=== PATIENT | female | born 1930 | race Caucasian/White ===

== ENCOUNTER 2017-02-06 02:22 | Emergency (ER) | payer OTHER, BC ==
[2017-02-06 03:06] VITALS: BMI 29.2
--- NOTE | 2017-02-06 03:08 | PDOC ---
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 Patient denies any injuries but states she is not sure if she twisted her leg when she stood up. She denies any calf pain, extremity numbness or tingling sensation, headache, dizziness, lightheadedness, chest pain, shortness of breath. The pain is exacerbated at touch and alleviated at rest. Occurred: reports: this evening Lower Extremity Pain Location: left: knee (lat pain) Lower Ext. Injury Location - Specific Injury Location Legs: bilateral: normal inspection, non-tender, normal range of motion Knees: left pain (lat ) Extremity Pain Location - Extremity Pain Location Extremity Pain Locations: left: knee Past History - Travel Traveled outside of the country in the last 30 days: No Close contact w/someone who was outside of country & ill: No - Past Medical History Allergies/Adverse Reactions: Allergies Allergy/AdvReac Type Severity Reaction Status Date / Time No Known Allergies Allergy Verified 02/06/17 03:04 Home Medications: Ambulatory Orders Atorvastatin Ca [Lipitor] 10 mg PO HS 08/02/14 Levothyroxine [Synthroid -] 100 mcg PO DAILY #90 tablet 09/12/14 Warfarin Na [Coumadin -] 2.5 mg PO DAILY@1800 tablet 03/18/15 Spironolactone [Aldactone] 25 mg PO DAILY 09/24/15 Warfarin Na [Coumadin -] 5 mg PO Q2D 09/24/15 Furosemide [Lasix -] 20 mg PO ASDIR 04/23/16 Furosemide [Lasix -] 40 mg PO ASDIR 04/23/16 Prednisone [Deltasone] 20 mg PO DAILY #5 tablet 04/23/16 Allopurinol [Zyloprim -] 100 mg PO DAILY 02/06/17 Atenolol [Tenormin] 75 mg PO DAILY 02/06/17 Isosorbide Mononitrate [Imdur] 30 mg PO DAILY 02/06/17 Pantoprazole Sodium 40 mg PO DAILY 02/06/17 Anemia: No Asthma: No Cancer: Yes (colon ca/ SURGIRY 2013) Cardiac Disorders: Yes (mechanical valve) CVA: No COPD: No CHF: No Dementia: No Diabetes: No GI Disorders: Yes (PERF SURGERY 07/2014) Disorders: No HTN: Yes Hypercholesterolemia: Yes Liver Disease: No Seizures: No Thyroid Disease: No - Surgical History Abdominal Surgery: Yes (colon sx) Appendectomy: Yes Cardiac Surgery: Yes (VALVE REPLACEMENT) Cholecystectomy: No Lung Surgery: No Neurologic Surgery: No Orthopedic Surgery: No - Immunization History Immunization Up to Date: Yes - Psycho/Social/Smoking Cessation Hx Anxiety: No Suicidal Ideation: No Smoking Status: No Smoking History: Former smoker Years of Tobacco Use: 20 Have you smoked in the past 12 months: No Number of Cigarettes Smoked Daily: 0 If you are a former smoker, when did you quit?: 1970s Cigars Per Day: 0 Information on smoking cessation initiated: No Hx Alcohol Use: No Drug/Substance Use Hx: No Substance Use Type: None Hx Substance Use Treatment: No Review of Systems - Review of Systems Able to Perform ROS?: Yes Comments:: 02/06/17 03:12 CONSTITUTIONAL: Absent: fever, chills, diaphoresis, generalized weakness, malaise, loss of appetite HEENT: Absent: rhinorrhea, nasal congestion, throat pain, throat swelling, difficulty swallowing, mouth swelling, ear pain, eye pain, visual Changes CARDIOVASCULAR: Absent: chest pain, loss of consciousness, palpitations, irregular heart rate, peripheral edema RESPIRATORY: Absent: cough, shortness of breath, dyspnea with exertion, orthopnea, wheezing, stridor, hemoptysis MUSCULOSKELETAL: Absent: myalgia, arthralgia, joint swelling SKIN: Absent: rash, itching, pallor HEMATOLOGIC/IMMUNOLOGIC: Absent: easy bleeding, easy bruising, lymphadenopathy, frequent infections Is the patient limited Peruvian proficient: No *Physical Exam - Vital Signs Last Vital Signs Temp Pulse Resp BP Pulse Ox 97.9 F 83 18 120/58 97 02/06/17 03:04 02/06/17 03:04 02/06/17 03:04 02/06/17 03:04 02/06/17 03:04 - Physical Exam Comments: 02/06/17 03:13 left knee F.R.O.M. +pain to lat aspect on palp Neg swelling Neg deformities Left lower leg Neg benjy's Neg swelling neg deformity Left hip F.R.O.M. neg pain on palp GENERAL: Well developed, well nourished. Awake and alert. No acute distress. HEENT: Normocephalic, atraumatic. PERRLA, EOMI. No conjunctival pallor. Sclera are non- icteric. Moist mucous membranes. Oropharynx is clear. NECK: Supple. Full ROM. No JVD. Carotid pulses 2+ and symmetric, without bruits. No thyromegaly. No lymphadenopathy. CARDIOVASCULAR: Regular rate and rhythm. No murmurs, rubs, or gallops. Distal pulses are 2+ and symmetric. PULMONARY: No evidence of respiratory distress. Lungs clear to auscultation bilaterally. No wheezing, rales or rhonchi. ABDOMINAL: Soft. Non-tender. Non-distended. No rebound or guarding. No organomegaly. Normoactive bowel sounds. MUSCULOSKELETAL Normal range of motion at all joints. No bony deformities or tenderness. No CVA tenderness. EXTREMITIES: No cyanosis. No clubbing. No edema. No calf tenderness. SKIN: Warm and dry. Normal capillary refill. No rashes. No jaundice. NEUROLOGICAL: Alert, awake, appropriate. Cranial nerves 2-12 intact. No deficits to light touch and temperature in face, upper extremities and lower extremities. No motor deficits in the in face, upper extremities and lower extremities. Normoreflexic in the upper and lower extremities. Normal speech. Toes are down- going bilaterally. Gait is normal without ataxia. PSYCHIATRIC: Cooperative. Good eye contact. Appropriate mood and affect. Progress Note - Progress Note Progress Note: 0700hrs: Signed out to JOSE ALFREDO De La Cruz/ Duplex to right lower leg R/O DVT *DC/Admit/Observation/Transfer Diagnosis at time of Disposition: Left leg swelling - Discharge Dispostion Disposition: HOME Condition at time of disposition: Good - Referrals Referrals: Isrrael Lua MD [Primary Care Provider] - - Patient Instructions Additional Instructions: Your ultrasound was negative for clot. The source of your swelling is unclear at this time. Take Tylenol as needed for pain Your INR was 4.3. Skip coumadin dose tonight and contact your legal paraprofessional in the am for further instructions.
[2017-02-06 04:00] LABS: INR 4.32 (0.82-1.09)
[2017-02-06 06:51] VITALS: BP 117/79; PULSE 71; TEMP 97.1
--- NOTE | 2017-02-06 07:24 | PDOC ---
*Physical Exam - Vital Signs Last Vital Signs Temp Pulse Resp BP Pulse Ox 97.1 F L 71 18 117/79 97 02/06/17 06:49 02/06/17 06:49 02/06/17 06:49 02/06/17 06:49 02/06/17 06:49 - Physical Exam General Appearance: Yes: Appropriately Dressed. No: Apparent Distress HEENT: positive: Normal Voice Neck: positive: Supple Respiratory/Chest: positive: Lungs Clear, Normal Breath Sounds. negative: Respiratory Distress Cardiovascular: positive: Regular Rate, S1, S2 Extremity: positive: Swelling (on LLE, +ttp to latreral L knee, no erythema or increased warmth, pedal pulses intact) Integumentary: positive: Warm Neurologic: positive: Fully Oriented, Alert, Normal Mood/Affect ED Treatment Course - ADDITIONAL ORDERS Additional order review: Laboratory Results 02/06/17 02/06/17 03:30 03:30 INR 4.32 H* D-Dimer < 200 Medical Decision Making - Medical Decision Making 02/06/17 07:23 Received sign out at 7am Pt is a 86 yo F, mechanical heart valve on coumadin, colon ca, p/w LLE pain and swelling. US pending though ddimer neg so m/l not DVT. Pt declines pain meds presently 02/06/17 07:43 On reassessment, pt still declines pain meds. Does have mild swelling diffusely of LLE compared to R, w/ ttp to lateral aspect of knee, no s/o infxn. If US is neg, will dc w/ pain control and PMD f/u. INR >4. No e/o bleeding at this time. Will discuss AC management w/ ED attg 02/06/17 10:09 DVT study neg. Pt bearing weight w/ cane in ED. Will dc to take tylenol as needed for pain. Informed that her INR was 4. Told to skip coumadin dose tonight and contact her cards tomorrow for further recommendations 02/06/17 10:16 02/06/17 10:18 *DC/Admit/Observation/Transfer Diagnosis at time of Disposition: Left leg swelling - Discharge Dispostion Disposition: HOME Condition at time of disposition: Good - Referrals Referrals: sIrrael Lua MD [Primary Care Provider] - - Patient Instructions Additional Instructions: Your ultrasound was negative for clot. The source of your swelling is unclear at this time. Take Tylenol as needed for pain Your INR was 4.3. Skip coumadin dose tonight and contact your establishment guide in the am for further instructions. - Post Discharge Activity
== END 2017-02-06 10:36 | disposition home or self-care (01) ==
LOC: JER 02:22
DX: M79.89 Other specified soft tissue disorders (principal); Z85.038 Personal history of other malignant neoplasm of large intestine; I10 Essential (primary) hypertension; E78.00 Pure hypercholesterolemia, unspecified; I51.9 Heart disease, unspecified; Z87.891 Personal history of nicotine dependence
CPT/HCPCS: 36415; 73590-TC-LT; 85379; 85610; 93970-TC; 99282-25

== ENCOUNTER 2017-06-06 11:44 | Emergency (ER) | payer OTHER, BC ==
[2017-06-06 11:55] VITALS: BMI 25.0
--- NOTE | 2017-06-06 12:29 | PDOC ---
History of Present Illness - General Chief Complaint: Wound Infection Stated Complaint: LT TOE INFECTION Time Seen by Provider: 06/06/17 12:28 History Source: Patient Exam Limitations: No Limitations - History of Present Illness Initial Comments: 06/06/17 13:15 Patient is an 86-year-old female with past medical history of A. fib on warfarin , hypothyroidism, HLD, mechanical heart valve, who presents to the emergency department today complaining of a left toe infection. Patient states that her toe infection started approximately 3 days ago. Patient states that she got a pedicure on Tuesday and noticed the infection shortly thereafter. She states that it has been draining clear to yellow fluid. She has been putting bacitracin on the site. She denies pain. Denies fevers, chills, nausea, vomiting and diarrhea. Denies dizziness, chest pain, shortness of breath, lightheadedness, and weakness. Past History - Travel Traveled outside of the country in the last 30 days: No Close contact w/someone who was outside of country & ill: No - Past Medical History Allergies/Adverse Reactions: Allergies Allergy/AdvReac Type Severity Reaction Status Date / Time No Known Allergies Allergy Verified 06/06/17 11:55 Home Medications: Ambulatory Orders Atorvastatin Ca [Lipitor] 10 mg PO HS 08/02/14 Levothyroxine [Synthroid -] 100 mcg PO DAILY #90 tablet 09/12/14 Warfarin Na [Coumadin -] 2.5 mg PO DAILY@1800 tablet 03/18/15 Spironolactone [Aldactone] 25 mg PO DAILY 09/24/15 Warfarin Na [Coumadin -] 5 mg PO Q2D 09/24/15 Furosemide [Lasix -] 20 mg PO ASDIR 04/23/16 Furosemide [Lasix -] 40 mg PO ASDIR 04/23/16 Prednisone [Deltasone] 20 mg PO DAILY #5 tablet 04/23/16 Allopurinol [Zyloprim -] 100 mg PO DAILY 02/06/17 Atenolol [Tenormin] 75 mg PO DAILY 02/06/17 Isosorbide Mononitrate [Imdur] 30 mg PO DAILY 02/06/17 Pantoprazole Sodium 40 mg PO DAILY 02/06/17 Cephalexin Monohydrate [Keflex -] 500 mg PO Q6H #28 capsule 06/06/17 Sulfamethoxazole/Trimethoprim [Bactrim Ds Tablet] 1 each PO BID #14 tablet 06/06 Anemia: No Asthma: No Cancer: Yes (colon ca/ SURGIRY 2013) Cardiac Disorders: Yes (mechanical valve) CVA: No COPD: No CHF: No Dementia: No Diabetes: No GI Disorders: Yes (PERF SURGERY 07/2014) Disorders: No HTN: Yes Hypercholesterolemia: Yes Liver Disease: No Seizures: No Thyroid Disease: No - Surgical History Abdominal Surgery: Yes (colon sx) Appendectomy: Yes Cardiac Surgery: Yes (VALVE REPLACEMENT) Cholecystectomy: No Lung Surgery: No Neurologic Surgery: No Orthopedic Surgery: No - Immunization History Immunization Up to Date: Yes - Psycho/Social/Smoking Cessation Hx Anxiety: No Suicidal Ideation: No Smoking Status: No Smoking History: Never smoked Years of Tobacco Use: 20 Have you smoked in the past 12 months: No Number of Cigarettes Smoked Daily: 0 If you are a former smoker, when did you quit?: 1970s Cigars Per Day: 0 Information on smoking cessation initiated: No Hx Alcohol Use: No Drug/Substance Use Hx: No Substance Use Type: None Hx Substance Use Treatment: No Review of Systems - Review of Systems Able to Perform ROS?: Yes Is the patient limited Filipino proficient: No Constitutional: No: Chills, Fever, Malaise, Weakness Respiratory: No: Cough, Shortness of Breath, Wheezing Cardiac (ROS): Yes: Irregular Heart Rate. No: Chest Pain, Edema, Lightheadedness, Palpitations, Syncope ABD/GI: No: Nausea, Vomiting Integumentary: Yes: Change in Hair/Nails (redness surrounding the L 1st toe nail ), Erythema (L 1st toe. ) Neurological: No: Numbness, Tremors, Weakness *Physical Exam - Vital Signs Last Vital Signs Temp Pulse Resp BP Pulse Ox 98.2 F 120 H 16 130/76 95 06/06/17 11:52 06/06/17 11:52 06/06/17 11:52 06/06/17 11:52 06/06/17 11:52 - Physical Exam Comments: 06/06/17 13:17 GENERAL: Well developed, well nourished. Awake, alert and oriented x3. No acute distress breathing easily on RA sitting on exam bed. HEENT: Normocephalic, atraumatic. PERRLA, EOMI. No conjunctival pallor. Sclera are non- icteric. Moist mucous membranes. Oropharynx is clear. NECK: Supple. Full ROM. No JVD. Carotid pulses 2+ and symmetric, without bruits. No thyromegaly. No lymphadenopathy. CARDIOVASCULAR: Tachycardic. No murmurs, rubs, or gallops. Mechanical click present. Distal pulses are 2+ and symmetric. PULMONARY: No evidence of respiratory distress. Lungs clear to auscultation bilaterally. No wheezing, rales or rhonchi. ABDOMINAL: Soft. Non-tender. Non-distended. No rebound or guarding. No organomegaly. Normoactive bowel sounds. MUSCULOSKELETAL Normal range of motion at all joints. No bony deformities or tenderness. No CVA tenderness. EXTREMITIES: No cyanosis. No clubbing. No edema. No calf tenderness. SKIN: Open draining paronychia along the medial first toe border. Cellulitic changes surrounding the first toe to just distal to the DIP. Mild tenderness to palpation of the left toe. Warm and dry. Normal capillary refill. No jaundice. NEUROLOGICAL: Alert, awake, appropriate. Cranial nerves 2-12 intact. No deficits to light touch and temperature in face, upper extremities and lower extremities. No motor deficits in the in face, upper extremities and lower extremities. Normoreflexic in the upper and lower extremities. Normal speech. Toes are down- going bilaterally. Gait is normal without ataxia. PSYCHIATRIC: Cooperative. Good eye contact. Appropriate mood and affect. ED Treatment Course - LABORATORY CBC & Chemistry Diagram: 06/06/17 12:45 06/06/17 12:48 Medical Decision Making - Medical Decision Making 06/06/17 13:20 Patient is an 86-year-old female with past medical history of A. fib on warfarin , hypothyroidism, HLD, mechanical heart valve, who presents to the emergency department today complaining of a left toe infection. Vital signs are notable for a pulse of 120. Overall patient appears well, and is afebrile. Patient is not immunocompromised. The wound is currently open and draining with surrounding cellulitis just lateral to the DIP. If CBC is within normal limits and patient is no longer tachycardic in the emergency department, will discharge home. 1. CBC, CMP, PT/INR, UA, blood cultures, wound culture 2. EKG, rectal temperature 3. soak the wound 4. Reevaluate 06/06/17 14:57 WBCs are within normal limits and the wound has been soaked. A small amount of pus has evacuated from the toe, and after the pus was evacuated blood drained. Patient is feeling well, heart rate has come down to 84 at this time. Still waiting for the CMP results. EKG shows a rate of 92, Afib, normal axis. No acute ST-T wave changes. 06/06/17 15:48 PT/INR is 3.6 at this time slightly elevated from 3.5. Patient is advised to follow-up with her biomedical equipment specialist. CMP shows a potassium within normal limits, BUN slightly elevated at 21 however the creatinine is 1.0. Patient has remained afebrile in the emergency department and pulse rate has come down between the 80s and 90s. Explained to patient that she needs to soak the wound at least 4 times a day to help the infection come out. Also explained to the patient that she'll be prescribed both Bactrim and Keflex to cover for skin miya. Instructed the patient that she needs to follow up with her biomedical equipment specialist in 3 days to have a repeat PT/INR drawn as well as a repeat CMP drawn as these medications can affect her potassium levels and make her PT/INR rise. Patient confers understanding that she needs to follow up with her biomedical equipment specialist and states that she will call her biomedical equipment specialist after she leaves the emergency department. Patient is also to schedule an appointment with a dual hose cementer to keep an eye on the healing process. Patient understands that if the area of redness gets larger she is to return to the emergency department. Patient understands the need to take the antibiotics. Patient feels comfortable with discharge planning. Patient states that she understands all discharge instructions and all questions were answered at this time. *DC/Admit/Observation/Transfer Diagnosis at time of Disposition: Paronychia, Cellulitis of toe of left foot - Discharge Dispostion Disposition: HOME Condition at time of disposition: Improved Admit: No - Prescriptions Prescriptions: Sulfamethoxazole/Trimethoprim [Bactrim Ds Tablet] 1 each PO BID #14 tablet Cephalexin Monohydrate [Keflex -] 500 mg PO Q6H #28 capsule - Referrals Referrals: Isrrael Lua MD [Primary Care Provider] - Ney Car MD [Staff Physician] - Dheeraj Coates MD [Staff Physician] - - Patient Instructions Printed Discharge Instructions: DI for Paronychia, DI for Cellulitis -- Adult Additional Instructions: You have an infection of your left first toe. It is important that you take your antibiotics as prescribed. You were prescribed Bactrim and Keflex. Take the full doses even if you feel better. Take the medication with a full stomach. Your given her first dose here in the emergency department. You can bead picker the prescription at her pharmacy. It is important that you call your biomedical equipment specialist tomorrow. These antibiotics can affect your INR and potassium. You need to have your INR and potassium checked on . If these values cannot be checked in the biomedical equipment specialist's office, return to the emergency department and we and redraw your lab work here. Soak your toe for 20 minutes 4 times a day. This will help to draw out the infection. Do not use Neosporin over the area as it can close the wound. Keep the foot elevated and out of a shoe when resting. Follow up with the foot doctor within the week. There is a phone number attacks in your discharge instructions. Return to the emergency department if you develope fevers, chills, nausea, vomiting, worsening of the redness around her toe, or any other changes in your symptoms
[2017-06-06 12:56] LABS: BASOPHIL 0.3 % (0-2.0); MCH 27.5 pg (25.7-33.7); MEAN CELL VOLUME 83.5 fl (80-96); MEAN PLT VOLUME 9.9 fl (7.5-11.1); NEUTROPHILS 73.7 % (42.8-82.8); PLATELET COUNT 163 K/MM3 (134-434); RDW 17.1 % (11.6-15.6); WHITE BLOOD COUNT 6.7 K/mm3 (4.0-10.0)
[2017-06-06 13:18] LABS: INR 3.64 (0.82-1.09); PROTHROMBIN TIME (PATIENT) 41.1 SEC (9.98-11.88)
[2017-06-06 13:22] LABS: ALBUMIN 4.4 g/dl (3.4-5.0); ANION GAP 7 (8-16); CALCIUM 9.7 mg/dL (8.5-10.1); CO2 32 mmol/L (21-32); GLUCOSE,RANDOM 113 mg/dL (74-106)
[2017-06-06 14:33] LABS: ALK PHOS 140 U/L (45-117); SGOT/AST 28 U/L (15-37); TOT PROT 8.5 g/dl (6.4-8.2)
[2017-06-06 14:52] LABS: SGPT/ALT 20 U/L (12-78)
--- NOTE | 2017-06-06 15:47 | PDOC ---
*Physical Exam - Vital Signs Last Vital Signs Temp Pulse Resp BP Pulse Ox 98.2 F 120 H 16 130/76 95 06/06/17 11:52 06/06/17 11:52 06/06/17 11:52 06/06/17 11:52 06/06/17 11:52 - Physical Exam General Appearance: Yes: Nourished Respiratory/Chest: positive: Lungs Clear, Normal Breath Sounds Cardiovascular: positive: Regular Rate, S1, S2 Gastrointestinal/Abdominal: positive: Normal Bowel Sounds, Tender, Flat Musculoskeletal: positive: Normal Inspection Integumentary: positive: Normal Color, Dry, Warm, Other (left great toe with erythema to great toe IP, no foot erythema. mild expressable pus medial corner. ) Neurologic: positive: Fully Oriented, Alert, Normal Mood/Affect Heart Score/ECG Review #1 General ECG Interpretation: Sinus Rhythm (junctional with premature beats.), Normal Rate (94 bpm, no st t wave changes), Normal Intervals ED Treatment Course - LABORATORY CBC & Chemistry Diagram: 06/06/17 12:45 06/06/17 12:48 - ADDITIONAL ORDERS Additional order review: Laboratory Results 06/06/17 06/06/17 12:48 12:48 INR 3.64 H Sodium 138 Potassium 3.8 Chloride 99 Carbon Dioxide 32 Anion Gap 7 L BUN 21 H Random Glucose 113 H Calcium 9.7 Total Bilirubin 1.0 D AST 28 D ALT 20 Alkaline Phosphatase 140 H Total Protein 8.5 H Albumin 4.4 06/06/17 12:45 RBC 4.34 MCV 83.5 MCHC 33.0 RDW 17.1 H MPV 9.9 Neutrophils % 73.7 Lymphocytes % 16.3 D Monocytes % 8.7 Eosinophils % 1.0 Basophils % 0.3 D Medical Decision Making - Medical Decision Making 06/06/17 15:44 86 yo F with h/o afib, on coumadin with paronychia, toe swelling and erythema. draining. no further drainage needed. plan for abx and podiatry followup. 06/06/17 15:47 pt seen in conjunction with andrew Burks. seen and examined and agree with plan
[2017-06-06 15:51] VITALS: TEMP 99.4
[2017-06-06 16:09] VITALS: BP 137/76; PULSE 96
[2017-06-06] MEDS ORDERED: CEPHALEXIN MONOHYDRATE 500 MG CAPSULE (UD) PO ONE (17:03)
[2017-06-06] MEDS ORDERED: SULFAMETHOXAZOLE/TRIMETHOPRIM 800MG/160MG D.S. TABLET PO ONE (17:03)
[2017-06-06] MEDS ORDERED: SULFAMETHOXAZOLE/TRIMETHOPRIM 800MG/160MG D.S. TABLET ONE (17:25)
[2017-06-06] MEDS ORDERED: CEPHALEXIN MONOHYDRATE 250 MG CAPSULE (FP) ONE (17:25)
--- NOTE | 2017-06-08 16:47 | EKG ---
Test Reason : Blood Pressure : / mmHG Vent. Rate : 094 BPM Atrial Rate : 094 BPM P-R Int : 000 ms QRS Dur : 086 ms QT Int : 378 ms P-R-T Axes : 000 049 024 degrees QTc Int : 472 ms ACCELERATED JUNCTIONAL RHYTHM WITH PREMATURE SUPRAVENTRICULAR COMPLEXES POSSIBLE ANTEROSEPTAL INFARCT (CITED ON OR BEFORE 23-APR-2016) ABNORMAL ECG WHEN COMPARED WITH ECG OF 23-APR-2016 15:18, JUNCTIONAL RHYTHM HAS REPLACED ATRIAL FIBRILLATION QUESTIONABLE CHANGE IN INITIAL FORCES OF ANTERIOR LEADS QT HAS LENGTHENED Confirmed by GITA POPE MD ([id number]) on 06/08/2017 4:46:51 PM Referred By: Confirmed By:GITA POPE MD
== END 2017-06-06 17:43 | disposition home or self-care (01) ==
LOC: JER 11:44
DX: L03.032 Cellulitis of left toe (principal); Z85.038 Personal history of other malignant neoplasm of large intestine; I10 Essential (primary) hypertension; E78.00 Pure hypercholesterolemia, unspecified; Z87.891 Personal history of nicotine dependence
CPT/HCPCS: 36415; 80053; 85025; 85610; 87040; 87070; 87186; 87205; 93005; 93010; 99283-25

== ENCOUNTER 2018-05-07 13:51 | Inpatient (IN) | payer OTHER, BC ==
--- NOTE | 2018-05-07 13:59 | PDOC ---
History of Present Illness <Lydia Mandujano - Last Filed: 05/07/18 17:14> - History of Present Illness Initial Comments: 05/07/18 13:57 87 yo F with h/o HLD, A. fib on warfarin, hypothyroidism, mechanical heart valve, BIBA with R hip and thigh pain s/p mechanical fall. 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 Patient on ground 30-45 minutes. Did not ambulate following event. Not able to move leg at R hip following fall. Typically ambulates with walker. Denies head/neck/back trauma, laceration, or LOC. Denies recurrent falls. Patient denies N/V, F/C, CP, SOB, urinary complaints, abdominal pain, diarrhea, constipation, lightheadedness, weakness, sensory changes. PMHx: as noted above ROS: as noted SHx: Denies Etoh, IVDA. Allergies: NKDA <Mustapha Howard - Last Filed: 05/07/18 17:29> - General Chief Complaint: Injury Stated Complaint: FALL Time Seen by Provider: 05/07/18 13:55 Past History <Lydia Mandujano - Last Filed: 05/07/18 17:14> - Past Medical History Anemia: No Asthma: No Cancer: Yes (colon ca/ SURGIRY 2013) Cardiac Disorders: Yes (mechanical valve) CVA: No COPD: No CHF: No Dementia: No Diabetes: No GI Disorders: Yes (PERF SURGERY 07/2014) Disorders: No HTN: Yes Hypercholesterolemia: Yes Liver Disease: No Seizures: No Thyroid Disease: No - Surgical History Abdominal Surgery: Yes (colon sx) Appendectomy: Yes Cardiac Surgery: Yes (VALVE REPLACEMENT) Cholecystectomy: No Lung Surgery: No Neurologic Surgery: No Orthopedic Surgery: No - Immunization History Immunization Up to Date: Yes - Suicide/Smoking/Psychosocial Hx Smoking Status: No Smoking History: Never smoked Years of Tobacco Use: 20 Have you smoked in the past 12 months: No Number of Cigarettes Smoked Daily: 0 If you are a former smoker, when did you quit?: 1970s Cigars Per Day: 0 Hx Alcohol Use: No Drug/Substance Use Hx: No Substance Use Type: None Hx Substance Use Treatment: No <Mustapha Howard - Last Filed: 05/07/18 17:29> - Past Medical History Allergies/Adverse Reactions: Allergies Allergy/AdvReac Type Severity Reaction Status Date / Time No Known Allergies Allergy Verified 05/07/18 15:39 Home Medications: Ambulatory Orders Atorvastatin Ca [Lipitor] 10 mg PO HS 08/02/14 Levothyroxine [Synthroid -] 100 mcg PO DAILY #90 tablet 09/12/14 Spironolactone [Aldactone] 25 mg PO DAILY 09/24/15 Warfarin Na [Coumadin -] 4 mg PO ASDIR 09/24/15 Furosemide [Lasix -] 40 mg PO DAILY 04/23/16 Allopurinol [Zyloprim -] 100 mg PO DAILY 02/06/17 Atenolol [Tenormin] 50 mg PO DAILY 02/06/17 Isosorbide Mononitrate [Imdur] 30 mg PO DAILY 02/06/17 Pantoprazole Sodium 40 mg PO DAILY 02/06/17 Calcium Carbonate/Vitamin D3 [Calcium 600-Vit D3 2,500 Sftgl] 1 each PO ASDIR Gabapentin [Neurontin] 100 mg PO BID 05/07/18 Ibandronate Sodium 150 mg PO MONTHLY 05/07/18 Warfarin Na [Coumadin -] 2 mg PO ASDIR 05/07/18 Review of Systems - Review of Systems Comments:: 05/07/18 13:57 GENERAL/CONSTITUTIONAL: No fever or chills. No weakness. HEAD, EYES, EARS, NOSE AND THROAT: No change in vision. No ear pain or discharge. No sore throat. CARDIOVASCULAR: No chest pain or shortness of breath RESPIRATORY: No cough, wheezing, or hemoptysis. GASTROINTESTINAL: No nausea, vomiting, diarrhea or constipation. GENITOURINARY: No dysuria, frequency, or change in urination. MUSCULOSKELETAL: + R hip and thigh pain. No neck or back pain. SKIN: No rash NEUROLOGIC: No headache, vertigo, loss of consciousness, or change in strength/ sensation. ENDOCRINE: No increased thirst. No abnormal weight change HEMATOLOGIC/LYMPHATIC: No anemia, easy bleeding, or history of blood clots. ALLERGIC/IMMUNOLOGIC: No hives or skin allergy. <Mustapha Howard - Last Filed: 05/07/18 17:29> *Physical Exam - Vital Signs Last Vital Signs Temp Pulse Resp BP Pulse Ox 97.6 F 91 H 16 151/75 96 05/07/18 13:55 05/07/18 15:05 05/07/18 13:55 05/07/18 15:05 05/07/18 15:05 <Lydia Mandujanolarry - Last Filed: 05/07/18 17:14> - Physical Exam Comments: 05/07/18 13:57 GENERAL: Awake, alert, and fully oriented, in no acute distress HEAD: No signs of trauma, normocephalic, atraumatic EYES: PERRLA, EOMI, sclera anicteric, conjunctiva clear ENT: Auricles normal inspection, hearing grossly normal, nares patent, oropharynx clear without exudates. Moist mucosa NECK: Normal ROM, supple, no lymphadenopathy, JVD, or masses LUNGS: No distress, speaks full sentences, clear to auscultation bilaterally HEART: + Mechanical murmur. Regular rate and rhythm, normal S1 and S2, , rubs or gallops, peripheral pulses normal and equal bilaterally. ABDOMEN: Soft, nontender, normoactive bowel sounds. No guarding, no rebound. No masses EXTREMITIES :No edema. No clubbing or cyanosis. R THIGH: R leg slightly externally rotated and appears shortened. No obvious bony deformity, ttp. No skin change. SKIN: Warm, Dry, normal turgor, no rashes or lesions noted <Mustapha Howard - Last Filed: 05/07/18 17:29> ED Treatment Course - LABORATORY CBC & Chemistry Diagram: 05/07/18 15:15 05/07/18 15:15 - ADDITIONAL ORDERS Additional order review: Laboratory Results 05/07/18 05/07/18 05/07/18 15:15 15:15 15:15 PT with INR 35.70 H INR 3.16 H Sodium 138 Potassium 3.6 Chloride 100 Carbon Dioxide 30 Anion Gap 8 BUN 25 H Creatinine 0.9 Creat Clearance w eGFR 59.23 Random Glucose 152 H Calcium 9.2 Total Bilirubin 0.8 AST 25 ALT 19 Alkaline Phosphatase 137 H Total Protein 7.7 Albumin 3.7 Urine Color Urine Appearance Urine pH Ur Specific [place] Urine Protein Urine Glucose (UA) Urine Ketones Urine Blood Urine Nitrite Urine Bilirubin Urine Urobilinogen Ur Leukocyte Esterase Blood Type O POSITIVE Antibody Screen Positive H 05/07/18 15:07 PT with INR INR Sodium Potassium Chloride Carbon Dioxide Anion Gap BUN Creatinine Creat Clearance w eGFR Random Glucose Calcium Total Bilirubin AST ALT Alkaline Phosphatase Total Protein Albumin Urine Color Straw Urine Appearance Clear Urine pH 6.0 Ur Specific [place] 1.005 Urine Protein Negative Urine Glucose (UA) Negative Urine Ketones Negative Urine Blood Negative Urine Nitrite Negative Urine Bilirubin Negative Urine Urobilinogen Negative Ur Leukocyte Esterase Negative Blood Type Antibody Screen 05/07/18 15:15 RBC 3.95 MCV 82.9 MCHC 32.5 RDW 16.3 H MPV 10.3 Neutrophils % 82.4 Lymphocytes % 9.2 D Monocytes % 7.4 Eosinophils % 0.9 Basophils % 0.1 - Medications Given in the ED: ED Medications Discontinued Medications Generic Name Dose Route Start Last Admin Trade Name Freq PRN Reason Stop Dose Admin Acetaminophen 650 mg 05/07/18 14:16 05/07/18 15:00 Tylenol - PO 05/07/18 14:17 650 mg ONCE ONE Administration Morphine Sulfate 4 mg 05/07/18 15:59 05/07/18 16:20 Morphine Injection - IVPUSH 05/07/18 16:00 4 mg ONCE ONE Administration Ondansetron HCl 4 mg 05/07/18 15:59 05/07/18 16:20 Zofran Injection IVPUSH 05/07/18 16:00 4 mg ONCE ONE Administration <Lydia Mandujano - Last Filed: 05/07/18 17:14> - LABORATORY CBC & Chemistry Diagram: 05/07/18 15:15 05/07/18 15:15 <Mustapha Howard - Last Filed: 05/07/18 17:29> Medical Decision Making - Medical Decision Making 05/07/18 14:24 87 yo F with h/o HLD, A-fib on warfarin, hypothyroidism, mechanical heart valve , BIBA with R hip and thigh pain s/p mechanical fall.BP 189, vitals otherwise wnl, AF, GCS 15. + R limb length discrepancy and external rotation, + neurovascular intact. R/o hip fracture or dislocation. [place] CTH rules neg. Nexus C-spine neg. Patient unable to ambulate. ED Course: CBC, CMP Tylenol 05/07/18 15:55 R closed non displaced oblique femoral neck fracture. 05/07/18 15:57 Orthopedic answering service contacted. Awaiting call back. 05/07/18 16:00 Morphine, Zofran Admitted to med/surg Dr. Villeda. 05/07/18 16:11 Dr. Ellsworth orthopedics P.AByron made aware of case. Patient to become NPO at midnight. <Mustapha Howard - Last Filed: 05/07/18 17:29> *DC/Admit/Observation/Transfer - Discharge Dispostion Decision to Admit order: Yes <Lydia Mandujano - Last Filed: 05/07/18 17:14> - Discharge Dispostion Decision to Admit order: Yes - Attestations Physician Attestion: 05/07/18 13:58 I attest to the information provided in this note. <Mustapha Howard - Last Filed: 05/07/18 17:29> Diagnosis at time of Disposition: Femoral neck fracture Qualifiers: Encounter type: initial encounter Fracture type: closed Laterality: right Qualified Code(s): S72.001A - Fracture of unspecified part of neck of right femur, initial encounter for closed fracture
[2018-05-07] MEDS ORDERED: ACETAMINOPHEN 325 MG TABLET (FP) PO ONE (14:16)
[2018-05-07] MEDS ORDERED: ACETAMINOPHEN 650 MG/20.3 ML ORAL SOLUTION (CUPS) ONE (15:03)
[2018-05-07 15:17] LABS: URINE APPEARANCE CLEAR; URINE BILIRUBIN NEGATIVE (<2.0 mg/dL); URINE COLOR STRAW; URINE GLUCOSE (UA) NEGATIVE (NEGATIVE); URINE KETONE NEGATIVE (NEGATIVE); URINE LEUK ESTERASE NEGATIVE (NEGATIVE); URINE NITRITE NEGATIVE (NEGATIVE); URINE PROTEIN NEGATIVE (NEGATIVE); URINE UROBILINOGEN NEGATIVE mg/dL (0.2-1.0)
[2018-05-07 15:28] LABS: BASO % 0.1 % (0-2.0); EOS % 0.9 % (0-4.5); HEMATOCRIT 32.7 % (32.4-45.2); HEMOGLOBIN 10.6 GM/dL (10.7-15.3); LYMPH % 9.2 % (8-40); MCH 26.9 pg (25.7-33.7); MCHC 32.5 g/dl (32.0-36.0); MEAN CELL VOLUME 82.9 fl (80-96); MEAN PLT VOLUME 10.3 fl (7.5-11.1); MONO % 7.4 % (3.8-10.2); NEUT % 82.4 % (42.8-82.8); PLATELET COUNT 140 K/MM3 (134-434); RBC 3.95 M/mm3 (3.60-5.2); RDW 16.3 % (11.6-15.6); WHITE BLOOD COUNT 6.2 K/mm3 (4.0-10.0)
[2018-05-07 15:39] LABS: INR 3.16 (0.82-1.09); PROTHROMBIN TIME (PATIENT) 35.7 SEC (9.7-13.0)
[2018-05-07 15:57] LABS: ALBUMIN 3.7 g/dl (3.4-5.0); ANION GAP 8 (8-16); BILIRUBIN,TOTAL 0.8 mg/dL (0.2-1.0); BLOOD UREA NITROGEN 25 mg/dL (7-18); CALCIUM 9.2 mg/dL (8.5-10.1); CHLORIDE 100 mmol/L (98-107); CO2 30 mmol/L (21-32); CREATININE 0.9 mg/dL (0.55-1.02); GLUCOSE,RANDOM 152 mg/dL (74-106); POTASSIUM 3.6 mmol/L (3.5-5.1); SGOT/AST 25 U/L (15-37); SGPT/ALT 19 U/L (12-78); SODIUM 138 mmol/L (136-145); TOT PROT 7.7 g/dl (6.4-8.2)
[2018-05-07 15:58] LABS: ALK PHOS 137 U/L (45-117)
[2018-05-07] MEDS ORDERED: ONDANSETRON 4 MG/2 ML VIAL IVPUSH ONE (15:59)
[2018-05-07] MEDS ORDERED: morphine CARPU-JECT 4 MG/1 ML DISP.SYRIN IVPUSH ONE (15:59)
[2018-05-07] MEDS ORDERED: morphine SULFATE 4 MG/ML VIAL ONE (16:16)
[2018-05-07] MEDS ORDERED: ONDANSETRON 4 MG/2 ML VIAL ONE (16:16)
--- NOTE | 2018-05-07 16:22 | PDOC ---
Attending Attestation - HPI HPI: 05/07/18 17:15 Mr. Nandini Walden is a 87 year old with past medical history of Afib on coumadin, CAD, HTN, HLD, RH heart disease permanent/ AF s/p CEA/ TR with R. heart failure, Colon CA, GERD, CHF, gout, hypothyroidism, osteoporosis and PUD presents to the emergency department s/p a fall. The patient state she tried to sit onto a granite bench w/o looking when she suffered a fall, denies dizziness , LOC or vertigo. Patient states she landed on a carpeted floor injuring her R. hip. The patient reports pain to the R. hip, states she is unable to move the leg secondary to pain, with relief/no pain at rest. Denies numbness or tingling. Denies chest pain or shortness of breath. Denies vertigo or dizziness. Denies swelling. Allergies: NKDA Social history: Patient denies. Surgical history: Appendectomy, Carotid Endarterectomy (right carotid endarterectomy), Colectomy (right hemicolectomy 2013), Hysterectomy (MECHANICAL MITRAL VALVE REPLACEMENT), Valve Replacement PCP: Isrrael Reza Diesel Engine Engineer: Dr. Coates Senior Service Technician: Dr. Logan Surgery: Dr. Geller - Physicial Exam PE: 05/07/18 17:15 General: Well appearing, awake and alert, NAD. HEENT: NCAT, PERRL, EOMI, clear conjunctiva, anicteric, moist mucus membranes, clear oropharynx, no oral lesions.. Neck: neck supple, FROM, no JVD, LAD or masses, right lateral neck scar from CEA Lungs: CTAB, normal and even respirations, no respiratory distress Heart: holosystolic murmur, 2+ peripheral pulses throughout, no peripheral edema Abdomen: soft, NTND, no peritoneal signs. Back: nontender, normal inspection and ROM MSK: RLE externally rotated and shortened. No palp tenderness in entire extremity, +ROM limited at hip 2/2 pain and injury. No overt deformity. soft compartments, 2+ DP/radialis pulses. Cap refill <2 sec. Proximal and distal strength 5/5, Plantar flexion and dorsiflexion 5/5. Sensation grossly intact to light touch. Neuro: alert, oriented appropriately; no focal neurologic deficits. SILT, 5/5 distal and prox strength in all extrem. Skin: warm and well perfused, cap refill <2 sec, normal color - Medical Decision Making 05/07/18 17:16 Documentation prepared by Lani Valencia, acting as medical assistant supervisor for Lydia Mandujano MD. <Lani Valencia - Last Filed: 05/07/18 17:15> - Resident Resident Name: Chad Howardson - ED Attending Attestation I have performed the following: I have examined & evaluated the patient, The case was reviewed & discussed with the resident, I agree w/resident's findings & plan - Medical Decision Making 05/07/18 17:14 [place] -87M with PMHx Afib, mitral valve repair on coumadin, CAD, HTN, HLD, CHF, carotid artery disease s/p CEA, right heart failure, colon ca, GERD, gout, hypothyroid, osteoporosis and PUD presenting with mechanical fall as she was trying to sit on bench. No loc or head injury. Landed on right hip. Since then, severe pain, unable to ambulate, no neuro or skin changes. no prodromal sx. DDx. extremity fracture, hip/femur fx, Sprain, contusion, Low suspicion for compartment syndrome, NVI and no neuro deficits. low suspicion for vascular abnormality or infection. XR_ right femur fx. Pain control with tylenol/morphine. Ortho cs - called out to [facility], spoke with JOSE ALFREDO Tinsley, admit to Dr. Villeda (hospitalist) for pmd Dr. Radford, preop clearance and labs, ortho eval for operative management. Will need cards clearance as inpatient. Pt and family made aware of findings, impression and plan, questions answered, agreeable to plan. 05/07/18 17:29 <Lydia Mandujano - Last Filed: 05/07/18 17:30>
[2018-05-07] MEDS ORDERED: ONDANSETRON 4 MG/2 ML VIAL IVPUSH PRN (17:45)
[2018-05-07] MEDS ORDERED: ALBUTEROL SO4 0.083% IH SOL 2.5 MG/3 ML VIAL.NEB. NEB PRN (17:45)
--- NOTE | 2018-05-07 17:51 | PN ---
Physical Exam: SUBJECTIVE: Patient seen and examined OBJECTIVE: Vital Signs Period Temp Pulse Resp BP Sys/[place] Pulse Ox Last 24 Hr 97.6 F 91-97 16 151-189/75-89 96-100 GENERAL: The patient is awake, alert, and fully oriented, in no acute distress. HEAD: Normal with no signs of trauma. EYES: PERRL, extraocular movements intact, sclera anicteric, conjunctiva clear. No ptosis. ENT: Ears normal, nares patent, oropharynx clear without exudates, moist mucous membranes. NECK: Trachea midline, full range of motion, supple. LUNGS: Breath sounds equal, clear to auscultation bilaterally, no wheezes, no crackles, no accessory muscle use. HEART: Regular rate and rhythm, S1, S2 without murmur, rub or gallop. ABDOMEN: Soft, nontender, nondistended, normoactive bowel sounds, no guarding, no rebound, no hepatosplenomegaly, no masses. EXTREMITIES: 2+ pulses, warm, well-perfused, no edema. NEUROLOGICAL: Cranial nerves II through XII grossly intact. Normal speech, gait not observed. PSYCH: Normal mood, normal affect. SKIN: Warm, dry, normal turgor, no rashes or lesions noted Laboratory Results - last 24 hr 05/07/18 05/07/18 05/07/18 15:07 15:15 15:15 WBC 6.2 RBC 3.95 Hgb 10.6 L Hct 32.7 MCV 82.9 MCH 26.9 MCHC 32.5 RDW 16.3 H Plt Count 140 MPV 10.3 Absolute Neuts (auto) 5.1 Neutrophils % 82.4 Lymphocytes % 9.2 D Monocytes % 7.4 Eosinophils % 0.9 Basophils % 0.1 Nucleated RBC % 0 PT with INR 35.70 H INR 3.16 H Sodium Potassium Chloride Carbon Dioxide Anion Gap BUN Creatinine Creat Clearance w eGFR Random Glucose Calcium Total Bilirubin AST ALT Alkaline Phosphatase Total Protein Albumin Urine Color Straw Urine Appearance Clear Urine pH 6.0 Ur Specific [place] 1.005 Urine Protein Negative Urine Glucose (UA) Negative Urine Ketones Negative Urine Blood Negative Urine Nitrite Negative Urine Bilirubin Negative Urine Urobilinogen Negative Ur Leukocyte Esterase Negative Blood Type Antibody Screen 05/07/18 05/07/18 15:15 15:15 WBC RBC Hgb Hct MCV MCH MCHC RDW Plt Count MPV Absolute Neuts (auto) Neutrophils % Lymphocytes % Monocytes % Eosinophils % Basophils % Nucleated RBC % PT with INR INR Sodium 138 Potassium 3.6 Chloride 100 Carbon Dioxide 30 Anion Gap 8 BUN 25 H Creatinine 0.9 Creat Clearance w eGFR 59.23 Random Glucose 152 H Calcium 9.2 Total Bilirubin 0.8 AST 25 ALT 19 Alkaline Phosphatase 137 H Total Protein 7.7 Albumin 3.7 Urine Color Urine Appearance Urine pH Ur Specific [place] Urine Protein Urine Glucose (UA) Urine Ketones Urine Blood Urine Nitrite Urine Bilirubin Urine Urobilinogen Ur Leukocyte Esterase Blood Type O POSITIVE Antibody Screen Positive H Active Medications Generic Name Dose Route Start Last Admin Trade Name Freq PRN Reason Stop Dose Admin Allopurinol 100 mg 05/08/18 10:00 Zyloprim - PO DAILY [facility] Atenolol 50 mg 05/08/18 10:00 Tenormin - PO DAILY [facility] Atorvastatin Calcium 10 mg 05/07/18 22:00 Lipitor - PO HS [facility] Furosemide 40 mg 05/08/18 10:00 Lasix - PO DAILY [facility] Gabapentin 100 mg 05/07/18 22:00 Neurontin - PO BID [facility] Isosorbide Mononitrate 30 mg 05/08/18 10:00 Imdur - PO DAILY [facility] Levothyroxine Sodium 100 mcg 05/08/18 07:00 Synthroid - PO 0700 [facility] Non-Formulary Medication 1 each 05/07/18 17:45 Calcium Carbonate/Vitamin D3 [Calcium 600-Vit D3 2,500 Sftgl] PO ASDIR [facility] Pantoprazole Sodium 40 mg 05/08/18 10:00 Protonix - PO DAILY [facility] Spironolactone 25 mg 05/08/18 10:00 Aldactone - PO DAILY [facility] ASSESSMENT/PLAN:
[2018-05-07] MEDS: CALCIUM 500MG/VIT-D 200 UNITS COMBO TABLET (FP) PO SCH (18:55)
[2018-05-07] MEDS ORDERED: oxyCODONE HCL 5 MG TABLET ONE (19:02)
[2018-05-07] MEDS: oxyCODONE HCL 5 MG TABLET PO PRN (19:05)
--- NOTE | 2018-05-07 19:57 | HP ---
PCP: Isrrael Lua DISC INSPECTOR: Dheeraj Coates LENS INSERTER: Silvia Daigle CUPOLA MECHANIC: Liza Billingsley MEDICAL CASE MANAGER: Munira Easley CHIEF COMPLAINT: Right hip pain HISTORY OF PRESENT ILLNESS: This is an 87 year old woman who comes to the ED today complaining of pain in her right hip. [place] trying to sit on a bench. She was going backwards and mijudged the location of the bench. She fell onto her right hip. She had pain in the hip and could not get up. EMS was called. She denies head trauma, loss of consciousness. PAST MEDICAL HISTORY Atrial fibrillation Rheumatic heart disease CAD HTN Hyperlipidemia Severe tricuspid regurgitation RV heart failure Hypothyroidism Colon cancer PUD Stage 3 CKD PAST SURGICAL HISTORY Right hemicolectomy Mechanical MV replacement Hysterectomy Right carotid endarterectomy Appendectomy Repair of perforated peptic ulcer Allergies No Known Allergies Allergy (Verified 05/07/18 15:39) Home Medications Medication Instructions Recorded Atorvastatin Ca [Lipitor] 10 mg PO HS 08/02/14 Levothyroxine [Synthroid -] 100 mcg PO DAILY #90 tablet 09/12/14 Spironolactone [Aldactone] 25 mg PO DAILY 09/24/15 Warfarin Na [Coumadin -] 4 mg PO ASDIR 09/24/15 Furosemide [Lasix -] 40 mg PO DAILY 04/23/16 Allopurinol [Zyloprim -] 100 mg PO DAILY 02/06/17 Atenolol [Tenormin] 50 mg PO DAILY 02/06/17 Isosorbide Mononitrate [Imdur] 30 mg PO DAILY 02/06/17 Pantoprazole Sodium 40 mg PO DAILY 02/06/17 Calcium (Oyster Shell) [Os-Sumanth 600 mg PO DAILY 05/07/18 500Mg -] Cholecalciferol (Vitamin D3) 2,000 unit PO DAILY 05/07/18 [Vitamin D3 -] Gabapentin [Neurontin] 100 mg PO BID 05/07/18 Ibandronate Sodium 150 mg PO MONTHLY 05/07/18 Warfarin Na [Coumadin -] 2 mg PO ASDIR 05/07/18 Social History: Smoking: Former smoker Alcohol: Denies Drugs: Denies Family History: Non-conributory Recent Travel: No REVIEW OF SYSTEMS CONSTITUTIONAL: Absent: fever, chills, diaphoresis, generalized weakness, malaise, loss of appetite, weight change HEENT: Absent: rhinorrhea, nasal congestion, throat pain, throat swelling, difficulty swallowing, mouth swelling, ear pain, eye pain, visual changes CARDIOVASCULAR: Present: leg edema. Absent: chest pain, syncope, palpitations, lightheadedness RESPIRATORY: Absent: cough, shortness of breath, dyspnea with exertion, orthopnea, wheezing, stridor, hemoptysis GASTROINTESTINAL: Absent: abdominal pain, abdominal distension, nausea, vomiting , diarrhea, constipation, melena, hematochezia GENITOURINARY: Absent: dysuria, frequency, urgency, hesitancy, hematuria, flank pain MUSCULOSKELETAL: Present: right hip pain. Absent: back pain, neck pain SKIN: Absent: rash, itching, pallor HEMATOLOGIC/IMMUNOLOGIC: Absent: easy bleeding, easy bruising, lymphadenopathy, frequent infections ENDOCRINE: Absent: unexplained weight gain, unexplained weight loss, heat intolerance, cold intolerance NEUROLOGIC: Present: unsteady gait. Absent: headache, focal weakness, paresthesias, dizziness, seizure, mental status changes, bladder or bowel incontinence PSYCHIATRIC: Absent: anxiety, depression, suicidal or homicidal ideation, hallucinations. PHYSICAL EXAMINATION Vital Signs - 24 hr 05/07/18 05/07/18 05/07/18 13:55 15:05 19:05 Temperature 97.6 F Pulse Rate 97 H Pulse Rate [ 91 H 90 Apical] Respiratory 16 Rate Blood Pressure 189/89 Blood Pressure 151/75 117/64 [Left Arm] O2 Sat by Pulse 100 96 95 Oximetry (%) GENERAL: Awake, alert, and fully oriented, in no acute distress. HEAD: Normal with no signs of trauma. EYES: Pupils equal, round and reactive to light, extraocular movements intact, sclerae anicteric, conjunctivae clear. EARS, NOSE, THROAT: Ears normal, nares patent, oropharynx clear without exudates. Moist mucous membranes. NECK: Normal range of motion, supple without lymphadenopathy, JVD, or masses. LUNGS: Breath sounds equal, clear to auscultation bilaterally. No wheezes, and no crackles. No accessory muscle use. HEART: Irregularly irregular, (+) 2/6 SM, mechanical valve sounds. ABDOMEN: Obese, soft, nontender, not distended, normoactive bowel sounds, no guarding, no rebound, no masses. No hepatomegaly or splenomegaly. UPPER EXTREMITIES: 2+ pulses, warm, well-perfused. No cyanosis. No clubbing. No peripheral edema. LOWER EXTREMITIES: 2+ pulses, warm, well-perfused. No calf tenderness. 1+ edema of LLE. Bilateral varicosities. RLE shortened and externally rotated. NEUROLOGICAL: Cranial nerves II-XII intact. Normal speech. Gait not observed. PSYCHIATRIC: Cooperative. Good eye contact. Appropriate mood and affect. SKIN: Warm, dry, normal turgor, no rashes or lesions noted, normal capillary refill. Laboratory Results - last 24 hr 05/07/18 05/07/18 05/07/18 15:07 15:15 15:15 WBC 6.2 RBC 3.95 Hgb 10.6 L Hct 32.7 MCV 82.9 MCH 26.9 MCHC 32.5 RDW 16.3 H Plt Count 140 MPV 10.3 Absolute Neuts (auto) 5.1 Neutrophils % 82.4 Lymphocytes % 9.2 D Monocytes % 7.4 Eosinophils % 0.9 Basophils % 0.1 Nucleated RBC % 0 PT with INR 35.70 H INR 3.16 H Sodium Potassium Chloride Carbon Dioxide Anion Gap BUN Creatinine Creat Clearance w eGFR Random Glucose Calcium Total Bilirubin AST ALT Alkaline Phosphatase Total Protein Albumin Urine Color Straw Urine Appearance Clear Urine pH 6.0 Ur Specific [place] 1.005 Urine Protein Negative Urine Glucose (UA) Negative Urine Ketones Negative Urine Blood Negative Urine Nitrite Negative Urine Bilirubin Negative Urine Urobilinogen Negative Ur Leukocyte Esterase Negative Blood Type Antibody Screen 05/07/18 05/07/18 15:15 15:15 WBC RBC Hgb Hct MCV MCH MCHC RDW Plt Count MPV Absolute Neuts (auto) Neutrophils % Lymphocytes % Monocytes % Eosinophils % Basophils % Nucleated RBC % PT with INR INR Sodium 138 Potassium 3.6 Chloride 100 Carbon Dioxide 30 Anion Gap 8 BUN 25 H Creatinine 0.9 Creat Clearance w eGFR 59.23 Random Glucose 152 H Calcium 9.2 Total Bilirubin 0.8 AST 25 ALT 19 Alkaline Phosphatase 137 H Total Protein 7.7 Albumin 3.7 Urine Color Urine Appearance Urine pH Ur Specific [place] Urine Protein Urine Glucose (UA) Urine Ketones Urine Blood Urine Nitrite Urine Bilirubin Urine Urobilinogen Ur Leukocyte Esterase Blood Type O POSITIVE Antibody Screen Positive H ASSESSMENT/PLAN: This is an 87 year old woman with a history of atrial fibrillation, CAD, HTN, rheumatic heart disease, mechanical MV, hyperlipidemia, hypothyroidism, colon cancer, right hemicolectomy, PUD who presented to the ED with right hip pain after a fall. 1. Right femoral neck fracture - Pain control - Ortho consult - Hold Coumadin - will need to start heparin drip when INR 2.5 as patient has mechanical MV - Cardiology evaluation prior to surgery 2. Permanent atrial fibrillation - Rate is ok - Continue Atenolol - Hold Coumadin in preparation for surgery 3. CAD - Patient denies CP, SOB - Continue Atenolol, Lipitor, Imdur 4. Severe TR with RV heart failure - Continue Lasix, Aldactone 5. HTN - Continue Atenolol, Aldactone, Lasix 6. Hyperlipidemia - Continue Lipitor 7. Hypothyroidism - Continue Synthroid 8. Colon cancer, history of right hemicolectomy 9. PUD, history of perforation and repair - Continue Protonix 10. Rheumatic heart disease, history of mechanical MV replacement - Continue anticoagulation - Coumadin on hold for surgery, will start heparin drip when INR 2.5 11. Stage 3 CKD - Stable Visit type - Emergency Visit Emergency Visit: Yes ED Registration Date: 05/07/18 Care time: The patient presented to the Emergency Department on the above date and was hospitalized for further evaluation of their emergent condition. - New Patient This patient is new to me today: Yes Date on this admission: 05/07/18 - Critical Care Critical Care patient: No Hospitalist Screening - Colonoscopy Questionnaire Colonoscopy Questionnaire: Colonoscopy Questionnaire - Patient: 50 - 75 years old and never had a screening colonoscopy: No History of colon or rectal polyps, or CA: Yes History of IBD, Crohn's disease or UC: No History of abdominal radiation therapy as a child: No - Relative: 1 with colon or rectal CA, or polyps at age 60 or younger: No Colon or rectal CA diagnosed at age 45 or younger: No Multiple relatives with colon or rectal CA: No - Outcome: Screening Result: Positive Screen
[2018-05-07] MEDS: GABAPENTIN 100 MG CAPSULE (FP) PO SCH (22:16)
[2018-05-07] MEDS: ATORVASTATIN CA 10 MG TABLET (FP) PO SCH (22:16)
[2018-05-07] MEDS: MORPHINE SULFATE 2 MG/ML VIAL IVPUSH PRN (22:19)
[2018-05-08] MEDS: LEVOTHYROXINE NA 100 MCG TABLET (FP) PO SCH (06:14)
[2018-05-08] MEDS: MORPHINE SULFATE 2 MG/ML VIAL IVPUSH PRN ×4 (06:14→22:36)
[2018-05-08 08:15] LABS: HEMOGLOBIN 10.4 GM/dL (10.7-15.3); MCH 26.9 pg (25.7-33.7); MCHC 32.5 g/dl (32.0-36.0); MEAN CELL VOLUME 82.7 fl (80-96); MEAN PLT VOLUME 10.6 fl (7.5-11.1); PLATELET COUNT 133 K/MM3 (134-434); RBC 3.87 M/mm3 (3.60-5.2); RDW 16.4 % (11.6-15.6); WHITE BLOOD COUNT 8.1 K/mm3 (4.0-10.0)
[2018-05-08 08:34] LABS: INR 3.92 (0.82-1.09); PROTHROMBIN TIME (PATIENT) 44.3 SEC (9.7-13.0)
[2018-05-08 08:51] LABS: ANION GAP 8 (8-16); BLOOD UREA NITROGEN 23 mg/dL (7-18); CALCIUM 9.5 mg/dL (8.5-10.1); CHLORIDE 101 mmol/L (98-107); CO2 29 mmol/L (21-32); GLUCOSE,RANDOM 148 mg/dL (74-106); POTASSIUM 3.5 mmol/L (3.5-5.1); SODIUM 138 mmol/L (136-145)
[2018-05-08 08:52] LABS: CREATININE 0.9 mg/dL (0.55-1.02)
--- NOTE | 2018-05-08 09:20 | CON.ORTH ---
Consult Reason for Consultation:: right hip fx - Past Medical History Cardio/Vascular: Yes: AFIB, CAD, HTN, Hyperlipdemia, Other (RH HEART DISEASE PERMANENT/ AF /S/P CEA/ TR WITH RIGHT HEART FAILURE/) Gastrointestinal: Yes: Cancer, Peptic Ulcer Disease - Past Surgical History Past Surgical History: Yes: Appendectomy, Carotid Endarterectomy (right carotid endarterectomy), Colectomy (right hemicolectomy 2013), Hysterectomy (MECHANICAL MITRAL VALVE REPLACEMENT), Valve Replacement - Alcohol/Substance Use Hx Alcohol Use: No History of Substance Use: reports: None - Smoking History Smoking history: Never smoked Have you smoked in the past 12 months: No Aproximately how many cigarettes per day: 0 If you are a former smoker, when did you quit?: 1970s - Social History ADL: Independent History of Recent Travel: No Home Medications - Allergies Allergies/Adverse Reactions: Allergies Allergy/AdvReac Type Severity Reaction Status Date / Time No Known Allergies Allergy Verified 05/07/18 15:39 - Home Medications Home Medications: Ambulatory Orders Atorvastatin Ca [Lipitor] 10 mg PO HS 08/02/14 Levothyroxine [Synthroid -] 100 mcg PO DAILY #90 tablet 09/12/14 Spironolactone [Aldactone] 25 mg PO DAILY 09/24/15 Warfarin Na [Coumadin -] 4 mg PO ASDIR 09/24/15 Furosemide [Lasix -] 40 mg PO DAILY 04/23/16 Allopurinol [Zyloprim -] 100 mg PO DAILY 02/06/17 Atenolol [Tenormin] 50 mg PO DAILY 02/06/17 Isosorbide Mononitrate [Imdur] 30 mg PO DAILY 02/06/17 Pantoprazole Sodium 40 mg PO DAILY 02/06/17 Calcium (Oyster Shell) [Os-Sumanth 500Mg -] 600 mg PO DAILY 05/07/18 Cholecalciferol (Vitamin D3) [Vitamin D3 -] 2,000 unit PO DAILY 05/07/18 Gabapentin [Neurontin] 100 mg PO BID 05/07/18 Ibandronate Sodium 150 mg PO MONTHLY 05/07/18 Warfarin Na [Coumadin -] 2 mg PO ASDIR 05/07/18 Physical Exam for Ortho Vital Signs: Vital Signs Temperature 100.1 F H 05/08/18 08:27 Pulse Rate 94 H 05/08/18 08:27 Respiratory Rate 20 05/08/18 08:27 Blood Pressure 119/64 05/08/18 08:27 O2 Sat by Pulse Oximetry (%) 96 05/07/18 21:04 Labs: CBC, BMP 05/08/18 06:20 INR, PTT INR 3.92 (0.82-1.09) H 05/08/18 06:20 - Lower Extremity Hip: Yes: Right, Decreased ROM, Leg Externally Rotated, Leg Shortened, Pain, Swelling, Other (nvi) Imaging - Results X-ray: Report Reviewed, Image Reviewed Assessment/Plan 87 yo F with h/o HLD, A. fib on warfarin, hypothyroidism, mechanical heart valve, BIBA with R hip and thigh pain s/p mechanical fall. Patient reports sitting on the edge of a bench while at [employer] and falling from three feet onto R hip/leg. a/p- Right IT fx Risks and benefits were d/w pt in detail OR for right IM gamma nail OR tentatively for tuesday INR needs to 1.4 or less Surgical clearance d/w DR. Ellsworth
[2018-05-08] MEDS: PANTOPRAZOLE 40 MG TABLET (FP) PO SCH (09:53)
[2018-05-08] MEDS: oxyCODONE HCL 5 MG TABLET PO PRN ×2 (09:53→20:09)
[2018-05-08] MEDS: GABAPENTIN 100 MG CAPSULE (FP) PO SCH ×2 (09:53→22:36)
[2018-05-08] MEDS: CALCIUM 500MG/VIT-D 200 UNITS COMBO TABLET (FP) PO SCH (09:54)
[2018-05-08] MEDS: ISOSORBIDE MONONITRATE 30 MG TAB.SR.24H (FP) PO SCH (09:54)
[2018-05-08] MEDS: ATENOLOL 50 MG TABLET (FP) PO SCH (09:54)
[2018-05-08] MEDS: FUROSEMIDE 40 MG TABLET (FP) PO SCH (09:54)
[2018-05-08] MEDS: SPIRONOLACTONE 25 MG TABLET (FP) PO SCH (09:54)
[2018-05-08] MEDS: ALLOPURINOL 100 MG TABLET (FP) PO SCH (09:54)
--- NOTE | 2018-05-08 10:54 | PN ---
Physical Exam: SUBJECTIVE: Patient seen and examined at the bedside. Her in attendance. patient states that her pain is controlled, but at times she has sharp pain on her right hip when she attempts to move for a bedpan. She denies chest pain, denies shortness of breath. POC discussed with patient and her . Emotional support provided. OBJECTIVE: Vital Signs Period Temp Pulse Resp BP Sys/[place] Pulse Ox Last 24 Hr 97.6 F-100.1 F 85-102 16-21 110-189/56-89 95-100 GENERAL: The patient is awake, alert, and fully oriented, in mild pain, but just got pain medication. HEAD: Normal with no signs of trauma. EYES: PERRL, extraocular movements intact, sclera anicteric, conjunctiva clear. No ptosis. ENT: Ears normal, nares patent, oropharynx clear without exudates, moist mucous membranes. NECK: Trachea midline, full range of motion, supple. LUNGS: Breath sounds equal, clear to auscultation anteriorly, no wheezing, not short of breath, tolerating room air HEART: mechanical valve, rate controlled/irregular ABDOMEN: Soft, nontender, nondistended, normoactive bowel sounds, no guarding, no rebound, no hepatosplenomegaly, no masses. EXTREMITIES: mild edema of right lower leg NEUROLOGICAL: Normal speech, bed bound PSYCH: Normal mood, normal affect. SKIN: Warm, dry, normal turgor, no rashes or lesions noted Laboratory Results - last 24 hr 05/07/18 05/07/18 05/07/18 15:07 15:15 15:15 WBC 6.2 RBC 3.95 Hgb 10.6 L Hct 32.7 MCV 82.9 MCH 26.9 MCHC 32.5 RDW 16.3 H Plt Count 140 MPV 10.3 Absolute Neuts (auto) 5.1 Neutrophils % 82.4 Lymphocytes % 9.2 D Monocytes % 7.4 Eosinophils % 0.9 Basophils % 0.1 Nucleated RBC % 0 PT with INR 35.70 H INR 3.16 H Sodium Potassium Chloride Carbon Dioxide Anion Gap BUN Creatinine Creat Clearance w eGFR Random Glucose Calcium Total Bilirubin AST ALT Alkaline Phosphatase Total Protein Albumin Urine Color Straw Urine Appearance Clear Urine pH 6.0 Ur Specific [place] 1.005 Urine Protein Negative Urine Glucose (UA) Negative Urine Ketones Negative Urine Blood Negative Urine Nitrite Negative Urine Bilirubin Negative Urine Urobilinogen Negative Ur Leukocyte Esterase Negative Blood Type Antibody Screen Antibody Identification Antigen Identification 05/07/18 05/07/18 05/08/18 15:15 15:15 06:20 WBC 8.1 RBC 3.87 Hgb 10.4 L Hct 32.0 L MCV 82.7 MCH 26.9 MCHC 32.5 RDW 16.4 H Plt Count 133 L MPV 10.6 Absolute Neuts (auto) Neutrophils % Lymphocytes % Monocytes % Eosinophils % Basophils % Nucleated RBC % PT with INR INR Sodium 138 Potassium 3.6 Chloride 100 Carbon Dioxide 30 Anion Gap 8 BUN 25 H Creatinine 0.9 Creat Clearance w eGFR 59.23 Random Glucose 152 H Calcium 9.2 Total Bilirubin 0.8 AST 25 ALT 19 Alkaline Phosphatase 137 H Total Protein 7.7 Albumin 3.7 Urine Color Urine Appearance Urine pH Ur Specific [place] Urine Protein Urine Glucose (UA) Urine Ketones Urine Blood Urine Nitrite Urine Bilirubin Urine Urobilinogen Ur Leukocyte Esterase Blood Type O POSITIVE Antibody Screen Positive H Antibody Identification Anti-e Antigen Identification No Result Required. 05/08/18 05/08/18 06:20 06:20 WBC RBC Hgb Hct MCV MCH MCHC RDW Plt Count MPV Absolute Neuts (auto) Neutrophils % Lymphocytes % Monocytes % Eosinophils % Basophils % Nucleated RBC % PT with INR 44.30 H INR 3.92 H Sodium 138 Potassium 3.5 Chloride 101 Carbon Dioxide 29 Anion Gap 8 BUN 23 H Creatinine 0.9 Creat Clearance w eGFR 59.23 Random Glucose 148 H Calcium 9.5 Total Bilirubin AST ALT Alkaline Phosphatase Total Protein Albumin Urine Color Urine Appearance Urine pH Ur Specific [place] Urine Protein Urine Glucose (UA) Urine Ketones Urine Blood Urine Nitrite Urine Bilirubin Urine Urobilinogen Ur Leukocyte Esterase Blood Type Antibody Screen Antibody Identification Antigen Identification Active Medications Generic Name Dose Route Start Last Admin Trade Name Freq PRN Reason Stop Dose Admin Acetaminophen 650 mg 05/07/18 17:45 Tylenol - PO Q4H PRN PAIN LEVEL 1 - 3 Albuterol Sulfate 1 amp 05/07/18 17:45 Ventolin 0.083% Nebulizer Soln - NEB Q4H PRN SHORT OF BREATH/WHEEZING Allopurinol 100 mg 05/08/18 10:00 05/08/18 09:54 Zyloprim - PO 100 mg DAILY MARIA LUISA Administration Atenolol 50 mg 05/08/18 10:00 05/08/18 09:54 Tenormin - PO 50 mg DAILY MARIA LUISA Administration Atorvastatin Calcium 10 mg 05/07/18 22:00 05/07/18 22:16 Lipitor - PO 10 mg HS MARIA LUISA Administration Calcium Carbonate/Cholecalciferol 1 tab 05/07/18 17:45 05/08/18 09:54 Os-Sumanth 500+D - PO 1 tab DAILY MARIA LUISA Administration Furosemide 40 mg 05/08/18 10:00 05/08/18 09:54 Lasix - PO 40 mg DAILY MARIA LUISA Administration Gabapentin 100 mg 05/07/18 22:00 05/08/18 09:53 Neurontin - PO 100 mg BID MARIA LUISA Administration Isosorbide Mononitrate 30 mg 05/08/18 10:00 05/08/18 09:54 Imdur - PO 30 mg DAILY MARIA LUISA Administration Levothyroxine Sodium 100 mcg 05/08/18 07:00 05/08/18 06:14 Synthroid - PO 100 mcg 0700 MARIA LUISA Administration Morphine Sulfate 1 mg 05/07/18 17:45 05/08/18 06:14 Morphine Sulfate IVPUSH 1 mg Q4H PRN Administration PAIN LEVEL 7 - 10 Ondansetron HCl 4 mg 05/07/18 17:45 Zofran Injection IVPUSH Q6H PRN NAUSEA Oxycodone HCl 5 mg 05/07/18 17:45 05/08/18 09:53 Roxicodone - PO 5 mg Q4H PRN Administration PAIN LEVEL 4 - 6 Pantoprazole Sodium 40 mg 05/08/18 10:00 05/08/18 09:53 Protonix - PO 40 mg DAILY MARIA LUISA Administration Spironolactone 25 mg 05/08/18 10:00 05/08/18 09:54 Aldactone - PO 25 mg DAILY MARIA LUISA Administration ASSESSMENT/PLAN: Patient is an 87 year old woman with a significant past medical history of hyperlipidemia, atrial fibrillation (on Coumadin), hypothyroidsm and mechanical heart valve. She presents to the ED on 05/07/2018 after she fell onto her right hip and leg. She had severe pain after the fall and unable to move the right leg. Normally, she ambulates with a rolling walker. In the ED imaging revealed an acute right femoral intertrochanteric fracture Muscular/skeletal: Right femoral intertrochanteric fracture/Fall with traumatic injury: Pain management. For possible right IM gamma nail on Tuesday with Dr. Ellsworth. Incentive spirometer, pain management and control. bowel regimen initiated. Prolonged immobility: black placement. Card: atrial fibrillation: rate controlled with Atenolol. cardiology following. Mechanical heart valve: INR today 3.9, continue to hold coumadin. Heparin drip to be initiated when INR is 2.5. Cardiology clearance prior to surgery. Hyperlipidemia: On home Lipitor. lipid panel in a.m. Severe TR with RV heart failure: On Lasix, monitor intake and output. Monitor electrolytes. Hypertension: controlled. On Imdur, Lasix, Atenolol Endocrine: Hypothyroidsm: On Synthroid 100mcgs GI: Peptic Ulcer Disease: on Protonix Colectomy with right hemicolectormy, history fen toleraring PO monitor electrolytes low salt diet prophy Supratherapeutic INR, coumadin on hold for possible surgery bowel regimen incentive spirometer Physical therapy after surgical repair, patient and to select rehab facility disposition: full code. Discharge to rehab once cleared by surgery. Visit type - Emergency Visit Emergency Visit: Yes ED Registration Date: 05/07/18 Care time: The patient presented to the Emergency Department on the above date and was hospitalized for further evaluation of their emergent condition. - New Patient This patient is new to me today: Yes Date on this admission: 05/08/18 - Critical Care Critical Care patient: No - Discharge Referral Referred to [facility] Med P.C.: No
--- NOTE | 2018-05-08 12:00 | CON.PULM ---
Consult Consult Specialty:: PULMONARY Referred by:: Dr. Hathaway Reason for Consultation:: pre-op clearance - History of Present Illness Chief Complaint: s/p fall History of Present Illness: 87yo female with h/o HTN, hyperlipidemia, hypothyroidism, atrial fibrillation, s /p mechanical MVR, CAD, CKD who was admitted s/p fall from a bench. Found to have a right hip fracture scheduled for repair. She denies any pulmonary history , no history of asthma or COPD. She is a remote smoker, quit 35 years ago. Does not use any inhalers at home. She denies shortness of breath, cough or wheezing. No fevers, chills or sweats. She has 13 stairs at home and can climb then without getting short of breath. Denies any complications from anesthesia in the past. - History Source History Provided By: Patient, Medical Record Limitations to Obtaining History: No Limitations - Past Medical History Cardio/Vascular: Yes: AFIB, CAD, HTN, Hyperlipdemia, Other (RH HEART DISEASE PERMANENT/ AF /S/P CEA/ TR WITH RIGHT HEART FAILURE/) Gastrointestinal: Yes: Cancer, Peptic Ulcer Disease - Past Surgical History Past Surgical History: Yes: Appendectomy, Carotid Endarterectomy (right carotid endarterectomy), Colectomy (right hemicolectomy 2013), Hysterectomy (MECHANICAL MITRAL VALVE REPLACEMENT), Valve Replacement - Alcohol/Substance Use Hx Alcohol Use: No History of Substance Use: reports: None - Smoking History Smoking history: Never smoked Have you smoked in the past 12 months: No Aproximately how many cigarettes per day: 0 If you are a former smoker, when did you quit?: 1970s - Social History ADL: Independent History of Recent Travel: No Home Medications - Allergies Allergies/Adverse Reactions: Allergies Allergy/AdvReac Type Severity Reaction Status Date / Time No Known Allergies Allergy Verified 05/07/18 15:39 - Home Medications Home Medications: Ambulatory Orders Atorvastatin Ca [Lipitor] 10 mg PO HS 08/02/14 Levothyroxine [Synthroid -] 100 mcg PO DAILY #90 tablet 09/12/14 Spironolactone [Aldactone] 25 mg PO DAILY 09/24/15 Warfarin Na [Coumadin -] 4 mg PO ASDIR 09/24/15 Furosemide [Lasix -] 40 mg PO DAILY 04/23/16 Allopurinol [Zyloprim -] 100 mg PO DAILY 02/06/17 Atenolol [Tenormin] 50 mg PO DAILY 02/06/17 Isosorbide Mononitrate [Imdur] 30 mg PO DAILY 02/06/17 Pantoprazole Sodium 40 mg PO DAILY 02/06/17 Calcium (Oyster Shell) [Os-[place] 500Mg -] 600 mg PO DAILY 05/07/18 Cholecalciferol (Vitamin D3) [Vitamin D3 -] 2,000 unit PO DAILY 05/07/18 Gabapentin [Neurontin] 100 mg PO BID 05/07/18 Ibandronate Sodium 150 mg PO MONTHLY 05/07/18 Warfarin Na [Coumadin -] 2 mg PO ASDIR 05/07/18 Review of Systems - Review of Systems Constitutional: denies: Chills, Fever Eyes: denies: Recent Change in Vision HENT: denies: Nasal Congestion, Throat Pain Neck: denies: Stiffness, Tenderness Cardiovascular: reports: Palpitations. denies: Chest Pain, Shortness of Breath Respiratory: denies: Cough, Hemoptysis, SOB, Wheezing Gastrointestinal: denies: Abdominal Pain, Nausea, Vomiting Genitourinary: denies: Dysuria, Hematuria Neurological: denies: Dizziness, Headache Physical Exam Vital Sings: Vital Signs Temperature 100.1 F H 05/08/18 08:27 Pulse Rate 94 H 05/08/18 08:27 Respiratory Rate 20 05/08/18 08:27 Blood Pressure 119/64 05/08/18 08:27 O2 Sat by Pulse Oximetry (%) 96 05/07/18 21:04 Constitutional: Yes: Calm Eyes: Yes: Conjunctiva Clear, EOM Intact HENT: Yes: Atraumatic, Normocephalic Neck: Yes: Supple, Trachea Midline Cardiovascular: Yes: Pulse Irregular, Other (click) Respiratory: Yes: Regular, CTA Bilaterally ...Clubbing: No Gastrointestinal: Yes: Normal Bowel Sounds, Soft. No: Tenderness Extremities: Yes: External Rotation (right leg) Edema: No Neurological: Yes: Alert, Oriented Labs: CBC, BMP 05/08/18 06:20 05/08/18 06:20 Problem List - Problems (1) Femoral neck fracture Code(s): S72.009A - FRACTURE OF UNSP PART OF NECK OF UNSP FEMUR, INIT Qualifiers: Encounter type: initial encounter Fracture type: closed Laterality: right Qualified Code(s): S72.001A - Fracture of unspecified part of neck of right femur, initial encounter for closed fracture (2) Atrial fibrillation Code(s): I48.91 - UNSPECIFIED ATRIAL FIBRILLATION Qualifiers: Atrial fibrillation type: persistent Qualified Code(s): I48.1 - Persistent atrial fibrillation (3) History of mitral valve replacement with mechanical valve Code(s): Z95.2 - PRESENCE OF PROSTHETIC HEART VALVE (4) Hypertension Code(s): I10 - ESSENTIAL (PRIMARY) HYPERTENSION Qualifiers: Hypertension type: essential hypertension Qualified Code(s): I10 - Essential (primary) hypertension (5) Hypothyroidism Code(s): E03.9 - HYPOTHYROIDISM, UNSPECIFIED Qualifiers: Hypothyroidism type: unspecified Qualified Code(s): E03.9 - Hypothyroidism , unspecified Assessment/Plan s/p Fall Right Hip Fracture s/p Mechanical MVR CAD Atrial Fibrillation HTN Hyperlipidemia h/o Colon Ca CKD - pt without pulmonary history, no shortness of breath and can climb 13 steps without dyspnea - will order routine CXR - if CXR unremarkable, no pulmonary contraindications for scheduled hip repair - DVT prophylaxis Thank you for this consult Rk Abarca MD
--- NOTE | 2018-05-08 13:30 | EKG ---
Test Reason : Blood Pressure : / mmHG Vent. Rate : 092 BPM Atrial Rate : 092 BPM P-R Int : 000 ms QRS Dur : 088 ms QT Int : 366 ms P-R-T Axes : 000 050 062 degrees QTc Int : 452 ms ATRIAL FIBRILLATION SEPTAL INFARCT (CITED ON OR BEFORE 23-APR-2016) ABNORMAL ECG WHEN COMPARED WITH ECG OF 06-JUN-2017 15:38, NO SIGNIFICANT CHANGE IS SEEN Confirmed by LIN MILTON MD ([id number]) on 05/08/2018 1:29:53 PM Referred By: Confirmed By:LIN MILTON MD
--- NOTE | 2018-05-08 14:59 | CONS ---
DATE OF CONSULTATION: 05/08/2018 REQUESTING PHYSICIAN: Rolf Villeda MD CHIEF COMPLAINT: History of a fall sustaining a fracture of the right hip. 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 The patient is also known to have carotid artery disease, status post right carotid endarterectomy. The patient slipped off a bench and fractured her right hip. Currently complaining of significant pain with the slightest movement. She denies having recent chest pain or discomfort either at rest or with exertion. Mild exertional dyspnea. No history of paroxysmal or nocturnal dyspnea or orthopnea. No history of palpitations, lightheadedness, dizziness, presyncope, or syncope. Intermittent cough that is mostly nonproductive. PAST MEDICAL HISTORY: As mentioned in the history of present illness. History of Uhluvjw-Vzipu-Wnomj disease. History of bilateral deafness. PAST SURGICAL HISTORY: Status post tonsillectomy, status post appendectomy, status post bilateral cataract extraction, status post right carotid endarterectomy, status post partial colectomy for carcinoma of the colon, status post surgery for a perforated peptic ulcer, status post hysterectomy. SOCIAL HISTORY: She is . Had 3 sons. One of them during coronary artery bypass grafting. The other 2 sons are healthy. She smoked between the ages of 16 and mid-30s. Used to smoke 1/2 packs of cigarettes per day. Used to have a social drink. Denies excessive use of caffeine. FAMILY HISTORY: Father at age 52 of drowning. Mother at age 86. She had suffered a stroke. Had 4 brothers. One of them at age 14. Apparently had a leaking valve. The other brother of prostate cancer, ? lung cancer, and colon cancer. She had 5 sisters. All of them are except for one who is alive and also has Oxaotta-Jukyv-Kwydj disease. ALLERGIES: None reported. CURRENT MEDICATIONS: 1. Zofran 4 mg IV nightly p.r.n. 2. Tylenol 650 mg q.4 hours p.r.n. 3. Gabapentin 100 mg p.o. b.i.d. 4. Allopurinol 100 mg p.o. daily. 5. Ventolin 1 ampule via nebulizer q.4 hours p.r.n. 6. Atenolol 50 mg p.o. daily. 7. Lipitor 10 mg p.o. daily. 8. Lasix 40 mg p.o. daily. 9. Spironolactone 25 mg p.o. daily. 10. Isosorbide mononitrate 30 mg p.o. daily. 11. Morphine 1 mg IV q.4 hours p.r.n. 12. Oxycodone 5 mg q.4 hours p.r.n. 13. Pantoprazole 40 mg p.o. daily. 14. Calcium carbonate with vitamin D 1 p.o. daily. 15. Levothyroxine 100 mcg p.o. daily. REVIEW OF SYSTEMS: Constitutional: No history of chills, fever, or night sweats. No history of unintentional weight loss. HEENT: No history of headaches, diplopia, blurred vision. No history of epistaxis or hoarseness. No history of tinnitus. History of bilateral deafness. Cardiovascular: See history of present illness. Respiratory: History of minimal cough. No history of hemoptysis. Gastrointestinal: See history of present illness. Denies any recent nausea, vomiting, melena, or hematemesis. No history of abdominal pain or change in bowel habits reported. Neurologic: History of right sciatica currently in remission. No history of focal weakness, seizures, or syncope. Endocrine: No history of polyuria or polydipsia. No history of intolerance to cold or warm weather. See history of present illness. Musculoskeletal: History of low back syndrome. Genitourinary: Denies having any dysuria, frequency, or hematuria. Hematologic/Lymphatic: No history of bleeding. Occasional ecchymosis. No history of anemia. No history of lymphadenopathy. History of MRSA involving one of the toes as reported in the chart. PHYSICAL EXAMINATION: General: An 85-year-old female who is hard of hearing who was complaining of pain with the slightest movement. There was no pallor, cyanosis, clubbing, or jaundice. Vital Signs: Blood pressure 119/64 mmHg, pulse 94 beats per minute and irregularly irregular, temperature 100.1 degrees Fahrenheit. Neck: Supple. No jugular venous distention. Positive for hepatojugular reflux. Neck veins are pulsatile. There is a well-healed right carotid endarterectomy scar. Faint bruits versus radiation of murmur right carotid. No thyromegaly is present. Heart: PMI is in the 5th intercostal space. No heaves or thrills. [place] prosthetic sounds. Grade 2/6 decrescendo systolic murmur is heard along the left sternal border and apex. Grade 1/6 ejection systolic murmur heard at the 2nd right intercostal space and systole. No diastolic murmur or gallops are heard. Lungs: Clear on auscultation. Chest: Normal AP diameter. Expansion is symmetrical. Well-healed midline sternotomy scar. Abdomen: Soft, protuberant, and nontender. No hepatosplenomegaly or palpable masses are felt. There are well-healed surgical scars. Bowel sounds are present. No bruits are heard. Extremities: No calf tenderness or dependent edema. Femoral pulses are 2+. Dorsalis pedis and posterior tibial pulses are 1+. LABORATORY DATA: May 08, 2018: CBC, WBC count 8100, hemoglobin 10.4 g/dL, platelet count 133,000. Differential is not available. Differential from May 07 revealed 9.2% lymphocytes, 82.4% neutrophils, 7.4% monocytes, 0.9% eosinophils, and 0.1% basophils. Chemistry May 08 sodium 138, potassium 3.5, chloride 101, CO2 is 29, BUN 23, creatinine 0.9 mg/dL, random glucose 148 mg/dL. An x-ray chest is not available. IMPRESSION: 1. Fracture of the right hip. 2. Rheumatic mitral valvular disease, mitral stenosis, status post mechanical mitral valve prosthesis. 3. Hypertension, hypertensive cardiovascular disease. 4. Permanent atrial fibrillation. 5. Hypercholesterolemia. 6. Coronary artery disease, angina pectoris, currently stable. 7. Status post right carotid endarterectomy. 8. History of right heart failure. 9. Severe tricuspid regurgitation. 10. Hypothyroidism on replacement therapy. 11. History of hypercholesterolemia. RECOMMENDATIONS: 1. Ideally would allow the INR to near normalize, but if necessary, a small dose of vitamin D orally could be given. 2. Once INR is around 2, heparinization as per protocol. 3. Heparin could be discontinued 6 hours prior to contemplated surgical procedure. 4. Follow up basic metabolic profile and correction of serum potassium if necessary. 5. ECG. 6. X-ray chest. Portable if necessary. 7. Close follow up of INR. The patient is at a high risk for cardiopulmonary event in view of her age, underlying comorbid conditions, and will require close cardiopulmonary follow up. Further suggestions as necessary. Thank you for your referral. GIAT POPE M.D. [id number]
[2018-05-08] MEDS: ACETAMINOPHEN 325 MG TABLET (FP) PO PRN (20:09)
[2018-05-08] MEDS ORDERED: BISACODYL 10 MG SUPP.RECT PR PRN (22:05)
[2018-05-08] MEDS: ATORVASTATIN CA 10 MG TABLET (FP) PO SCH (22:36)
[2018-05-09] MEDS: MORPHINE SULFATE 2 MG/ML VIAL IVPUSH PRN ×3 (05:51→16:31)
[2018-05-09] MEDS: DOCUSATE SODIUM 100 MG CAPSULE (FP) PO SCH ×3 (05:51→21:55)
[2018-05-09] MEDS: LEVOTHYROXINE NA 100 MCG TABLET (FP) PO SCH (06:07)
[2018-05-09 07:27] LABS: BASO % 0.2 % (0-2.0); EOS % 0.2 % (0-4.5); HEMATOCRIT 34.4 % (32.4-45.2); HEMOGLOBIN 11.2 GM/dL (10.7-15.3); LYMPH % 6.6 % (8-40); MCH 27.2 pg (25.7-33.7); MCHC 32.6 g/dl (32.0-36.0); MEAN CELL VOLUME 83.4 fl (80-96); MONO % 9.9 % (3.8-10.2); NEUT % 83.1 % (42.8-82.8); PLATELET COUNT 135 K/MM3 (134-434); RBC 4.12 M/mm3 (3.60-5.2); RDW 16.5 % (11.6-15.6); WHITE BLOOD COUNT 10.9 K/mm3 (4.0-10.0)
[2018-05-09 07:55] LABS: INR 2.96 (0.82-1.09); PROTHROMBIN TIME (PATIENT) 33.5 SEC (9.7-13.0)
[2018-05-09 08:08] LABS: ALBUMIN 3.4 g/dl (3.4-5.0); ANION GAP 10 (8-16); BILIRUBIN,TOTAL 1.3 mg/dL (0.2-1.0); BLOOD UREA NITROGEN 32 mg/dL (7-18); CALCIUM 9.3 mg/dL (8.5-10.1); CHLORIDE 96 mmol/L (98-107); CO2 30 mmol/L (21-32); CREATININE 1.6 mg/dL (0.55-1.02); GLUCOSE,RANDOM 130 mg/dL (74-106); MAGNESIUM 1.5 mg/dL (1.8-2.4); POTASSIUM 4.4 mmol/L (3.5-5.1); SGOT/AST 24 U/L (15-37); SGPT/ALT 17 U/L (12-78); SODIUM 136 mmol/L (136-145)
[2018-05-09 08:09] LABS: ALK PHOS 111 U/L (45-117); TOT PROT 7.3 g/dl (6.4-8.2)
[2018-05-09 08:11] LABS: CHOLESTEROL 107 mg/dL (50-200); TRIGLYCERIDES 84 mg/dL (35-160)
[2018-05-09 08:12] LABS: HDL CHOLESTEROL 41 mg/dL (40-60)
[2018-05-09] MEDS ORDERED: SODIUM CHLORIDE 1,000 ML IV SCH (08:30)
[2018-05-09] MEDS ORDERED: MAGNESIUM 1GM/D5W 100ML - 100 ML IVPB IVPB ONE (09:00)
--- NOTE | 2018-05-09 09:21 | PN ---
Physical Exam: SUBJECTIVE: Patient seen and examined at the bedside. OBJECTIVE: Having right hip pain when I examined her. Will increase morphine to 2mg and add lidoderm patch to right hip. Has new JOCELYN, discussed with Dr. Coates, cardiology, OK to give IVF slowly and hold lasix until kidney function recovers INR 2.9, continue to hold coumadin Vital Signs Period Temp Pulse Resp BP Sys/Montelongo Pulse Ox Last 24 Hr 98.5 F-98.9 F 88-114 20-21 100-127/57-76 95 GENERAL: The patient is awake, alert, and fully oriented, in mild pain, but just got pain medication. HEAD: Normal with no signs of trauma. EYES: PERRL, extraocular movements intact, sclera anicteric, conjunctiva clear. No ptosis. ENT: Ears normal, nares patent, oropharynx clear without exudates, moist mucous membranes. NECK: Trachea midline, full range of motion, supple. LUNGS: Breath sounds equal, clear to auscultation anteriorly, no wheezing, not short of breath, tolerating room air HEART: mechanical valve, rate controlled/irregular ABDOMEN: Soft, nontender, nondistended, normoactive bowel sounds, surgical scar EXTREMITIES: mild edema of right lower leg, right leg rotation to the right NEUROLOGICAL: Normal speech, bed bound PSYCH: Normal mood, normal affect. SKIN: Warm, dry, normal turgor, no rashes or lesions noted Laboratory Results - last 24 hr 05/08/18 05/09/18 05/09/18 06:20 06:00 06:00 WBC 10.9 H RBC 4.12 Hgb 11.2 Hct 34.4 MCV 83.4 MCH 27.2 MCHC 32.6 RDW 16.5 H Plt Count 135 MPV 11.0 Absolute Neuts (auto) 9.0 Neutrophils % 83.1 H Lymphocytes % 6.6 L D Monocytes % 9.9 Eosinophils % 0.2 Basophils % 0.2 Nucleated RBC % 0 PT with INR 33.50 H INR 2.96 H Sodium 138 Potassium 3.5 Chloride 101 Carbon Dioxide 29 Anion Gap 8 BUN 23 H Creatinine 0.9 Creat Clearance w eGFR 59.23 Random Glucose 148 H Hemoglobin A1c % Calcium 9.5 Magnesium Total Bilirubin AST ALT Alkaline Phosphatase Total Protein Albumin Triglycerides Cholesterol Total LDL Cholesterol HDL Cholesterol 05/09/18 05/09/18 05/09/18 06:00 06:00 06:00 WBC RBC Hgb Hct MCV MCH MCHC RDW Plt Count MPV Absolute Neuts (auto) Neutrophils % Lymphocytes % Monocytes % Eosinophils % Basophils % Nucleated RBC % PT with INR INR Sodium 136 Potassium 4.4 Chloride 96 L Carbon Dioxide 30 Anion Gap 10 BUN 32 H Creatinine 1.6 H Creat Clearance w eGFR 30.49 Random Glucose 130 H Hemoglobin A1c % 6.8 H Calcium 9.3 Magnesium 1.5 L Total Bilirubin 1.3 H AST 24 ALT 17 Alkaline Phosphatase 111 D Total Protein 7.3 Albumin 3.4 Triglycerides 84 Cholesterol 107 Total LDL Cholesterol 57 HDL Cholesterol 41 Active Medications Generic Name Dose Route Start Last Admin Trade Name Freq PRN Reason Stop Dose Admin Acetaminophen 650 mg 05/07/18 17:45 05/08/18 20:09 Tylenol - PO 650 mg Q4H PRN Administration PAIN LEVEL 1 - 3 Albuterol Sulfate 1 amp 05/07/18 17:45 Ventolin 0.083% Nebulizer Soln - NEB Q4H PRN SHORT OF BREATH/WHEEZING Allopurinol 100 mg 05/08/18 10:00 05/08/18 09:54 Zyloprim - PO 100 mg DAILY MARIA LUISA Administration Atenolol 50 mg 05/08/18 10:00 05/08/18 09:54 Tenormin - PO 50 mg DAILY MARIA LUISA Administration Atorvastatin Calcium 10 mg 05/07/18 22:00 05/08/18 22:36 Lipitor - PO 10 mg HS MARIA LUISA Administration Bisacodyl 10 mg 05/08/18 22:05 Dulcolax Suppository - NM DAILY PRN CONSTIPATION Calcium Carbonate/Cholecalciferol 1 tab 05/07/18 17:45 05/08/18 09:54 Os-Sumanth 500+D - PO 1 tab DAILY MARIA LUISA Administration Docusate Sodium 100 mg 05/09/18 06:00 05/09/18 05:51 Colace - PO 100 mg TID MARIA LUISA Administration Furosemide 40 mg 05/08/18 10:00 05/08/18 09:54 Lasix - PO 40 mg DAILY MARIA LUISA Administration Gabapentin 100 mg 05/07/18 22:00 05/08/18 22:36 Neurontin - PO 100 mg BID MARIA LUISA Administration Isosorbide Mononitrate 30 mg 05/08/18 10:00 05/08/18 09:54 Imdur - PO 30 mg DAILY MARIA LUISA Administration Levothyroxine Sodium 100 mcg 05/08/18 07:00 05/09/18 06:07 Synthroid - PO 100 mcg 0700 MARIA LUISA Administration Morphine Sulfate 1 mg 05/07/18 17:45 05/09/18 05:51 Morphine Sulfate IVPUSH 1 mg Q4H PRN Administration PAIN LEVEL 7 - 10 Ondansetron HCl 4 mg 05/07/18 17:45 Zofran Injection IVPUSH Q6H PRN NAUSEA Oxycodone HCl 5 mg 05/07/18 17:45 05/08/18 20:09 Roxicodone - PO 5 mg Q4H PRN Administration PAIN LEVEL 4 - 6 Pantoprazole Sodium 40 mg 05/08/18 10:00 05/08/18 09:53 Protonix - PO 40 mg DAILY MARIA LUISA Administration Polyethylene Glycol 17 gm 05/09/18 10:00 Miralax (For Daily Use) - PO DAILY MARIA LUISA Spironolactone 25 mg 05/08/18 10:00 05/08/18 09:54 Aldactone - PO 25 mg DAILY MARIA LUISA Administration ASSESSMENT/PLAN: Patient is an 87 year old woman with a significant past medical history of hyperlipidemia, atrial fibrillation (on Coumadin), hypothyroidsm and mechanical heart valve. She presents to the ED on 05/07/2018 after she fell onto her right hip and leg. She had severe pain after the fall and unable to move the right leg. Normally, she ambulates with a rolling walker. In the ED imaging revealed an acute right femoral intertrochanteric fracture Muscular/skeletal: Right femoral intertrochanteric fracture/Fall with traumatic injury: Pain managed but not ideal. Will increase morphine to 2mg and add lidoderm patch. Patient also has oxycodone ordered. For possible right IM gamma nail tomorrow with Dr. Ellsworth. Prolonged immobility: black placement. Card: atrial fibrillation: rate controlled with Atenolol. cardiology following. Mechanical heart valve: INR today 2.9, continue to hold coumadin. Heparin drip to be initiated when INR is 2.5. Cardiology clearance prior to surgery. Hyperlipidemia: On home Lipitor. lipid panel reviewed-controlled Severe TR with RV heart failure: Lasix on hold, will initiate gentle hydration for JOCELYN. Discussed with cardiology. Hypertension: controlled. On Imdur, Lasix, Atenolol Renal: JOCELYN on CKD. Hold lasix. Monitor Hypomagnesium, repleted Endocrine: Hypothyroidsm: On Synthroid 100mcgs GI: Peptic Ulcer Disease: on Protonix Colectomy with right hemicolectormy, history fen toleraring PO monitor electrolytes low salt diet prophy Supratherapeutic INR, coumadin on hold for possible surgery bowel regimen incentive spirometer Physical therapy after surgical repair, patient and to select rehab facility disposition: full code. Discharge to rehab once cleared by surgery. Visit type - Emergency Visit Emergency Visit: Yes ED Registration Date: 05/07/18 Care time: The patient presented to the Emergency Department on the above date and was hospitalized for further evaluation of their emergent condition. - New Patient This patient is new to me today: No - Critical Care Critical Care patient: No - Discharge Referral Referred to [facility] No
[2018-05-09] MEDS: PANTOPRAZOLE 40 MG TABLET (FP) PO SCH (09:27)
[2018-05-09] MEDS: ALLOPURINOL 100 MG TABLET (FP) PO SCH (09:28)
[2018-05-09] MEDS: GABAPENTIN 100 MG CAPSULE (FP) PO SCH ×2 (09:28→21:55)
[2018-05-09] MEDS: CALCIUM 500MG/VIT-D 200 UNITS COMBO TABLET (FP) PO SCH (09:28)
[2018-05-09] MEDS: ATENOLOL 50 MG TABLET (FP) PO SCH (09:28)
[2018-05-09] MEDS: ISOSORBIDE MONONITRATE 30 MG TAB.SR.24H (FP) PO SCH (09:28)
[2018-05-09] MEDS: SPIRONOLACTONE 25 MG TABLET (FP) PO SCH (09:28)
[2018-05-09] MEDS: SODIUM CHLORIDE 1,000 ML IV SCH (10:55)
[2018-05-09] MEDS: POLYETHYLENE GLYCOL 3350 119 GM BTL PO SCH (10:56)
--- NOTE | 2018-05-09 11:01 | PN ---
Progress Note (short form) - Note Progress Note: PULMONARY Still with significant right hip pain. No shortness of breath or chest pain. CXR without acute findings. Vital Signs Period Temp Pulse Resp BP Sys/Montelongo Pulse Ox Last 24 Hr 98.5 F-98.9 F 88-114 20-21 100-127/57-76 95 Gen: pain with movement Heart: irregular, +systolic murmur, +click Lung: decreased breath sounds at the bases Abd: soft, nontender Ext: right leg short and externally rotated CBC, BMP 05/09/18 06:00 05/09/18 06:00 Active Medications Acetaminophen (Tylenol -) 650 mg PO Q4H PRN PRN Reason: PAIN LEVEL 1 - 3 Last Admin: 05/08/18 20:09 Dose: 650 mg Albuterol Sulfate (Ventolin 0.083% Nebulizer Soln -) 1 amp NEB Q4H PRN PRN Reason: SHORT OF BREATH/WHEEZING Allopurinol (Zyloprim -) 100 mg PO DAILY COUNTS INCLUDE 234 BEDS AT THE [facility] Last Admin: 05/09/18 09:28 Dose: 100 mg Atenolol (Tenormin -) 50 mg PO DAILY COUNTS INCLUDE 234 BEDS AT THE [facility] Last Admin: 05/09/18 09:28 Dose: 50 mg Atorvastatin Calcium (Lipitor -) 10 mg PO HS COUNTS INCLUDE 234 BEDS AT THE [facility] Last Admin: 05/08/18 22:36 Dose: 10 mg Bisacodyl (Dulcolax Suppository -) 10 mg GA DAILY PRN PRN Reason: CONSTIPATION Calcium Carbonate/Cholecalciferol (Os-Sumanth 500+D -) 1 tab PO DAILY COUNTS INCLUDE 234 BEDS AT THE [facility] Last Admin: 05/09/18 09:28 Dose: 1 tab Docusate Sodium (Colace -) 100 mg PO TID COUNTS INCLUDE 234 BEDS AT THE [facility] Last Admin: 05/09/18 05:51 Dose: 100 mg Furosemide (Lasix -) 40 mg PO DAILY COUNTS INCLUDE 234 BEDS AT THE [facility] Last Admin: 05/08/18 09:54 Dose: 40 mg Gabapentin (Neurontin -) 100 mg PO BID COUNTS INCLUDE 234 BEDS AT THE [facility] Last Admin: 05/09/18 09:28 Dose: 100 mg Sodium Chloride (Normal Saline -) 1,000 mls @ 42 mls/hr IV ASDIR COUNTS INCLUDE 234 BEDS AT THE [facility] Last Admin: 05/09/18 10:55 Dose: 42 mls/hr Isosorbide Mononitrate (Imdur -) 30 mg PO DAILY COUNTS INCLUDE 234 BEDS AT THE [facility] Last Admin: 05/09/18 09:28 Dose: 30 mg Levothyroxine Sodium (Synthroid -) 100 mcg PO 0700 COUNTS INCLUDE 234 BEDS AT THE [facility] Last Admin: 05/09/18 06:07 Dose: 100 mcg Lidocaine (Lidoderm Patch -) 1 patch TP DAILY COUNTS INCLUDE 234 BEDS AT THE [facility] Miscellaneous (Lidoderm Patch Removal) 1 each MC DAILY@2200 COUNTS INCLUDE 234 BEDS AT THE [facility] Morphine Sulfate (Morphine Sulfate) 2 mg IVPUSH Q4H PRN PRN Reason: PAIN LEVEL 7 - 10 Last Admin: 05/09/18 10:56 Dose: 2 mg Ondansetron HCl (Zofran Injection) 4 mg IVPUSH Q6H PRN PRN Reason: NAUSEA Oxycodone HCl (Roxicodone -) 5 mg PO Q4H PRN PRN Reason: PAIN LEVEL 4 - 6 Last Admin: 05/08/18 20:09 Dose: 5 mg Pantoprazole Sodium (Protonix -) 40 mg PO DAILY COUNTS INCLUDE 234 BEDS AT THE [facility] Last Admin: 05/09/18 09:27 Dose: 40 mg Polyethylene Glycol (Miralax (For Daily Use) -) 17 gm PO DAILY COUNTS INCLUDE 234 BEDS AT THE [facility] Last Admin: 05/09/18 10:56 Dose: 17 gm Spironolactone (Aldactone -) 25 mg PO DAILY COUNTS INCLUDE 234 BEDS AT THE [facility] Last Admin: 05/09/18 09:28 Dose: 25 mg A/P s/p Fall Right Hip Fracture s/p Mechanical MVR CAD Atrial Fibrillation HTN Hyperlipidemia h/o Colon Ca CKD - pain control - bowel regimen - no pulmonary contraindications for scheduled hip repair - DVT prophylaxis Problem List - Problems (1) Femoral neck fracture Code(s): S72.009A - FRACTURE OF UNSP PART OF NECK OF UNSP FEMUR, INIT Qualifiers: Encounter type: initial encounter Fracture type: closed Laterality: right Qualified Code(s): S72.001A - Fracture of unspecified part of neck of right femur, initial encounter for closed fracture (2) Atrial fibrillation Code(s): I48.91 - UNSPECIFIED ATRIAL FIBRILLATION Qualifiers: Atrial fibrillation type: persistent Qualified Code(s): I48.1 - Persistent atrial fibrillation (3) History of mitral valve replacement with mechanical valve Code(s): Z95.2 - PRESENCE OF PROSTHETIC HEART VALVE (4) Hypertension Code(s): I10 - ESSENTIAL (PRIMARY) HYPERTENSION Qualifiers: Hypertension type: essential hypertension Qualified Code(s): I10 - Essential (primary) hypertension (5) Hypothyroidism Code(s): E03.9 - HYPOTHYROIDISM, UNSPECIFIED Qualifiers: Hypothyroidism type: unspecified Qualified Code(s): E03.9 - Hypothyroidism , unspecified
[2018-05-09] MEDS: LIDOCAINE 5% TOPICAL PATCH TP SCH (11:53)
[2018-05-09 13:55] VITALS: BMI 26.1
--- NOTE | 2018-05-09 19:42 | PN ---
Progress Note (short form) - Note Progress Note: 87 year old female admitted with traumatic fracture of right hip. Known case of RHD, mitral stenosis,s/p mechnical mitral prosthesis, hypertension, permanent atrial fib. right heart failure,severe TR, s/p right carotid endarterectomy and h/o profound deafness.H/o CAD, angina pectoris. Patient c/o of moderate hip pain. no SOB, chest pain or discomfort Active Medications Acetaminophen (Tylenol -) 650 mg PO Q4H PRN PRN Reason: PAIN LEVEL 1 - 3 Last Admin: 05/08/18 20:09 Dose: 650 mg Albuterol Sulfate (Ventolin 0.083% Nebulizer Soln -) 1 amp NEB Q4H PRN PRN Reason: SHORT OF BREATH/WHEEZING Allopurinol (Zyloprim -) 100 mg PO DAILY [facility] Last Admin: 05/09/18 09:28 Dose: 100 mg Atenolol (Tenormin -) 50 mg PO DAILY [facility] Last Admin: 05/09/18 09:28 Dose: 50 mg Atorvastatin Calcium (Lipitor -) 10 mg PO HS [facility] Last Admin: 05/08/18 22:36 Dose: 10 mg Bisacodyl (Dulcolax Suppository -) 10 mg ME DAILY PRN PRN Reason: CONSTIPATION Calcium Carbonate/Cholecalciferol (Os-Sumanth 500+D -) 1 tab PO DAILY [facility] Last Admin: 05/09/18 09:28 Dose: 1 tab Docusate Sodium (Colace -) 100 mg PO TID [facility] Last Admin: 05/09/18 13:34 Dose: Not Given Furosemide (Lasix -) 40 mg PO DAILY [facility] Last Admin: 05/08/18 09:54 Dose: 40 mg Gabapentin (Neurontin -) 100 mg PO BID [facility] Last Admin: 05/09/18 09:28 Dose: 100 mg Sodium Chloride (Normal Saline -) 1,000 mls @ 42 mls/hr IV ASDIR [facility] Last Admin: 05/09/18 10:55 Dose: 42 mls/hr Isosorbide Mononitrate (Imdur -) 30 mg PO DAILY [facility] Last Admin: 05/09/18 09:28 Dose: 30 mg Levothyroxine Sodium (Synthroid -) 100 mcg PO 0700 [facility] Last Admin: 05/09/18 06:07 Dose: 100 mcg Lidocaine (Lidoderm Patch -) 1 patch TP DAILY [facility] Last Admin: 05/09/18 11:53 Dose: 1 patch Miscellaneous (Lidoderm Patch Removal) 1 each MC DAILY@2200 [facility] Morphine Sulfate (Morphine Sulfate) 2 mg IVPUSH Q4H PRN PRN Reason: PAIN LEVEL 7 - 10 Last Admin: 05/09/18 16:31 Dose: 2 mg Ondansetron HCl (Zofran Injection) 4 mg IVPUSH Q6H PRN PRN Reason: NAUSEA Oxycodone HCl (Roxicodone -) 5 mg PO Q4H PRN PRN Reason: PAIN LEVEL 4 - 6 Last Admin: 05/08/18 20:09 Dose: 5 mg Pantoprazole Sodium (Protonix -) 40 mg PO DAILY [facility] Last Admin: 05/09/18 09:27 Dose: 40 mg Polyethylene Glycol (Miralax (For Daily Use) -) 17 gm PO DAILY [facility] Last Admin: 05/09/18 10:56 Dose: 17 gm Spironolactone (Aldactone -) 25 mg PO DAILY [facility] Last Admin: 05/09/18 09:28 Dose: 25 mg 87 year old female in moderate pain, no pallor, cyanosis, clubbing or jaudice. Last Vital Signs Temp Pulse Resp BP Pulse Ox 99.5 F 115 H irregular 20 115/61 97 05/09/18 14:00 05/09/18 14:00 05/09/18 14:00 05/09/18 09:46 05/09/18 09:00 NECK: Supple, no JVD, +ve HJR, pulsatile neck veins, carotids 2+. HEART: PMI in the 5th ICS, apical and left parasternal heave, crisp heart sounds grade II/ apical murmur,LSB and apex.KYM II/ 2nd RIS, no gallops. ABDOMEN: Soft, nontender, liver is pulsatile, edge palpable, no splenomegaly. EXTREMITIES: Right foot externally rotated., no edema or calf tenderness. CBC, BMP 05/09/18 06:00 05/09/18 06:00 INR, PTT INR 2.96 (0.82-1.09) H 05/09/18 06:00 IMPRESSION: 1. Atrial fib. with rapid response, partly related to pain. 2. Fracture right hip. 3. RHD,s/p mechanical mitral valve replacement 4. H/o CHF. 5. Severe TR. RECOMMENDATION: 1. Extra 25mg.of atenolol now. 2. If heart remains elevated transfer to telemetry. 3. F/u BMP, CBC, INR in AM.
[2018-05-09] MEDS ORDERED: ATENOLOL 25 MG TABLET (FP) PO ONE (20:30)
[2018-05-09] MEDS: ATORVASTATIN CA 10 MG TABLET (FP) PO SCH (21:55)
[2018-05-09] MEDS: LIDOCAINE PATCH REMOVAL MC SCH (23:35)
[2018-05-10] MEDS: MORPHINE SULFATE 2 MG/ML VIAL IVPUSH PRN ×2 (00:26→08:11)
[2018-05-10] MEDS: DOCUSATE SODIUM 100 MG CAPSULE (FP) PO SCH ×3 (06:30→22:25)
[2018-05-10] MEDS: LEVOTHYROXINE NA 100 MCG TABLET (FP) PO SCH (06:32)
[2018-05-10 07:36] LABS: INR 2.89 (0.82-1.09); PROTHROMBIN TIME (PATIENT) 32.7 SEC (9.7-13.0)
[2018-05-10 09:09] LABS: BASO % 0.1 % (0-2.0); EOS % 0.1 % (0-4.5); HEMOGLOBIN 10.6 GM/dL (10.7-15.3); LYMPH % 4.9 % (8-40); MCH 26.6 pg (25.7-33.7); MCHC 32.2 g/dl (32.0-36.0); MEAN CELL VOLUME 82.6 fl (80-96); MEAN PLT VOLUME 11.1 fl (7.5-11.1); MONO % 10.7 % (3.8-10.2); NEUT % 84.2 % (42.8-82.8); PLATELET COUNT 153 K/MM3 (134-434); RBC 3.99 M/mm3 (3.60-5.2); RDW 16.5 % (11.6-15.6)
[2018-05-10 09:19] LABS: ALK PHOS 106 U/L (45-117); BILIRUBIN,TOTAL 1.3 mg/dL (0.2-1.0); CHLORIDE 94 mmol/L (98-107); POTASSIUM 4.2 mmol/L (3.5-5.1); SGOT/AST 30 U/L (15-37); SGPT/ALT 22 U/L (12-78); SODIUM 131 mmol/L (136-145); TOT PROT 6.9 g/dl (6.4-8.2)
[2018-05-10 09:24] LABS: ALBUMIN 3.1 g/dl (3.4-5.0); ANION GAP 9 (8-16); BLOOD UREA NITROGEN 48 mg/dL (7-18); CALCIUM 8.7 mg/dL (8.5-10.1); CO2 28 mmol/L (21-32); CREATININE 1.6 mg/dL (0.55-1.02); GLUCOSE,RANDOM 107 mg/dL (74-106)
--- NOTE | 2018-05-10 09:50 | PN ---
Progress Note (short form) - Note Progress Note: INR STILL ELEVATED OR SCHEDULED FOR TUESDAY
[2018-05-10] MEDS: oxyCODONE HCL 5 MG TABLET PO PRN (10:13)
[2018-05-10] MEDS: LIDOCAINE 5% TOPICAL PATCH TP SCH (10:13)
[2018-05-10] MEDS: ALLOPURINOL 100 MG TABLET (FP) PO SCH (10:15)
[2018-05-10] MEDS: PANTOPRAZOLE 40 MG TABLET (FP) PO SCH (10:15)
[2018-05-10] MEDS: ISOSORBIDE MONONITRATE 30 MG TAB.SR.24H (FP) PO SCH (10:15)
[2018-05-10] MEDS: GABAPENTIN 100 MG CAPSULE (FP) PO SCH ×2 (10:16→22:24)
[2018-05-10] MEDS: CALCIUM 500MG/VIT-D 200 UNITS COMBO TABLET (FP) PO SCH (10:16)
[2018-05-10] MEDS: ATENOLOL 50 MG TABLET (FP) PO SCH (10:16)
[2018-05-10] MEDS: POLYETHYLENE GLYCOL 3350 119 GM BTL PO SCH (10:17)
[2018-05-10] MEDS: SPIRONOLACTONE 25 MG TABLET (FP) PO SCH (10:17)
[2018-05-10] MEDS: SODIUM CHLORIDE 1,000 ML IV SCH ×2 (10:18→13:15)
--- NOTE | 2018-05-10 10:21 | PN ---
Progress Note (short form) - Note Progress Note: 87 year old female admitted with traumatic fracture of right hip. Known case of RHD, mitral stenosis,s/p mechnical mitral prosthesis, hypertension, permanent atrial fib. right heart failure,severe TR, s/p right carotid endarterectomy and h/o profound deafness.H/o CAD, angina pectoris. Patient continues to have of hip pain. no SOB, chest pain or discomfort.Had periods of rapid ventricular response yesterday, partly related pain.Decrease in heart rate. Persistent INR elevation, surgery on tuesday. intermittent Low grade fever. Active Medications Acetaminophen (Tylenol -) 650 mg PO Q4H PRN PRN Reason: PAIN LEVEL 1 - 3 Last Admin: 05/08/18 20:09 Dose: 650 mg Albuterol Sulfate (Ventolin 0.083% Nebulizer Soln -) 1 amp NEB Q4H PRN PRN Reason: SHORT OF BREATH/WHEEZING Allopurinol (Zyloprim -) 100 mg PO DAILY [facility] Last Admin: 05/10/18 10:15 Dose: 100 mg Atenolol (Tenormin -) 50 mg PO DAILY [facility] Last Admin: 05/10/18 10:16 Dose: 50 mg Atorvastatin Calcium (Lipitor -) 10 mg PO HS [facility] Last Admin: 05/09/18 21:55 Dose: 10 mg Bisacodyl (Dulcolax Suppository -) 10 mg [place] DAILY PRN PRN Reason: CONSTIPATION Calcium Carbonate/Cholecalciferol (Os-Sumanth 500+D -) 1 tab PO DAILY [facility] Last Admin: 05/10/18 10:16 Dose: 1 tab Docusate Sodium (Colace -) 100 mg PO TID [facility] Last Admin: 05/10/18 06:30 Dose: Not Given Furosemide (Lasix -) 40 mg PO DAILY [facility] Last Admin: 05/08/18 09:54 Dose: 40 mg Gabapentin (Neurontin -) 100 mg PO BID [facility] Last Admin: 05/10/18 10:16 Dose: 100 mg Sodium Chloride (Normal Saline -) 1,000 mls @ 42 mls/hr IV ASDIR [facility] Last Admin: 05/10/18 10:18 Dose: 42 mls/hr Isosorbide Mononitrate (Imdur -) 30 mg PO DAILY [facility] Last Admin: 05/10/18 10:15 Dose: 30 mg Levothyroxine Sodium (Synthroid -) 100 mcg PO 0700 [facility] Last Admin: 05/10/18 06:32 Dose: 100 mcg Lidocaine (Lidoderm Patch -) 1 patch TP DAILY [facility] Last Admin: 05/10/18 10:13 Dose: 1 patch Miscellaneous (Lidoderm Patch Removal) 1 each MC DAILY@2200 [facility] Last Admin: 05/09/18 23:35 Dose: 1 each Morphine Sulfate (Morphine Sulfate) 2 mg IVPUSH Q4H PRN PRN Reason: PAIN LEVEL 7 - 10 Last Admin: 05/10/18 08:11 Dose: 2 mg Ondansetron HCl (Zofran Injection) 4 mg IVPUSH Q6H PRN PRN Reason: NAUSEA Oxycodone HCl (Roxicodone -) 5 mg PO Q4H PRN PRN Reason: PAIN LEVEL 4 - 6 Last Admin: 05/10/18 10:13 Dose: 5 mg Pantoprazole Sodium (Protonix -) 40 mg PO DAILY [facility] Last Admin: 05/10/18 10:15 Dose: 40 mg Polyethylene Glycol (Miralax (For Daily Use) -) 17 gm PO DAILY [facility] Last Admin: 05/10/18 10:17 Dose: 17 gm Spironolactone (Aldactone -) 25 mg PO DAILY [facility] Last Admin: 05/10/18 10:17 Dose: 25 mg 87 year old female in moderate pain, no pallor, cyanosis, clubbing or jaudice. Last Vital Signs Temp Pulse Resp BP Pulse Ox 98.9 F 100 H irregular 20 114/64 94 L 05/10/18 09:01 05/10/18 09:01 05/10/18 09:01 05/10/18 09:01 05/09/18 21:00 NECK: Supple, no JVD, +ve HJR, pulsatile neck veins, carotids 2+. HEART: PMI in the 5th ICS, apical and left parasternal heave, crisp heart sounds grade II/ apical murmur,LSB and apex.KYM II/ 2nd RIS, no gallops. ABDOMEN: Soft, nontender, liver is pulsatile, edge palpable, no splenomegaly. EXTREMITIES: Right foot externally rotated., no edema or calf tenderness.swelling of the rt. thigh. CBC, BMP 05/10/18 06:10 05/10/18 06:10 IMPRESSION: 1. Atrial fib. with rapid response, partly related to pain(improving). 2. Fracture right hip with probable bleed in the surrounding soft tissue. 3. RHD,s/p mechanical mitral valve replacement 4. H/o CHF. 5. Severe TR. 6. CKD with rising BUN/creat. 7. Hyponateremia. RECOMMENDATION: 1. Urine culture. 2. If heart remains elevated transfer to telemetry. 3. F/u BMP, CBC, INR in AM. 4. may need to give vitamin K. if inr remains elevated.5. F/u Xray chest. 5. Renal and ID evaluation ordered by hospitalist sandi.
--- NOTE | 2018-05-10 10:29 | PN ---
Physical Exam: SUBJECTIVE: Patient seen and examined at the bedside. Pain more controlled but still having some shooting pain in the right leg. Will increase morphine. OBJECTIVE: INR 2.89: vit k tomorrow if INR does not budge, re check INR after giving vit K , discussed with Dr. Coates. *no invasive procedures on this patient unless cleared by Dr. Coates, cardiology * patient with mild fevers, hypotension, tachycardia and leukocytosis, spoke to Dr. Summers who will see patient. Vital Signs Period Temp Pulse Resp BP Sys/[place] Pulse Ox Last 24 Hr 97.7 F-99.5 F 93-133 18-20 99-122/53-78 94 GENERAL: The patient is awake, alert, and fully oriented, in mild pain, morphine increased HEAD: Normal with no signs of trauma. EYES: PERRL, extraocular movements intact, sclera anicteric, conjunctiva clear. No ptosis. ENT: Ears normal, nares patent, oropharynx clear without exudates, moist mucous membranes. NECK: Trachea midline, full range of motion, supple. LUNGS: Breath sounds equal, clear to auscultation anteriorly, no wheezing, not short of breath, tolerating room air HEART: mechanical valve, rate controlled/irregular ABDOMEN: Soft, nontender, nondistended, normoactive bowel sounds, surgical scar EXTREMITIES: mild edema of right lower leg, right leg rotation to the right NEUROLOGICAL: Normal speech, bed bound PSYCH: Normal mood, normal affect. SKIN: Warm, dry, normal turgor, no rashes or lesions noted Laboratory Results - last 24 hr 05/10/18 05/10/18 05/10/18 06:05 06:06 06:10 WBC 13.0 H RBC 3.99 Hgb 10.6 L Hct 33.0 MCV 82.6 MCH 26.6 MCHC 32.2 RDW 16.5 H Plt Count 153 MPV 11.1 Absolute Neuts (auto) 10.9 Neutrophils % 84.2 H Lymphocytes % 4.9 L D Monocytes % 10.7 H Eosinophils % 0.1 Basophils % 0.1 Nucleated RBC % 0 PT with INR 32.70 H INR 2.89 H Sodium Cancelled Potassium Cancelled Chloride Cancelled Carbon Dioxide Cancelled Anion Gap Cancelled BUN Cancelled Creatinine Cancelled Creat Clearance w eGFR Cancelled Random Glucose Cancelled Calcium Cancelled Total Bilirubin AST ALT Alkaline Phosphatase Total Protein Albumin 05/10/18 06:10 WBC RBC Hgb Hct MCV MCH MCHC RDW Plt Count MPV Absolute Neuts (auto) Neutrophils % Lymphocytes % Monocytes % Eosinophils % Basophils % Nucleated RBC % PT with INR INR Sodium 131 L Potassium 4.2 Chloride 94 L Carbon Dioxide 28 Anion Gap 9 BUN 48 H Creatinine 1.6 H Creat Clearance w eGFR 30.49 Random Glucose 107 H Calcium 8.7 Total Bilirubin 1.3 H AST 30 ALT 22 Alkaline Phosphatase 106 Total Protein 6.9 Albumin 3.1 L Active Medications Generic Name Dose Route Start Last Admin Trade Name Freq PRN Reason Stop Dose Admin Acetaminophen 650 mg 05/07/18 17:45 05/08/18 20:09 Tylenol - PO 650 mg Q4H PRN Administration PAIN LEVEL 1 - 3 Albuterol Sulfate 1 amp 05/07/18 17:45 Ventolin 0.083% Nebulizer Soln - NEB Q4H PRN SHORT OF BREATH/WHEEZING Allopurinol 100 mg 05/08/18 10:00 05/10/18 10:15 Zyloprim - PO 100 mg DAILY [facility] Administration Atenolol 50 mg 05/08/18 10:00 05/10/18 10:16 Tenormin - PO 50 mg DAILY [facility] Administration Atorvastatin Calcium 10 mg 05/07/18 22:00 05/09/18 21:55 Lipitor - PO 10 mg HS [facility] Administration Bisacodyl 10 mg 05/08/18 22:05 Dulcolax Suppository - [place] DAILY PRN CONSTIPATION Calcium Carbonate/Cholecalciferol 1 tab 05/07/18 17:45 05/10/18 10:16 Os-Sumanth 500+D - PO 1 tab DAILY [facility] Administration Docusate Sodium 100 mg 05/09/18 06:00 05/10/18 06:30 Colace - PO Not Given TID [facility] Furosemide 40 mg 05/08/18 10:00 05/08/18 09:54 Lasix - PO 40 mg DAILY [facility] Administration Gabapentin 100 mg 05/07/18 22:00 05/10/18 10:16 Neurontin - PO 100 mg BID [facility] Administration Sodium Chloride 1,000 mls @ 42 mls/hr 05/09/18 10:00 05/10/18 10:18 Normal Saline - IV 42 mls/hr ASDIR [facility] Administration Isosorbide Mononitrate 30 mg 05/08/18 10:00 05/10/18 10:15 Imdur - PO 30 mg DAILY [facility] Administration Levothyroxine Sodium 100 mcg 05/08/18 07:00 05/10/18 06:32 Synthroid - PO 100 mcg 0700 [facility] Administration Lidocaine 1 patch 05/09/18 12:00 05/10/18 10:13 Lidoderm Patch - TP 1 patch DAILY [facility] Administration Miscellaneous 1 each 05/09/18 22:00 05/09/18 23:35 Lidoderm Patch Removal MC 1 each DAILY@2200 [facility] Administration Morphine Sulfate 2 mg 05/09/18 09:52 05/10/18 08:11 Morphine Sulfate IVPUSH 2 mg Q4H PRN Administration PAIN LEVEL 7 - 10 Ondansetron HCl 4 mg 05/07/18 17:45 Zofran Injection IVPUSH Q6H PRN NAUSEA Oxycodone HCl 5 mg 05/07/18 17:45 05/10/18 10:13 Roxicodone - PO 5 mg Q4H PRN Administration PAIN LEVEL 4 - 6 Pantoprazole Sodium 40 mg 05/08/18 10:00 05/10/18 10:15 Protonix - PO 40 mg DAILY [facility] Administration Polyethylene Glycol 17 gm 05/09/18 10:00 05/10/18 10:17 Miralax (For Daily Use) - PO 17 gm DAILY [facility] Administration Spironolactone 25 mg 05/08/18 10:00 05/10/18 10:17 Aldactone - PO 25 mg DAILY [facility] Administration ASSESSMENT/PLAN: Patient is an 87 year old woman with a significant past medical history of hyperlipidemia, atrial fibrillation (on Coumadin), hypothyroidsm and mechanical heart valve. She presents to the ED on 05/07/2018 after she fell onto her right hip and leg and was found to have an acute right femoral intertrochanteric fracture. Muscular/skeletal: Right femoral intertrochanteric fracture/Fall with traumatic injury: pain managed with morphine 3mg, oxycodone, lidoderm, and neurontin. For possible right IM gamma nail on Tuesday pending INR with Dr. Ellsworth. Prolonged immobility: black placement. Card: atrial fibrillation: rate controlled with Atenolol. cardiology following. Mechanical heart valve: INR today 2.8, continue to hold coumadin. Heparin drip to be initiated when INR is 2.5. Cardiology clearance prior to surgery. Hyperlipidemia: On home Lipitor. lipid panel reviewed-controlled Severe TR with RV heart failure: Lasix on hold, on IVF per renal for JOCELYN. Hypertension: controlled. On Imdur, Lasix, Atenolol ID: Meets SIRS criteria: fevers, hypotension, tachycardia and leukocytosis, spoke to Dr. Summers who will see patient. blood and urine cultures pending. Renal: JOCELYN on CKD. Hold lasix. Monitor Hypomagnesium, cmp in a.m. Endocrine: Hypothyroidsm: On Synthroid 100mcgs GI: Peptic Ulcer Disease: on Protonix Colectomy with right hemicolectormy, history fen toleraring PO monitor electrolytes low salt diet prophy Supratherapeutic INR, coumadin on hold for possible surgery on Tuesday bowel regimen incentive spirometer Physical therapy after surgical repair, patient and to select rehab facility disposition: full code. Discharge to rehab once cleared by surgery. Visit type - Emergency Visit Emergency Visit: Yes ED Registration Date: 05/07/18 Care time: The patient presented to the Emergency Department on the above date and was hospitalized for further evaluation of their emergent condition. - New Patient This patient is new to me today: No - Critical Care Critical Care patient: No - Discharge Referral Referred to [facility] No
[2018-05-10] MEDS ORDERED: DEXAMETHASONE SOD PHOSPHATE/PF 10 MG/ML SDV ONE (11:42)
[2018-05-10] MEDS ORDERED: BUPIVACAINE HCL/PF 0.5% (5MG/ML) 10 ML VIAL ONE (11:42)
[2018-05-10] MEDS ORDERED: MIDAZOLAM HCL 2 MG/2 ML SINGLE DOSE VIAL ONE (11:44)
[2018-05-10] MEDS ORDERED: BISACODYL 5 MG TABLET.DR (FP) PO ONE (11:48)
--- NOTE | 2018-05-10 12:44 | EKG ---
Test Reason : Blood Pressure : / mmHG Vent. Rate : 100 BPM Atrial Rate : 119 BPM P-R Int : 000 ms QRS Dur : 086 ms QT Int : 312 ms P-R-T Axes : 000 -51 079 degrees QTc Int : 402 ms ATRIAL FIBRILLATION LEFT AXIS DEVIATION PULMONARY DISEASE PATTERN ABNORMAL ECG WHEN COMPARED WITH ECG OF 07-MAY-2018 14:36, QRS AXIS SHIFTED LEFT QT HAS SHORTENED Confirmed by ABY CERVANTES MD ([id number]) on 05/10/2018 12:44:02 PM Referred By: PETERSON PELAYO DRIKH Confirmed By:ABY CERVANTES MD
[2018-05-10] MEDS: morphine SULFATE 4 MG/ML VIAL IVPUSH PRN ×2 (12:49→22:40)
--- NOTE | 2018-05-10 12:53 | CONSULT ---
Consult - text type - Consultation Consultation Note: Renal Consult for JOCELYN/CKD This is a 87 year old woman with PMhx of CKD stage 3, Hypertension, Hyperlipidemia, Hypothyroidism, Afib, MVR, CAD who presented s/p fall with femoral fracture and now with JOCELYN and Hyponatremia. Pt reports she was sitting in a chair and had fallen. No LOC or head trauma. Cr ibis from 0.9 to 1.6 in the hospital. No contrast exposure. No NSAIDs given since admission. No periods of overt hypotension noted. Has a black in place in since 05/08. On diuretics ( Aldactone). No rash, abd pain, N/V/D. PMhx: as above Allergies: NKDA Family Hx: NC Social Hx: No T/A/D ROS: As per HPI Home Medications Medication Instructions Recorded Atorvastatin Ca [Lipitor] 10 mg PO HS 08/02/14 Levothyroxine [Synthroid -] 100 mcg PO DAILY #90 tablet 09/12/14 Spironolactone [Aldactone] 25 mg PO DAILY 09/24/15 Warfarin Na [Coumadin -] 4 mg PO ASDIR 09/24/15 Furosemide [Lasix -] 40 mg PO DAILY 04/23/16 Allopurinol [Zyloprim -] 100 mg PO DAILY 02/06/17 Atenolol [Tenormin] 50 mg PO DAILY 02/06/17 Isosorbide Mononitrate [Imdur] 30 mg PO DAILY 02/06/17 Pantoprazole Sodium 40 mg PO DAILY 02/06/17 Calcium (Oyster Shell) [Os-Sumanth 600 mg PO DAILY 05/07/18 500Mg -] Cholecalciferol (Vitamin D3) 2,000 unit PO DAILY 05/07/18 [Vitamin D3 -] Gabapentin [Neurontin] 100 mg PO BID 05/07/18 Ibandronate Sodium 150 mg PO MONTHLY 05/07/18 Warfarin Na [Coumadin -] 2 mg PO ASDIR 05/07/18 Vital Signs Temperature 98.9 F 05/10/18 09:01 Pulse Rate 110 H 05/10/18 09:01 Respiratory Rate 20 05/10/18 09:01 Blood Pressure 114/64 05/10/18 09:01 O2 Sat by Pulse Oximetry (%) 94 L 05/09/18 21:00 Intake & Output 05/07/18 05/08/18 05/09/18 07/18/18 23:59 23:59 23:59 23:59 Intake Total 200 300 520 600 Output Total 200 2350 570 145 Balance 0 -0 -50 455 Weight 57.062 kg 56.699 kg NAD, awake and alert Neck supple, No JVD irregular, + click CTA soft NT/ND No LE edema, clubbing or cyanosis CBC, BMP 05/10/18 06:10 05/10/18 06:10 Current Medications Acetaminophen (Tylenol -) 650 mg PO Q4H PRN PRN Reason: PAIN LEVEL 1 - 3 Last Admin: 05/08/18 20:09 Dose: 650 mg Albuterol Sulfate (Ventolin 0.083% Nebulizer Soln -) 1 amp NEB Q4H PRN PRN Reason: SHORT OF BREATH/WHEEZING Allopurinol (Zyloprim -) 100 mg PO DAILY [facility] Last Admin: 05/10/18 10:15 Dose: 100 mg Atenolol (Tenormin -) 50 mg PO DAILY [facility] Last Admin: 05/10/18 10:16 Dose: 50 mg Atorvastatin Calcium (Lipitor -) 10 mg PO HS [facility] Last Admin: 05/09/18 21:55 Dose: 10 mg Bisacodyl (Dulcolax Suppository -) [address] DAILY PRN PRN Reason: CONSTIPATION Calcium Carbonate/Cholecalciferol (Os-Sumanth 500+D -) 1 tab PO DAILY [facility] Last Admin: 05/10/18 10:16 Dose: 1 tab Docusate Sodium (Colace -) 100 mg PO TID [facility] Last Admin: 05/10/18 06:30 Dose: Not Given Furosemide (Lasix -) 40 mg PO DAILY [facility] Last Admin: 05/08/18 09:54 Dose: 40 mg Gabapentin (Neurontin -) 100 mg PO BID [facility] Last Admin: 05/10/18 10:16 Dose: 100 mg Sodium Chloride (Normal Saline -) 1,000 mls @ 42 mls/hr IV ASDIR [facility] Last Admin: 05/10/18 10:18 Dose: 42 mls/hr Isosorbide Mononitrate (Imdur -) 30 mg PO DAILY [facility] Last Admin: 05/10/18 10:15 Dose: 30 mg Levothyroxine Sodium (Synthroid -) 100 mcg PO 0700 [facility] Last Admin: 05/10/18 06:32 Dose: 100 mcg Lidocaine (Lidoderm Patch -) 1 patch TP DAILY [facility] Last Admin: 05/10/18 10:13 Dose: 1 patch Miscellaneous (Lidoderm Patch Removal) 1 each MC DAILY@2200 [facility] Last Admin: 05/09/18 23:35 Dose: 1 each Morphine Sulfate (Morphine Sulfate) 3 mg IVPUSH Q4H PRN PRN Reason: PAIN LEVEL 7 - 10 Ondansetron HCl (Zofran Injection) 4 mg IVPUSH Q6H PRN PRN Reason: NAUSEA Oxycodone HCl (Roxicodone -) 5 mg PO Q4H PRN PRN Reason: PAIN LEVEL 4 - 6 Last Admin: 05/10/18 10:13 Dose: 5 mg Pantoprazole Sodium (Protonix -) 40 mg PO DAILY [facility] Last Admin: 05/10/18 10:15 Dose: 40 mg Polyethylene Glycol (Miralax (For Daily Use) -) 17 gm PO DAILY [facility] Last Admin: 05/10/18 10:17 Dose: 17 gm Spironolactone (Aldactone -) 25 mg PO DAILY [facility] Last Admin: 05/10/18 10:17 Dose: 25 mg 87 year old woman with PMhx of CKD stage 3, Hypertension, Hyperlipidemia, Hypothyroidism, Afib, MVR, CAD who presented s/p fall with hip fracture and now with JOCELYN and Hyponatremia. #JOCELYN on CKD likely secondary to hypovolemia (high BUN/Cr ratio and on diuretics) #Hyponatremia #Femoral Fracture #Hx of Hypertension #Right Heart Failure #Afib #MVR #Supratheraputic INR Etiology of JOCELYN unclear Will check urine studies for FeUrea Black in place, strict I and O d/c Aldactone Increase IVF rate to 83cc per hour x 24 hours suspect that hyponatremia likely due to hypovolemic hyponatremia in setting of diuretics no indication for 3% saline pain control w/o NSAIDS no ROBERTA/ARB in this acute setting Trend BUN/Cr and electrolytes no indication for [employer]ICE Thank you Will follow
--- NOTE | 2018-05-10 14:06 | PN ---
Progress Note, Physician History of Present Illness: PULMONARY ALERT,NO SOB,+ RLE PAIN - Current Medication List Current Medications: Active Medications Acetaminophen (Tylenol -) 650 mg PO Q4H PRN PRN Reason: PAIN LEVEL 1 - 3 Last Admin: 05/08/18 20:09 Dose: 650 mg Albuterol Sulfate (Ventolin 0.083% Nebulizer Soln -) 1 amp NEB Q4H PRN PRN Reason: SHORT OF BREATH/WHEEZING Allopurinol (Zyloprim -) 100 mg PO DAILY [facility] Last Admin: 05/10/18 10:15 Dose: 100 mg Atenolol (Tenormin -) 50 mg PO DAILY [facility] Last Admin: 05/10/18 10:16 Dose: 50 mg Atorvastatin Calcium (Lipitor -) 10 mg PO HS [facility] Last Admin: 05/09/18 21:55 Dose: 10 mg Bisacodyl (Dulcolax Suppository -) 10 mg [place] DAILY PRN PRN Reason: CONSTIPATION Calcium Carbonate/Cholecalciferol (Os-Sumanth 500+D -) 1 tab PO DAILY [facility] Last Admin: 05/10/18 10:16 Dose: 1 tab Docusate Sodium (Colace -) 100 mg PO TID [facility] Last Admin: 05/10/18 06:30 Dose: Not Given Furosemide (Lasix -) 40 mg PO DAILY [facility] Last Admin: 05/08/18 09:54 Dose: 40 mg Gabapentin (Neurontin -) 100 mg PO BID [facility] Last Admin: 05/10/18 10:16 Dose: 100 mg Sodium Chloride (Normal Saline -) 1,000 mls @ 83 mls/hr IV ASDIR [facility] Isosorbide Mononitrate (Imdur -) 30 mg PO DAILY [facility] Last Admin: 05/10/18 10:15 Dose: 30 mg Levothyroxine Sodium (Synthroid -) 100 mcg PO 0700 [facility] Last Admin: 05/10/18 06:32 Dose: 100 mcg Lidocaine (Lidoderm Patch -) 1 patch TP DAILY [facility] Last Admin: 05/10/18 10:13 Dose: 1 patch Miscellaneous (Lidoderm Patch Removal) 1 each MC DAILY@2200 [facility] Last Admin: 05/09/18 23:35 Dose: 1 each Morphine Sulfate (Morphine Sulfate) 3 mg IVPUSH Q4H PRN PRN Reason: PAIN LEVEL 7 - 10 Last Admin: 05/10/18 12:49 Dose: 3 mg Ondansetron HCl (Zofran Injection) 4 mg IVPUSH Q6H PRN PRN Reason: NAUSEA Oxycodone HCl (Roxicodone -) 5 mg PO Q4H PRN PRN Reason: PAIN LEVEL 4 - 6 Last Admin: 05/10/18 10:13 Dose: 5 mg Pantoprazole Sodium (Protonix -) 40 mg PO DAILY [facility] Last Admin: 05/10/18 10:15 Dose: 40 mg Polyethylene Glycol (Miralax (For Daily Use) -) 17 gm PO DAILY [facility] Last Admin: 05/10/18 10:17 Dose: 17 gm - Objective Vital Signs: Vital Signs Temperature 98.9 F 05/10/18 09:01 Pulse Rate 110 H 05/10/18 09:01 Respiratory Rate 20 05/10/18 09:01 Blood Pressure 114/64 05/10/18 09:01 O2 Sat by Pulse Oximetry (%) 94 L 05/09/18 21:00 Constitutional: Yes: Well Nourished, Calm Eyes: Yes: WNL HENT: Yes: WNL Neck: Yes: WNL Cardiovascular: Yes: Pulse Irregular, S1, S2 Respiratory: Yes: CTA Bilaterally Gastrointestinal: Yes: Normal Bowel Sounds, Soft Extremities: Yes: External Rotation, Shortened (RLE) Edema: No Labs: CBC, BMP 05/10/18 06:10 05/10/18 06:10 INR, PTT INR 2.89 (0.82-1.09) H 05/10/18 06:06 Assessment/Plan A/P s/p Fall Right Hip Fracture s/p Mechanical MVR CAD Atrial Fibrillation HTN Hyperlipidemia h/o Colon Ca CKD - pain control - bowel regimen - no pulmonary contraindications for scheduled hip repair - DVT prophylaxis Problem List - Problems (1) Femoral neck fracture Code(s): S72.009A - FRACTURE OF UNSP PART OF NECK OF UNSP FEMUR, INIT Qualifiers: Encounter type: initial encounter Fracture type: closed Laterality: right Qualified Code(s): S72.001A - Fracture of unspecified part of neck of right femur, initial encounter for closed fracture (2) Atrial fibrillation Code(s): I48.91 - UNSPECIFIED ATRIAL FIBRILLATION Qualifiers: Atrial fibrillation type: persistent Qualified Code(s): I48.1 - Persistent atrial fibrillation (3) History of mitral valve replacement with mechanical valve Code(s): Z95.2 - PRESENCE OF PROSTHETIC HEART VALVE (4) Hypertension Code(s): I10 - ESSENTIAL (PRIMARY) HYPERTENSION Qualifiers: Hypertension type: essential hypertension Qualified Code(s): I10 - Essential (primary) hypertension (5) Hypothyroidism Code(s): E03.9 - HYPOTHYROIDISM, UNSPECIFIED Qualifiers: Hypothyroidism type: unspecified Qualified Code(s): E03.9 - Hypothyroidism , unspecified
--- NOTE | 2018-05-10 15:14 | PN ---
Progress Note, Physician Chief Complaint: ID Full note dictated Other then pain from the fracture no complaints and afebrile - Current Medication List Current Medications: Active Medications Acetaminophen (Tylenol -) 650 mg PO Q4H PRN PRN Reason: PAIN LEVEL 1 - 3 Last Admin: 05/08/18 20:09 Dose: 650 mg Albuterol Sulfate (Ventolin 0.083% Nebulizer Soln -) 1 amp NEB Q4H PRN PRN Reason: SHORT OF BREATH/WHEEZING Allopurinol (Zyloprim -) 100 mg PO DAILY [facility] Last Admin: 05/10/18 10:15 Dose: 100 mg Atenolol (Tenormin -) 50 mg PO DAILY [facility] Last Admin: 05/10/18 10:16 Dose: 50 mg Atorvastatin Calcium (Lipitor -) 10 mg PO HS [facility] Last Admin: 05/09/18 21:55 Dose: 10 mg Bisacodyl (Dulcolax Suppository -) 10 mg [place] DAILY PRN PRN Reason: CONSTIPATION Calcium Carbonate/Cholecalciferol (Os-Sumanth 500+D -) 1 tab PO DAILY [facility] Last Admin: 05/10/18 10:16 Dose: 1 tab Docusate Sodium (Colace -) 100 mg PO TID [facility] Last Admin: 05/10/18 14:14 Dose: Not Given Furosemide (Lasix -) 40 mg PO DAILY [facility] Last Admin: 05/08/18 09:54 Dose: 40 mg Gabapentin (Neurontin -) 100 mg PO BID [facility] Last Admin: 05/10/18 10:16 Dose: 100 mg Sodium Chloride (Normal Saline -) 1,000 mls @ 83 mls/hr IV ASDIR [facility] Last Admin: 05/10/18 13:15 Dose: 83 mls/hr Isosorbide Mononitrate (Imdur -) 30 mg PO DAILY [facility] Last Admin: 05/10/18 10:15 Dose: 30 mg Levothyroxine Sodium (Synthroid -) 100 mcg PO 0700 [facility] Last Admin: 05/10/18 06:32 Dose: 100 mcg Lidocaine (Lidoderm Patch -) 1 patch TP DAILY [facility] Last Admin: 05/10/18 10:13 Dose: 1 patch Miscellaneous (Lidoderm Patch Removal) 1 each MC DAILY@2200 [facility] Last Admin: 05/09/18 23:35 Dose: 1 each Morphine Sulfate (Morphine Sulfate) 3 mg IVPUSH Q4H PRN PRN Reason: PAIN LEVEL 7 - 10 Last Admin: 05/10/18 12:49 Dose: 3 mg Ondansetron HCl (Zofran Injection) 4 mg IVPUSH Q6H PRN PRN Reason: NAUSEA Oxycodone HCl (Roxicodone -) 5 mg PO Q4H PRN PRN Reason: PAIN LEVEL 4 - 6 Last Admin: 05/10/18 10:13 Dose: 5 mg Pantoprazole Sodium (Protonix -) 40 mg PO DAILY [facility] Last Admin: 05/10/18 10:15 Dose: 40 mg Polyethylene Glycol (Miralax (For Daily Use) -) 17 gm PO DAILY [facility] Last Admin: 05/10/18 10:17 Dose: 17 gm - Objective Vital Signs: Vital Signs Temperature 98.9 F 05/10/18 09:01 Pulse Rate 110 H 05/10/18 09:01 Respiratory Rate 20 05/10/18 09:01 Blood Pressure 114/64 05/10/18 09:01 O2 Sat by Pulse Oximetry (%) 94 L 05/09/18 21:00 Constitutional: Yes: No Distress Eyes: Yes: Conjunctiva Clear Neck: Yes: WNL, Supple Cardiovascular: Yes: Pulse Irregular, S1, S2, Other (Click) Respiratory: Yes: WNL, Regular, CTA Bilaterally Gastrointestinal: Yes: WNL, Normal Bowel Sounds, Soft Labs: CBC, BMP 05/10/18 06:10 05/10/18 06:10 INR, PTT INR 2.89 (0.82-1.09) H 05/10/18 06:06 Problem List - Problems (1) Fever, unknown origin Code(s): R50.9 - FEVER, UNSPECIFIED (2) Femoral neck fracture Code(s): S72.009A - FRACTURE OF UNSP PART OF NECK OF UNSP FEMUR, INIT Qualifiers: Encounter type: initial encounter Fracture type: closed Laterality: right Qualified Code(s): S72.001A - Fracture of unspecified part of neck of right femur, initial encounter for closed fracture (3) Heart valve replaced Code(s): Z95.2 - PRESENCE OF PROSTHETIC HEART VALVE Assessment/Plan Laboratory Tests 05/07/18 05/10/18 05/10/18 15:07 06:10 06:10 WBC 13.0 H Hgb 10.6 L Hct 33.0 Plt Count 153 BUN 48 H Creatinine 1.6 H Ur Leukocyte Esterase Negative Assessment At this point no obvious infection seen Leukocytosis stress response to fracture ? Plan Observe only No antibiotic for now CRP ESR BLood Urine culture Discussed with Primary care an cardiology Melina SOSA
[2018-05-10 15:50] LABS: URINE APPEARANCE SLCLOUDY; URINE BILIRUBIN NEGATIVE (<2.0 mg/dL); URINE COLOR YELLOW; URINE GLUCOSE (UA) NEGATIVE (NEGATIVE); URINE KETONE NEGATIVE (NEGATIVE); URINE LEUK ESTERASE TRACE (NEGATIVE); URINE NITRITE NEGATIVE (NEGATIVE)
[2018-05-10 15:57] LABS: URINE PROTEIN 1+ (NEGATIVE)
[2018-05-10 16:02] LABS: EPI CELLS RARE /HPF (FEW); URINE BACTERIA RARE /hpf (NONE SEEN); URINE HYALINE CAST 27 /lpf; URINE MUCUS RARE
--- NOTE | 2018-05-10 16:32 | CONS ---
INFECTIOUS DISEASE CONSULTATION DATE OF CONSULTATION: DATE OF DICTATION: 05/10/2018 HISTORY OF PRESENT ILLNESS: This is an 87-year-old female with a history of chronic atrial fibrillation, status post mitral valve replacement, who is admitted [place] fractured her right femur. I am asked to see her now, as she was on one or two occasions post admission noted to have some low-grade temperature, along with a mildly elevated WBC count. Cultures of blood have been obtained and are currently pending. On further questioning, the patient denies any chills, awareness of prior temperature, recent travel, shortness of breath, cough, abdominal pain, urinary complaints or diarrhea. She in fact is otherwise in good health and in good spirits, other than pain related to her recent fracture. PAST MEDICAL HISTORY: Includes atrial fibrillation, rheumatic heart disease, coronary artery disease, hypertension, hyperlipidemia, severe tricuspid regurgitation, hypothyroidism, history of colon cancer, chronic kidney disease, a right hemicolectomy, mechanical mitral valve replacement, hysterectomy, right carotid endarterectomy, appendectomy, repair of a perforated peptic ulcer. MEDICATIONS: Include Coumadin, atorvastatin, spironolactone, levothyroxine, allopurinol, Lasix, atenolol, isosorbide, calcium, vitamin D, Neurontin. ALLERGIES: None known. SOCIAL HISTORY: Former smoker. . Denies alcohol abuse. FAMILY HISTORY: Noncontributory. REVIEW OF SYSTEMS: Respiratory: No cough, shortness of breath. Cardiac: No chest pain, palpitations, syncope. Gastrointestinal: No weight loss, abdominal pain, nausea, vomiting, diarrhea. Genitourinary: No dysuria, hematuria, urinary frequency. PHYSICAL EXAMINATION: General: She was a pleasant, alert woman in good spirits. Vital signs: Her temperature was 98.9, pulse 110, blood pressure 110/64, respirations 20. HEENT: Conjunctivae without petechiae. Oropharynx: No exudate or thrush. Neck: Supple. Lungs: Clear to percussion and auscultation. Heart: S1, S2. Positive valve click heard at the apex. Irregularly irregular heart rhythm. No audible murmur. Abdomen: Soft, nontender without organomegaly. Extremities: Trace lower extremity edema. The white count was 13,000, hemoglobin 10.6, platelets of 153, polys 84%, lymphs 5, monocytes 11. INR of 2.99. BUN 48, creatinine 1.6, albumin 3.1. Liver enzymes within normal limits. Urinalysis with negative leukocyte esterase. Chest x-ray shows cardiomegaly with a mitral valve replacement. Electrocardiogram, dated May 10, shows atrial fibrillation. ASSESSMENT: An 87-year-old female, status post right femur fracture. Low-grade temperature noted, but currently afebrile at this time. Mild leukocytosis also noted. May be on the basis of stress response to her recent fracture, as no obvious site of infection currently available. PLAN: For now, observe off of antibiotics. Obtain blood cultures, urine culture, a CRP, and ESR. Once INR normalizes, the patient will be taken to the operating room for repair of her fracture. This was discussed with her primary care provider as well as Cardiology. MARS GUZMAN M.D. [id number]
[2018-05-10] MEDS: ATORVASTATIN CA 10 MG TABLET (FP) PO SCH (22:24)
[2018-05-10] MEDS: LIDOCAINE PATCH REMOVAL MC SCH (22:25)
[2018-05-11] MEDS: SODIUM CHLORIDE 1,000 ML IV SCH ×2 (00:37→13:42)
[2018-05-11] MEDS: ACETAMINOPHEN 325 MG TABLET (FP) PO PRN (03:27)
[2018-05-11] MEDS: oxyCODONE HCL 5 MG TABLET PO PRN (03:28)
[2018-05-11] MEDS: morphine SULFATE 4 MG/ML VIAL IVPUSH PRN ×3 (06:28→14:13)
[2018-05-11] MEDS: DOCUSATE SODIUM 100 MG CAPSULE (FP) PO SCH ×3 (06:29→23:27)
[2018-05-11] MEDS: LEVOTHYROXINE NA 100 MCG TABLET (FP) PO SCH (06:29)
[2018-05-11 07:13] LABS: BASO % 0.1 % (0-2.0); EOS % 0.5 % (0-4.5); HEMATOCRIT 29.9 % (32.4-45.2); HEMOGLOBIN 9.9 GM/dL (10.7-15.3); LYMPH % 3.5 % (8-40); MCH 27.4 pg (25.7-33.7); MCHC 33.1 g/dl (32.0-36.0); MEAN CELL VOLUME 82.6 fl (80-96); MONO % 9.7 % (3.8-10.2); NEUT % 86.2 % (42.8-82.8); PLATELET COUNT 153 K/MM3 (134-434); RBC 3.62 M/mm3 (3.60-5.2); RDW 16.5 % (11.6-15.6); WHITE BLOOD COUNT 9.7 K/mm3 (4.0-10.0)
[2018-05-11 07:49] LABS: CHLORIDE 98 mmol/L (98-107); POTASSIUM 4.2 mmol/L (3.5-5.1); SODIUM 132 mmol/L (136-145)
[2018-05-11 07:57] LABS: ALBUMIN 2.9 g/dl (3.4-5.0); ALK PHOS 100 U/L (45-117); ANION GAP 8 (8-16); BILIRUBIN,TOTAL 0.8 mg/dL (0.2-1.0); BLOOD UREA NITROGEN 51 mg/dL (7-18); CALCIUM 8.5 mg/dL (8.5-10.1); CO2 26 mmol/L (21-32); CREATININE 1.2 mg/dL (0.55-1.02); GLUCOSE,RANDOM 134 mg/dL (74-106); MAGNESIUM 2.1 mg/dL (1.8-2.4); PHOSPHOROUS 2.9 mg/dL (2.5-4.9); SGOT/AST 36 U/L (15-37); SGPT/ALT 24 U/L (12-78); TOT PROT 6.6 g/dl (6.4-8.2)
--- NOTE | 2018-05-11 09:21 | PN ---
Progress Note (short form) - Note Progress Note: Ortho Pt seen and examined s/p right IT fx Selected Entries 05/11/18 05:51 Temperature 98.9 F Pulse Rate 95 H Respiratory 20 Rate Blood Pressure 103/56 Laboratory Tests 05/10/18 05/11/18 06:06 06:30 WBC 9.7 Hgb 9.9 L Hct 29.9 L Plt Count 153 INR 2.89 H RLE shortened and ER, + ttp, decr rom secondary to pain nvi a/p OR for right IM gamma nail once INR normalized NPO after midnight OR tomorrow if INR ok d/w Dr. Ellsworth
[2018-05-11] MEDS: ATENOLOL 50 MG TABLET (FP) PO SCH (09:47)
[2018-05-11] MEDS: ISOSORBIDE MONONITRATE 30 MG TAB.SR.24H (FP) PO SCH (09:47)
[2018-05-11] MEDS: ALLOPURINOL 100 MG TABLET (FP) PO SCH (09:47)
[2018-05-11] MEDS: CALCIUM 500MG/VIT-D 200 UNITS COMBO TABLET (FP) PO SCH (09:47)
[2018-05-11] MEDS: PANTOPRAZOLE 40 MG TABLET (FP) PO SCH (09:47)
[2018-05-11] MEDS: LIDOCAINE 5% TOPICAL PATCH TP SCH (09:47)
[2018-05-11] MEDS: GABAPENTIN 100 MG CAPSULE (FP) PO SCH ×2 (09:47→22:40)
[2018-05-11] MEDS: POLYETHYLENE GLYCOL 3350 119 GM BTL PO SCH (09:51)
[2018-05-11 10:08] LABS: INR 2.82 (0.82-1.09); PROTHROMBIN TIME (PATIENT) 31.9 SEC (9.7-13.0)
--- NOTE | 2018-05-11 10:18 | PN ---
Progress Note (short form) - Note Progress Note: 87 year old female admitted with traumatic fracture of right hip. Known case of RHD, mitral stenosis,s/p mechnical mitral prosthesis, hypertension, permanent atrial fib. right heart failure,severe TR, s/p right carotid endarterectomy and h/o profound deafness.H/o CAD, angina pectoris. Patient continues to have of hip pain. no SOB, chest pain or discomfort.Had periods of rapid ventricular response yesterday, partly related pain.Decrease in heart rate. Persistent INR elevation, surgery on tuesday, will have to give vitamin K and dependenting on INR to start on heparin. Active Medications Acetaminophen (Tylenol -) 650 mg PO Q4H PRN PRN Reason: PAIN LEVEL 1 - 3 Last Admin: 05/11/18 03:27 Dose: 650 mg Albuterol Sulfate (Ventolin 0.083% Nebulizer Soln -) 1 amp NEB Q4H PRN PRN Reason: SHORT OF BREATH/WHEEZING Allopurinol (Zyloprim -) 100 mg PO DAILY [facility] Last Admin: 05/11/18 09:47 Dose: 100 mg Atenolol (Tenormin -) 50 mg PO DAILY [facility] Last Admin: 05/11/18 09:47 Dose: 50 mg Atorvastatin Calcium (Lipitor -) 10 mg PO HS [facility] Last Admin: 05/10/18 22:24 Dose: 10 mg Bisacodyl (Dulcolax Suppository -) 10 mg [place] DAILY PRN PRN Reason: CONSTIPATION Calcium Carbonate/Cholecalciferol (Os-Sumanth 500+D -) 1 tab PO DAILY [facility] Last Admin: 05/11/18 09:47 Dose: 1 tab Docusate Sodium (Colace -) 100 mg PO TID [facility] Last Admin: 05/11/18 06:29 Dose: 100 mg Furosemide (Lasix -) 40 mg PO DAILY [facility] Last Admin: 05/08/18 09:54 Dose: 40 mg Gabapentin (Neurontin -) 100 mg PO BID [facility] Last Admin: 05/11/18 09:47 Dose: 100 mg Sodium Chloride (Normal Saline -) 1,000 mls @ 83 mls/hr IV ASDIR [facility] Last Admin: 05/11/18 00:37 Dose: 83 mls/hr Isosorbide Mononitrate (Imdur -) 30 mg PO DAILY [facility] Last Admin: 05/11/18 09:47 Dose: 30 mg Levothyroxine Sodium (Synthroid -) 100 mcg PO 0700 [facility] Last Admin: 05/11/18 06:29 Dose: 100 mcg Lidocaine (Lidoderm Patch -) 1 patch TP DAILY [facility] Last Admin: 05/11/18 09:47 Dose: 1 patch Miscellaneous (Lidoderm Patch Removal) 1 each MC DAILY@2200 [facility] Last Admin: 05/10/18 22:25 Dose: 1 each Morphine Sulfate (Morphine Sulfate) 3 mg IVPUSH Q4H PRN PRN Reason: PAIN LEVEL 7 - 10 Last Admin: 05/11/18 09:47 Dose: 3 mg Ondansetron HCl (Zofran Injection) 4 mg IVPUSH Q6H PRN PRN Reason: NAUSEA Oxycodone HCl (Roxicodone -) 5 mg PO Q4H PRN PRN Reason: PAIN LEVEL 4 - 6 Last Admin: 05/11/18 03:28 Dose: 5 mg Pantoprazole Sodium (Protonix -) 40 mg PO DAILY [facility] Last Admin: 05/11/18 09:47 Dose: 40 mg Polyethylene Glycol (Miralax (For Daily Use) -) 17 gm PO DAILY [facility] Last Admin: 05/11/18 09:51 Dose: 17 gm 87 year old female in moderate pain, no pallor, cyanosis, clubbing or jaudice. Last Vital Signs Temp Pulse Resp BP Pulse Ox 98.9 F 95 H 20 103/56 95 05/11/18 05:51 05/11/18 05:51 05/11/18 05:51 05/11/18 05:51 05/11/18 08:58 NECK: Supple, no JVD, +ve HJR, pulsatile neck veins, carotids 2+. HEART: PMI in the 5th ICS, apical and left parasternal heave, crisp heart sounds grade II/ apical murmur,LSB and apex.KYM II/ 2nd RIS, no gallops. ABDOMEN: Soft, nontender, liver is pulsatile, edge palpable, no splenomegaly. EXTREMITIES: Right foot externally rotated., no edema or calf tenderness.swelling of the rt. thigh. CBC, BMP 05/11/18 06:30 05/11/18 06:30 INR, PTT INR 2.82 (0.82-1.09) H 05/11/18 09:30 IMPRESSION: 1. Atrial fib. with rapid response, partly related to pain(improving). 2. Fracture right hip with probable bleed in the surrounding soft tissue. 3. RHD,s/p mechanical mitral valve replacement 4. H/o CHF. 5. Severe TR. 6. CKD with rising BUN/creat. 7. Hyponateremia. RECOMMENDATION: 1. Vitamen K 5mg. now 2. INR at 3pm. 3. F/u BMP, CBC, INR in AM. 4. F/u Xray chest. 5. Patient will need aldactone as she develops right heart failure with being on it.
[2018-05-11] MEDS ORDERED: PHYTONADIONE 5 MG TABLET PO ONE (10:45)
--- NOTE | 2018-05-11 10:45 | PN ---
Progress Note, Physician Chief Complaint: ID Afebrile off antibiotics Has black cath - Current Medication List Current Medications: Active Medications Acetaminophen (Tylenol -) 650 mg PO Q4H PRN PRN Reason: PAIN LEVEL 1 - 3 Last Admin: 05/11/18 03:27 Dose: 650 mg Albuterol Sulfate (Ventolin 0.083% Nebulizer Soln -) 1 amp NEB Q4H PRN PRN Reason: SHORT OF BREATH/WHEEZING Allopurinol (Zyloprim -) 100 mg PO DAILY [facility] Last Admin: 05/11/18 09:47 Dose: 100 mg Atenolol (Tenormin -) 50 mg PO DAILY [facility] Last Admin: 05/11/18 09:47 Dose: 50 mg Atorvastatin Calcium (Lipitor -) 10 mg PO HS [facility] Last Admin: 05/10/18 22:24 Dose: 10 mg Bisacodyl (Dulcolax Suppository -) 10 mg [place] DAILY PRN PRN Reason: CONSTIPATION Calcium Carbonate/Cholecalciferol (Os-Sumanth 500+D -) 1 tab PO DAILY [facility] Last Admin: 05/11/18 09:47 Dose: 1 tab Docusate Sodium (Colace -) 100 mg PO TID [facility] Last Admin: 05/11/18 06:29 Dose: 100 mg Furosemide (Lasix -) 40 mg PO DAILY [facility] Last Admin: 05/08/18 09:54 Dose: 40 mg Gabapentin (Neurontin -) 100 mg PO BID [facility] Last Admin: 05/11/18 09:47 Dose: 100 mg Sodium Chloride (Normal Saline -) 1,000 mls @ 83 mls/hr IV ASDIR [facility] Last Admin: 05/11/18 00:37 Dose: 83 mls/hr Isosorbide Mononitrate (Imdur -) 30 mg PO DAILY [facility] Last Admin: 05/11/18 09:47 Dose: 30 mg Levothyroxine Sodium (Synthroid -) 100 mcg PO 0700 [facility] Last Admin: 05/11/18 06:29 Dose: 100 mcg Lidocaine (Lidoderm Patch -) 1 patch TP DAILY [facility] Last Admin: 05/11/18 09:47 Dose: 1 patch Miscellaneous (Lidoderm Patch Removal) 1 each MC DAILY@2200 [facility] Last Admin: 05/10/18 22:25 Dose: 1 each Morphine Sulfate (Morphine Sulfate) 3 mg IVPUSH Q4H PRN PRN Reason: PAIN LEVEL 7 - 10 Last Admin: 05/11/18 09:47 Dose: 3 mg Ondansetron HCl (Zofran Injection) 4 mg IVPUSH Q6H PRN PRN Reason: NAUSEA Oxycodone HCl (Roxicodone -) 5 mg PO Q4H PRN PRN Reason: PAIN LEVEL 4 - 6 Last Admin: 05/11/18 03:28 Dose: 5 mg Pantoprazole Sodium (Protonix -) 40 mg PO DAILY [facility] Last Admin: 05/11/18 09:47 Dose: 40 mg Phytonadione (Mephyton -) 5 mg PO ONCE ONE Stop: 05/11/18 10:46 Polyethylene Glycol (Miralax (For Daily Use) -) 17 gm PO DAILY [facility] Last Admin: 05/11/18 09:51 Dose: 17 gm - Objective Vital Signs: Vital Signs Temperature 98.9 F 05/11/18 05:51 Pulse Rate 95 H 05/11/18 05:51 Respiratory Rate 20 05/11/18 05:51 Blood Pressure 103/56 05/11/18 05:51 O2 Sat by Pulse Oximetry (%) 95 05/11/18 08:58 Neck: Yes: WNL, Supple Cardiovascular: Yes: Pulse Irregular, S1, S2, Other (click) Respiratory: Yes: WNL, Regular, CTA Bilaterally Gastrointestinal: Yes: WNL, Normal Bowel Sounds, Soft. No: Tenderness, Tenderness, Rebound Labs: CBC, BMP 05/11/18 06:30 05/11/18 06:30 INR, PTT INR 2.82 (0.82-1.09) H 05/11/18 09:30 Problem List - Problems (1) Fever, unknown origin Code(s): R50.9 - FEVER, UNSPECIFIED (2) Femoral neck fracture Code(s): S72.009A - FRACTURE OF UNSP PART OF NECK OF UNSP FEMUR, INIT Qualifiers: Encounter type: initial encounter Fracture type: closed Laterality: right Qualified Code(s): S72.001A - Fracture of unspecified part of neck of right femur, initial encounter for closed fracture (3) Heart valve replaced Code(s): Z95.2 - PRESENCE OF PROSTHETIC HEART VALVE Assessment/Plan Microbiology 05/09/18 10:10 Blood - Peripheral Venous Blood Culture - Preliminary NO GROWTH OBTAINED AFTER 48 HOURS, INCUBATION TO CONTINUE FOR 3 DAYS. 05/09/18 09:55 Blood - Peripheral Venous Blood Culture - Preliminary NO GROWTH OBTAINED AFTER 24 HOURS, INCUBATION TO CONTINUE FOR 4 DAYS. Laboratory Tests 05/10/18 05/11/18 05/11/18 14:30 06:30 06:30 WBC 9.7 Hgb 9.9 L Hct 29.9 L Plt Count 153 INR BUN 51 H Creatinine 1.2 H Creat Clearance w eGFR 42.50 Urine WBC (Auto) 5 Urine RBC (Auto) 14 05/11/18 09:30 WBC Hgb Hct Plt Count INR 2.82 H BUN Creatinine Creat Clearance w eGFR Urine WBC (Auto) Urine RBC (Auto) Assessment S/P fall with femur fracture Fever gone normal WBC We elected to observe off antibiotics Plan Surgery when coags corrected Kindly recall as needed Melina SOSA
[2018-05-11] MEDS: FUROSEMIDE 40 MG TABLET (FP) PO SCH (10:57)
--- NOTE | 2018-05-11 11:12 | PN ---
Progress Note (short form) - Note Progress Note: PULMONARY Still with significant right hip pain. No shortness of breath or chest pain. INR elevated. Vital Signs Period Temp Pulse Resp BP Sys/[place] Pulse Ox Last 24 Hr 98.1 F-98.9 F 95-109 20-21 102-108/55-68 94-95 Gen: pain with movement Heart: irregular, +systolic murmur, +click Lung: decreased breath sounds at the bases Abd: soft, nontender Ext: right leg short and externally rotated CBC, BMP 05/11/18 06:30 05/11/18 06:30 Active Medications Acetaminophen (Tylenol -) 650 mg PO Q4H PRN PRN Reason: PAIN LEVEL 1 - 3 Last Admin: 05/11/18 03:27 Dose: 650 mg Albuterol Sulfate (Ventolin 0.083% Nebulizer Soln -) 1 amp NEB Q4H PRN PRN Reason: SHORT OF BREATH/WHEEZING Allopurinol (Zyloprim -) 100 mg PO DAILY [facility] Last Admin: 05/11/18 09:47 Dose: 100 mg Atenolol (Tenormin -) 50 mg PO DAILY [facility] Last Admin: 05/11/18 09:47 Dose: 50 mg Atorvastatin Calcium (Lipitor -) 10 mg PO HS [facility] Last Admin: 05/10/18 22:24 Dose: 10 mg Bisacodyl (Dulcolax Suppository -) 10 mg [place] DAILY PRN PRN Reason: CONSTIPATION Calcium Carbonate/Cholecalciferol (Os-Sumanth 500+D -) 1 tab PO DAILY [facility] Last Admin: 05/11/18 09:47 Dose: 1 tab Docusate Sodium (Colace -) 100 mg PO TID [facility] Last Admin: 05/11/18 06:29 Dose: 100 mg Furosemide (Lasix -) 40 mg PO DAILY [facility] Last Admin: 05/11/18 10:57 Dose: 40 mg Gabapentin (Neurontin -) 100 mg PO BID [facility] Last Admin: 05/11/18 09:47 Dose: 100 mg Sodium Chloride (Normal Saline -) 1,000 mls @ 83 mls/hr IV ASDIR [facility] Last Admin: 05/11/18 00:37 Dose: 83 mls/hr Isosorbide Mononitrate (Imdur -) 30 mg PO DAILY [facility] Last Admin: 05/11/18 09:47 Dose: 30 mg Levothyroxine Sodium (Synthroid -) 100 mcg PO 0700 [facility] Last Admin: 05/11/18 06:29 Dose: 100 mcg Lidocaine (Lidoderm Patch -) 1 patch TP DAILY [facility] Last Admin: 05/11/18 09:47 Dose: 1 patch Miscellaneous (Lidoderm Patch Removal) 1 each MC DAILY@2200 [facility] Last Admin: 05/10/18 22:25 Dose: 1 each Morphine Sulfate (Morphine Sulfate) 3 mg IVPUSH Q4H PRN PRN Reason: PAIN LEVEL 7 - 10 Last Admin: 05/11/18 09:47 Dose: 3 mg Ondansetron HCl (Zofran Injection) 4 mg IVPUSH Q6H PRN PRN Reason: NAUSEA Oxycodone HCl (Roxicodone -) 5 mg PO Q4H PRN PRN Reason: PAIN LEVEL 4 - 6 Last Admin: 05/11/18 03:28 Dose: 5 mg Pantoprazole Sodium (Protonix -) 40 mg PO DAILY [facility] Last Admin: 05/11/18 09:47 Dose: 40 mg Polyethylene Glycol (Miralax (For Daily Use) -) 17 gm PO DAILY [facility] Last Admin: 05/11/18 09:51 Dose: 17 gm A/P s/p Fall Right Hip Fracture s/p Mechanical MVR CAD Atrial Fibrillation HTN Hyperlipidemia h/o Colon Ca CKD - pain control - bowel regimen - anticoagulation per cardiology - no pulmonary contraindications for scheduled hip repair - DVT prophylaxis Problem List - Problems (1) Femoral neck fracture Code(s): S72.009A - FRACTURE OF UNSP PART OF NECK OF UNSP FEMUR, INIT Qualifiers: Encounter type: initial encounter Fracture type: closed Laterality: right Qualified Code(s): S72.001A - Fracture of unspecified part of neck of right femur, initial encounter for closed fracture (2) Atrial fibrillation Code(s): I48.91 - UNSPECIFIED ATRIAL FIBRILLATION Qualifiers: Atrial fibrillation type: persistent Qualified Code(s): I48.1 - Persistent atrial fibrillation (3) History of mitral valve replacement with mechanical valve Code(s): Z95.2 - PRESENCE OF PROSTHETIC HEART VALVE (4) Hypertension Code(s): I10 - ESSENTIAL (PRIMARY) HYPERTENSION Qualifiers: Hypertension type: essential hypertension Qualified Code(s): I10 - Essential (primary) hypertension (5) Hypothyroidism Code(s): E03.9 - HYPOTHYROIDISM, UNSPECIFIED Qualifiers: Hypothyroidism type: unspecified Qualified Code(s): E03.9 - Hypothyroidism , unspecified
--- NOTE | 2018-05-11 14:57 | PN ---
Progress Note (short form) - Note Progress Note: Renal follow up for JOCELYN and Hyponatremia Pt seen and examined at the bedside awake and alert no sob, chest pain, abd pain + hip pain with any movement Vital Signs Temperature 98.0 F 05/11/18 10:00 Pulse Rate 101 H 05/11/18 10:00 Respiratory Rate 18 05/11/18 10:00 Blood Pressure 133/68 05/11/18 10:00 O2 Sat by Pulse Oximetry (%) 95 05/11/18 08:58 Intake & Output 05/08/18 05/09/18 05/10/18 05/11/18 23:59 23:59 23:59 23:59 Intake Total 029 148 2708 996 Output Total 2350 570 845 200 Balance -2050 -50 1119 796 Weight 56.699 kg NAD RRR CTA No LE edema CBC, BMP 05/11/18 06:30 05/11/18 06:30 Current Medications Acetaminophen (Tylenol -) 650 mg PO Q4H PRN PRN Reason: PAIN LEVEL 1 - 3 Last Admin: 05/11/18 03:27 Dose: 650 mg Albuterol Sulfate (Ventolin 0.083% Nebulizer Soln -) 1 amp NEB Q4H PRN PRN Reason: SHORT OF BREATH/WHEEZING Allopurinol (Zyloprim -) 100 mg PO DAILY [facility] Last Admin: 05/11/18 09:47 Dose: 100 mg Atenolol (Tenormin -) 50 mg PO DAILY [facility] Last Admin: 05/11/18 09:47 Dose: 50 mg Atorvastatin Calcium (Lipitor -) 10 mg PO HS [facility] Last Admin: 05/10/18 22:24 Dose: 10 mg Bisacodyl (Dulcolax Suppository -) 10 mg [place] DAILY PRN PRN Reason: CONSTIPATION Calcium Carbonate/Cholecalciferol (Os-Sumanth 500+D -) 1 tab PO DAILY [facility] Last Admin: 05/11/18 09:47 Dose: 1 tab Docusate Sodium (Colace -) 100 mg PO TID [facility] Last Admin: 05/11/18 14:14 Dose: 100 mg Furosemide (Lasix -) 40 mg PO DAILY [facility] Last Admin: 05/11/18 10:57 Dose: 40 mg Gabapentin (Neurontin -) 100 mg PO BID [facility] Last Admin: 07/19/18 09:47 Dose: 100 mg Sodium Chloride (Normal Saline -) 1,000 mls @ 83 mls/hr IV ASDIR [facility] Last Admin: 05/11/18 13:42 Dose: 83 mls/hr Isosorbide Mononitrate (Imdur -) 30 mg PO DAILY [facility] Last Admin: 05/11/18 09:47 Dose: 30 mg Levothyroxine Sodium (Synthroid -) 100 mcg PO 0700 [facility] Last Admin: 05/11/18 06:29 Dose: 100 mcg Lidocaine (Lidoderm Patch -) 1 patch TP DAILY [facility] Last Admin: 05/11/18 09:47 Dose: 1 patch Miscellaneous (Lidoderm Patch Removal) 1 each MC DAILY@2200 [facility] Last Admin: 05/10/18 22:25 Dose: 1 each Morphine Sulfate (Morphine Sulfate) 3 mg IVPUSH Q4H PRN PRN Reason: PAIN LEVEL 7 - 10 Last Admin: 05/11/18 14:13 Dose: 3 mg Ondansetron HCl (Zofran Injection) 4 mg IVPUSH Q6H PRN PRN Reason: NAUSEA Oxycodone HCl (Roxicodone -) 5 mg PO Q4H PRN PRN Reason: PAIN LEVEL 4 - 6 Last Admin: 05/11/18 03:28 Dose: 5 mg Pantoprazole Sodium (Protonix -) 40 mg PO DAILY [facility] Last Admin: 05/11/18 09:47 Dose: 40 mg Polyethylene Glycol (Miralax (For Daily Use) -) 17 gm PO DAILY [facility] Last Admin: 05/11/18 09:51 Dose: 17 gm 87 year old woman with PMhx of CKD stage 3, Hypertension, Hyperlipidemia, Hypothyroidism, Afib, MVR, CAD who presented s/p fall with hip fracture and now with JOCELYN and Hyponatremia. #JOCELYN on CKD likely secondary to hypovolemia (high BUN/Cr ratio and on diuretics) #Hyponatremia #Femoral Fracture #Hx of Hypertension #Right Heart Failure #Afib #MVR #Supratheraputic INR Renal function improved Urine studies consistent with pre-renal injury continue IVF for now continue to hold diuretics Serum Na stale, no need for 3% saline Trend renal function and electrolytes no renal contraindication to planned procedure Thank you Will follow
--- NOTE | 2018-05-11 15:45 | PN ---
Physical Exam: SUBJECTIVE: Patient seen and examined. She states she is in pain and it worsens when she moves. at bedside. OBJECTIVE: Vital Signs Period Temp Pulse Resp BP Sys/[place] Pulse Ox Last 24 Hr 98.0 F-98.9 F 95-109 18-21 102-133/55-68 94-95 PE Neuro: alert,awake, cn 2-12intact Pulm: diminished, clear CV: s1 s2 irregular. + murmur, + click Abd: s nt nd + bs : black Ext: Pelvic tenderness, + DP pulses, R thigh tenderness referring downward , externally rotated Laboratory Results - last 24 hr 05/10/18 05/10/18 05/10/18 14:30 14:30 14:30 WBC RBC Hgb Hct MCV MCH MCHC RDW Plt Count MPV Absolute Neuts (auto) Neutrophils % Lymphocytes % Monocytes % Eosinophils % Basophils % Nucleated RBC % PT with INR INR Sodium Potassium Chloride Carbon Dioxide Anion Gap BUN Creatinine Creat Clearance w eGFR Random Glucose Calcium Phosphorus Magnesium Total Bilirubin AST ALT Alkaline Phosphatase Total Protein Albumin Urine Color Yellow Urine Appearance Slcloudy Urine pH 5.0 Ur Specific [place] 1.015 Urine Protein 1+ H Urine Glucose (UA) Negative Urine Ketones Negative Urine Blood 2+ H Urine Nitrite Negative Urine Bilirubin Negative Urine Urobilinogen 2.0 H Ur Leukocyte Esterase Trace Urine WBC (Auto) 5 Urine RBC (Auto) 14 Ur Epithelial Cells Rare Urine Bacteria Rare Hyaline Casts 27 Urine Mucus Rare Ur Random Urea Nitrogn 214 Urine Creatinine 111.0 05/11/18 05/11/18 05/11/18 06:30 06:30 09:30 WBC 9.7 RBC 3.62 Hgb 9.9 L Hct 29.9 L MCV 82.6 MCH 27.4 MCHC 33.1 RDW 16.5 H Plt Count 153 MPV 11.0 Absolute Neuts (auto) 8.3 Neutrophils % 86.2 H Lymphocytes % 3.5 L D Monocytes % 9.7 Eosinophils % 0.5 D Basophils % 0.1 Nucleated RBC % 0 PT with INR 31.90 H INR 2.82 H Sodium 132 L Potassium 4.2 Chloride 98 Carbon Dioxide 26 Anion Gap 8 BUN 51 H Creatinine 1.2 H Creat Clearance w eGFR 42.50 Random Glucose 134 H Calcium 8.5 Phosphorus 2.9 Magnesium 2.1 Total Bilirubin 0.8 AST 36 ALT 24 Alkaline Phosphatase 100 Total Protein 6.6 Albumin 2.9 L Urine Color Urine Appearance Urine pH Ur Specific [place] Urine Protein Urine Glucose (UA) Urine Ketones Urine Blood Urine Nitrite Urine Bilirubin Urine Urobilinogen Ur Leukocyte Esterase Urine WBC (Auto) Urine RBC (Auto) Ur Epithelial Cells Urine Bacteria Hyaline Casts Urine Mucus Ur Random Urea Nitrogn Urine Creatinine Active Medications Generic Name Dose Route Start Last Admin Trade Name Freq PRN Reason Stop Dose Admin Acetaminophen 650 mg 05/07/18 17:45 05/11/18 03:27 Tylenol - PO 650 mg Q4H PRN Administration PAIN LEVEL 1 - 3 Albuterol Sulfate 1 amp 05/07/18 17:45 Ventolin 0.083% Nebulizer Soln - NEB Q4H PRN SHORT OF BREATH/WHEEZING Allopurinol 100 mg 05/08/18 10:00 05/11/18 09:47 Zyloprim - PO 100 mg DAILY MARIA LUISA Administration Atenolol 50 mg 05/08/18 10:00 05/11/18 09:47 Tenormin - PO 50 mg DAILY MARIA LUISA Administration Atorvastatin Calcium 10 mg 05/07/18 22:00 05/10/18 22:24 Lipitor - PO 10 mg HS MARIA LUISA Administration Bisacodyl 10 mg 05/08/18 22:05 Dulcolax Suppository - DE DAILY PRN CONSTIPATION Calcium Carbonate/Cholecalciferol 1 tab 05/07/18 17:45 05/11/18 09:47 Os-Sumanth 500+D - PO 1 tab DAILY [facility] LUISA Administration Docusate Sodium 100 mg 05/09/18 06:00 05/11/18 14:14 Colace - PO 100 mg TID MARIA LUISA Administration Furosemide 40 mg 05/08/18 10:00 05/11/18 10:57 Lasix - PO 40 mg DAILY [facility]IA LUISA Administration Gabapentin 100 mg 05/07/18 22:00 05/11/18 09:47 Neurontin - PO 100 mg BID MARIA LUISA Administration Sodium Chloride 1,000 mls @ 83 mls/hr 05/10/18 13:14 05/11/18 13:42 Normal Saline - IV 83 mls/hr ASDIR MARIA LUISA Administration Isosorbide Mononitrate 30 mg 05/08/18 10:00 05/11/18 09:47 Imdur - PO 30 mg DAILY [facility] LUISA Administration Levothyroxine Sodium 100 mcg 05/08/18 07:00 05/11/18 06:29 Synthroid - PO 100 mcg 0700 [facility] LUISA Administration Lidocaine 1 patch 05/09/18 12:00 05/11/18 09:47 Lidoderm Patch - TP 1 patch DAILY [facility] Administration Miscellaneous 1 each 05/09/18 22:00 05/10/18 22:25 Lidoderm Patch Removal MC 1 each DAILY@2200 [facility] LU[facility] Administration Morphine Sulfate 3 mg 05/10/18 11:47 05/11/18 14:13 Morphine Sulfate IVPUSH 3 mg Q4H PRN Administration PAIN LEVEL 7 - 10 Ondansetron HCl 4 mg 05/07/18 17:45 Zofran Injection IVPUSH Q6H PRN NAUSEA Oxycodone HCl 5 mg 05/07/18 17:45 05/11/18 03:28 Roxicodone - PO 5 mg Q4H PRN Administration PAIN LEVEL 4 - 6 Pantoprazole Sodium 40 mg 05/08/18 10:00 05/11/18 09:47 Protonix - PO 40 mg DAILY [facility]IA LUISA Administration Polyethylene Glycol 17 gm 05/09/18 10:00 05/11/18 09:51 Miralax (For Daily Use) - PO 17 gm DAILY [facility]IA LUISA Administration Assessment: 87 year old woman with pmhx of RHD, mitral stenosis,s/p mechanical mitral valve replacement, HLD, A fib (on coumadin), CAD, HTN, admitted s/p mechanical fall. Plan: 1. Acute right femoral intertrochanteric fracture - For OR repair tomorrow with Dr. Ellsworth - D/w anesthesia FFP on hold for OR - NPO after midnight 2. A fib, s/p mechanical valve - X1 dose vit K given - Repeat dose pending afternoon IRN, defer to cardiology - FFP in OR as needed - Cont Atenolol - D/w cardiology, will need surgery to weigh in on when can start heparin gtt following surgery 3. CAD, R heart failure - Lasix on hold in setting of JOCELYN 4. HTN - Controlled - Imdur, atenolol, lasix (held) 5. JOCELYN on CKD 3 - Due to hypovolemia , lpre renal - Cr improving - Cont fluids 6. Hyponatermia - Cont current fluids 7. SIRS - BC ngtd - Resolved 8. Hypothyroidsm - Synthroid 100mcgs 9. Peptic Ulcer Disease, hx of colectomy with right hemicolectormy - Protonix Visit type - Emergency Visit Emergency Visit: Yes ED Registration Date: 05/07/18 Care time: The patient presented to the Emergency Department on the above date and was hospitalized for further evaluation of their emergent condition. - New Patient This patient is new to me today: Yes Date on this admission: 05/11/18 - Critical Care Critical Care patient: No
[2018-05-11 15:59] LABS: INR 2.72 (0.82-1.09); PROTHROMBIN TIME (PATIENT) 30.7 SEC (9.7-13.0)
[2018-05-11] MEDS ORDERED: PHYTONADIONE 10 MG/1 ML AMP IM ONE (16:30)
[2018-05-11 22:11] LABS: INR 2.26 (0.82-1.09); PROTHROMBIN TIME (PATIENT) 25.5 SEC (9.7-13.0)
[2018-05-11] MEDS: LIDOCAINE PATCH REMOVAL MC SCH (22:40)
[2018-05-11] MEDS: ATORVASTATIN CA 10 MG TABLET (FP) PO SCH (22:40)
[2018-05-12] MEDS: LEVOTHYROXINE NA 100 MCG TABLET (FP) PO SCH (06:06)
[2018-05-12] MEDS: DOCUSATE SODIUM 100 MG CAPSULE (FP) PO SCH ×3 (06:07→21:15)
[2018-05-12 06:57] LABS: BASO % 0.1 % (0-2.0); EOS % 0.9 % (0-4.5); HEMOGLOBIN 9.8 GM/dL (10.7-15.3); LYMPH % 4.6 % (8-40); MCH 27.6 pg (25.7-33.7); MCHC 33.7 g/dl (32.0-36.0); MEAN CELL VOLUME 81.9 fl (80-96); MEAN PLT VOLUME 10.7 fl (7.5-11.1); MONO % 12.8 % (3.8-10.2); NEUT % 81.6 % (42.8-82.8); PLATELET COUNT 167 K/MM3 (134-434); RBC 3.54 M/mm3 (3.60-5.2); RDW 16.2 % (11.6-15.6); WHITE BLOOD COUNT 8.4 K/mm3 (4.0-10.0)
[2018-05-12 07:15] LABS: INR 1.76 (0.82-1.09); PROTHROMBIN TIME (PATIENT) 19.9 SEC (9.7-13.0)
[2018-05-12 07:46] LABS: ANION GAP 7 (8-16); BLOOD UREA NITROGEN 42 mg/dL (7-18); CALCIUM 8.2 mg/dL (8.5-10.1); CHLORIDE 100 mmol/L (98-107); CO2 28 mmol/L (21-32); CREATININE 0.8 mg/dL (0.55-1.02); GLUCOSE,RANDOM 100 mg/dL (74-106); MAGNESIUM 1.9 mg/dL (1.8-2.4); POTASSIUM 3.9 mmol/L (3.5-5.1); SODIUM 135 mmol/L (136-145)
[2018-05-12] MEDS: morphine SULFATE 4 MG/ML VIAL IVPUSH PRN ×3 (09:30→22:11)
[2018-05-12] MEDS: ATENOLOL 50 MG TABLET (FP) PO SCH (09:31)
[2018-05-12] MEDS: ISOSORBIDE MONONITRATE 30 MG TAB.SR.24H (FP) PO SCH (09:31)
[2018-05-12] MEDS: LIDOCAINE 5% TOPICAL PATCH TP SCH (09:33)
[2018-05-12] MEDS: GABAPENTIN 100 MG CAPSULE (FP) PO SCH ×2 (09:37→21:15)
[2018-05-12] MEDS: ALLOPURINOL 100 MG TABLET (FP) PO SCH (09:37)
[2018-05-12] MEDS: PANTOPRAZOLE 40 MG TABLET (FP) PO SCH (09:37)
[2018-05-12] MEDS: FUROSEMIDE 40 MG TABLET (FP) PO SCH (09:37)
[2018-05-12] MEDS: POLYETHYLENE GLYCOL 3350 119 GM BTL PO SCH (09:37)
[2018-05-12] MEDS: CALCIUM 500MG/VIT-D 200 UNITS COMBO TABLET (FP) PO SCH (09:38)
[2018-05-12] MEDS ORDERED: ETOMIDATE 20 MG/10 ML AMPUL IVPUSH ONE (10:38)
[2018-05-12] MEDS ORDERED: ceFAZolin SODIUM 1 GM VIAL ONE ×2 (10:38→18:24)
[2018-05-12] MEDS ORDERED: MIDAZOLAM HCL 2 MG/2 ML SINGLE DOSE VIAL ONE (10:39)
[2018-05-12] MEDS ORDERED: PROPOFOL 20 ML ONE (10:39)
[2018-05-12] MEDS ORDERED: ceFAZolin SODIUM 1 GM VIAL IVPB ONE (11:04)
[2018-05-12] MEDS ORDERED: DEXAMETHASONE SOD PHOSPHATE 4 MG/1 ML VIAL ONE (11:19)
--- NOTE | 2018-05-12 11:38 | OP ---
Operative Note - Note: Operative Date: 05/12/18 ([facility]) Pre-Operative Diagnosis: right IT fx Operation: right IM gamma nail Post-Operative Diagnosis: Same as Pre-op Surgeon: Noman Ellsworth Administrative Receptionist: Joss Tinsley Anesthesiologist/[employer] ACCOUNT EXECUTIVE: Bonita Velasquez Anesthesia: General Estimated Blood Loss (mls): 50 Operative Report Dictated: Yes
[2018-05-12] MEDS ORDERED: ONDANSETRON 4 MG/2 ML VIAL IVPUSH PRN (12:02)
[2018-05-12] MEDS ORDERED: BISACODYL 10 MG SUPP.RECT RC PRN (12:02)
[2018-05-12] MEDS ORDERED: ALBUTEROL SO4 0.083% IH SOL 2.5 MG/3 ML VIAL.NEB. NEB PRN (12:02)
[2018-05-12] MEDS ORDERED: SODIUM CHLORIDE 1,000 ML IV SCH (12:02)
[2018-05-12] MEDS ORDERED: ACETAMINOPHEN INJECTION 100 ML IVPB ONE (12:26)
--- NOTE | 2018-05-12 12:28 | SPEC ---
DATE OF OPERATION: 05/12/2018 PREOPERATIVE DIAGNOSIS: Right intertrochanteric hip fracture. POSTOPERATIVE DIAGNOSIS: Right intertrochanteric hip fracture. PROCEDURE: Right Gamma nailing. SURGICAL ATTENDING: Noman Ellsworth MD PC NETWORK TECHNICIAN: JOSE ALFREDO Kc ANESTHESIA: General. CLOSURE: A short Gamma nail with appropriate interlocking screws, No. 1 Vicryl for fascia, 0 and 2-0 subcutaneous, wallace to skin. ESTIMATED BLOOD LOSS: Less than 50 mL. COMPLICATIONS: None. CONDITION: To Recovery in stable condition. DESCRIPTION OF THE PROCEDURE: The patient was taken to the operating room on May 12, 2018. IV Kefzol was administered prophylactically prior to the case. Anesthesia was administered by the anesthesiologist. The patient was then fastened to the fracture table with all prominences well padded. Excellent reduction of the fracture was confirmed in AP and lateral plane by use of fluoroscopy. The right hip area was then prepped and draped in the usual sterile fashion by use of a shower curtain. A small 2-cm longitudinal incision over the tip of the greater trochanter was incised, hemostasis achieved using Bovie cautery. Sharp dissection was carried through the fascia. A guidewire was drilled from the tip of the greater trochanter into the intramedullary canal past the fracture. This was directed by fluoroscopy in both the AP and lateral plane. This was overreamed with a proximal reamer. A short Gamma nail was then malleted down into place. Using the outrigger and a small stab incision laterally, a guidewire was drilled from the lateral aspect of the femur, through the haylee, through the neck into the femoral head. Proper placement was confirmed in the AP and lateral plane by using the image intensifier. The guidewire was measured for length, reamed with a triple reamer, and then screwed with the appropriate-sized lag screw. With the traction removed, the compression device was used to compress the fracture. A set screw was placed from above in the dynamic fashion. Again using the outrigger and through a small stab incision distally, a distal hole was drilled, depth gauged and screwed with the appropriate length locking screw in the static hole. The outrigger was removed. The x-rays in the AP and lateral plane revealed excellent position of the hardware with excellent reduction of the fracture. All incisions were irrigated out with copious amounts of irrigation. The fascia was closed in 0 Vicryl, 2-0 subcutaneous, and wallace to the skin. Sterile pressure dressing was applied, patient awakened from anesthesia and transferred to Recovery in stable condition. No complications. Estimated blood loss negligible. Jenni GOMEZ/[id number]
[2018-05-12] MEDS: ACETAMINOPHEN 1000 MG/100 ML VIAL (NON FORMULARY) IVPB ONE (12:30)
[2018-05-12 13:20] LABS: HEMATOCRIT 30.6 % (32.4-45.2); MCH 27.1 pg (25.7-33.7); MCHC 32.8 g/dl (32.0-36.0); MEAN CELL VOLUME 82.7 fl (80-96); MEAN PLT VOLUME 10.8 fl (7.5-11.1); PLATELET COUNT 188 K/MM3 (134-434); RBC 3.69 M/mm3 (3.60-5.2); RDW 16.2 % (11.6-15.6); WHITE BLOOD COUNT 9.4 K/mm3 (4.0-10.0)
[2018-05-12 13:34] LABS: INR 1.66 (0.82-1.09); PROTHROMBIN TIME (PATIENT) 18.8 SEC (9.7-13.0)
--- NOTE | 2018-05-12 13:52 | EKG ---
Test Reason : Blood Pressure : / mmHG Vent. Rate : 096 BPM Atrial Rate : 078 BPM P-R Int : 000 ms QRS Dur : 090 ms QT Int : 370 ms P-R-T Axes : 000 039 044 degrees QTc Int : 467 ms ATRIAL FIBRILLATION ABNORMAL ECG WHEN COMPARED WITH ECG OF 10-MAY-2018 09:46, QRS AXIS SHIFTED RIGHT QT HAS LENGTHENED Confirmed by ABY CERVANTES MD ([id number]) on 05/12/2018 1:52:20 PM Referred By: Confirmed By:ABY CERVANTES MD
--- NOTE | 2018-05-12 15:00 | PN ---
Progress Note (short form) - Note Progress Note: Renal follow up for JOCELYN and Hyponatremia Pt seen and examined at the bedside feels better just returned from the OR pain is controlled making urine Vital Signs Temperature 98.3 F 05/12/18 14:05 Pulse Rate 85 05/12/18 14:05 Respiratory Rate 16 05/12/18 14:05 Blood Pressure 123/58 05/12/18 14:05 O2 Sat by Pulse Oximetry (%) 98 05/12/18 14:05 Intake & Output 05/09/18 05/10/18 05/11/18 05/12/18 23:59 23:59 23:59 23:59 Intake Total 520 1964 1396 1446 Output Total 570 845 800 900 Balance -50 1119 596 546 Weight 56.699 kg NAD RRR CTA No LE edema CBC, BMP 05/12/18 13:10 05/12/18 06:30 Current Medications Acetaminophen (Tylenol -) 650 mg PO Q4H PRN PRN Reason: PAIN LEVEL 1 - 3 Albuterol Sulfate (Ventolin 0.083% Nebulizer Soln -) 1 amp NEB Q4H PRN PRN Reason: SHORT OF BREATH/WHEEZING Allopurinol (Zyloprim -) 100 mg PO DAILY [facility] LUISA Atenolol (Tenormin -) 50 mg PO DAILY [facility] Atorvastatin Calcium (Lipitor -) 10 mg PO HS MARIA LUISA Bisacodyl (Dulcolax Suppository -) 10 mg RC DAILY PRN PRN Reason: CONSTIPATION Calcium Carbonate/Cholecalciferol (Os-Sumanth 500+D -) 1 tab PO DAILY [facility] Docusate Sodium (Colace -) 100 mg PO TID [facility] Fentanyl (Sublimaze Injection -) 25 mcg IVPUSH [id number] PRN PRN Reason: PAIN-PACU ORDER X 4 DOSES ONLY Last Admin: 05/12/18 13:05 Dose: 25 mcg Furosemide (Lasix -) 40 mg PO DAILY [facility] Gabapentin (Neurontin -) 100 mg PO BID MAR[facility] LUISA Cefazolin Sodium 1 gm/ (Dextrose) 50 mls @ 100 mls/hr IVPB Q8H-IV MARIA LUISA Stop: 05/13/18 02:29 Sodium Chloride (Normal Saline -) 1,000 mls @ 83 mls/hr IV ASDIR MARIA LUISA Stop: 05/12/18 16:01 Isosorbide Mononitrate (Imdur -) 30 mg PO DAILY [facility] Levothyroxine Sodium (Synthroid -) 100 mcg PO 0700 [facility] Lidocaine (Lidoderm Patch -) 1 patch TP DAILY [facility] Miscellaneous (Lidoderm Patch Removal) 1 each MC DAILY@2200 [facility] Morphine Sulfate (Morphine Sulfate) 3 mg IVPUSH Q4H PRN PRN Reason: PAIN LEVEL 7 - 10 Ondansetron HCl (Zofran Injection) 4 mg IVPUSH Q6H PRN PRN Reason: NAUSEA Oxycodone HCl (Roxicodone -) 5 mg PO Q4H PRN PRN Reason: PAIN LEVEL 4 - 6 Pantoprazole Sodium (Protonix -) 40 mg PO DAILY [facility] Polyethylene Glycol (Miralax (For Daily Use) -) 17 gm PO DAILY [facility] 87 year old woman with PMhx of CKD stage 3, Hypertension, Hyperlipidemia, Hypothyroidism, Afib, MVR, CAD who presented s/p fall with hip fracture and now with JOCELYN and Hyponatremia. #JOCELYN on CKD likely secondary to hypovolemia (high BUN/Cr ratio and on diuretics) #Hyponatremia #Femoral Fracture #Hx of Hypertension #Right Heart Failure #Afib #MVR #Supratheraputic INR Renal function improved can d/c IVF after 4 hours today hold diuretics for now pain control w/o nsaids serum na is also improved trend renal function and electrolytes Thank you Will follow
--- NOTE | 2018-05-12 17:55 | PN ---
Progress Note (short form) - Note Progress Note: 87 year old female admitted with traumatic fracture of right hip. Known case of RHD, mitral stenosis,s/p mechnical mitral prosthesis, hypertension, permanent atrial fib. right heart failure,severe TR, s/p right carotid endarterectomy and h/o profound deafness.H/o CAD, angina pectoris. Patient underwent surgery, hemodynamically stable, c/o moderate pain. Active Medications Acetaminophen (Tylenol -) 650 mg PO Q4H PRN PRN Reason: PAIN LEVEL 1 - 3 Albuterol Sulfate (Ventolin 0.083% Nebulizer Soln -) 1 amp NEB Q4H PRN PRN Reason: SHORT OF BREATH/WHEEZING Allopurinol (Zyloprim -) 100 mg PO DAILY [facility] Atenolol (Tenormin -) 50 mg PO DAILY [facility] Atorvastatin Calcium (Lipitor -) 10 mg PO HS [facility] Bisacodyl (Dulcolax Suppository -) 10 mg RC DAILY PRN PRN Reason: CONSTIPATION Calcium Carbonate/Cholecalciferol (Os-Sumanth 500+D -) 1 tab PO DAILY [facility] Docusate Sodium (Colace -) 100 mg PO TID [facility] Last Admin: 05/12/18 16:10 Dose: Not Given Fentanyl (Sublimaze Injection -) 25 mcg IVPUSH [id number] PRN PRN Reason: PAIN-PACU ORDER X 4 DOSES ONLY Last Admin: 05/12/18 13:05 Dose: 25 mcg Furosemide (Lasix -) 40 mg PO DAILY [facility] Gabapentin (Neurontin -) 100 mg PO BID [facility] Cefazolin Sodium 1 gm/ (Dextrose) 50 mls @ 100 mls/hr IVPB Q8H-IV [facility] Stop: 05/13/18 02:29 Isosorbide Mononitrate (Imdur -) 30 mg PO DAILY [facility] Levothyroxine Sodium (Synthroid -) 100 mcg PO 0700 [facility] Lidocaine (Lidoderm Patch -) 1 patch TP DAILY [facility] Miscellaneous (Lidoderm Patch Removal) 1 each MC DAILY@2200 [facility] Morphine Sulfate (Morphine Sulfate) 3 mg IVPUSH Q4H PRN PRN Reason: PAIN LEVEL 7 - 10 Ondansetron HCl (Zofran Injection) 4 mg IVPUSH Q6H PRN PRN Reason: NAUSEA Oxycodone HCl (Roxicodone -) 5 mg PO Q4H PRN PRN Reason: PAIN LEVEL 4 - 6 Pantoprazole Sodium (Protonix -) 40 mg PO DAILY [facility] Polyethylene Glycol (Miralax (For Daily Use) -) 17 gm PO DAILY [facility] 87 year old female in moderate pain, no pallor, cyanosis, clubbing or jaudice. Last Vital Signs Temp Pulse Resp BP Pulse Ox 97.6 F 88 irregular 20 110/52 96 05/12/18 15:57 05/12/18 15:57 05/12/18 15:57 05/12/18 15:57 05/12/18 15:57 NECK: Supple, no JVD, +ve HJR, pulsatile neck veins, carotids 2+. HEART: PMI in the 5th ICS, apical and left parasternal heave, crisp heart sounds grade II/ apical murmur,LSB and apex.KYM II/ 2nd RIS, no gallops. ABDOMEN: Soft, nontender, liver is pulsatile, edge palpable, no splenomegaly. EXTREMITIES: Right foot externally rotated., no edema or calf tenderness.swelling of the rt. thigh. CBC, BMP 05/12/18 13:10 05/12/18 06:30 INR, PTT INR 1.66 (0.82-1.09) H 05/12/18 13:10 IMPRESSION: 1. Atrial fib. with moderate ventricular response. 2. Fracture right hip s/p surgery/ 3. RHD,s/p mechanical mitral valve replacement 4. H/o CHF. 5. Severe TR. RECOMMENDATION: 1. Herarinization without bolus and follow protocol. 2. Close f/u of PTT 3. Daily CBC. 4. EKG and troponins in AM. 5. Portable chest xray.
--- NOTE | 2018-05-12 18:02 | PN ---
Physical Exam: SUBJECTIVE: Patient seen and examined. She feels much better following surgery, no pain, just "thumping" feeling. Family at bedside. OBJECTIVE: Vital Signs Period Temp Pulse Resp BP Sys/[place] Pulse Ox Last 24 Hr 97.6 F-98.8 F 85-106 14-20 108-157/52-85 94-100 PE Neuro: alert,awake, cn 2-12intact Pulm: diminished, clear CV: s1 s2 irregular. + murmur, + click Abd: s nt nd + bs : black Ext: RLE dressing CDI, no le edema, mild tenderness Laboratory Results - last 24 hr 05/11/18 05/12/18 05/12/18 20:30 06:30 06:30 WBC 8.4 RBC 3.54 L Hgb 9.8 L Hct 29.0 L MCV 81.9 MCH 27.6 MCHC 33.7 RDW 16.2 H Plt Count 167 MPV 10.7 Absolute Neuts (auto) 6.8 Neutrophils % 81.6 Lymphocytes % 4.6 L D Monocytes % 12.8 H Eosinophils % 0.9 Basophils % 0.1 Nucleated RBC % 0 PT with INR 25.50 H 19.90 H INR 2.26 H 1.76 H Sodium Potassium Chloride Carbon Dioxide Anion Gap BUN Creatinine Creat Clearance w eGFR Random Glucose Calcium Phosphorus Magnesium 05/12/18 05/12/18 05/12/18 06:30 13:10 13:10 WBC 9.4 RBC 3.69 Hgb 10.0 L Hct 30.6 L MCV 82.7 MCH 27.1 MCHC 32.8 RDW 16.2 H Plt Count 188 MPV 10.8 Absolute Neuts (auto) Neutrophils % Lymphocytes % Monocytes % Eosinophils % Basophils % Nucleated RBC % PT with INR 18.80 H INR 1.66 H Sodium 135 L Potassium 3.9 Chloride 100 Carbon Dioxide 28 Anion Gap 7 L BUN 42 H Creatinine 0.8 Creat Clearance w eGFR > 60 Random Glucose 100 Calcium 8.2 L Phosphorus 2.0 L Magnesium 1.9 Active Medications Generic Name Dose Route Start Last Admin Trade Name Freq PRN Reason Stop Dose Admin Acetaminophen 650 mg 05/12/18 12:02 Tylenol - PO Q4H PRN PAIN LEVEL 1 - 3 Albuterol Sulfate 1 amp 05/12/18 12:02 Ventolin 0.083% Nebulizer Soln - NEB Q4H PRN SHORT OF BREATH/WHEEZING Allopurinol 100 mg 05/13/18 10:00 Zyloprim - PO DAILY [facility] Atenolol 50 mg 05/13/18 10:00 Tenormin - PO DAILY [facility] Atorvastatin Calcium 10 mg 05/12/18 22:00 Lipitor - PO HS [facility] Bisacodyl 10 mg 05/12/18 12:02 Dulcolax Suppository - RC DAILY PRN CONSTIPATION Calcium Carbonate/Cholecalciferol 1 tab 05/13/18 10:00 Os-Sumanth 500+D - PO DAILY [facility] Docusate Sodium 100 mg 05/12/18 14:00 05/12/18 16:10 Colace - PO Not Given TID [facility] Fentanyl 25 mcg 05/12/18 11:55 05/12/18 13:05 Sublimaze Injection - IVPUSH 25 mcg [id number] PRN Administration PAIN-PACU ORDER X 4 DOSES ONLY Furosemide 40 mg 05/13/18 10:00 Lasix - PO DAILY [facility] Gabapentin 100 mg 05/12/18 22:00 Neurontin - PO BID [facility] Cefazolin Sodium 1 gm/ 50 mls @ 100 mls/hr 05/12/18 19:00 Dextrose IVPB 05/13/18 02:29 Q8H-IV [facility] Isosorbide Mononitrate 30 mg 05/13/18 10:00 Imdur - PO DAILY [facility] Levothyroxine Sodium 100 mcg 05/13/18 07:00 Synthroid - PO 0700 [facility] Lidocaine 1 patch 05/13/18 10:00 Lidoderm Patch - TP DAILY [facility] Miscellaneous 1 each 05/12/18 22:00 Lidoderm Patch Removal MC DAILY@2200 [facility] Morphine Sulfate 3 mg 05/12/18 12:02 Morphine Sulfate IVPUSH Q4H PRN PAIN LEVEL 7 - 10 Ondansetron HCl 4 mg 05/12/18 12:02 Zofran Injection IVPUSH Q6H PRN NAUSEA Oxycodone HCl 5 mg 05/12/18 12:02 Roxicodone - PO Q4H PRN PAIN LEVEL 4 - 6 Pantoprazole Sodium 40 mg 05/13/18 10:00 Protonix - PO DAILY [facility] Polyethylene Glycol 17 gm 05/13/18 10:00 Miralax (For Daily Use) - PO DAILY [facility] Assessment: 87 year old woman with pmhx of RHD, mitral stenosis,s/p mechanical mitral valve replacement, HLD, A fib (on coumadin), CAD, HTN, admitted s/p mechanical fall. Plan: 1. Acute right femoral intertrochanteric fracture - Gamma nail repair today - Start PT - Ortho seeing 2. A fib, s/p mechanical valve - Start Heparin gtt w/o bolus tonight - Cont Atenolol 3. CAD, R heart failure - Lasix on hold in setting of JOCELYN 4. HTN - Controlled - Imdur, atenolol, lasix (held) 5. JOCELYN on CKD 3 - Due to hypovolemia , pre renal - Cr improving - Cont fluids 6. Hyponatermia - Stop fluids 7. SIRS - Resolved 8. Hypothyroidsm - Synthroid 100mcgs 9. Peptic Ulcer Disease, hx of colectomy with right hemicolectormy - Protonix Visit type - Emergency Visit Emergency Visit: Yes ED Registration Date: 05/07/18 Care time: The patient presented to the Emergency Department on the above date and was hospitalized for further evaluation of their emergent condition. - New Patient This patient is new to me today: No - Critical Care Critical Care patient: No
[2018-05-12] MEDS ORDERED: HEPARIN NA (PORCINE) 5,000 UNITS/ML 1ML VIAL IVPUSH PRN (18:08)
[2018-05-12] MEDS ORDERED: DEXTROSE 5%-WATER - 50 ML IVPB ONE (18:24)
[2018-05-12] MEDS: CEFAZOLIN 1 GM in DEXTROSE 5%-WATER - 50 ML IVPB SCH (18:26)
[2018-05-12] MEDS ORDERED: CEFAZOLIN 1 GM in DEXTROSE 5%-WATER - 50 ML IVPB SCH (19:00)
[2018-05-12] MEDS: HEPARIN - 25,000 UNIT in SODIUM CHLORIDE 495 ML IV SCH (19:19)
[2018-05-12] MEDS: ATORVASTATIN CA 10 MG TABLET (FP) PO SCH (21:15)
[2018-05-12] MEDS: LIDOCAINE PATCH REMOVAL MC SCH (21:16)
[2018-05-12] MEDS ORDERED: LIDOCAINE PATCH REMOVAL MC SCH (22:00)
[2018-05-12 22:25] LABS: HEMATOCRIT 30.9 % (32.4-45.2); LYMPH % 2.4 % (8-40); MCHC 32.5 g/dl (32.0-36.0); MEAN CELL VOLUME 83.3 fl (80-96); MEAN PLT VOLUME 10.8 fl (7.5-11.1); MONO % 7.9 % (3.8-10.2); NEUT % 89.7 % (42.8-82.8); PLATELET COUNT 205 K/MM3 (134-434); RBC 3.71 M/mm3 (3.60-5.2); WHITE BLOOD COUNT 8.1 K/mm3 (4.0-10.0)
[2018-05-13] MEDS ORDERED: ceFAZolin SODIUM 1 GM VIAL ONE (01:14)
[2018-05-13] MEDS ORDERED: DEXTROSE 5%-WATER - 50 ML IVPB ONE (01:16)
[2018-05-13] MEDS: CEFAZOLIN 1 GM in DEXTROSE 5%-WATER - 50 ML IVPB SCH (01:32)
[2018-05-13] MEDS: HEPARIN NA (PORCINE) 5,000 UNITS/ML 1ML VIAL IVPUSH PRN ×2 (02:02→12:19)
[2018-05-13] MEDS: DOCUSATE SODIUM 100 MG CAPSULE (FP) PO SCH ×3 (05:50→21:58)
[2018-05-13] MEDS: morphine SULFATE 4 MG/ML VIAL IVPUSH PRN ×3 (05:55→17:42)
[2018-05-13] MEDS: LEVOTHYROXINE NA 100 MCG TABLET (FP) PO SCH (06:03)
[2018-05-13 07:16] LABS: BASO % 0.2 % (0-2.0); HEMATOCRIT 30.5 % (32.4-45.2); LYMPH % 3.4 % (8-40); MCHC 32.9 g/dl (32.0-36.0); MEAN CELL VOLUME 82.2 fl (80-96); MEAN PLT VOLUME 10.6 fl (7.5-11.1); MONO % 11.6 % (3.8-10.2); NEUT % 84.8 % (42.8-82.8); PLATELET COUNT 199 K/MM3 (134-434); RBC 3.71 M/mm3 (3.60-5.2); RDW 16.1 % (11.6-15.6); WHITE BLOOD COUNT 8.9 K/mm3 (4.0-10.0)
[2018-05-13 07:34] LABS: INR 1.53 (0.82-1.09); PROTHROMBIN TIME (PATIENT) 17.3 SEC (9.7-13.0)
[2018-05-13] MEDS: ACETAMINOPHEN 1000 MG/100 ML VIAL (NON FORMULARY) IVPB ONE (08:36)
[2018-05-13 08:49] LABS: ANION GAP 8 (8-16); BLOOD UREA NITROGEN 45 mg/dL (7-18); CALCIUM 8.6 mg/dL (8.5-10.1); CHLORIDE 101 mmol/L (98-107); CO2 24 mmol/L (21-32); GLUCOSE,RANDOM 149 mg/dL (74-106); PHOSPHOROUS 2.3 mg/dL (2.5-4.9); POTASSIUM 4.6 mmol/L (3.5-5.1); SODIUM 133 mmol/L (136-145)
--- NOTE | 2018-05-13 08:54 | PN ---
Progress Note (short form) - Note Progress Note: Post op; day#1.S/P R Hip Gamma nailing under Ga uneventful.Patient stable.No any anesthesia related problem.Patient DC from the anesthesia care.
[2018-05-13] MEDS: ALLOPURINOL 100 MG TABLET (FP) PO SCH (10:03)
[2018-05-13] MEDS: ATENOLOL 50 MG TABLET (FP) PO SCH (10:03)
[2018-05-13] MEDS: ISOSORBIDE MONONITRATE 30 MG TAB.SR.24H (FP) PO SCH (10:03)
[2018-05-13] MEDS: CALCIUM 500MG/VIT-D 200 UNITS COMBO TABLET (FP) PO SCH (10:03)
[2018-05-13] MEDS: GABAPENTIN 100 MG CAPSULE (FP) PO SCH ×3 (10:03→21:58)
[2018-05-13] MEDS: PANTOPRAZOLE 40 MG TABLET (FP) PO SCH (10:03)
[2018-05-13] MEDS: FUROSEMIDE 40 MG TABLET (FP) PO SCH (10:03)
[2018-05-13] MEDS: LIDOCAINE 5% TOPICAL PATCH TP SCH (10:03)
[2018-05-13] MEDS: POLYETHYLENE GLYCOL 3350 119 GM BTL PO SCH (10:12)
--- NOTE | 2018-05-13 11:26 | EKG ---
Test Reason : Blood Pressure : / mmHG Vent. Rate : 095 BPM Atrial Rate : 441 BPM P-R Int : 000 ms QRS Dur : 092 ms QT Int : 360 ms P-R-T Axes : 000 034 041 degrees QTc Int : 452 ms ATRIAL FIBRILLATION INCOMPLETE RIGHT BUNDLE BRANCH BLOCK ABNORMAL ECG Confirmed by ABY CERVANTES MD ([id number]) on 05/13/2018 11:25:49 AM Referred By: Mikhail WILSON Confirmed By:ABY CERVANTES MD
[2018-05-13] MEDS: HEPARIN - 25,000 UNIT in SODIUM CHLORIDE 495 ML IV SCH ×2 (12:18→22:21)
--- NOTE | 2018-05-13 15:56 | PN ---
Progress Note (short form) - Note Progress Note: 87 year old female admitted with traumatic fracture of right hip. Known case of RHD, mitral stenosis,s/p mechnical mitral prosthesis, hypertension, permanent atrial fib. right heart failure,severe TR, s/p right carotid endarterectomy and h/o profound deafness.H/o CAD, angina pectoris. C/o of moderate right thigh pain, no sob or chest discomfort. Good appetite.on heparin. Active Medications Acetaminophen (Tylenol -) 650 mg PO Q4H PRN PRN Reason: PAIN LEVEL 1 - 3 Albuterol Sulfate (Ventolin 0.083% Nebulizer Soln -) 1 amp NEB Q4H PRN PRN Reason: SHORT OF BREATH/WHEEZING Allopurinol (Zyloprim -) 100 mg PO DAILY [facility] Last Admin: 05/13/18 10:03 Dose: 100 mg Atenolol (Tenormin -) 50 mg PO DAILY [facility] Last Admin: 05/13/18 10:03 Dose: 50 mg Atorvastatin Calcium (Lipitor -) 10 mg PO HS [facility] Last Admin: 05/12/18 21:15 Dose: 10 mg Bisacodyl (Dulcolax Suppository -) 10 mg RC DAILY PRN PRN Reason: CONSTIPATION Calcium Carbonate/Cholecalciferol (Os-Sumanth 500+D -) 1 tab PO DAILY [facility] Last Admin: 05/13/18 10:03 Dose: 1 tab Docusate Sodium (Colace -) 100 mg PO TID [facility] Last Admin: 05/13/18 14:24 Dose: Not Given Fentanyl (Sublimaze Injection -) 25 mcg IVPUSH [id number] PRN PRN Reason: PAIN-PACU ORDER X 4 DOSES ONLY Last Admin: 05/12/18 13:05 Dose: 25 mcg Furosemide (Lasix -) 40 mg PO DAILY [facility] Last Admin: 05/13/18 10:03 Dose: 40 mg Gabapentin (Neurontin -) 100 mg PO BID [facility] Last Admin: 05/13/18 10:13 Dose: Not Given Heparin Sodium (Porcine) (Heparin -) 1,000 unit IVPUSH PRN PRN PRN Reason: Heparin Heparin Sodium (Porcine) (Heparin -) 5,000 unit IVPUSH PRN PRN PRN Reason: Heparin Last Admin: 05/13/18 12:19 Dose: 5,000 unit Heparin Sodium (Porcine) 25, (000 unit/ Sodium Chloride) 500 mls @ 16 mls/hr IV TITR [facility]; Protocol Last Admin: 05/13/18 12:18 Dose: 1,100 unit/hr, 22 mls/hr Isosorbide Mononitrate (Imdur -) 30 mg PO DAILY [facility] Last Admin: 05/13/18 10:03 Dose: 30 mg Levothyroxine Sodium (Synthroid -) 100 mcg PO 0700 [facility] Last Admin: 05/13/18 06:03 Dose: 100 mcg Lidocaine (Lidoderm Patch -) 1 patch TP DAILY [facility] Last Admin: 05/13/18 10:03 Dose: 1 patch Miscellaneous (Lidoderm Patch Removal) 1 each MC DAILY@2200 [facility] Last Admin: 05/12/18 21:16 Dose: 1 each Morphine Sulfate (Morphine Sulfate) 3 mg IVPUSH Q4H PRN PRN Reason: PAIN LEVEL 7 - 10 Last Admin: 05/13/18 05:55 Dose: 3 mg Ondansetron HCl (Zofran Injection) 4 mg IVPUSH Q6H PRN PRN Reason: NAUSEA Oxycodone HCl (Roxicodone -) 5 mg PO Q4H PRN PRN Reason: PAIN LEVEL 4 - 6 Pantoprazole Sodium (Protonix -) 40 mg PO DAILY [facility] Last Admin: 05/13/18 10:03 Dose: 40 mg Polyethylene Glycol (Miralax (For Daily Use) -) 17 gm PO DAILY [facility] Last Admin: 05/13/18 10:12 Dose: 17 gm Last Vital Signs Temp Pulse Resp BP Pulse Ox 98.4 F 107 H 18 109/73 97 05/13/18 15:08 05/13/18 15:08 05/13/18 15:08 05/13/18 15:08 05/13/18 09:00 NECK: Supple, no JVD, pulsatile neck veins, carotids 2+ HEART; [place] prasthetic soundsgrade II/ systolic murmur at the apex. LUNGS: Clear. ABDOMEN: Soft nonder, liver 2 FB below the rt. rib cage and is pulsatile, no masses felt. EXTREMITIES: Swelling and tenderness of the rt. thigh. INR, PTT INR 1.53 (0.82-1.09) H 05/13/18 06:15 CBC, BMP 05/13/18 06:15 05/13/18 06:15 IMPRESSION: 1. Atrial fib. with moderate ventricular response. 2. Fracture right hip s/p surgery. 3. RHD,s/p mechanical mitral valve replacement 4. H/o CHF. 5. Severe TR. RECOMMENDATION: 1. Heparin in progess. 2. Close f/u of PTT and INR. 3. Daily CBC. 4. Resume diuretics OLGA. 5. Resume coumadin.
--- NOTE | 2018-05-13 16:05 | PN ---
Physical Exam: SUBJECTIVE: Patient seen and examined. No acute complaints, unable to ambulate with PT, just upright to standing OBJECTIVE: Vital Signs Period Temp Pulse Resp BP Sys/Montelongo Pulse Ox Last 24 Hr 97.8 F-98.7 F 88-107 18-20 106-129/56-75 97-97 PE Neuro: alert,awake, cn 2-12intact Pulm: CTAB CV: s1 s2 irregular. + murmur, + click Abd: s nt nd + bs : black Ext: RLE dressing CDI, no le edema Laboratory Results - last 24 hr 05/12/18 05/13/18 05/13/18 21:50 00:50 06:15 WBC 8.1 RBC 3.71 Hgb 10.0 L Hct 30.9 L MCV 83.3 MCH 27.0 MCHC 32.5 RDW 16.0 H Plt Count 205 MPV 10.8 Absolute Neuts (auto) 7.2 Neutrophils % 89.7 H Lymphocytes % 2.4 L D Monocytes % 7.9 Eosinophils % 0.0 D Basophils % 0.0 Nucleated RBC % 0 PT with INR INR PTT (Actin FS) 36.9 D Sodium 133 L Potassium 4.6 Chloride 101 Carbon Dioxide 24 Anion Gap 8 BUN 45 H Creatinine 1.0 Creat Clearance w eGFR 52.45 Random Glucose 149 H Calcium 8.6 Phosphorus 2.3 L Magnesium 2.0 Creatine Kinase Troponin I 05/13/18 05/13/18 05/13/18 06:15 06:15 06:15 WBC 8.9 RBC 3.71 Hgb 10.0 L Hct 30.5 L MCV 82.2 MCH 27.0 MCHC 32.9 RDW 16.1 H Plt Count 199 MPV 10.6 Absolute Neuts (auto) 7.6 Neutrophils % 84.8 H Lymphocytes % 3.4 L D Monocytes % 11.6 H Eosinophils % 0.0 Basophils % 0.2 D Nucleated RBC % 0 PT with INR 17.30 H INR 1.53 H PTT (Actin FS) Sodium Potassium Chloride Carbon Dioxide Anion Gap BUN Creatinine Creat Clearance w eGFR Random Glucose Calcium Phosphorus Magnesium Creatine Kinase 73 Troponin I < 0.02 05/13/18 06:15 WBC RBC Hgb Hct MCV MCH MCHC RDW Plt Count MPV Absolute Neuts (auto) Neutrophils % Lymphocytes % Monocytes % Eosinophils % Basophils % Nucleated RBC % PT with INR INR PTT (Actin FS) 34.6 Sodium Potassium Chloride Carbon Dioxide Anion Gap BUN Creatinine Creat Clearance w eGFR Random Glucose Calcium Phosphorus Magnesium Creatine Kinase Troponin I Active Medications Generic Name Dose Route Start Last Admin Trade Name Jakeq PRN Reason Stop Dose Admin Acetaminophen 650 mg 05/12/18 12:02 Tylenol - PO Q4H PRN PAIN LEVEL 1 - 3 Albuterol Sulfate 1 amp 05/12/18 12:02 Ventolin 0.083% Nebulizer Soln - NEB Q4H PRN SHORT OF BREATH/WHEEZING Allopurinol 100 mg 05/13/18 10:00 05/13/18 10:03 Zyloprim - PO 100 mg DAILY [facility] Administration Atenolol 50 mg 05/13/18 10:00 05/13/18 10:03 Tenormin - PO 50 mg DAILY [facility] Administration Atorvastatin Calcium 10 mg 05/12/18 22:00 05/12/18 21:15 Lipitor - PO 10 mg HS [facility] Administration Bisacodyl 10 mg 05/12/18 12:02 Dulcolax Suppository - RC DAILY PRN CONSTIPATION Calcium Carbonate/Cholecalciferol 1 tab 05/13/18 10:00 05/13/18 10:03 Os-Sumanth 500+D - PO 1 tab DAILY [facility] Administration Docusate Sodium 100 mg 05/12/18 14:00 05/13/18 14:24 Colace - PO Not Given TID [facility] Fentanyl 25 mcg 05/12/18 11:55 05/12/18 13:05 Sublimaze Injection - IVPUSH 25 mcg [id number] PRN Administration PAIN-PACU ORDER X 4 DOSES ONLY Furosemide 40 mg 05/13/18 10:00 05/13/18 10:03 Lasix - PO 40 mg DAILY [facility] Administration Gabapentin 100 mg 05/12/18 22:00 05/13/18 10:13 Neurontin - PO Not Given BID [facility] Heparin Sodium (Porcine) 1,000 unit 05/12/18 18:08 Heparin - IVPUSH PRN PRN Heparin Heparin Sodium (Porcine) 5,000 unit 05/12/18 18:08 05/13/18 12:19 Heparin - IVPUSH 5,000 unit PRN PRN Administration Heparin Heparin Sodium (Porcine) 25, 500 mls @ 16 mls/hr 05/12/18 18:15 05/13/18 12: 18 000 unit/ Sodium Chloride IV 1,100 unit/hr TITR [facility] 22 mls/hr Administration Protocol 800 UNIT/HR Isosorbide Mononitrate 30 mg 05/13/18 10:00 05/13/18 10:03 Imdur - PO 30 mg DAILY [facility] Administration Levothyroxine Sodium 100 mcg 05/13/18 07:00 05/13/18 06:03 Synthroid - PO 100 mcg 0700 [facility] Administration Lidocaine 1 patch 05/13/18 10:00 05/13/18 10:03 Lidoderm Patch - TP 1 patch DAILY [facility] Administration Miscellaneous 1 each 05/12/18 22:00 05/12/18 21:16 Lidoderm Patch Removal MC 1 each DAILY@2200 [facility] Administration Morphine Sulfate 3 mg 05/12/18 12:02 05/13/18 05:55 Morphine Sulfate IVPUSH 3 mg Q4H PRN Administration PAIN LEVEL 7 - 10 Ondansetron HCl 4 mg 05/12/18 12:02 Zofran Injection IVPUSH Q6H PRN NAUSEA Oxycodone HCl 5 mg 05/12/18 12:02 Roxicodone - PO Q4H PRN PAIN LEVEL 4 - 6 Pantoprazole Sodium 40 mg 05/13/18 10:00 05/13/18 10:03 Protonix - PO 40 mg DAILY [facility] Administration Polyethylene Glycol 17 gm 05/13/18 10:00 05/13/18 10:12 Miralax (For Daily Use) - PO 17 gm DAILY [facility] Administration Assessment: 87 year old woman with pmhx of RHD, mitral stenosis,s/p mechanical mitral valve replacement, HLD, A fib (on coumadin), CAD, HTN, admitted s/p mechanical fall. Plan: 1. Acute right femoral intertrochanteric fracture - Gamma nail repair 05/12 - Daily PT - Ortho seeing 2. A fib, s/p mechanical valve - Cont Heparin gtt - Monitor dressing on heparin - Defer to surgery for when to resume coumadin - Cont Atenolol 3. CAD, R heart failure - CXR negative for congestion - Resume lasix 40mg daily 4. HTN - Controlled - Imdur, atenolol, lasix 5. JOCELYN on CKD 3 - Due to hypovolemia , pre renal - Resolved 6. Hyponatermia - Corrected 134 7. SIRS - Resolved 8. Hypothyroidsm - Synthroid 100mcgs 9. Peptic Ulcer Disease, hx of colectomy with right hemicolectormy - Protonix Visit type - Emergency Visit Emergency Visit: Yes ED Registration Date: 05/07/18 Care time: The patient presented to the Emergency Department on the above date and was hospitalized for further evaluation of their emergent condition. - New Patient This patient is new to me today: No - Critical Care Critical Care patient: No
[2018-05-13] MEDS: ATORVASTATIN CA 10 MG TABLET (FP) PO SCH (21:58)
[2018-05-13] MEDS: LIDOCAINE PATCH REMOVAL MC SCH (22:12)
[2018-05-14] MEDS: oxyCODONE HCL 5 MG TABLET PO PRN ×2 (01:21→08:23)
[2018-05-14] MEDS: DOCUSATE SODIUM 100 MG CAPSULE (FP) PO SCH ×3 (06:18→22:59)
[2018-05-14] MEDS: LEVOTHYROXINE NA 100 MCG TABLET (FP) PO SCH (06:18)
[2018-05-14 07:16] LABS: HEMATOCRIT 28.9 % (32.4-45.2); HEMOGLOBIN 9.6 GM/dL (10.7-15.3); MCH 27.3 pg (25.7-33.7); MCHC 33.1 g/dl (32.0-36.0); MEAN CELL VOLUME 82.3 fl (80-96); MEAN PLT VOLUME 10.3 fl (7.5-11.1); PLATELET COUNT 194 K/MM3 (134-434); RBC 3.51 M/mm3 (3.60-5.2); RDW 16.1 % (11.6-15.6); WHITE BLOOD COUNT 9.3 K/mm3 (4.0-10.0)
[2018-05-14 09:05] LABS: ANION GAP 7 (8-16); BLOOD UREA NITROGEN 45 mg/dL (7-18); CALCIUM 8.8 mg/dL (8.5-10.1); CHLORIDE 103 mmol/L (98-107); CO2 26 mmol/L (21-32); GLUCOSE,RANDOM 116 mg/dL (74-106); POTASSIUM 4.6 mmol/L (3.5-5.1); SODIUM 136 mmol/L (136-145)
[2018-05-14] MEDS ORDERED: PT OWN MED DRAWER 7, Y5N ONE (09:12)
[2018-05-14] MEDS: HEPARIN - 25,000 UNIT in SODIUM CHLORIDE 495 ML IV SCH ×3 (09:21→22:54)
[2018-05-14] MEDS: ISOSORBIDE MONONITRATE 30 MG TAB.SR.24H (FP) PO SCH (09:28)
[2018-05-14] MEDS: CALCIUM 500MG/VIT-D 200 UNITS COMBO TABLET (FP) PO SCH (09:28)
[2018-05-14] MEDS: ALLOPURINOL 100 MG TABLET (FP) PO SCH (09:28)
[2018-05-14] MEDS: LIDOCAINE 5% TOPICAL PATCH TP SCH (09:28)
[2018-05-14] MEDS: FUROSEMIDE 40 MG TABLET (FP) PO SCH (09:28)
[2018-05-14] MEDS: PANTOPRAZOLE 40 MG TABLET (FP) PO SCH (09:28)
[2018-05-14] MEDS: ATENOLOL 50 MG TABLET (FP) PO SCH (09:28)
[2018-05-14] MEDS: GABAPENTIN 100 MG CAPSULE (FP) PO SCH ×2 (09:28→22:59)
[2018-05-14] MEDS: POLYETHYLENE GLYCOL 3350 119 GM BTL PO SCH ×2 (09:35→23:00)
--- NOTE | 2018-05-14 10:56 | PN ---
Progress Note (short form) - Note Progress Note: PULMONARY Still some right hip pain. No shortness of breath or chest pain. Vital Signs Period Temp Pulse Resp BP Sys/Montelongo Pulse Ox Last 24 Hr 97.8 F-98.7 F 98-107 18-20 101-130/62-81 97 Gen: pain with movement Heart: irregular, +systolic murmur, +click Lung: decreased breath sounds at the bases Abd: soft, nontender Ext: no edema CBC, BMP 05/14/18 06:10 05/14/18 06:10 INR, PTT INR 1.53 (0.82-1.09) H 05/13/18 06:15 Active Medications Acetaminophen (Tylenol -) 650 mg PO Q4H PRN PRN Reason: PAIN LEVEL 1 - 3 Albuterol Sulfate (Ventolin 0.083% Nebulizer Soln -) 1 amp NEB Q4H PRN PRN Reason: SHORT OF BREATH/WHEEZING Allopurinol (Zyloprim -) 100 mg PO DAILY [facility] Last Admin: 05/14/18 09:28 Dose: 100 mg Atenolol (Tenormin -) 50 mg PO DAILY [facility] Last Admin: 05/14/18 09:28 Dose: 50 mg Atorvastatin Calcium (Lipitor -) 10 mg PO HS [facility] Last Admin: 05/13/18 21:58 Dose: 10 mg Bisacodyl (Dulcolax Suppository -) 10 mg RC DAILY PRN PRN Reason: CONSTIPATION Calcium Carbonate/Cholecalciferol (Os-Sumanth 500+D -) 1 tab PO DAILY [facility] Last Admin: 05/14/18 09:28 Dose: 1 tab Docusate Sodium (Colace -) 100 mg PO TID [facility] Last Admin: 05/14/18 06:18 Dose: 100 mg Fentanyl (Sublimaze Injection -) 25 mcg IVPUSH [id number] PRN PRN Reason: PAIN-PACU ORDER X 4 DOSES ONLY Last Admin: 05/12/18 13:05 Dose: 25 mcg Furosemide (Lasix -) 40 mg PO DAILY [facility] Last Admin: 05/14/18 09:28 Dose: 40 mg Gabapentin (Neurontin -) 100 mg PO BID [facility] Last Admin: 05/14/18 09:28 Dose: 100 mg Heparin Sodium (Porcine) (Heparin -) 1,000 unit IVPUSH PRN PRN PRN Reason: Heparin Last Admin: 05/14/18 09:27 Dose: 1,000 unit Heparin Sodium (Porcine) (Heparin -) 5,000 unit IVPUSH PRN PRN PRN Reason: Heparin Last Admin: 05/13/18 12:19 Dose: 5,000 unit Heparin Sodium (Porcine) 25, (000 unit/ Sodium Chloride) 500 mls @ 16 mls/hr IV TITR [facility]; Protocol Last Admin: 05/14/18 09:21 Dose: 1,200 unit/hr, 24 mls/hr Isosorbide Mononitrate (Imdur -) 30 mg PO DAILY [facility] Last Admin: 05/14/18 09:28 Dose: 30 mg Levothyroxine Sodium (Synthroid -) 100 mcg PO 0700 [facility] Last Admin: 05/14/18 06:18 Dose: 100 mcg Lidocaine (Lidoderm Patch -) 1 patch TP DAILY [facility] Last Admin: 05/14/18 09:28 Dose: 1 patch Miscellaneous (Lidoderm Patch Removal) 1 each MC DAILY@2200 [facility] Last Admin: 05/13/18 22:12 Dose: 1 each Morphine Sulfate (Morphine Sulfate) 3 mg IVPUSH Q4H PRN PRN Reason: PAIN LEVEL 7 - 10 Last Admin: 05/13/18 17:42 Dose: 3 mg Ondansetron HCl (Zofran Injection) 4 mg IVPUSH Q6H PRN PRN Reason: NAUSEA Oxycodone HCl (Roxicodone -) 5 mg PO Q4H PRN PRN Reason: PAIN LEVEL 4 - 6 Last Admin: 05/14/18 08:23 Dose: 5 mg Pantoprazole Sodium (Protonix -) 40 mg PO DAILY [facility] Last Admin: 05/14/18 09:28 Dose: 40 mg Polyethylene Glycol (Miralax (For Daily Use) -) 17 gm PO DAILY [facility] Last Admin: 05/14/18 09:35 Dose: Not Given A/P s/p Fall Right Hip Fracture s/p Mechanical MVR CAD Atrial Fibrillation HTN Hyperlipidemia h/o Colon Ca CKD - pain control - bowel regimen - continue anticoagulation - rehab/PT - DVT prophylaxis Problem List - Problems (1) Femoral neck fracture Code(s): S72.009A - FRACTURE OF UNSP PART OF NECK OF UNSP FEMUR, INIT Qualifiers: Encounter type: initial encounter Fracture type: closed Laterality: right Qualified Code(s): S72.001A - Fracture of unspecified part of neck of right femur, initial encounter for closed fracture (2) Atrial fibrillation Code(s): I48.91 - UNSPECIFIED ATRIAL FIBRILLATION Qualifiers: Atrial fibrillation type: persistent Qualified Code(s): I48.1 - Persistent atrial fibrillation (3) History of mitral valve replacement with mechanical valve Code(s): Z95.2 - PRESENCE OF PROSTHETIC HEART VALVE (4) Hypertension Code(s): I10 - ESSENTIAL (PRIMARY) HYPERTENSION Qualifiers: Hypertension type: essential hypertension Qualified Code(s): I10 - Essential (primary) hypertension (5) Hypothyroidism Code(s): E03.9 - HYPOTHYROIDISM, UNSPECIFIED Qualifiers: Hypothyroidism type: unspecified Qualified Code(s): E03.9 - Hypothyroidism , unspecified
[2018-05-14] MEDS: morphine SULFATE 4 MG/ML VIAL IVPUSH PRN ×3 (11:27→22:58)
--- NOTE | 2018-05-14 13:40 | PN ---
Progress Note (short form) - Note Progress Note: AVSS COMFORTABLE BANDAGES DRY AND INTACT CALF SOFT AND NT NVI MILD SWELLING RIGHT THIGH IMP: DOING WELL PLAN: OOB, PT, WBAT, DC PLANNING
--- NOTE | 2018-05-14 14:42 | PN ---
Physical Exam: SUBJECTIVE: Patient seen and examined. States she has more soreness today, standing was difficult yesterday. Denies sob, cp. OBJECTIVE: Vital Signs Period Temp Pulse Resp BP Sys/Montelongo Pulse Ox Last 24 Hr 97.8 F-98.7 F 98-107 18-20 101-130/62-81 97-97 PE Neuro: alert,awake, cn 2-12intact Pulm: CTAB CV: s1 s2 irregular. + murmur, + click Abd: s nt nd + bs : black Ext: RLE dressing CDI, no le edema Laboratory Results - last 24 hr 05/10/18 05/13/18 05/14/18 14:30 16:40 06:10 WBC 9.3 RBC 3.51 L Hgb 9.6 L Hct 28.9 L MCV 82.3 MCH 27.3 MCHC 33.1 RDW 16.1 H Plt Count 194 MPV 10.3 PTT (Actin FS) 52.9 H D Sodium Potassium Chloride Carbon Dioxide Anion Gap BUN Creatinine Creat Clearance w eGFR Random Glucose Calcium Urine Eosinophils None seen 05/14/18 05/14/18 06:10 06:10 WBC RBC Hgb Hct MCV MCH MCHC RDW Plt Count MPV PTT (Actin FS) 42.9 H Sodium 136 Potassium 4.6 Chloride 103 Carbon Dioxide 26 Anion Gap 7 L BUN 45 H Creatinine 1.0 Creat Clearance w eGFR 52.45 Random Glucose 116 H Calcium 8.8 Urine Eosinophils Active Medications Generic Name Dose Route Start Last Admin Trade Name Freq PRN Reason Stop Dose Admin Acetaminophen 650 mg 05/12/18 12:02 Tylenol - PO Q4H PRN PAIN LEVEL 1 - 3 Albuterol Sulfate 1 amp 05/12/18 12:02 Ventolin 0.083% Nebulizer Soln - NEB Q4H PRN SHORT OF BREATH/WHEEZING Allopurinol 100 mg 05/13/18 10:00 05/14/18 09:28 Zyloprim - PO 100 mg DAILY [facility] Administration Atenolol 50 mg 05/13/18 10:00 05/14/18 09:28 Tenormin - PO 50 mg DAILY [facility] Administration Atorvastatin Calcium 10 mg 05/12/18 22:00 05/13/18 21:58 Lipitor - PO 10 mg HS [facility] Administration Bisacodyl 10 mg 05/12/18 12:02 Dulcolax Suppository - RC DAILY PRN CONSTIPATION Calcium Carbonate/Cholecalciferol 1 tab 05/13/18 10:00 05/14/18 09:28 Os-Sumanth 500+D - PO 1 tab DAILY [facility] Administration Docusate Sodium 100 mg 05/12/18 14:00 05/14/18 13:20 Colace - PO 100 mg TID [facility] Administration Fentanyl 25 mcg 05/12/18 11:55 05/12/18 13:05 Sublimaze Injection - IVPUSH 25 mcg [id number] PRN Administration PAIN-PACU ORDER X 4 DOSES ONLY Furosemide 40 mg 05/13/18 10:00 05/14/18 09:28 Lasix - PO 40 mg DAILY [facility] Administration Gabapentin 100 mg 05/12/18 22:00 05/14/18 09:28 Neurontin - PO 100 mg BID [facility] Administration Heparin Sodium (Porcine) 1,000 unit 05/12/18 18:08 05/14/18 09:27 Heparin - IVPUSH 1,000 unit PRN PRN Administration Heparin Heparin Sodium (Porcine) 5,000 unit 05/12/18 18:08 05/13/18 12:19 Heparin - IVPUSH 5,000 unit PRN PRN Administration Heparin Heparin Sodium (Porcine) 25, 500 mls @ 16 mls/hr 05/12/18 18:15 05/14/18 09: 21 000 unit/ Sodium Chloride IV 1,200 unit/hr TITR [facility] 24 mls/hr Administration Protocol 800 UNIT/HR Isosorbide Mononitrate 30 mg 05/13/18 10:00 05/14/18 09:28 Imdur - PO 30 mg DAILY [facility] Administration Levothyroxine Sodium 100 mcg 05/13/18 07:00 05/14/18 06:18 Synthroid - PO 100 mcg 0700 [facility] Administration Lidocaine 1 patch 05/13/18 10:00 05/14/18 09:28 Lidoderm Patch - TP 1 patch DAILY [facility] Administration Miscellaneous 1 each 05/12/18 22:00 05/13/18 22:12 Lidoderm Patch Removal MC 1 each DAILY@2200 [facility] Administration Morphine Sulfate 3 mg 05/12/18 12:02 05/14/18 11:27 Morphine Sulfate IVPUSH 3 mg Q4H PRN Administration PAIN LEVEL 7 - 10 Ondansetron HCl 4 mg 05/12/18 12:02 Zofran Injection IVPUSH Q6H PRN NAUSEA Oxycodone HCl 5 mg 05/12/18 12:02 05/14/18 08:23 Roxicodone - PO 5 mg Q4H PRN Administration PAIN LEVEL 4 - 6 Pantoprazole Sodium 40 mg 05/13/18 10:00 05/14/18 09:28 Protonix - PO 40 mg DAILY [facility] Administration Polyethylene Glycol 17 gm 05/13/18 10:00 05/14/18 09:35 Miralax (For Daily Use) - PO Not Given DAILY [facility] Warfarin Sodium 5 mg 05/14/18 18:00 Coumadin - PO DAILY@1800 [facility] Assessment: 87 year old woman with pmhx of RHD, mitral stenosis,s/p mechanical mitral valve replacement, HLD, A fib (on coumadin), CAD, HTN, admitted s/p mechanical fall. Plan: 1. Acute right femoral intertrochanteric fracture - Gamma nail repair 05/12 - Daily PT - Rehab at discharge - DC black once more mobile 2. A fib, s/p mechanical valve - Cont Heparin gtt - Start coumadin 5mg, normal regimen 2mg, 2mg 4mg, repeat - Cont Atenolol 3. CAD, R heart failure - Lasix 40mg daily 4. HTN - Controlled - Imdur, atenolol, lasix 5. JOCELYN on CKD 3 - Due to hypovolemia , pre renal - Resolved 6. Hyponatermia - Resolved 7. SIRS - Resolved 8. Hypothyroidsm - Synthroid 100mcgs 9. Peptic Ulcer Disease, hx of colectomy with right hemicolectormy - Protonix Visit type - Emergency Visit Emergency Visit: Yes ED Registration Date: 05/07/18 Care time: The patient presented to the Emergency Department on the above date and was hospitalized for further evaluation of their emergent condition. - New Patient This patient is new to me today: No - Critical Care Critical Care patient: No
[2018-05-14] MEDS: WARFARIN NA 5 MG TABLET (UD) PO SCH (17:13)
[2018-05-14] MEDS: ATORVASTATIN CA 10 MG TABLET (FP) PO SCH (22:59)
[2018-05-14] MEDS: LIDOCAINE PATCH REMOVAL MC SCH (23:00)
[2018-05-15] MEDS: DOCUSATE SODIUM 100 MG CAPSULE (FP) PO SCH ×3 (06:40→21:59)
[2018-05-15] MEDS: LEVOTHYROXINE NA 100 MCG TABLET (FP) PO SCH (06:40)
[2018-05-15] MEDS: morphine SULFATE 4 MG/ML VIAL IVPUSH PRN (07:17)
[2018-05-15 07:53] LABS: HEMATOCRIT 29.4 % (32.4-45.2); HEMOGLOBIN 9.6 GM/dL (10.7-15.3); MCH 27.2 pg (25.7-33.7); MCHC 32.7 g/dl (32.0-36.0); MEAN PLT VOLUME 10.1 fl (7.5-11.1); PLATELET COUNT 209 K/MM3 (134-434); RBC 3.54 M/mm3 (3.60-5.2); RDW 16.2 % (11.6-15.6)
--- NOTE | 2018-05-15 08:31 | PN ---
Progress Note (short form) - Note Progress Note: Ortho Pt seen and examined s/p right IM gamma nail pod #3 Selected Entries 05/15/18 02:00 Temperature 97.5 F L Pulse Rate 90 Respiratory 16 Rate Blood Pressure 107/61 Laboratory Tests 05/15/18 07:00 WBC 9.0 Hgb 9.6 L Hct 29.4 L Plt Count 209 dressing with saturation but not to borders, calf soft, nt nvi a/p PT dvt ppx pain control d/c planning
[2018-05-15 08:40] LABS: INR 1.36 (0.82-1.09); PROTHROMBIN TIME (PATIENT) 15.4 SEC (9.7-13.0)
[2018-05-15] MEDS: LIDOCAINE 5% TOPICAL PATCH TP SCH (10:00)
[2018-05-15] MEDS: ALLOPURINOL 100 MG TABLET (FP) PO SCH (10:06)
[2018-05-15] MEDS: ISOSORBIDE MONONITRATE 30 MG TAB.SR.24H (FP) PO SCH (10:06)
[2018-05-15] MEDS: ATENOLOL 50 MG TABLET (FP) PO SCH (10:06)
[2018-05-15] MEDS: oxyCODONE HCL 5 MG TABLET PO PRN ×3 (10:06→21:58)
[2018-05-15] MEDS: GABAPENTIN 100 MG CAPSULE (FP) PO SCH ×2 (10:06→21:59)
[2018-05-15] MEDS: FUROSEMIDE 40 MG TABLET (FP) PO SCH (10:06)
[2018-05-15] MEDS: CALCIUM 500MG/VIT-D 200 UNITS COMBO TABLET (FP) PO SCH (10:06)
[2018-05-15] MEDS: PANTOPRAZOLE 40 MG TABLET (FP) PO SCH (10:07)
--- NOTE | 2018-05-15 10:24 | PN ---
Progress Note (short form) - Note Progress Note: 87 year old female admitted with traumatic fracture of right hip. Known case of RHD, mitral stenosis,s/p mechnical mitral prosthesis, hypertension, permanent atrial fib. right heart failure,severe TR, s/p right carotid endarterectomy and h/o profound deafness.H/o CAD, angina pectoris. Patient is to undergo PT. No SOB, chest pain or discomfort. No palpitations or lightheadedness reported. Slight drop in HCT. Active Medications Acetaminophen (Tylenol -) 650 mg PO Q4H PRN PRN Reason: PAIN LEVEL 1 - 3 Albuterol Sulfate (Ventolin 0.083% Nebulizer Soln -) 1 amp NEB Q4H PRN PRN Reason: SHORT OF BREATH/WHEEZING Allopurinol (Zyloprim -) 100 mg PO DAILY [facility] Last Admin: 05/15/18 10:06 Dose: 100 mg Atenolol (Tenormin -) 50 mg PO DAILY [facility] Last Admin: 05/15/18 10:06 Dose: 50 mg Atorvastatin Calcium (Lipitor -) 10 mg PO HS [facility] Last Admin: 05/14/18 22:59 Dose: 10 mg Bisacodyl (Dulcolax Suppository -) 10 mg RC DAILY PRN PRN Reason: CONSTIPATION Calcium Carbonate/Cholecalciferol (Os-Sumanth 500+D -) 1 tab PO DAILY [facility] Last Admin: 05/15/18 10:06 Dose: 1 tab Docusate Sodium (Colace -) 100 mg PO TID [facility] Last Admin: 05/15/18 06:40 Dose: 100 mg Fentanyl (Sublimaze Injection -) 25 mcg IVPUSH [id number] PRN PRN Reason: PAIN-PACU ORDER X 4 DOSES ONLY Last Admin: 05/12/18 13:05 Dose: 25 mcg Furosemide (Lasix -) 40 mg PO DAILY [facility] Last Admin: 05/15/18 10:06 Dose: 40 mg Gabapentin (Neurontin -) 100 mg PO BID [facility] Last Admin: 05/15/18 10:06 Dose: 100 mg Heparin Sodium (Porcine) (Heparin -) 1,000 unit IVPUSH PRN PRN PRN Reason: Heparin Last Admin: 05/14/18 09:27 Dose: 1,000 unit Heparin Sodium (Porcine) (Heparin -) 5,000 unit IVPUSH PRN PRN PRN Reason: Heparin Last Admin: 05/13/18 12:19 Dose: 5,000 unit Heparin Sodium (Porcine) 25, (000 unit/ Sodium Chloride) 500 mls @ 16 mls/hr IV TITR [facility]; Protocol Last Titration: 05/15/18 10:07 Dose: 1,200 unit/hr, 24 mls/hr Isosorbide Mononitrate (Imdur -) 30 mg PO DAILY [facility] Last Admin: 05/15/18 10:06 Dose: 30 mg Levothyroxine Sodium (Synthroid -) 100 mcg PO 0700 [facility] Last Admin: 05/15/18 06:40 Dose: 100 mcg Lidocaine (Lidoderm Patch -) 1 patch TP DAILY [facility] Last Admin: 05/15/18 10:00 Dose: 1 patch Miscellaneous (Lidoderm Patch Removal) 1 each MC DAILY@2200 [facility] Last Admin: 05/14/18 23:00 Dose: 1 each Morphine Sulfate (Morphine Sulfate) 3 mg IVPUSH Q4H PRN PRN Reason: PAIN LEVEL 7 - 10 Last Admin: 05/15/18 07:17 Dose: 3 mg Ondansetron HCl (Zofran Injection) 4 mg IVPUSH Q6H PRN PRN Reason: NAUSEA Oxycodone HCl (Roxicodone -) 5 mg PO Q4H PRN PRN Reason: PAIN LEVEL 4 - 6 Last Admin: 05/15/18 10:06 Dose: 5 mg Pantoprazole Sodium (Protonix -) 40 mg PO DAILY [facility] Last Admin: 05/15/18 10:07 Dose: 40 mg Polyethylene Glycol (Miralax (For Daily Use) -) 17 gm PO DAILY [facility] Last Admin: 05/14/18 23:00 Dose: 17 gm Warfarin Sodium (Coumadin -) 5 mg PO DAILY@1800 [facility] Last Admin: 05/14/18 17:13 Dose: 5 mg NECK: Supple, no JVD, pulsatile neck veins, carotids 2+ HEART; [place] prasthetic soundsgrade II/ systolic murmur at the apex. LUNGS: Clear. ABDOMEN: Soft nonder, liver 2 FB below the rt. rib cage and is pulsatile, no masses felt. EXTREMITIES: Less swelling and tenderness of the rt. thigh. No calf tenderness. I INR, PTT INR 1.36 (0.82-1.09) H 05/15/18 07:00 CBC, BMP 05/15/18 07:00 05/14/18 06:10 IMPRESSION: 1. Atrial fib. with moderate ventricular response. 2. Fracture right hip s/p surgery. 3. RHD,s/p mechanical mitral valve replacement 4. H/o CHF. 5. Severe TR. RECOMMENDATION: 1. Resume couamadin if agreed by ortho. 2. Close f/u of PTT and INR. 3. F/u CBC. 4. Resume diuretics OLGA.
[2018-05-15] MEDS: POLYETHYLENE GLYCOL 3350 119 GM BTL PO SCH (12:02)
--- NOTE | 2018-05-15 14:39 | PN ---
Physical Exam: SUBJECTIVE: Patient seen and examined. Pt is oob to chair, complains of pain when she moves. OBJECTIVE: Vital Signs Period Temp Pulse Resp BP Sys/Montelongo Pulse Ox Last 24 Hr 97.5 F-98.5 F 90-102 16-20 98-126/61-72 97 PE Neuro: alert,awake, cn 2-12intact Pulm: CTAB CV: s1 s2 irregular. + murmur, + click Abd: s nt nd + bs : black Ext: RLE dressing CDI, R thigh and knee swelling while in chair Laboratory Results - last 24 hr 05/14/18 05/15/18 05/15/18 17:05 06:40 07:00 WBC 9.0 RBC 3.54 L Hgb 9.6 L Hct 29.4 L MCV 83.0 MCH 27.2 MCHC 32.7 RDW 16.2 H Plt Count 209 MPV 10.1 PT with INR INR PTT (Actin FS) 51.2 H 58.4 H Stool Occult Blood 05/15/18 05/15/18 07:00 08:00 WBC RBC Hgb Hct MCV MCH MCHC RDW Plt Count MPV PT with INR 15.40 H INR 1.36 H PTT (Actin FS) Stool Occult Blood Negative Active Medications Generic Name Dose Route Start Last Admin Trade Name Jakeq PRN Reason Stop Dose Admin Acetaminophen 650 mg 05/12/18 12:02 Tylenol - PO Q4H PRN PAIN LEVEL 1 - 3 Albuterol Sulfate 1 amp 05/12/18 12:02 Ventolin 0.083% Nebulizer Soln - NEB Q4H PRN SHORT OF BREATH/WHEEZING Allopurinol 100 mg 05/13/18 10:00 05/15/18 10:06 Zyloprim - PO 100 mg DAILY MARIA LUISA Administration Atenolol 50 mg 05/13/18 10:00 05/15/18 10:06 Tenormin - PO 50 mg DAILY MARIA LUISA Administration Atorvastatin Calcium 10 mg 05/12/18 22:00 05/14/18 22:59 Lipitor - PO 10 mg HS MARIA LUISA Administration Bisacodyl 10 mg 05/12/18 12:02 Dulcolax Suppository - RC DAILY PRN CONSTIPATION Calcium Carbonate/Cholecalciferol 1 tab 05/13/18 10:00 05/15/18 10:06 Os-Sumanth 500+D - PO 1 tab DAILY MARIA LUISA Administration Docusate Sodium 100 mg 05/12/18 14:00 05/15/18 06:40 Colace - PO 100 mg TID MARIA LUISA Administration Fentanyl 25 mcg 05/12/18 11:55 05/12/18 13:05 Sublimaze Injection - IVPUSH 25 mcg [id number] PRN Administration PAIN-PACU ORDER X 4 DOSES ONLY Furosemide 40 mg 05/13/18 10:00 05/15/18 10:06 Lasix - PO 40 mg DAILY MARIA LUISA Administration Gabapentin 100 mg 05/12/18 22:00 05/15/18 10:06 Neurontin - PO 100 mg BID MARIA LUISA Administration Heparin Sodium (Porcine) 1,000 unit 05/12/18 18:08 05/14/18 09:27 Heparin - IVPUSH 1,000 unit PRN PRN Administration Heparin Heparin Sodium (Porcine) 5,000 unit 05/12/18 18:08 05/13/18 12:19 Heparin - IVPUSH 5,000 unit PRN PRN Administration Heparin Heparin Sodium (Porcine) 25, 500 mls @ 16 mls/hr 05/12/18 18:15 05/15/18 10: 07 000 unit/ Sodium Chloride IV 1,200 unit/hr TITR MARIA LUISA 24 mls/hr Titration Protocol 800 UNIT/HR Isosorbide Mononitrate 30 mg 05/13/18 10:00 05/15/18 10:06 Imdur - PO 30 mg DAILY MARIA LUISA Administration Levothyroxine Sodium 100 mcg 05/13/18 07:00 05/15/18 06:40 Synthroid - PO 100 mcg 0700 MARIA LUISA Administration Lidocaine 1 patch 05/13/18 10:00 05/15/18 10:00 Lidoderm Patch - TP 1 patch DAILY MARIA LUISA Administration Miscellaneous 1 each 05/12/18 22:00 05/14/18 23:00 Lidoderm Patch Removal MC 1 each DAILY@2200 MARIA LUISA Administration Morphine Sulfate 3 mg 05/12/18 12:02 05/15/18 07:17 Morphine Sulfate IVPUSH 3 mg Q4H PRN Administration PAIN LEVEL 7 - 10 Ondansetron HCl 4 mg 05/12/18 12:02 Zofran Injection IVPUSH Q6H PRN NAUSEA Oxycodone HCl 5 mg 05/12/18 12:02 05/15/18 10:06 Roxicodone - PO 5 mg Q4H PRN Administration PAIN LEVEL 4 - 6 Pantoprazole Sodium 40 mg 05/13/18 10:00 05/15/18 10:07 Protonix - PO 40 mg DAILY MARIA LUISA Administration Polyethylene Glycol 17 gm 05/13/18 10:00 05/15/18 12:02 Miralax (For Daily Use) - PO Not Given DAILY MARIA LUISA Warfarin Sodium 5 mg 05/14/18 18:00 05/14/18 17:13 Coumadin - PO 5 mg DAILY@1800 MARIA LUISA Administration Assessment: 87 year old woman with pmhx of RHD, mitral stenosis,s/p mechanical mitral valve replacement, HLD, A fib (on coumadin), CAD, HTN, admitted s/p mechanical fall. Plan: 1. Acute right femoral intertrochanteric fracture - Gamma nail repair 05/12 - Daily PT - Rehab at discharge - DC black once more mobile 2. A fib, s/p mechanical valve - Cont Heparin gtt - Dose coumadin 5mg, normal regimen 2mg, 2mg 4mg, repeat - Cont Atenolol - Daily INR goal 2.5-3.5 3. CAD, R heart failure - Lasix 40mg daily 4. HTN - Controlled - Imdur, atenolol, lasix 5. JOCELYN on CKD 3 - Due to hypovolemia , pre renal - Resolved 6. Hyponatermia - Resolved 7. SIRS - Resolved 8. Hypothyroidsm - Synthroid 100mcgs 9. Peptic Ulcer Disease, hx of colectomy with right hemicolectormy - Protonix Visit type - Emergency Visit Emergency Visit: Yes ED Registration Date: 05/07/18 Care time: The patient presented to the Emergency Department on the above date and was hospitalized for further evaluation of their emergent condition. - New Patient This patient is new to me today: No - Critical Care Critical Care patient: No
--- NOTE | 2018-05-15 16:58 | PN ---
Progress Note (short form) - Note Progress Note: Renal follow up for JOCELYN and Hyponatremia Pt seen and examined at the bedside awake and alert c/o pain in right hip and difficulty lifing the leg making urine no sob, chest pain, abd pain, N/V/D, Fevers Vital Signs Temperature 97.7 F 05/15/18 14:52 Pulse Rate 91 H 05/15/18 14:52 Respiratory Rate 20 05/15/18 14:52 Blood Pressure 107/53 05/15/18 14:52 O2 Sat by Pulse Oximetry (%) 97 05/14/18 21:00 Intake & Output 05/12/18 05/13/18 05/14/18 05/15/18 23:59 23:59 23:59 23:59 Intake Total 2146 387 664 425 Output Total 1440 702 846 0711 Balance 703 -413 -236 -1225 NAD RRR CTA No LE edema CBC, BMP 05/15/18 07:00 05/14/18 06:10 Current Medications Acetaminophen (Tylenol -) 650 mg PO Q4H PRN PRN Reason: PAIN LEVEL 1 - 3 Albuterol Sulfate (Ventolin 0.083% Nebulizer Soln -) 1 amp NEB Q4H PRN PRN Reason: SHORT OF BREATH/WHEEZING Allopurinol (Zyloprim -) 100 mg PO DAILY [facility] Last Admin: 05/15/18 10:06 Dose: 100 mg Atenolol (Tenormin -) 50 mg PO DAILY [facility] Last Admin: 05/15/18 10:06 Dose: 50 mg Atorvastatin Calcium (Lipitor -) 10 mg PO HS [facility] Last Admin: 05/14/18 22:59 Dose: 10 mg Bisacodyl (Dulcolax Suppository -) 10 mg RC DAILY PRN PRN Reason: CONSTIPATION Calcium Carbonate/Cholecalciferol (Os-Sumanth 500+D -) 1 tab PO DAILY [facility] Last Admin: 05/15/18 10:06 Dose: 1 tab Docusate Sodium (Colace -) 100 mg PO TID [facility] Last Admin: 05/15/18 14:56 Dose: 100 mg Fentanyl (Sublimaze Injection -) 25 mcg IVPUSH [id number] PRN PRN Reason: PAIN-PACU ORDER X 4 DOSES ONLY Last Admin: 05/12/18 13:05 Dose: 25 mcg Furosemide (Lasix -) 40 mg PO DAILY [facility] Last Admin: 05/15/18 10:06 Dose: 40 mg Gabapentin (Neurontin -) 100 mg PO BID [facility] Last Admin: 05/15/18 10:06 Dose: 100 mg Heparin Sodium (Porcine) (Heparin -) 1,000 unit IVPUSH PRN PRN PRN Reason: Heparin Last Admin: 05/14/18 09:27 Dose: 1,000 unit Heparin Sodium (Porcine) (Heparin -) 5,000 unit IVPUSH PRN PRN PRN Reason: Heparin Last Admin: 05/13/18 12:19 Dose: 5,000 unit Heparin Sodium (Porcine) 25, (000 unit/ Sodium Chloride) 500 mls @ 16 mls/hr IV TITR MARIA LUISA; Protocol Last Titration: 05/15/18 10:07 Dose: 1,200 unit/hr, 24 mls/hr Isosorbide Mononitrate (Imdur -) 30 mg PO DAILY [facility] Last Admin: 05/15/18 10:06 Dose: 30 mg Levothyroxine Sodium (Synthroid -) 100 mcg PO 0700 [facility] Last Admin: 05/15/18 06:40 Dose: 100 mcg Lidocaine (Lidoderm Patch -) 1 patch TP DAILY [facility] Last Admin: 05/15/18 10:00 Dose: 1 patch Miscellaneous (Lidoderm Patch Removal) 1 each MC DAILY@2200 [facility] Last Admin: 05/14/18 23:00 Dose: 1 each Morphine Sulfate (Morphine Sulfate) 3 mg IVPUSH Q4H PRN PRN Reason: PAIN LEVEL 7 - 10 Last Admin: 05/15/18 07:17 Dose: 3 mg Ondansetron HCl (Zofran Injection) 4 mg IVPUSH Q6H PRN PRN Reason: NAUSEA Oxycodone HCl (Roxicodone -) 5 mg PO Q4H PRN PRN Reason: PAIN LEVEL 4 - 6 Last Admin: 05/15/18 14:56 Dose: 5 mg Pantoprazole Sodium (Protonix -) 40 mg PO DAILY [facility] Last Admin: 05/15/18 10:07 Dose: 40 mg Polyethylene Glycol (Miralax (For Daily Use) -) 17 gm PO DAILY [facility] Last Admin: 05/15/18 12:02 Dose: Not Given Warfarin Sodium (Coumadin -) 5 mg PO DAILY@1800 [facility] Last Admin: 05/14/18 17:13 Dose: 5 mg 87 year old woman with PMhx of CKD stage 3, Hypertension, Hyperlipidemia, Hypothyroidism, Afib, MVR, CAD who presented s/p fall with hip fracture and now with JOCELYN and Hyponatremia. #JOCELYN on CKD likely secondary to hypovolemia (high BUN/Cr ratio and on diuretics) #Hyponatremia #Femoral Fracture #Hx of Hypertension #Right Heart Failure #Afib #MVR #Supratheraputic INR Renal function is improved and stable serum Na is now WNL pt tolerating oral diet and appears evolemic continue pain control and PT will sign off case at this time, please call with any questions or concerns Thank you Will follow
[2018-05-15] MEDS: WARFARIN NA 5 MG TABLET (UD) PO SCH (17:05)
[2018-05-15] MEDS: HEPARIN - 25,000 UNIT in SODIUM CHLORIDE 495 ML IV SCH (19:25)
[2018-05-15] MEDS: LIDOCAINE PATCH REMOVAL MC SCH (21:59)
[2018-05-15] MEDS: ATORVASTATIN CA 10 MG TABLET (FP) PO SCH (21:59)
[2018-05-16] MEDS: oxyCODONE HCL 5 MG TABLET PO PRN ×2 (06:09→13:44)
[2018-05-16] MEDS: LEVOTHYROXINE NA 100 MCG TABLET (FP) PO SCH (06:09)
[2018-05-16] MEDS: DOCUSATE SODIUM 100 MG CAPSULE (FP) PO SCH ×3 (06:09→21:45)
[2018-05-16 07:17] LABS: HEMATOCRIT 28.4 % (32.4-45.2); HEMOGLOBIN 9.3 GM/dL (10.7-15.3); MCHC 32.7 g/dl (32.0-36.0); MEAN CELL VOLUME 82.6 fl (80-96); PLATELET COUNT 196 K/MM3 (134-434); RBC 3.44 M/mm3 (3.60-5.2); RDW 16.2 % (11.6-15.6); WHITE BLOOD COUNT 7.2 K/mm3 (4.0-10.0)
[2018-05-16 07:31] LABS: INR 1.66 (0.82-1.09); PROTHROMBIN TIME (PATIENT) 18.8 SEC (9.7-13.0)
[2018-05-16] MEDS ORDERED: PT OWN MED DRAWER 7, Y5N ONE (10:13)
[2018-05-16] MEDS: CALCIUM 500MG/VIT-D 200 UNITS COMBO TABLET (FP) PO SCH (10:18)
[2018-05-16] MEDS: ATENOLOL 50 MG TABLET (FP) PO SCH (10:18)
[2018-05-16] MEDS: GABAPENTIN 100 MG CAPSULE (FP) PO SCH ×2 (10:18→21:45)
[2018-05-16] MEDS: ISOSORBIDE MONONITRATE 30 MG TAB.SR.24H (FP) PO SCH (10:18)
[2018-05-16] MEDS: PANTOPRAZOLE 40 MG TABLET (FP) PO SCH (10:19)
[2018-05-16] MEDS: FUROSEMIDE 40 MG TABLET (FP) PO SCH (10:19)
[2018-05-16] MEDS: POLYETHYLENE GLYCOL 3350 119 GM BTL PO SCH (10:20)
[2018-05-16] MEDS: LIDOCAINE 5% TOPICAL PATCH TP SCH (10:20)
[2018-05-16] MEDS: morphine SULFATE 4 MG/ML VIAL IVPUSH PRN ×2 (10:21→22:11)
[2018-05-16] MEDS ORDERED: INSULIN (NOVOLOG) ASPART 100 UNITS/ML 10ML VIAL ONE (11:36)
[2018-05-16] MEDS: ACETAMINOPHEN 325 MG TABLET (FP) PO PRN (13:44)
--- NOTE | 2018-05-16 13:44 | DS ---
Physical Exam: SUBJECTIVE: Patient seen and examined OBJECTIVE: Vital Signs Period Temp Pulse Resp BP Sys/Montelongo Pulse Ox Last 24 Hr 97.7 F-98.5 F 91-101 18-20 105-123/53-76 97-98 PHYSICAL EXAM GENERAL: The patient is awake, alert, and fully oriented, in no acute distress. HEAD: Normal with no signs of trauma. EYES: PERRL, extraocular movements intact, sclera anicteric, conjunctiva clear. ENT: Ears normal, nares patent, oropharynx clear without exudates, moist mucous membranes. NECK: Trachea midline, full range of motion, supple. LUNGS: Breath sounds equal, clear to auscultation bilaterally, no wheezes, no crackles, no accessory muscle use. HEART: Regular rate and rhythm, S1, S2 without murmur, rub or gallop. ABDOMEN: Soft, nontender, nondistended, normoactive bowel sounds, no guarding, no rebound, no hepatosplenomegaly, no masses. EXTREMITIES: 2+ pulses, warm, well-perfused, no edema. NEUROLOGICAL: Cranial nerves II through XII grossly intact. Normal speech, gait not observed. PSYCH: Normal mood, normal affect. SKIN: Warm, dry, normal turgor, no rashes or lesions noted. LABS Laboratory Results - last 24 hr 05/16/18 05/16/18 05/16/18 06:30 06:30 06:30 WBC 7.2 RBC 3.44 L Hgb 9.3 L Hct 28.4 L MCV 82.6 MCH 27.0 MCHC 32.7 RDW 16.2 H Plt Count 196 MPV 10.0 PT with INR 18.80 H INR 1.66 H PTT (Actin FS) 61.4 H HOSPITAL COURSE: Date of Admission:05/07/18 Date of Discharge: 05/16/18 Discharge Summary Reason For Visit: FRACTURE OF NECK OF FEMUR Current Active Problems Femoral neck fracture (Acute) Fever, unknown origin (Acute) - Instructions Diet, Activity, Other Instructions: The patient is being discharged to your facility today. The patient has a mechanical heart valve and her INR needs to be between 2.5 and 3.5. The patient's INR today is 1.66. She needs to receive daily lovenox subq injections until her INR is within the therapeutic range. The next dose is due on 05/17. Referrals: Isrrael Lua MD [Primary Care Provider] - - Home Medications Comprehensive Discharge Medication List: Ambulatory Orders Atorvastatin Ca [Lipitor] 10 mg PO HS 08/02/14 Levothyroxine [Synthroid -] 100 mcg PO DAILY #90 tablet 09/12/14 Spironolactone [Aldactone] 25 mg PO DAILY 09/24/15 Furosemide [Lasix -] 40 mg PO DAILY 04/23/16 Atenolol [Tenormin] 50 mg PO DAILY 02/06/17 Isosorbide Mononitrate [Imdur] 30 mg PO DAILY 02/06/17 Pantoprazole Sodium 40 mg PO DAILY 02/06/17 Calcium (Oyster Shell) [Os-Sumanth 500MG -] 600 mg PO DAILY 05/07/18 Cholecalciferol (Vitamin D3) [Vitamin D -] 2,000 unit PO DAILY 05/07/18 Gabapentin [Neurontin] 100 mg PO BID 05/07/18 Ibandronate Sodium 150 mg PO MONTHLY 05/07/18 Warfarin Na [Coumadin -] 5 mg PO DAILY@1800 tablet 05/16/18 - Discharge Referral Referred to [facility] No
[2018-05-16] MEDS ORDERED: PATIENT'S OWN MEDICATION (NON-FORMULARY) (Ibandronate Sodium [Ibandronate Sodium] 150 MG) PO SCH (14:15)
[2018-05-16] MEDS ORDERED: WARFARIN NA 5 MG TABLET (UD) PO ONE (14:30)
[2018-05-16] MEDS ORDERED: ENOXAPARIN NA (PORCINE) 80 MG/0.8 ML DISP.SYRIN SQ SCH (15:00)
[2018-05-16] MEDS: ENOXAPARIN NA (PORCINE) 100 MG/1 ML DISP.SYRIN SQ SCH (15:29)
[2018-05-16] MEDS ORDERED: WARFARIN NA 7.5 MG TABLET (FP) PO SCH (18:00)
--- NOTE | 2018-05-16 20:45 | PN ---
Progress Note (short form) - Note Progress Note: 87 year old female admitted with traumatic fracture of right hip. Known case of RHD, mitral stenosis,s/p mechnical mitral prosthesis, hypertension, permanent atrial fib. right heart failure,severe TR, s/p right carotid endarterectomy and h/o profound deafness.H/o CAD, angina pectoris. Resting, no pain reported was OOB earlier in the day, on coumadi, INR is sub therapeutic. Active Medications Acetaminophen (Tylenol -) 650 mg PO Q4H PRN PRN Reason: PAIN LEVEL 1 - 3 Last Admin: 05/16/18 13:44 Dose: 650 mg Albuterol Sulfate (Ventolin 0.083% Nebulizer Soln -) 1 amp NEB Q4H PRN PRN Reason: SHORT OF BREATH/WHEEZING Atenolol (Tenormin -) 50 mg PO DAILY [facility] Last Admin: 05/16/18 10:18 Dose: 50 mg Atorvastatin Calcium (Lipitor -) 10 mg PO HS [facility] Last Admin: 05/15/18 21:59 Dose: 10 mg Bisacodyl (Dulcolax Suppository -) 10 mg RC DAILY PRN PRN Reason: CONSTIPATION Calcium Carbonate/Cholecalciferol (Os-Sumanth 500+D -) 1 tab PO DAILY [facility] Last Admin: 05/16/18 10:18 Dose: 1 tab Cholecalciferol (Vitamin D3 -) 2,000 unit PO DAILY [facility] Docusate Sodium (Colace -) 100 mg PO TID [facility] Last Admin: 05/16/18 13:31 Dose: 100 mg Enoxaparin Sodium (Lovenox -) 90 mg SQ DAILY [facility] Last Admin: 05/16/18 15:29 Dose: 90 mg Fentanyl (Sublimaze Injection -) 25 mcg IVPUSH [id number] PRN PRN Reason: PAIN-PACU ORDER X 4 DOSES ONLY Last Admin: 05/12/18 13:05 Dose: 25 mcg Furosemide (Lasix -) 40 mg PO DAILY [facility] Last Admin: 05/16/18 10:19 Dose: 40 mg Gabapentin (Neurontin -) 100 mg PO BID [facility] Last Admin: 05/16/18 10:18 Dose: 100 mg Isosorbide Mononitrate (Imdur -) 30 mg PO DAILY [facility] Last Admin: 05/16/18 10:18 Dose: 30 mg Levothyroxine Sodium (Synthroid -) 100 mcg PO 0700 [facility] Last Admin: 05/16/18 06:09 Dose: 100 mcg Lidocaine (Lidoderm Patch -) 1 patch TP DAILY [facility] Last Admin: 05/16/18 10:20 Dose: 1 patch Miscellaneous (Lidoderm Patch Removal) 1 each MC DAILY@2200 [facility] Last Admin: 05/15/18 21:59 Dose: 1 each Morphine Sulfate (Morphine Sulfate) 3 mg IVPUSH Q4H PRN PRN Reason: PAIN LEVEL 7 - 10 Last Admin: 05/16/18 10:21 Dose: 3 mg Ondansetron HCl (Zofran Injection) 4 mg IVPUSH Q6H PRN PRN Reason: NAUSEA Oxycodone HCl (Roxicodone -) 5 mg PO Q4H PRN PRN Reason: PAIN LEVEL 4 - 6 Last Admin: 05/16/18 13:44 Dose: 5 mg Pantoprazole Sodium (Protonix -) 40 mg PO DAILY [facility] Last Admin: 05/16/18 10:19 Dose: 40 mg Polyethylene Glycol (Miralax (For Daily Use) -) 17 gm PO DAILY [facility] Last Admin: 05/16/18 10:20 Dose: 17 gm Warfarin Sodium (Coumadin -) 7.5 mg PO DAILY@1800 [facility] Last Admin: 05/16/18 17:54 Dose: Not Given Last Vital Signs Temp Pulse Resp BP Pulse Ox 98.2 F 100 H 18 128/76 97 05/16/18 14:59 05/16/18 14:59 05/16/18 10:00 05/16/18 14:59 05/16/18 09:00 NECK: Supple, no JVD, pulsatile neck veins, carotids 2+ HEART; Band[place] prasthetic soundsgrade II/ systolic murmur at the apex. LUNGS: Clear. ABDOMEN: Soft nonder, liver 2 FB below the rt. rib cage and is pulsatile, no masses felt. EXTREMITIES: Swelling and tenderness of the rt. thigh. No calf tenderness CBC, BMP 05/16/18 06:30 05/14/18 06:10 IMPRESSION: 1. Atrial fib. with moderate ventricular response. 2. Fracture right hip s/p surgery. 3. RHD,s/p mechanical mitral valve replacement 4. H/o CHF. 5. Severe TR. RECOMMENDATION: 1. Anticoagulation in progress 2. Close f/u of PTT and INR. 3. Daily CBC. 4. Resume diuretics OLGA. 5. Resume coumadin.
[2018-05-16] MEDS: ATORVASTATIN CA 10 MG TABLET (FP) PO SCH (21:45)
[2018-05-16] MEDS: LIDOCAINE PATCH REMOVAL MC SCH (21:45)
[2018-05-17] MEDS: LEVOTHYROXINE NA 100 MCG TABLET (FP) PO SCH (06:13)
[2018-05-17] MEDS: DOCUSATE SODIUM 100 MG CAPSULE (FP) PO SCH (06:13)
[2018-05-17] MEDS: oxyCODONE HCL 5 MG TABLET PO PRN (06:17)
[2018-05-17 06:41] VITALS: PULSE 102
[2018-05-17 07:07] LABS: HEMATOCRIT 29.8 % (32.4-45.2); HEMOGLOBIN 9.6 GM/dL (10.7-15.3); MCH 26.7 pg (25.7-33.7); MCHC 32.3 g/dl (32.0-36.0); MEAN CELL VOLUME 82.9 fl (80-96); MEAN PLT VOLUME 9.6 fl (7.5-11.1); PLATELET COUNT 209 K/MM3 (134-434); RBC 3.59 M/mm3 (3.60-5.2); RDW 16.8 % (11.6-15.6); WHITE BLOOD COUNT 6.8 K/mm3 (4.0-10.0)
[2018-05-17 07:17] LABS: INR 1.91 (0.82-1.09)
[2018-05-17 07:52] LABS: PROTHROMBIN TIME (PATIENT) 21.6 SEC (9.7-13.0)
[2018-05-17 09:33] VITALS: BP 124/69; TEMP 98.5
[2018-05-17] MEDS: LIDOCAINE 5% TOPICAL PATCH TP SCH (09:36)
[2018-05-17] MEDS: GABAPENTIN 100 MG CAPSULE (FP) PO SCH (09:36)
[2018-05-17] MEDS: CALCIUM 500MG/VIT-D 200 UNITS COMBO TABLET (FP) PO SCH (09:36)
[2018-05-17] MEDS: ATENOLOL 50 MG TABLET (FP) PO SCH (09:36)
[2018-05-17] MEDS: PANTOPRAZOLE 40 MG TABLET (FP) PO SCH (09:36)
[2018-05-17] MEDS: FUROSEMIDE 40 MG TABLET (FP) PO SCH (09:37)
[2018-05-17] MEDS: ACETAMINOPHEN 325 MG TABLET (FP) PO PRN (09:37)
[2018-05-17] MEDS: ISOSORBIDE MONONITRATE 30 MG TAB.SR.24H (FP) PO SCH (09:37)
[2018-05-17] MEDS: POLYETHYLENE GLYCOL 3350 119 GM BTL PO SCH (09:38)
[2018-05-17] MEDS: ENOXAPARIN NA (PORCINE) 100 MG/1 ML DISP.SYRIN SQ SCH (09:38)
[2018-05-17] MEDS ORDERED: CHOLECALCIFEROL (VITAMIN D3) 1,000 UNIT TABLET (FP) PO SCH (10:00)
[2018-05-17] MEDS ORDERED: CALCIUM (OYSTER SHELL) 500 MG TABLET (FP) PO SCH (10:00)
[2018-05-17] MEDS ORDERED: oxyCODONE HCL 5 MG TABLET PO PRN (10:13)
--- NOTE | 2018-05-17 10:32 | PN ---
Progress Note (short form) - Note Progress Note: 87 year old female admitted with traumatic fracture of right hip. Known case of RHD, mitral stenosis,s/p mechanical mitral prosthesis, hypertension, permanent atrial fib. right heart failure, severe TR, s/p right carotid endarterectomy and h/o profound deafness. History of CAD, angina pectoris. Patient is being transferred to [facility]. She has minimal discomfort. No palpitations, SOB or chest pain reported. Active Medications Acetaminophen (Tylenol -) 650 mg PO Q4H PRN PRN Reason: PAIN LEVEL 1 - 3 Last Admin: 05/17/18 09:37 Dose: 650 mg Albuterol Sulfate (Ventolin 0.083% Nebulizer Soln -) 1 amp NEB Q4H PRN PRN Reason: SHORT OF BREATH/WHEEZING Atenolol (Tenormin -) 50 mg PO DAILY [facility] Last Admin: 05/17/18 09:36 Dose: 50 mg Atorvastatin Calcium (Lipitor -) 10 mg PO HS [facility] Last Admin: 05/16/18 21:45 Dose: 10 mg Bisacodyl (Dulcolax Suppository -) 10 mg RC DAILY PRN PRN Reason: CONSTIPATION Calcium Carbonate/Cholecalciferol (Os-Sumanth 500+D -) 1 tab PO DAILY [facility] Last Admin: 05/17/18 09:36 Dose: 1 tab Cholecalciferol (Vitamin D3 -) 2,000 unit PO DAILY [facility] Last Admin: 05/17/18 09:37 Dose: 2,000 unit Docusate Sodium (Colace -) 100 mg PO TID [facility] Last Admin: 05/17/18 06:13 Dose: Not Given Enoxaparin Sodium (Lovenox -) 90 mg SQ DAILY [facility] Last Admin: 05/17/18 09:38 Dose: 90 mg Furosemide (Lasix -) 40 mg PO DAILY [facility] Last Admin: 05/17/18 09:37 Dose: 40 mg Gabapentin (Neurontin -) 100 mg PO BID [facility] Last Admin: 05/17/18 09:36 Dose: 100 mg Isosorbide Mononitrate (Imdur -) 30 mg PO DAILY [facility] Last Admin: 05/17/18 09:37 Dose: 30 mg Levothyroxine Sodium (Synthroid -) 100 mcg PO 0700 [facility] Last Admin: 05/17/18 06:13 Dose: 100 mcg Lidocaine (Lidoderm Patch -) 1 patch TP DAILY [facility] Last Admin: 05/17/18 09:36 Dose: 1 patch Miscellaneous (Lidoderm Patch Removal) 1 each MC DAILY@2200 [facility] Last Admin: 05/16/18 21:45 Dose: 1 each Ondansetron HCl (Zofran Injection) 4 mg IVPUSH Q6H PRN PRN Reason: NAUSEA Oxycodone HCl (Roxicodone -) 5 mg PO Q6H PRN PRN Reason: PAIN LEVEL 6-10 Pantoprazole Sodium (Protonix -) 40 mg PO DAILY [facility] Last Admin: 05/17/18 09:36 Dose: 40 mg Polyethylene Glycol (Miralax (For Daily Use) -) 17 gm PO DAILY [facility] Last Admin: 05/17/18 09:38 Dose: Not Given Warfarin Sodium (Coumadin -) 5 mg PO DAILY@1800 [facility] Warfarin Sodium (Coumadin -) 5 mg PO NOW ONE Stop: 05/17/18 10:30 87 year old female was in no acute distress, no clubbing, pallor, cyanosis, or jaundice. Last Vital Signs Temp Pulse Resp BP Pulse Ox 98.5 F 102 H Irregular 20 124/69 97 05/17/18 09:32 05/17/18 09:32 05/17/18 09:32 05/17/18 09:32 05/16/18 21:00 NECK: Supple, no JVD, pulsatile neck veins, carotids 2+ HEART; [place] prosthetic sounds grade II/ systolic murmur at the apex. LUNGS: Clear on auscultation. ABDOMEN: Soft non-tender, liver 2 FB below the rt. rib cage and is pulsatile, no masses felt. EXTREMITIES: Swelling and tenderness of the rt. thigh. No calf tenderness CBC, BMP 05/17/18 06:30 05/14/18 06:10 Laboratory Results - last 24 hr 05/17/18 05/17/18 05/17/18 06:30 06:30 06:30 WBC 6.8 RBC 3.59 L Hgb 9.6 L Hct 29.8 L MCV 82.9 MCH 26.7 MCHC 32.3 RDW 16.8 H Plt Count 209 MPV 9.6 PT with INR 21.60 H* INR 1.91 H PTT (Actin FS) 30.7 D IMPRESSION: 1. Atrial fibrillation with moderate ventricular response. 2. Fracture right hip s/p surgery. 3. RHD,s/p mechanical mitral valve replacement 4. H/o CHF. 5. Severe TR. RECOMMENDATION: 1. Anticoagulation in progress. INR is subtheraputic and will require close monitoring and dose adjustment. 2. Close follow up of INR and CBC. 3. Resume aldactone. 4. Close follow up of BMP. Documentation provided by Lora Cruz, acting as a medical doctor for Dheeraj Coates MD. Problem List - Problems (1) Tricuspid regurgitation Code(s): I07.1 - RHEUMATIC TRICUSPID INSUFFICIENCY (2) Rheumatic heart disease Code(s): I09.9 - RHEUMATIC HEART DISEASE, UNSPECIFIED (3) Congestive heart failure Code(s): I50.9 - HEART FAILURE, UNSPECIFIED (4) Atrial fibrillation Code(s): I48.91 - UNSPECIFIED ATRIAL FIBRILLATION Qualifiers: Atrial fibrillation type: persistent Qualified Code(s): I48.1 - Persistent atrial fibrillation
[2018-05-17] MEDS ORDERED: WARFARIN NA 5 MG TABLET (UD) PO ONE (11:00)
--- NOTE | 2018-05-17 11:38 | PN ---
Progress Note (short form) - Note Progress Note: Ortho Pt seen and examined s/p right IM gamma nail Selected Entries 05/17/18 09:32 Temperature 98.5 F Pulse Rate 102 H Respiratory 20 Rate Blood Pressure 124/69 Laboratory Tests 05/17/18 06:30 WBC 6.8 Hgb 9.6 L Hct 29.8 L Plt Count 209 dressing c/d/i, calf soft, nt nvi a/p PT dvt ppx pain control d/c planning
[2018-05-18] MEDS ORDERED: WARFARIN NA 5 MG TABLET (UD) PO SCH (18:00)
== END 2018-05-17 11:57 | DRG 481 ==
LOC: JER 13:51 → JERBED 16:24 → J6S 20:25
PROVIDERS: ADMIT Internal Medicine; ATTEND Nurse Practitioner Acute Care
PROC: 0QS604Z Reposition Right Upper Femur with Internal Fixation Device, Open Approach (ICD-10-PCS; principal; 2018-05-12 10:30)
DX: S72.141A Displaced intertrochanteric fracture of right femur, initial encounter for closed fracture (principal); I13.0 Hypertensive heart and chronic kidney disease with heart failure and stage 1 through stage 4 chronic kidney disease, or unspecified chronic kidney disease; N17.9 Acute kidney failure, unspecified; I25.110 Atherosclerotic heart disease of native coronary artery with unstable angina pectoris; E87.1 Hypo-osmolality and hyponatremia; R65.10 Systemic inflammatory response syndrome (SIRS) of non-infectious origin without acute organ dysfunction; E78.5 Hyperlipidemia, unspecified; I48.2 Chronic atrial fibrillation; K21.9 Gastro-esophageal reflux disease without esophagitis; E03.9 Hypothyroidism, unspecified; M10.9 Gout, unspecified; M81.0 Age-related osteoporosis without current pathological fracture; I07.1 Rheumatic tricuspid insufficiency; N18.3 Chronic kidney disease, stage 3 (moderate); I50.810 Right heart failure, unspecified; H91.90 Unspecified hearing loss, unspecified ear; E86.1 Hypovolemia; Y92.098 Other place in other non-institutional residence as the place of occurrence of the external cause; E83.42 Hypomagnesemia; Z95.2 Presence of prosthetic heart valve; Z87.11 Personal history of peptic ulcer disease; Z85.038 Personal history of other malignant neoplasm of large intestine; W18.30XA Fall on same level, unspecified, initial encounter
CPT/HCPCS: 36415; 71045-TC-FY; 73523-TC-FY; 73552-TC-RT-FY; 73562-TC-RT-FY; 76000-TC-FY; 80048; 80053; 80061; 81003; 81015; 82272; 82550; 82570; 83036; 83721; 83735; 84100; 84484; 84540; 85025; 85027; 85610; 85730; 86850; 86870; 86900; 86901; 86902; 87040; 87081; 87086; 87205; 93005; 93010; 97116-GP; 97162-GP; 99283-25; J0131; J1644; J7030

== ENCOUNTER 2018-07-12 19:33 | Inpatient (IN) | payer OTHER, BC ==
--- NOTE | 2018-07-12 20:32 | PDOC ---
History of Present Illness - General History Source: Patient, Old Records Exam Limitations: No Limitations - History of Present Illness Initial Comments: 07/12/18 21:09 The patient is a 87 year old female brought via EMS and presenting with her , with a significant past medical history of mitral valve replacement, colon CA s/p surgery, HTN, HLD, who presents to the ED complaining lower extremity bilateral swelling for the past 2 months. She notes that she had a fractured right hip 04/2018 and had surgery. Ever since then, she has had persistent lower extremity swelling. She notes that she saw her antique furniture repairer who advised her to come to the ED for evaluation. She notes that she has been off her Lasix 40 mg once a day medication but was recently put back on it by Dr. Coates. The patient is currently going through physical therapy and notes that she still does not ambulate. The patient denies chest pain, shortness of breath, headache and dizziness. Denies fever, chills, nausea, vomiting, diarrhea or constipation. Denies dysuria , frequency, urgency and hematuria. Allergies: None Past surgical history: Right hip surgery, appendectomy, colon surgery, valve replacement Social History: Former smoker. No alcohol, or drug use reported Section Maintainer: Dr. Coates <Dusty Jones - Last Filed: 07/12/18 23:05> <Lenin Dey - Last Filed: 07/13/18 00:52> - General Chief Complaint: Edema Stated Complaint: LEG SWELLING Time Seen by Provider: 07/12/18 20:18 Past History <Dusty Jones - Last Filed: 07/12/18 23:05> - Past Medical History Anemia: No Asthma: No Cancer: Yes (colon ca/ SURGIRY 2013) Cardiac Disorders: Yes (mechanical valve) CVA: No COPD: No CHF: No Dementia: No Diabetes: No GI Disorders: Yes (PERF SURGERY 07/2014) Disorders: No HTN: Yes Hypercholesterolemia: Yes Liver Disease: No Seizures: No Thyroid Disease: No - Surgical History Abdominal Surgery: Yes (colon sx) Appendectomy: Yes Cardiac Surgery: Yes (VALVE REPLACEMENT) Cholecystectomy: No Lung Surgery: No Neurologic Surgery: No Orthopedic Surgery: No - Immunization History Immunization Up to Date: Yes - Suicide/Smoking/Psychosocial Hx Smoking Status: No Smoking History: Never smoked Years of Tobacco Use: 20 Have you smoked in the past 12 months: No Number of Cigarettes Smoked Daily: 0 If you are a former smoker, when did you quit?: 1970s Cigars Per Day: 0 Hx Alcohol Use: No Drug/Substance Use Hx: No Substance Use Type: None Hx Substance Use Treatment: No <Tiburcio,Boris - Last Filed: 07/13/18 00:52> - Past Medical History Allergies/Adverse Reactions: Allergies Allergy/AdvReac Type Severity Reaction Status Date / Time No Known Allergies Allergy Verified 07/12/18 20:04 Home Medications: Ambulatory Orders Atorvastatin Ca [Lipitor] 10 mg PO HS 08/02/14 Levothyroxine [Synthroid -] 100 mcg PO DAILY #90 tablet 09/12/14 Spironolactone [Aldactone] 25 mg PO DAILY 09/24/15 Furosemide [Lasix -] 40 mg PO DAILY 04/23/16 Atenolol [Tenormin] 50 mg PO DAILY 02/06/17 Isosorbide Mononitrate [Imdur] 30 mg PO DAILY 02/06/17 Pantoprazole Sodium 40 mg PO DAILY 02/06/17 Calcium (Oyster Shell) [Os-Sumanth 500MG -] 600 mg PO DAILY 05/07/18 Cholecalciferol (Vitamin D3) [Vitamin D -] 2,000 unit PO DAILY 05/07/18 Gabapentin [Neurontin] 100 mg PO BID 05/07/18 Ibandronate Sodium 150 mg PO MONTHLY 05/07/18 Enoxaparin [Lovenox -] 90 mg SQ DAILY disp.syrin 05/16/18 Warfarin Na [Coumadin -] 5 mg PO DAILY@1800 tablet 05/16/18 Enoxaparin Sodium [Lovenox] 90 mg SQ DAILY 05/17/18 Review of Systems - Review of Systems Able to Perform ROS?: Yes Comments:: 07/12/18 21:09 CONSTITUTIONAL: No fever, no chills, no fatigue EYES: No visual changes ENT: No ear pain, no sore throat CARDIOVASCULAR: No chest pain, no palpitations RESPIRATORY: No cough, no SOB GI: No abdominal pain, no nausea, no vomiting, no constipation, no diarrhea GENITOURINARY: No dysuria, no frequency, no hematuria EXTREMITIES: (+) Bilateral lower extremity swelling and pain. MUSKULOSKELETAL: No backpain, no joint pain, no myalgias SKIN: No rash NEURO: No headache <Dusty Jones - Last Filed: 07/12/18 23:05> *Physical Exam - Vital Signs Last Vital Signs Temp Pulse Resp BP Pulse Ox 97.5 F L 86 17 136/59 96 07/12/18 19:52 07/12/18 19:52 07/12/18 19:52 07/12/18 19:52 07/12/18 19:52 - Physical Exam Comments: 07/12/18 21:10 CONSTITUTIONAL: Well-appearing; well-nourished; in no apparent distress HEAD: Normocephalic; atraumatic EYES: PERRL; EOM intact ENMT: External appears normal; normal oropharynx NECK: Supple; non-tender; no cervical lymphadenopathy CARD: Normal S1, S2; no murmurs, rubs, or gallops RESP: Normal chest excursion with respiration; breath sounds clear and equal bilaterally; no wheezes, rhonchi, or rales ABD: Soft, non-distended; non-tender; no palpable organomegaly, no palpable hernias EXT: (+) 3 pitting edema bilaterally. Normal ROM in all four extremities; non- tender to palpation; distal pulses intact SKIN: Warm, dry, no rash NEURO: No focal neurological deficiencies. <Dusty Jones - Last Filed: 07/12/18 23:05> - Vital Signs Last Vital Signs Temp Pulse Resp BP Pulse Ox 97.5 F L 86 17 136/59 96 07/12/18 19:52 07/12/18 19:52 07/12/18 19:52 07/12/18 19:52 07/12/18 19:52 <Lenin Dey - Last Filed: 07/13/18 00:52> Heart Score/ECG Review #1 ECG reviewed & interpreted by me at: 23:05 07/12/18 23:05 Vent Rate: 94 bpm Atrial Fibrillation withe premature ventricular or aberrantly conducted complexes. Right axis deviation Possible anteroseptal infarct. <Dusty Jones - Last Filed: 07/12/18 23:05> ED Treatment Course - LABORATORY CBC & Chemistry Diagram: 07/12/18 21:16 07/12/18 21:16 <Dusty Jones - Last Filed: 07/12/18 23:05> - LABORATORY CBC & Chemistry Diagram: 07/12/18 21:16 07/12/18 21:16 <Lenin Dey - Last Filed: 07/13/18 00:52> Medical Decision Making - Medical Decision Making 07/13/18 00:51 Patient is an 87-year-old female with multiple comorbidities, history of CHF on Lasix as prophylactic and presents with severe lower extremity edema that is not effectively controlled by increased doses of Lasix. Patient will require IV diuresis with Lasix with Vergara catheter placement for measurements of ins and outs. Will admit. <Lenin Dey - Last Filed: 07/13/18 00:52> *DC/Admit/Observation/Transfer - Attestations Scribe Attestion: 07/12/18 21:10 Documentation prepared by Dusty Jones, acting as medical safety director for Lenin Dey MD <Dusty Jones - Last Filed: 07/12/18 23:05> - Discharge Dispostion Decision to Admit order: Yes <Lenin Dey - Last Filed: 07/13/18 00:52> Diagnosis at time of Disposition: Lower extremity edema CHF (congestive heart failure) Qualifiers: Heart failure type: unspecified Heart failure chronicity: unspecified Qualified Code(s): I50.9 - Heart failure, unspecified - Discharge Dispostion Condition at time of disposition: Fair - Referrals Referrals: Isrrael Lua MD [Primary Care Provider] -
[2018-07-12 21:27] LABS: BASO % 0.4 % (0-2.0); EOS % 0.9 % (0-4.5); HEMATOCRIT 32.8 % (32.4-45.2); HEMOGLOBIN 10.7 GM/dL (10.7-15.3); LYMPH % 10.7 % (8-40); MCH 26.6 pg (25.7-33.7); MCHC 32.6 g/dl (32.0-36.0); MEAN CELL VOLUME 81.6 fl (80-96); MONO % 9.6 % (3.8-10.2); NEUT % 78.4 % (42.8-82.8); PLATELET COUNT 193 K/MM3 (134-434); RBC 4.02 M/mm3 (3.60-5.2); RDW 18.3 % (11.6-15.6); WHITE BLOOD COUNT 7.6 K/mm3 (4.0-10.0)
[2018-07-12 21:42] LABS: INR 2.19 (0.83-1.09); PROTHROMBIN TIME (PATIENT) 24.7 SEC (9.7-13.0)
[2018-07-12 21:48] LABS: ALBUMIN 3.6 g/dl (3.4-5.0); ALK PHOS 159 U/L (45-117); ANION GAP 10 MMOL/L (8-16); BILIRUBIN,TOTAL 1.1 mg/dL (0.2-1); BLOOD UREA NITROGEN 17 mg/dL (7-18); CALCIUM 9.5 mg/dL (8.5-10.1); CHLORIDE 93 mmol/L (98-107); CO2 32 mmol/L (21-32); GLUCOSE,RANDOM 104 mg/dL (74-106); SGPT/ALT 12 U/L (13-61); SODIUM 135 mmol/L (136-145)
[2018-07-12 21:50] LABS: N-TERMINAL BNP 2456.78 pg/ml (5-450)
[2018-07-12 22:20] LABS: POTASSIUM 3.6 mmol/L (3.5-5.1); SGOT/AST 29 U/L (15-37)
[2018-07-12] MEDS ORDERED: FUROSEMIDE 40 MG/4 ML INJECTABLE VIAL IVPUSH ONE (22:44)
[2018-07-12] MEDS ORDERED: FUROSEMIDE 40 MG/4 ML INJECTABLE VIAL ONE (22:56)
--- NOTE | 2018-07-13 01:34 | HP ---
Admitting History and Physical - Primary Care Physician PCP: Isrrael Lua - Admission Chief Complaint: Bilateral Leg Swelling History of Present Illness: This is a 87 y/o year old woman with CHF, Afib (on Coumadin), HTN, HLD, Rheumatic Heart Disease, Anemia, PUD, Colon Ca. Who presents to the ED with increased bilateral leg swelling and pain x several days. The patient reports being in the [facility] recently for STR s/p fall Hip Fx. She reports since being home she has had increased swelling to her legs. Patient reports taking her home meds Lasix and Spirolactone as prescribed without improvement. She does endorse KIRBY. Patient denies chest pain, palpitations. Patient denies fever , chills, cough, AP, N/V/D, constipation, dysuria. History Source: Patient, Medical Record Limitations to Obtaining History: No Limitations - Past Medical History Cardiovascular: Yes: AFIB, CAD, CHF, HTN, Hyperlipdemia, Other (RH HEART DISEASE PERMANENT/ AF /S/P CEA/ TR WITH RIGHT HEART FAILURE/) Gastrointestinal: Yes: Cancer (colorectal), Peptic Ulcer Disease Heme/Onc: Yes: Anemia Endocrine: Yes: Hypothyroidism - Past Surgical History Past Surgical History: Yes: Appendectomy, Carotid Endarterectomy (right carotid endarterectomy), Colectomy (right hemicolectomy 2013), Hysterectomy (MECHANICAL MITRAL VALVE REPLACEMENT), Valve Replacement - Smoking History Smoking history: Former smoker Have you smoked in the past 12 months: No Aproximately how many cigarettes per day: 0 If you are a former smoker, when did you quit?: 1970s - Alcohol/Substance Use Hx Alcohol Use: No History of Substance Use: reports: None - Social History ADL: Independent History of Recent Travel: No Home Medications - Allergies Allergies/Adverse Reactions: Allergies Allergy/AdvReac Type Severity Reaction Status Date / Time No Known Allergies Allergy Verified 07/12/18 20:04 - Home Medications Home Medications: Ambulatory Orders Atorvastatin Ca [Lipitor] 10 mg PO HS 08/02/14 Levothyroxine [Synthroid -] 100 mcg PO DAILY #90 tablet 09/12/14 Spironolactone [Aldactone] 25 mg PO DAILY 09/24/15 Furosemide [Lasix -] 40 mg PO DAILY 04/23/16 Atenolol [Tenormin] 50 mg PO DAILY 02/06/17 Isosorbide Mononitrate [Imdur] 30 mg PO DAILY 02/06/17 Pantoprazole Sodium 40 mg PO DAILY 02/06/17 Calcium (Oyster Shell) [Os-Sumanth 500MG -] 600 mg PO DAILY 05/07/18 Cholecalciferol (Vitamin D3) [Vitamin D -] 2,000 unit PO DAILY 05/07/18 Gabapentin [Neurontin] 100 mg PO BID 05/07/18 Ibandronate Sodium 150 mg PO MONTHLY 05/07/18 Enoxaparin [Lovenox -] 90 mg SQ DAILY disp.syrin 05/16/18 Warfarin Na [Coumadin -] 5 mg PO DAILY@1800 tablet 05/16/18 Enoxaparin Sodium [Lovenox] 90 mg SQ DAILY 05/17/18 Review of Systems - Review of Systems Constitutional: reports: No Symptoms Eyes: reports: No Symptoms HENT: reports: No Symptoms Neck: reports: No Symptoms Cardiovascular: reports: Edema, Shortness of Breath Respiratory: reports: SOB on Exertion Gastrointestinal: reports: No Symptoms Genitourinary: reports: No Symptoms Breasts: reports: No Symptoms Reported Musculoskeletal: reports: Extremity Pain Integumentary: reports: Erythema, Wound (left foot) Neurological: reports: No Symptoms Endocrine: reports: No Symptoms Hematology/Lymphatic: reports: Easily Bruised Psychiatric: reports: No Symptoms Physical Examination Vital Signs: Vital Signs Temperature 97.5 F L 07/12/18 19:52 Pulse Rate 86 07/12/18 19:52 Respiratory Rate 17 07/12/18 19:52 Blood Pressure 136/59 07/12/18 19:52 O2 Sat by Pulse Oximetry (%) 96 07/12/18 19:52 Constitutional: Yes: Well Nourished, No Distress, Calm Eyes: Yes: WNL, Conjunctiva Clear, EOM Intact, PERRL HENT: Yes: WNL, Atraumatic, Normocephalic Neck: Yes: WNL, Supple, Trachea Midline Cardiovascular: Yes: Pulse Irregular, Murmur (grade 1/2 systolic), S1, S2 Respiratory: Yes: Rales, Rhonchi, Wheezes Gastrointestinal: Yes: WNL, Normal Bowel Sounds, Soft ...Rectal Exam: Yes: Sphincter Tone Normal Renal/: Yes: Vergara Present (yellow urine in tubing and drainage bag) Breast(s): Yes: WNL Musculoskeletal: Yes: WNL Extremities: Yes: Erythema (B/L LE L>R) Edema: Yes Edema: LLE: 3+, RLE: 3+ Peripheral Pulses WNL: Yes Integumentary: Yes: Erythema, Other (non pressure ulcer to L- dorsal aspect of foot approx 1x2cm) Wound/Incision: Yes: Dressing Dry and Intact Neurological: Yes: WNL, Alert, Oriented, Cran Nerves II-XII Intact ...Motor Strength: WNL Psychiatric: Yes: WNL, Alert, Oriented Labs: CBC, BMP 07/12/18 21:16 07/12/18 21:16 Laboratory Results - last 24 hr 07/12/18 07/12/18 07/12/18 21:16 21:16 21:16 WBC 7.6 RBC 4.02 Hgb 10.7 Hct 32.8 MCV 81.6 MCH 26.6 MCHC 32.6 RDW 18.3 H Plt Count 193 MPV 9.0 Absolute Neuts (auto) 6.0 Neutrophils % 78.4 Lymphocytes % 10.7 D Monocytes % 9.6 Eosinophils % 0.9 D Basophils % 0.4 Nucleated RBC % 0 PT with INR 24.70 H INR 2.19 H Sodium 135 L Potassium 3.6 Chloride 93 L Carbon Dioxide 32 Anion Gap 10 BUN 17 Creatinine 1.0 Creat Clearance w eGFR 52.45 Random Glucose 104 Calcium 9.5 Total Bilirubin 1.1 H AST 29 ALT 12 L Alkaline Phosphatase 159 H B-Natriuretic Peptide 2456.78 H Total Protein 8.0 Albumin 3.6 Intake & Output 07/10/18 07/11/18 07/12/18 07/13/18 23:59 23:59 23:59 23:59 Output Total 300 Balance -300 Weight 61.235 kg 58.287 kg Current Medications Generic Name Dose Route Start Last Admin Trade Name Freq PRN Reason Stop Dose Admin Atenolol 50 mg 07/13/18 10:00 Tenormin - PO DAILY [facility] Atorvastatin Calcium 10 mg 07/13/18 22:00 Lipitor - PO HS MARIA LUISA Calcium Carbonate 600 mg 07/13/18 10:00 Os-Sumanth 500mg - PO DAILY MARIA LUISA Cholecalciferol 2,000 unit 07/13/18 10:00 Vitamin D3 - PO DAILY MARIA LUISA Furosemide 40 mg 07/13/18 10:00 Lasix Injection - IVPUSH DAILY [facility] Gabapentin 100 mg 07/13/18 10:00 Neurontin - PO BID [facility] Isosorbide Mononitrate 30 mg 07/13/18 10:00 Imdur - PO DAILY [facility] Levothyroxine Sodium 100 mcg 07/13/18 07:00 Synthroid - PO DAILY@0700 [facility] Pantoprazole Sodium 40 mg 07/13/18 10:00 Protonix - PO DAILY [facility] Spironolactone 25 mg 07/13/18 10:00 Aldactone - PO MOTUWETHFRSA@1000 [facility] Warfarin Sodium 2 mg 07/13/18 18:00 Coumadin - PO Q3D@1800 [facility] Warfarin Sodium 4 mg 07/14/18 18:00 Coumadin - PO Q3D@1800 [facility] Warfarin Sodium 2 mg 07/15/18 18:00 Coumadin - PO Q3D@1800 [facility] Imaging - Results Chest X-ray: Image Reviewed EKG: Image Reviewed Problem List - Problems (1) Acute exacerbation of CHF (congestive heart failure) Code(s): I50.9 - HEART FAILURE, UNSPECIFIED (2) Bilateral edema of lower extremity Code(s): R60.0 - LOCALIZED EDEMA (3) Atrial fibrillation Code(s): I48.91 - UNSPECIFIED ATRIAL FIBRILLATION Qualifiers: Atrial fibrillation type: persistent Qualified Code(s): I48.1 - Persistent atrial fibrillation (4) Hypertension Code(s): I10 - ESSENTIAL (PRIMARY) HYPERTENSION Qualifiers: Hypertension type: essential hypertension Qualified Code(s): I10 - Essential (primary) hypertension (5) H/O carotid endarterectomy Code(s): Z98.89 - OTHER SPECIFIED POSTPROCEDURAL STATES * DO NOT USE * (6) Hyperlipidemia Code(s): E78.5 - HYPERLIPIDEMIA, UNSPECIFIED Qualifiers: Hyperlipidemia type: Pure hypercholesterolemia (7) History of mitral valve replacement with mechanical valve Code(s): Z95.2 - PRESENCE OF PROSTHETIC HEART VALVE (8) Colon cancer Code(s): C18.9 - MALIGNANT NEOPLASM OF COLON, UNSPECIFIED Qualifiers: Colon location: sigmoid Qualified Code(s): C18.7 - Malignant neoplasm of sigmoid colon (9) Hypothyroidism Code(s): E03.9 - HYPOTHYROIDISM, UNSPECIFIED Qualifiers: Hypothyroidism type: unspecified Qualified Code(s): E03.9 - Hypothyroidism , unspecified (10) Rheumatic heart disease Code(s): I09.9 - RHEUMATIC HEART DISEASE, UNSPECIFIED (11) Tricuspid regurgitation Code(s): I07.1 - RHEUMATIC TRICUSPID INSUFFICIENCY Assessment/Plan 87 y/o woman admitted for Acute CHF Exacerbation for further evaluation of their emergent condition. Plan: 1. Acute CHF exacerbation Chest Xray image- pulmonary vascular congestion EKG reviewed Lasix given in ED, will continue Duplex of B/L LE in am r/o DVT Wells Score 2 Appreciate Cardiology consult Considered Echo, however pt reports having one this year, will defer to Cardiology Strict INOs Vergara care Daily weights Continue spironolactone Albuterol nebs O2 prn CBC, BMP in am Monitor vitals 2. Atrial fibrillation [id number] Continue Coumadin with INR goals 2.0-3.0, hold if > 3.0 Serial INRs EKG- reviewed Continue atenolol 3. HTN stable monitor BP continue home meds monitor renal function 4. HLD stable continue Lipitor monitor LFTs 5. Hypothyroidism continue leothyroxine TSH in am 6. Anemia stable Hgb 10.7 will transfuse if Hgb < 7.0 not on current med will check FE, TIBC in am 2/2 JUAN hx f/u with heme outpatient as needed FEN fluid restriction 1L replete lytes as needed Low Na Diet Code Status: Full Code Dispo: Requires Inpatient Care Visit type - Emergency Visit Emergency Visit: Yes ED Registration Date: 07/12/18 Care time: The patient presented to the Emergency Department on the above date and was hospitalized for further evaluation of their emergent condition. - New Patient This patient is new to me today: Yes Date on this admission: 07/13/18 - Critical Care Critical Care patient: No Hospitalist Screening - Colonoscopy Questionnaire Colonoscopy Questionnaire: Colonoscopy Questionnaire - Patient: 50 - 75 years old and never had a screening colonoscopy: No History of colon or rectal polyps, or CA: Yes History of IBD, Crohn's disease or UC: No History of abdominal radiation therapy as a child: No - Relative: 1 with colon or rectal CA, or polyps at age 60 or younger: No Colon or rectal CA diagnosed at age 45 or younger: No Multiple relatives with colon or rectal CA: No - Outcome: Screening Result: Positive Screen
[2018-07-13 04:01] VITALS: BMI 28.8
[2018-07-13 06:53] LABS: BASO % 0.4 % (0-2.0); EOS % 1.1 % (0-4.5); HEMATOCRIT 29.7 % (32.4-45.2); HEMOGLOBIN 9.5 GM/dL (10.7-15.3); LYMPH % 11.8 % (8-40); MCH 26.2 pg (25.7-33.7); MCHC 32.1 g/dl (32.0-36.0); MEAN CELL VOLUME 81.7 fl (80-96); MONO % 10.1 % (3.8-10.2); NEUT % 76.6 % (42.8-82.8); PLATELET COUNT 154 K/MM3 (134-434); RBC 3.63 M/mm3 (3.60-5.2); WHITE BLOOD COUNT 6.4 K/mm3 (4.0-10.0)
[2018-07-13] MEDS ORDERED: LEVOTHYROXINE NA 100 MCG TABLET (FP) PO SCH (07:00)
[2018-07-13 07:25] LABS: INR 2.29 (0.83-1.09); PROTHROMBIN TIME (PATIENT) 25.9 SEC (9.7-13.0)
[2018-07-13 07:30] LABS: ANION GAP 9 MMOL/L (8-16); BLOOD UREA NITROGEN 17 mg/dL (7-18); CALCIUM 9.1 mg/dL (8.5-10.1); CHLORIDE 95 mmol/L (98-107); CO2 35 mmol/L (21-32); CREATININE 0.9 mg/dL (0.55-1.3); GLUCOSE,RANDOM 98 mg/dL (74-106); MAGNESIUM 1.5 mg/dL (1.8-2.4); PHOSPHOROUS 2.7 mg/dL (2.5-4.9); SODIUM 139 mmol/L (136-145)
[2018-07-13 07:38] LABS: N-TERMINAL BNP 2321.88 pg/ml (5-450)
[2018-07-13] MEDS ORDERED: PT OWN MED DRAWER 7, Y5N ONE (09:46)
[2018-07-13] MEDS: CHOLECALCIFEROL (VITAMIN D3) 1,000 UNIT TABLET (FP) PO SCH (09:52)
[2018-07-13] MEDS: SPIRONOLACTONE 25 MG TABLET (FP) PO SCH (09:53)
[2018-07-13] MEDS: PANTOPRAZOLE 40 MG TABLET (FP) PO SCH (09:53)
[2018-07-13] MEDS: CALCIUM (OYSTER SHELL) 500 MG TABLET (FP) PO SCH (09:53)
[2018-07-13] MEDS: ATENOLOL 50 MG TABLET (FP) PO SCH (09:53)
[2018-07-13] MEDS: GABAPENTIN 100 MG CAPSULE (FP) PO SCH ×2 (09:53→22:42)
[2018-07-13] MEDS: ISOSORBIDE MONONITRATE 30 MG TAB.SR.24H (FP) PO SCH (09:53)
--- NOTE | 2018-07-13 09:57 | EKG ---
Test Reason : Blood Pressure : / mmHG Vent. Rate : 089 BPM Atrial Rate : 100 BPM P-R Int : 000 ms QRS Dur : 092 ms QT Int : 380 ms P-R-T Axes : 000 110 048 degrees QTc Int : 462 ms ATRIAL FIBRILLATION WITH PREMATURE VENTRICULAR OR ABERRANTLY CONDUCTED COMPLEXES RIGHT AXIS DEVIATION INCOMPLETE RIGHT BUNDLE BRANCH BLOCK ABNORMAL ECG WHEN COMPARED WITH ECG OF 13-MAY-2018 09:52, QRS AXIS SHIFTED RIGHT Confirmed by NIVIA SOSA, TAMAR ([id number]) on 07/13/2018 9:56:48 AM Referred By: Confirmed By:TAMAR GONZÁLES MD
[2018-07-13] MEDS ORDERED: POTASSIUM CHLORIDE TABS 20 MEQ TABLET.ER (FP) PO ONE ×2 (10:30→12:00)
[2018-07-13] MEDS ORDERED: MAGNESIUM SULF 50% (8.12 MEQ/2 ML-1 GM VIAL) IVPB ONE (10:45)
[2018-07-13] MEDS ORDERED: MAGNESIUM OXIDE 400 MG TABLET (FP) PO ONE (10:59)
--- NOTE | 2018-07-13 11:58 | CONS ---
CARDIOLOGY CONSULTATION DATE OF CONSULTATION: 07/13/2018 REQUESTING PHYSICIAN: Hospitalist. CHIEF COMPLAINT: 1. Progressive pedal edema. 2. History of shortness of breath. Patient is an 87-year-old white female with history of rheumatic heart disease status post mechanical mitral valve prosthesis, permanent atrial fibrillation, history of tricuspid regurgitation, right heart failure, hyperuricemia, hypercholesterolemia, hypertension, hypertensive cardiovascular disease, status post right carotid endarterectomy, recent fracture of the right hip. Patient was discharged from a [place] [facility] facility with pedal edema. On questioning, patient states while she was at the half-way, she was developing increasing shortness of breath and progressive dependent edema. While she was at home, the edema got more pronounced. She still continued to have some orthopnea and mild dyspnea on minimal exertion. There were intermittent palpitations reported. There is no history of chest pain or discomfort either at rest or with exertion. There is no history of diabetes mellitus. Patient has significant bilateral deafness. Patient called the office complaining that her legs had become painful and was advised to come to the emergency room. PAST HISTORY: As mentioned in the history of present illness. History of Subihlx-Dmhmw-Rahcw disease. History of colorectal cancer. SURGICAL HISTORY: Status post tonsillectomy. Status post bilateral cataract extraction. Status post appendectomy. Status post right carotid endarterectomy. Status post partial colectomy for carcinoma of the colon. Status post surgery for a perforated peptic ulcer. Status post hysterectomy. Status post surgery for right hip fracture. SOCIAL HISTORY: , retired, has 3 sons. One of them during coronary artery bypass surgery. The other 2 sons are healthy. She used to smoke between the age of 16 and 30 and was smoking half a pack of cigarettes per day. Used to have a social drink. Denies excessive use of ciara or caffeine. FAMILY HISTORY: Father at age 52 of drowning. Mother at age 86 following a stroke. Had 4 brothers. One of them at age 14 apparently of rheumatic fever and valvular disease. Brother of prostate cancer apparently, also had colonic carcinoma. Had 5 sisters. All of them are except for one, and all had Jttda-Tuphmpt-Cqsfd disease. One sister had rheumatic heart disease. ALLERGIES: None reported. CURRENT MEDICATIONS: Are as follows: 1. Warfarin 2 mg 3 days a week and 4 mg 3 days a week and 2 mg once a week. 2. Gabapentin 100 mg p.o. b.i.d. 3. Magnesium sulfate 1 g IV given on 1 occasion. 4. Atenolol 50 mg p.o. daily. 5. Atorvastatin 10 mg p.o. daily. 6. Furosemide 40 mg IV daily. 7. Spironolactone 25 mg p.o. daily. 8. Isosorbide mononitrate 30 mg p.o. daily. 9. Pantoprazole 40 mg p.o. daily. 10. Calcium carbonate 500 mg p.o. daily. 11. Potassium chloride 40 mEq p.o. daily. 12. Levothyroxine 112 mcg p.o. daily. 13. Vitamin D3 at 2000 international units p.o. daily. REVIEW OF SYSTEMS: Constitutional: No history of chills, fever, or night sweats. No history of unintentional weight loss. HEENT: No history of headaches, diplopia, or blurred vision. No history of epistaxis, hoarseness, tinnitus. Bilateral deafness. Cardiovascular: See history of present illness. Respiratory: See history of present illness. No history of cough, expectoration, or hemoptysis. Gastrointestinal: Patient currently denies having nausea, vomiting, melena, or hematemesis. No history of loss of appetite. No history of abdominal pain or discomfort. No history of change in bowel habits. See history of present illness. Neurological: History of sciatica. No history of focal weakness, seizures, or syncope. Endocrine: History of hypothyroidism. No history of polyuria or polydipsia. Denies having intolerance to cold or warm weather. Musculoskeletal: History of chronic low back syndrome and Jemsv-Zxsdoai-Ctjpe disease. Genitourinary: Denies having dysuria, frequency, or hematuria. Hematological/Lymphatics: No history of lymphadenopathy. No history of bleeding. No known history of anemia. History of occasional ecchymosis. PHYSICAL EXAMINATION: General: An 87-year-old alert female, was hard of hearing, was in no acute distress. There was no pallor, cyanosis, clubbing, or jaundice. Vital Signs: Blood pressure 144/71 mmHg. Pulse 93 beats per minute and irregularly irregular. Was afebrile. Respirations were 18 per minute. Weight 128.8 pounds. Oxygen saturation 95% on room air. Neck: Supple. Jugular venous distention 2-3 cm at 30 degrees with positive hepatojugular reflux and pulsatile neck veins. Carotids were 2+. Upstrokes were normal. No bruits were appreciated. There was a well-healed carotid endarterectomy scar. Heart: PMI was in the fifth intercostal space, slight apical and left parasternal heaves. There were crisp prosthetic sounds. A grade 2/6 decrescendo systolic murmur was heard along the lower left sternal border, that increased with inspiration. There was a grade 2/6 systolic murmur heard at the apex, that was poorly radiating. No diastolic murmur or gallops were heard. Lungs: Decreased breath sounds at the right base. There were scattered crepitations at the right base and expiratory wheezing bilaterally. Chest: Normal AP diameter. There was a well-healed midline sternotomy scar. Abdomen: Protuberant, slight right upper quadrant guarding. Liver was pulsatile and 2 fingerbreadths below the right costal margin. No splenomegaly was appreciated. No palpable masses were felt. There were well-healed surgical scars. Bowel sounds were present. Extremities: There was significant edema involving both thighs and lateral calves. Dorsalis pedis pulses were 1+. Posterior tibial pulses could not be palpated. Femoral pulses were 2+. LABORATORY DATA: CBC July 13, 2018: WBC count 6400. Hemoglobin was 9.5 g/dL. Hematocrit was 29.7%. Platelet count was 154,000. Normal differential. Chemistry: Sodium 139, potassium 3.0, chloride 95, CO2 of 35 mmol/L. Bun 17, creatinine 0.9 mg/dL. Random glucose 98 mg/dL. Magnesium 1.5 mg/dL. Alkaline phosphatase 159. BNP was 2321.88. TSH was elevated at 9.14. X-ray chest: Impression: Since May 13, 2018, again is a large heart, sternal sutures, valve replacement, and some minimal blunting of the right angle. A discrete infiltrate or failure is not seen. The bones and soft tissue are intact. ECG: Atrial fibrillation with moderate ventricular response, left axis deviation, incomplete right bundle branch block, low voltage in limb leads. IMPRESSION: 1. Congestive heart failure, Mccone Heart Classification III. 2. Severe tricuspid regurgitation. 3. Status post mechanical mitral valve replacement. 4. History of rheumatic heart disease. 5. Permanent atrial fibrillation, poorly controlled. 6. Hypertension, hypertensive cardiovascular disease. 7. Hypercholesterolemia. 8. Hypokalemia. 9. Hypomagnesemia. 10. Anemia, etiology to be determined. 11. Status post right carotid endarterectomy. 12. History of Cxikx-Mzdukeu-Klega disease. RECOMMENDATIONS: 1. Correction of potassium and magnesium. 2. Patient ideally requires IV Lasix and may require central line as no peripheral venous access is available. 3. Prior to giving diuretics, both magnesium and potassium need to be corrected. 4. Correction of hypothyroidism. 5. Daily weight. 6. Once potassium and magnesium are corrected, Lasix could be resumed, and if necessary, add Zaroxolyn 2.5 mg half an hour before Lasix for a short duration. Further suggestions as needed. Thank you for your referral. Yours sincerely, GITA POPE M.D. [id number]
--- NOTE | 2018-07-13 12:13 | PN ---
Progress Note, Physician Chief Complaint: patient seen and examined admitted for increase leg edema lasix iv electrolytes repleted - Current Medication List Current Medications: Active Medications Atenolol (Tenormin -) 50 mg PO DAILY [facility] Last Admin: 07/13/18 09:53 Dose: 50 mg Atorvastatin Calcium (Lipitor -) 10 mg PO HS [facility] Calcium Carbonate (Os-Sumanth 500mg -) 500 mg PO DAILY [facility] Last Admin: 07/13/18 09:53 Dose: 500 mg Cholecalciferol (Vitamin D3 -) 2,000 unit PO DAILY [facility] Last Admin: 07/13/18 09:52 Dose: 2,000 unit Furosemide (Lasix Injection -) 40 mg IVPUSH DAILY [facility] Gabapentin (Neurontin -) 100 mg PO BID [facility] Last Admin: 07/13/18 09:53 Dose: 100 mg Isosorbide Mononitrate (Imdur -) 30 mg PO DAILY [facility] Last Admin: 07/13/18 09:53 Dose: 30 mg Levothyroxine Sodium (Synthroid -) 112 mcg PO DAILY@0700 [facility] Pantoprazole Sodium (Protonix -) 40 mg PO DAILY [facility] Last Admin: 07/13/18 09:53 Dose: 40 mg Spironolactone (Aldactone -) 25 mg PO MOTUWETHFRSA@1000 [facility] Last Admin: 07/13/18 09:53 Dose: 25 mg Warfarin Sodium (Coumadin -) 2 mg PO Q3D@1800 [facility] Warfarin Sodium (Coumadin -) 4 mg PO Q3D@1800 [facility] Warfarin Sodium (Coumadin -) 2 mg PO Q3D@1800 [facility] - Objective Vital Signs: Vital Signs Temperature 97.7 F 07/13/18 03:20 Pulse Rate 93 H 07/13/18 03:20 Respiratory Rate 18 07/13/18 03:20 Blood Pressure 144/71 07/13/18 03:20 O2 Sat by Pulse Oximetry (%) 95 07/13/18 03:20 Constitutional: Yes: Calm Cardiovascular: Yes: Pulse Irregular, Murmur, S1, S2 Respiratory: Yes: CTA Bilaterally Gastrointestinal: Yes: Normal Bowel Sounds, Soft Edema: Yes Neurological: Yes: Alert, Oriented Labs: CBC, BMP 07/13/18 06:30 07/13/18 06:30 INR, PTT INR 2.29 (0.83-1.09) H 07/13/18 06:30 Problem List - Problems (1) Acute exacerbation of CHF (congestive heart failure) Assessment/Plan: iv lasix elevsted bnp echo I/o cardiology consult lytes repleted elina aldactone Code(s): I50.9 - HEART FAILURE, UNSPECIFIED (2) Lower extremity edema Assessment/Plan: iv lasix Code(s): R60.0 - LOCALIZED EDEMA (3) Atrial fibrillation Assessment/Plan: Coumadin, BB Code(s): I48.91 - UNSPECIFIED ATRIAL FIBRILLATION Qualifiers: Atrial fibrillation type: persistent Qualified Code(s): I48.1 - Persistent atrial fibrillation
[2018-07-13] MEDS: FUROSEMIDE 40 MG/4 ML INJECTABLE VIAL IVPUSH SCH (12:19)
[2018-07-13] MEDS ORDERED: WARFARIN NA 2 MG TABLET (UD) PO SCH (18:00)
[2018-07-13 20:14] LABS: ANION GAP 10 MMOL/L (8-16); BLOOD UREA NITROGEN 18 mg/dL (7-18); CALCIUM 9.3 mg/dL (8.5-10.1); CHLORIDE 96 mmol/L (98-107); CO2 30 mmol/L (21-32); CREATININE 0.9 mg/dL (0.55-1.3); GLUCOSE,RANDOM 126 mg/dL (74-106); POTASSIUM 4.5 mmol/L (3.5-5.1); SODIUM 135 mmol/L (136-145)
[2018-07-13] MEDS: ATORVASTATIN CA 10 MG TABLET (FP) PO SCH (22:42)
[2018-07-14] MEDS: LEVOTHYROXINE NA 112 MCG TABLET (FP) PO SCH (06:05)
[2018-07-14 06:07] LABS: SERUM IRON SATURATION 10 % (15-55); TOTAL IRON BINDING CAPACITY 279 ug/dL (250-450); UIBC 250 ug/dL (118-369)
[2018-07-14 08:38] LABS: INR 2.23 (0.83-1.09); PROTHROMBIN TIME (PATIENT) 25.2 SEC (9.7-13.0)
[2018-07-14] MEDS ORDERED: PT OWN MED DRAWER 7, Y5N ONE (10:09)
--- NOTE | 2018-07-14 10:13 | PN ---
Progress Note, Physician Chief Complaint: patient seen and examined no distres no chest pain - Current Medication List Current Medications: Active Medications Atenolol (Tenormin -) 50 mg PO DAILY [facility] Last Admin: 07/13/18 09:53 Dose: 50 mg Atorvastatin Calcium (Lipitor -) 10 mg PO HS [facility] Last Admin: 07/13/18 22:42 Dose: 10 mg Calcium Carbonate (Os-Sumanth 500mg -) 500 mg PO DAILY [facility] Last Admin: 07/13/18 09:53 Dose: 500 mg Cholecalciferol (Vitamin D3 -) 2,000 unit PO DAILY [facility] Last Admin: 07/13/18 09:52 Dose: 2,000 unit Furosemide (Lasix Injection -) 40 mg IVPUSH DAILY [facility] Last Admin: 07/13/18 12:19 Dose: Not Given Gabapentin (Neurontin -) 100 mg PO BID [facility] Last Admin: 07/13/18 22:42 Dose: 100 mg Isosorbide Mononitrate (Imdur -) 30 mg PO DAILY [facility] Last Admin: 07/13/18 09:53 Dose: 30 mg Levothyroxine Sodium (Synthroid -) 112 mcg PO DAILY@0700 [facility] Last Admin: 07/14/18 06:05 Dose: 112 mcg Pantoprazole Sodium (Protonix -) 40 mg PO DAILY [facility] Last Admin: 07/13/18 09:53 Dose: 40 mg Spironolactone (Aldactone -) 25 mg PO MOTUWETHFRSA@1000 [facility] Last Admin: 07/13/18 09:53 Dose: 25 mg Warfarin Sodium (Coumadin -) 2 mg PO Q3D@1800 [facility] Last Admin: 07/13/18 17:46 Dose: 2 mg Warfarin Sodium (Coumadin -) 4 mg PO Q3D@1800 [facility] Warfarin Sodium (Coumadin -) 2 mg PO Q3D@1800 [facility] - Objective Vital Signs: Vital Signs Temperature 98.9 F 07/14/18 05:56 Pulse Rate 100 H 07/14/18 05:56 Respiratory Rate 20 07/14/18 05:56 Blood Pressure 126/72 07/14/18 05:56 O2 Sat by Pulse Oximetry (%) 96 07/13/18 21:00 Constitutional: Yes: Calm Cardiovascular: Yes: Pulse Irregular, S1, S2 Respiratory: Yes: CTA Bilaterally Gastrointestinal: Yes: Normal Bowel Sounds, Soft Edema: Yes (less then before) Neurological: Yes: Alert, Oriented Labs: CBC, BMP 07/13/18 06:30 07/13/18 18:45 INR, PTT INR 2.23 (0.83-1.09) H 07/14/18 06:35 Problem List - Problems (1) Acute exacerbation of CHF (congestive heart failure) Assessment/Plan: iv lasix- no access will change to po lasix elevsted bnp echo I/o cardiology consult noted lytes repleted imdur aldactone weight trending down from 135 to 127lbs Code(s): I50.9 - HEART FAILURE, UNSPECIFIED (2) Lower extremity edema Assessment/Plan: change to po lasix electrolytes repleted will start zaroxlyn 2.5mg Code(s): R60.0 - LOCALIZED EDEMA (3) Atrial fibrillation Assessment/Plan: Coumadin, BB inr therapeutic Code(s): I48.91 - UNSPECIFIED ATRIAL FIBRILLATION Qualifiers: Atrial fibrillation type: persistent Qualified Code(s): I48.1 - Persistent atrial fibrillation (4) Hyperlipidemia Assessment/Plan: statin Code(s): E78.5 - HYPERLIPIDEMIA, UNSPECIFIED Qualifiers: Hyperlipidemia type: Pure hypercholesterolemia (5) Hypomagnesemia Assessment/Plan: repleted recheck today Code(s): E83.42 - HYPOMAGNESEMIA (6) Hypothyroidism Assessment/Plan: inc synthroid dose given the inc in TSH inc dose from 100 to 112mcg daily Code(s): E03.9 - HYPOTHYROIDISM, UNSPECIFIED Qualifiers: Hypothyroidism type: unspecified Qualified Code(s): E03.9 - Hypothyroidism , unspecified (7) Anemia Assessment/Plan: ferrous sulfate with colace tid iron panel noted Code(s): D64.9 - ANEMIA, UNSPECIFIED Qualifiers: Anemia type: iron deficiency
[2018-07-14] MEDS: FUROSEMIDE 40 MG/4 ML INJECTABLE VIAL IVPUSH SCH (10:29)
[2018-07-14] MEDS: FUROSEMIDE 40 MG TABLET (FP) PO SCH (10:33)
[2018-07-14] MEDS: ISOSORBIDE MONONITRATE 30 MG TAB.SR.24H (FP) PO SCH (10:33)
[2018-07-14] MEDS: ATENOLOL 50 MG TABLET (FP) PO SCH (10:33)
[2018-07-14] MEDS: CHOLECALCIFEROL (VITAMIN D3) 1,000 UNIT TABLET (FP) PO SCH (10:33)
[2018-07-14] MEDS: CALCIUM (OYSTER SHELL) 500 MG TABLET (FP) PO SCH (10:34)
[2018-07-14] MEDS: GABAPENTIN 100 MG CAPSULE (FP) PO SCH ×2 (10:34→21:01)
[2018-07-14] MEDS: PANTOPRAZOLE 40 MG TABLET (FP) PO SCH (10:34)
[2018-07-14] MEDS: SPIRONOLACTONE 25 MG TABLET (FP) PO SCH (10:34)
[2018-07-14 12:33] LABS: ALBUMIN 3.2 g/dl (3.4-5.0); ALK PHOS 138 U/L (45-117); ANION GAP 5 MMOL/L (8-16); BILIRUBIN,TOTAL 0.8 mg/dL (0.2-1); BLOOD UREA NITROGEN 17 mg/dL (7-18); CALCIUM 9.1 mg/dL (8.5-10.1); CHLORIDE 98 mmol/L (98-107); CO2 33 mmol/L (21-32); CREATININE 0.9 mg/dL (0.55-1.3); GLUCOSE,RANDOM 100 mg/dL (74-106); MAGNESIUM 1.7 mg/dL (1.8-2.4); POTASSIUM 4.1 mmol/L (3.5-5.1); SGOT/AST 17 U/L (15-37); SGPT/ALT 9 U/L (13-61); SODIUM 137 mmol/L (136-145)
--- NOTE | 2018-07-14 12:41 | ECHO ---
Name: REVELLESE, TITO Exam:Adult Echocardiogram Study Date: 07/14/2018 11:28 AM Age: 87 yrs Reason For Study: EF Height: 56 in Weight: 127 lb BSA: 1.5 m2 MMode/2D Measurements & Calculations IVSd: 0.90 cm Ao root diam: 2.3 cm LVIDd: 4.3 cm LA dimension: 4.5 cm LVIDs: 3.4 cm LVPWd: 0.75 cm EDV(Teich): 84.1 ml LVOT diam: 1.8 cm ESV(Teich): 47.0 ml TAPSE: 1.5 cm RV S Tiago: 8.2 cm/sec Doppler Measurements & Calculations Ao V2 max: 245.7 cm/sec MVA(VTI): 0.79 cm2 Ao max P.2 mmHg MV V2 max: 166.1 cm/sec Ao V2 mean: 163.5 cm/sec MV max P.4 mmHg Ao mean P.7 mmHg MV V2 mean: 79.9 cm/sec Ao V2 VTI: 51.8 cm MV mean P.9 mmHg MV V2 VTI: 43.9 cm ELLEN(I,D): 0.66 cm2 AI P1/2t: 402.8 msec ELLEN(V,D): 0.70 cm2 AI max tiago: 335.4 cm/sec LV V1 max P.9 mmHg AI max P.0 mmHg LV V1 mean P.1 mmHg AI dec slope: 243.9 cm/sec2 LV V1 max: 69.0 cm/sec LV V1 mean: 50.4 cm/sec LV V1 VTI: 13.9 cm SV(LVOT): 34.4 ml TR max tiago: 249.2 cm/sec TR max P.0 mmHg PI end-d tiago: 96.4 cm/sec Med Peak E' Tiago: 6.6 cm/sec Lat Peak E' Tiago: 6.2 cm/sec Left Ventricle Left ventricular systolic function is normal. Ejection Fraction = 50-55%. Septal motion is consistent with post-operative state. Right Ventricle The right ventricle is not well visualized. Atria The left atrium is moderately dilated. The right atrium is moderately dilated. Mitral Valve There is a mechanical mitral valve. The prosthetic mitral valve is well-seated. There is no mitral va lve stenosis. There is mild mitral regurgitation. Tricuspid Valve The tricuspid valve is not well visualized. There is moderate tricuspid regurgitation. Right ventricu lar systolic pressure is elevated at 30-40mmHg. Aortic Valve There is moderate to severe aortic valve thickening. Mild valvular aortic stenosis. Mild aortic regur gitation. Pulmonic Valve The pulmonic valve is not well seen, but is grossly normal. There is no pulmonic valvular stenosis. M ild pulmonic valvular regurgitation. Great Vessels The aortic root is normal size. Pericardium/Pleura There is no pericardial effusion. Interpretation Summary Septal motion is consistent with post-operative state. Left ventricular systolic function is normal. Ejection Fraction = 50-55%. The right ventricle is not well visualized. The left atrium is moderately dilated. The right atrium is moderately dilated. There is a mechanical mitral valve. The prosthetic mitral valve is well-seated. There is mild mitral regurgitation. There is moderate tricuspid regurgitation. Right ventricular systolic pressure is elevated at 30-40mmHg. There is moderate to severe aortic valve thickening. Mild valvular aortic stenosis. Mild aortic regurgitation. Mild pulmonic valvular regurgitation. There is no pericardial effusion. MD Tavo Telles 07/14/2018 12:41 PM
[2018-07-14] MEDS: DOCUSATE SODIUM 100 MG CAPSULE (FP) PO SCH ×2 (14:57→21:01)
[2018-07-14] MEDS ORDERED: WARFARIN NA 2 MG TABLET (UD) PO SCH (18:00)
[2018-07-14] MEDS: FERROUS SO4 325 MG TABLET (FP) PO SCH (18:14)
[2018-07-14] MEDS: ATORVASTATIN CA 10 MG TABLET (FP) PO SCH (21:01)
[2018-07-14] MEDS ORDERED: traMADol HCL 50 MG TABLET PO ONE (23:45)
[2018-07-15] MEDS: DOCUSATE SODIUM 100 MG CAPSULE (FP) PO SCH ×3 (06:17→21:42)
[2018-07-15] MEDS: LEVOTHYROXINE NA 112 MCG TABLET (FP) PO SCH (06:18)
[2018-07-15] MEDS: FERROUS SO4 325 MG TABLET (FP) PO SCH ×2 (08:03→17:33)
[2018-07-15] MEDS ORDERED: PT OWN MED DRAWER 7, Y5N ONE (09:06)
[2018-07-15 09:07] LABS: BASO % 0.3 % (0-2.0); EOS % 2.4 % (0-4.5); HEMOGLOBIN 10.1 GM/dL (10.7-15.3); LYMPH % 13.1 % (8-40); MCH 26.1 pg (25.7-33.7); MCHC 31.6 g/dl (32.0-36.0); MEAN CELL VOLUME 82.6 fl (80-96); MEAN PLT VOLUME 9.4 fl (7.5-11.1); MONO % 10.3 % (3.8-10.2); NEUT % 73.9 % (42.8-82.8); PLATELET COUNT 185 K/MM3 (134-434); RBC 3.87 M/mm3 (3.60-5.2); RDW 18.2 % (11.6-15.6); WHITE BLOOD COUNT 5.4 K/mm3 (4.0-10.0)
[2018-07-15] MEDS: PANTOPRAZOLE 40 MG TABLET (FP) PO SCH (09:19)
[2018-07-15] MEDS: ISOSORBIDE MONONITRATE 30 MG TAB.SR.24H (FP) PO SCH (09:19)
[2018-07-15] MEDS: CHOLECALCIFEROL (VITAMIN D3) 1,000 UNIT TABLET (FP) PO SCH (09:19)
[2018-07-15] MEDS: GABAPENTIN 100 MG CAPSULE (FP) PO SCH ×2 (09:19→21:44)
[2018-07-15] MEDS: ATENOLOL 50 MG TABLET (FP) PO SCH (09:19)
[2018-07-15] MEDS: CALCIUM (OYSTER SHELL) 500 MG TABLET (FP) PO SCH (09:20)
[2018-07-15] MEDS: FUROSEMIDE 40 MG TABLET (FP) PO SCH (09:20)
[2018-07-15 09:41] LABS: INR 2.81 (0.83-1.09); PROTHROMBIN TIME (PATIENT) 31.8 SEC (9.7-13.0)
[2018-07-15] MEDS: SPIRONOLACTONE 25 MG TABLET (FP) PO SCH (10:17)
[2018-07-15 10:21] LABS: ALBUMIN 3.3 g/dl (3.4-5.0); ALK PHOS 142 U/L (45-117); ANION GAP 8 MMOL/L (8-16); BILIRUBIN,TOTAL 0.9 mg/dL (0.2-1); BLOOD UREA NITROGEN 16 mg/dL (7-18); CALCIUM 9.8 mg/dL (8.5-10.1); CHLORIDE 98 mmol/L (98-107); CO2 32 mmol/L (21-32); CREATININE 0.9 mg/dL (0.55-1.3); GLUCOSE,RANDOM 172 mg/dL (74-106); MAGNESIUM 1.8 mg/dL (1.8-2.4); POTASSIUM 3.9 mmol/L (3.5-5.1); SGOT/AST 19 U/L (15-37); SGPT/ALT 12 U/L (13-61); SODIUM 138 mmol/L (136-145); TOT PROT 7.2 g/dl (6.4-8.2)
[2018-07-15] MEDS ORDERED: TRIPLE LUMEN FLUSH 4 ML ML IVPUSH PRN (10:31)
--- NOTE | 2018-07-15 10:51 | PN ---
Progress Note, Physician Chief Complaint: BLLE edema History of Present Illness: NAD denies SOB sitting in chair BLLE edema much improved, wants to go home labs unremarkable - Current Medication List Current Medications: Active Medications Atenolol (Tenormin -) 50 mg PO DAILY [facility] Last Admin: 07/15/18 09:19 Dose: 50 mg Atorvastatin Calcium (Lipitor -) 10 mg PO HS [facility] Last Admin: 07/14/18 21:01 Dose: 10 mg Calcium Carbonate (Os-Sumanth 500mg -) 500 mg PO DAILY [facility] Last Admin: 07/15/18 09:20 Dose: 500 mg Cholecalciferol (Vitamin D3 -) 2,000 unit PO DAILY [facility] Last Admin: 07/15/18 09:19 Dose: 2,000 unit Docusate Sodium (Colace -) 100 mg PO TID [facility] Last Admin: 07/15/18 06:17 Dose: Not Given Ferrous Sulfate (Feosol -) 325 mg PO BIDWM [facility] Last Admin: 07/15/18 08:03 Dose: 325 mg Furosemide (Lasix Injection -) 40 mg IVPUSH DAILY [facility] Last Admin: 07/14/18 10:29 Dose: Not Given Furosemide (Lasix -) 40 mg PO DAILY [facility] Last Admin: 07/15/18 09:20 Dose: 40 mg Gabapentin (Neurontin -) 100 mg PO BID [facility] Last Admin: 07/15/18 09:19 Dose: 100 mg Isosorbide Mononitrate (Imdur -) 30 mg PO DAILY [facility] Last Admin: 07/15/18 09:19 Dose: 30 mg Levothyroxine Sodium (Synthroid -) 112 mcg PO DAILY@0700 [facility] Last Admin: 07/15/18 06:18 Dose: 112 mcg Pantoprazole Sodium (Protonix -) 40 mg PO DAILY [facility] Last Admin: 07/15/18 09:19 Dose: 40 mg Spironolactone (Aldactone -) 25 mg PO MOTUWETHFRSA@1000 [facility] Last Admin: 07/15/18 10:17 Dose: 25 mg Warfarin Sodium (Coumadin -) 2 mg PO Q3D@1800 [facility] Last Admin: 07/13/18 17:46 Dose: 2 mg Warfarin Sodium (Coumadin -) 4 mg PO Q3D@1800 [facility] Last Admin: 07/14/18 18:14 Dose: 4 mg Warfarin Sodium (Coumadin -) 2 mg PO Q3D@1800 [facility] - Objective Vital Signs: Vital Signs Temperature 97.4 F L 07/15/18 05:51 Pulse Rate 87 07/15/18 05:51 Respiratory Rate 20 07/15/18 05:51 Blood Pressure 105/58 L 07/15/18 05:51 O2 Sat by Pulse Oximetry (%) 96 07/14/18 21:00 Constitutional: Yes: Well Nourished, No Distress, Calm Cardiovascular: Yes: Regular Rate and Rhythm, Murmur (hrade IV/) Respiratory: Yes: Regular Gastrointestinal: Yes: Normal Bowel Sounds, Soft, Other (RLQ subcutaneous swelling) Musculoskeletal: Yes: Joint Swelling (right hip), Muscle Weakness (s/p hip replacement) Edema: Yes Edema: LLE: 1+, RLE: 1+ Peripheral Pulses WNL: Yes Integumentary: Yes: Bruising (Left buttock, from previous fall at rehab) Neurological: Yes: Alert, Oriented Psychiatric: Yes: Alert, Oriented Labs: CBC, BMP 07/15/18 08:56 07/15/18 08:56 INR, PTT INR 2.81 (0.83-1.09) H 07/15/18 08:56 Problem List - Problems (1) Acute exacerbation of CHF (congestive heart failure) Assessment/Plan: -On PO lasix and spironolactone -BLLE edema improved -seen by Cardiology -encouraged dietary compliance -Metolazone 2.5 mg PO x 1 in AM 30 mins prior to lasix Code(s): I50.9 - HEART FAILURE, UNSPECIFIED (2) Anemia Assessment/Plan: -H/H stable -Iron deficiency -started on Feosol -stool ob recently negative Code(s): D64.9 - ANEMIA, UNSPECIFIED Qualifiers: Anemia type: iron deficiency (3) Atrial fibrillation Assessment/Plan: -Chronic -controlled -subtherapeutic INR - Code(s): I48.91 - UNSPECIFIED ATRIAL FIBRILLATION Qualifiers: Atrial fibrillation type: persistent Qualified Code(s): I48.1 - Persistent atrial fibrillation (4) Hypomagnesemia Assessment/Plan: -resolved -Supplement with magnesium oxide 400 mg po BID Code(s): E83.42 - HYPOMAGNESEMIA (5) Hypothyroidism Assessment/Plan: -Was on levothyroxine 100 mcg at home -changed dosage to levothyroxine 112 mcg -repeat thyroid profile in 4 weeks outpatient Code(s): E03.9 - HYPOTHYROIDISM, UNSPECIFIED Qualifiers: Hypothyroidism type: unspecified Qualified Code(s): E03.9 - Hypothyroidism , unspecified Assessment/Plan see problem list Seen by Physical therapy
[2018-07-15] MEDS: POTASSIUM CHLORIDE ORAL LIQUID 20 MEQ/15 ML PO SCH (13:02)
[2018-07-15] MEDS: MAGNESIUM OXIDE 400 MG TABLET (FP) PO SCH ×2 (13:02→21:44)
--- NOTE | 2018-07-15 14:34 | PN ---
Progress Note (short form) - Note Progress Note: 87 year old female admitted with progressive SOB, including PND increasing pedal edema and orthopnea which started in the SNF and progressed after discharge and was in CHF NYHA class IV. associated with hypohalemia and hypomagnesesmia Known case of RHD, mitral stenosis, s/p mechanical mitral valve replacement, severe tricuspid regurgitation, pulmonary hypertension permanent atrial fib. CAD , right heart failure and Ksifk-Znkfjko-Lkfcx disease. Significant decrease in peripheral edema, no SOB, chest pain or discomfort. K+ and Mg. is being corrected. Active Medications Atenolol (Tenormin -) 50 mg PO DAILY [facility] Last Admin: 07/15/18 09:19 Dose: 50 mg Atorvastatin Calcium (Lipitor -) 10 mg PO HS [facility] Last Admin: 07/14/18 21:01 Dose: 10 mg Calcium Carbonate (Os-Sumanth 500mg -) 500 mg PO DAILY [facility] Last Admin: 07/15/18 09:20 Dose: 500 mg Cholecalciferol (Vitamin D3 -) 2,000 unit PO DAILY [facility] Last Admin: 07/15/18 09:19 Dose: 2,000 unit Docusate Sodium (Colace -) 100 mg PO TID [facility] Last Admin: 07/15/18 13:02 Dose: 100 mg Ferrous Sulfate (Feosol -) 325 mg PO BIDWM [facility] Last Admin: 07/15/18 08:03 Dose: 325 mg Furosemide (Lasix -) 40 mg PO DAILY [facility] Last Admin: 07/15/18 09:20 Dose: 40 mg Gabapentin (Neurontin -) 100 mg PO BID [facility] Last Admin: 07/15/18 09:19 Dose: 100 mg Isosorbide Mononitrate (Imdur -) 30 mg PO DAILY [facility] Last Admin: 07/15/18 09:19 Dose: 30 mg Levothyroxine Sodium (Synthroid -) 112 mcg PO DAILY@0700 [facility] Last Admin: 07/15/18 06:18 Dose: 112 mcg Magnesium Oxide (Mag-Ox -) 400 mg PO BID [facility] Last Admin: 07/15/18 13:02 Dose: 400 mg Metolazone (Zaroxolyn -) 2.5 mg PO ONCE ONE Stop: 07/16/18 09:31 Pantoprazole Sodium (Protonix -) 40 mg PO DAILY [facility] Last Admin: 07/15/18 09:19 Dose: 40 mg Potassium Chloride (Potassium Chloride Oral Liquid) 20 meq PO DAILY [facility] Last Admin: 07/15/18 13:02 Dose: 20 meq Spironolactone (Aldactone -) 25 mg PO MOTUWETHFRSA@1000 [facility] Last Admin: 07/15/18 10:17 Dose: 25 mg Warfarin Sodium (Coumadin -) 2 mg PO Q3D@1800 [facility] Last Admin: 07/13/18 17:46 Dose: 2 mg Warfarin Sodium (Coumadin -) 4 mg PO Q3D@1800 [facility] Last Admin: 07/14/18 18:14 Dose: 4 mg Warfarin Sodium (Coumadin -) 2 mg PO Q3D@1800 [facility] 87 year olf female OOB, in no acute distress, no pallor, cyanosis, clubbing or jaundice. Last Vital Signs Temp Pulse Resp BP Pulse Ox 97.4 F L 87 irregular 20 105/58 L 96 07/15/18 05:51 07/15/18 05:51 07/15/18 05:51 07/15/18 05:51 07/14/18 21:00 NECK: Supple, sliht JVD,+ve HJR, pulsatile neck veins, carotids 2+. HEART: PMI in th 5tth ICS, 1" lat. to the midclavicular line, left parasternal and apical heave, crisp prosthetic sounds. Grade II/ decrescendo systolic murmur LSB, increase with inspiration, also heard at the apex. KYM II/ at the 2nd rt. ICS ending in midsystole. No diastolic murmur heard. S3 gallop at the apex. LUNGS: Decreased BS at the rt. base, scattered creps at the bases. ABDOMEN: Soft, nontender, liver 2FB below the rt. costal margin-Pulsatile, no splenomegaly.No palpable masses. EXTREMITIES: No calf tenderness, 1 to 2+ pretibial edema, bilateral brawny edema of the lateral thighs. CBC, BMP 07/15/18 08:56 07/15/18 08:56 Echocardiogram report reviewed. IMPRESSION: 1. CHF, currently NYHA classII, ppted by decrease in dose of lasix in the SNF and dietary noncompliance. 2. S/P Mechnical mitral replacement. 3. RHD,Mitral stenosis. 4. Tricuspid regurgition. 5. Pulmonary hypertension. 6. Permanent atrial fib.with controlled ventricular response. RECOMMENDATIONS 1. Continue current cardiac medications. 2. Close f/u of BMP and Mg. levels 3. Daily weights. 4. Increase ambulation. 5. Dietary restrictations including salt restrictions discussed and understood. Time spent 45 mins.
[2018-07-15] MEDS ORDERED: WARFARIN NA 2 MG TABLET (UD) PO SCH (18:00)
[2018-07-15] MEDS: ATORVASTATIN CA 10 MG TABLET (FP) PO SCH (21:44)
[2018-07-15] MEDS ORDERED: traMADol HCL 50 MG TABLET PO ONE (21:57)
[2018-07-16] MEDS: LEVOTHYROXINE NA 112 MCG TABLET (FP) PO SCH (06:21)
[2018-07-16] MEDS: DOCUSATE SODIUM 100 MG CAPSULE (FP) PO SCH (06:22)
[2018-07-16 08:23] LABS: BASO % 0.4 % (0-2.0); EOS % 2.7 % (0-4.5); HEMATOCRIT 28.7 % (32.4-45.2); HEMOGLOBIN 9.3 GM/dL (10.7-15.3); LYMPH % 13.6 % (8-40); MCH 26.2 pg (25.7-33.7); MCHC 32.4 g/dl (32.0-36.0); MEAN CELL VOLUME 80.9 fl (80-96); MEAN PLT VOLUME 9.5 fl (7.5-11.1); NEUT % 71.3 % (42.8-82.8); PLATELET COUNT 159 K/MM3 (134-434); RBC 3.55 M/mm3 (3.60-5.2); RDW 17.5 % (11.6-15.6); WHITE BLOOD COUNT 5.7 K/mm3 (4.0-10.0)
[2018-07-16 08:37] LABS: INR 3.28 (0.83-1.09); PROTHROMBIN TIME (PATIENT) 37.1 SEC (9.7-13.0)
[2018-07-16 08:59] LABS: ANION GAP 5 MMOL/L (8-16); BLOOD UREA NITROGEN 18 mg/dL (7-18); CHLORIDE 97 mmol/L (98-107); CO2 32 mmol/L (21-32); GLUCOSE,RANDOM 90 mg/dL (74-106); POTASSIUM 4.3 mmol/L (3.5-5.1); SODIUM 134 mmol/L (136-145)
--- NOTE | 2018-07-16 09:01 | DS ---
Physical Examination Vital Signs: Vital Signs Temperature 98.5 F 07/16/18 06:00 Pulse Rate 88 07/16/18 06:00 Respiratory Rate 18 07/16/18 06:00 Blood Pressure 113/70 07/16/18 06:00 O2 Sat by Pulse Oximetry (%) 96 07/15/18 21:00 Findings/Remarks: This is a 87 y/o year old woman with CHF, Afib (on Coumadin), HTN, HLD, Rheumatic Heart Disease, Anemia, PUD, Colon Ca. Who presents to the ED with increased bilateral leg swelling and pain x several days. The patient reports being in the [facility] recently for STR s/p fall Hip Fx. She reports since being home she has had increased swelling to her legs. Patient reports taking her home meds Lasix and Spirolactone as prescribed without improvement. She does endorse KIRBY. Patient denies chest pain, palpitations. Patient denies fever , chills, cough, AP, N/V/D, constipation, dysuria. Constitutional: Yes: Well Nourished, No Distress, Calm Cardiovascular: Yes: Regular Rate and Rhythm Respiratory: Yes: Regular Gastrointestinal: Yes: Normal Bowel Sounds, Soft Musculoskeletal: Yes: WNL Extremities: Yes: WNL Edema: Yes (RLQ abd swelling) Edema: LLE: 1+, RLE: 1+ Peripheral Pulses WNL: Yes Integumentary: Yes: Bruising (left buttock) Neurological: Yes: Alert, Oriented Psychiatric: Yes: Alert, Oriented Labs: CBC, BMP 07/16/18 07:00 Discharge Summary Reason For Visit: EDEMA OF LOWER EXTREMITY CHF Current Active Problems Acute exacerbation of CHF (congestive heart failure) (Acute) Anemia (Acute) Congestive heart failure (Acute) Lower extremity edema (Acute) Condition: Stable - Instructions Diet, Activity, Other Instructions: -FOLLOW LOW SODIUM DIET -FOLLOW UP WITH PCP AND CARDIOLOGY WITHIN 1 WEEK -REPEAT CMP/CBC/MAGNESIUM WITHIN 1 WEEK Referrals: Isrrael Lua MD [Primary Care Provider] - Dheeraj Coates MD [Staff Physician] - Disposition: VNS/HOME HEALTH CARE - Home Medications Comprehensive Discharge Medication List: Ambulatory Orders Atorvastatin Ca [Lipitor] 10 mg PO HS 08/02/14 Levothyroxine [Synthroid -] 100 mcg PO DAILY #90 tablet 09/12/14 Spironolactone [Aldactone] 25 mg PO DAILY 09/24/15 Furosemide [Lasix -] 40 mg PO DAILY 04/23/16 Atenolol [Tenormin] 50 mg PO DAILY 02/06/17 Isosorbide Mononitrate [Imdur] 30 mg PO DAILY 02/06/17 Pantoprazole Sodium 40 mg PO DAILY 02/06/17 Calcium (Oyster Shell) [Os-Sumanth 500MG -] 600 mg PO DAILY 05/07/18 Cholecalciferol (Vitamin D3) [Vitamin D -] 2,000 unit PO DAILY 05/07/18 Gabapentin [Neurontin] 100 mg PO BID 05/07/18 Ibandronate Sodium 150 mg PO MONTHLY 05/07/18 Enoxaparin [Lovenox -] 90 mg SQ DAILY disp.syrin 05/16/18 Warfarin Na [Coumadin -] 5 mg PO DAILY@1800 tablet 05/16/18 Enoxaparin Sodium [Lovenox] 90 mg SQ DAILY 05/17/18
[2018-07-16] MEDS ORDERED: PT OWN MED DRAWER 7, Y5N ONE (09:05)
[2018-07-16] MEDS: FERROUS SO4 325 MG TABLET (FP) PO SCH (09:13)
[2018-07-16] MEDS: PANTOPRAZOLE 40 MG TABLET (FP) PO SCH (09:13)
[2018-07-16] MEDS: POTASSIUM CHLORIDE ORAL LIQUID 20 MEQ/15 ML PO SCH (09:13)
[2018-07-16] MEDS: CHOLECALCIFEROL (VITAMIN D3) 1,000 UNIT TABLET (FP) PO SCH (09:13)
[2018-07-16] MEDS: ISOSORBIDE MONONITRATE 30 MG TAB.SR.24H (FP) PO SCH (09:13)
[2018-07-16] MEDS: ATENOLOL 50 MG TABLET (FP) PO SCH (09:13)
[2018-07-16] MEDS: GABAPENTIN 100 MG CAPSULE (FP) PO SCH (09:13)
[2018-07-16] MEDS: FUROSEMIDE 40 MG TABLET (FP) PO SCH (09:13)
[2018-07-16] MEDS: MAGNESIUM OXIDE 400 MG TABLET (FP) PO SCH (09:14)
[2018-07-16] MEDS ORDERED: METOLAZONE 2.5 MG TABLET (FP) PO ONE (09:30)
[2018-07-16 09:55] LABS: MAGNESIUM 1.9 mg/dL (1.8-2.4)
[2018-07-16] MEDS: CALCIUM (OYSTER SHELL) 500 MG TABLET (FP) PO SCH (10:38)
[2018-07-16 12:15] VITALS: BP 121/54; PULSE 86; TEMP 98.6
== END 2018-07-16 15:23 | disposition home health service (06) | DRG 292 ==
LOC: JER 19:33 → JERBED 07-13 01:20 → J6S 07-13 03:15
PROVIDERS: ADMIT Internal Medicine; ATTEND Family Medicine
DX: I11.0 Hypertensive heart disease with heart failure (principal); I48.1 Persistent atrial fibrillation; I50.23 Acute on chronic systolic (congestive) heart failure; Z85.038 Personal history of other malignant neoplasm of large intestine; Z87.891 Personal history of nicotine dependence; Z95.2 Presence of prosthetic heart valve; Z79.01 Long term (current) use of anticoagulants; K27.9 Peptic ulcer, site unspecified, unspecified as acute or chronic, without hemorrhage or perforation; E03.9 Hypothyroidism, unspecified; I45.10 Unspecified right bundle-branch block; E87.6 Hypokalemia; E83.42 Hypomagnesemia; D50.9 Iron deficiency anemia, unspecified; I27.20 Pulmonary hypertension, unspecified; E78.5 Hyperlipidemia, unspecified; I07.1 Rheumatic tricuspid insufficiency
CPT/HCPCS: 36415; 71045-TC-FY; 80048; 80053; 83540; 83550; 83735; 83880; 84100; 84443; 85025; 85610; 87081; 93005; 93010; 93306-TC; 93970-TC; 99285-25

== ENCOUNTER 2018-08-29 17:53 | Inpatient (IN) | payer OTHER, BC ==
--- NOTE | 2018-08-29 18:24 | PDOC ---
History of Present Illness - General Chief Complaint: Chest Pain Stated Complaint: CHEST PAIN Time Seen by Provider: 08/29/18 17:59 History Source: Patient - History of Present Illness Presenting Symptoms: Chest Pain Timing/Duration: reports: other (this am) Past History - Past Medical History Allergies/Adverse Reactions: Allergies Allergy/AdvReac Type Severity Reaction Status Date / Time No Known Allergies Allergy Verified 08/29/18 17:57 Home Medications: Ambulatory Orders Atorvastatin Ca [Lipitor] 10 mg PO HS 08/02/14 Atenolol [Tenormin] 50 mg PO DAILY 02/06/17 Isosorbide Mononitrate [Imdur] 30 mg PO DAILY 02/06/17 Pantoprazole Sodium 40 mg PO DAILY 02/06/17 Cholecalciferol (Vitamin D3) [Vitamin D -] 2,000 unit PO DAILY 05/07/18 Gabapentin [Neurontin] 100 mg PO BID 05/07/18 Ibandronate Sodium 150 mg PO MONTHLY 05/07/18 Allopurinol [Zyloprim -] 100 mg PO BID 08/29/18 Ferrous Sulfate [Feosol] 325 mg PO DAILY #30 tablet 09/01/18 Furosemide [Lasix -] 40 mg PO BID #60 tablet 09/01/18 Levothyroxine [Synthroid -] 125 mcg PO DAILY #30 tablet 09/01/18 Sitagliptin Phosphate [Januvia] 25 mg PO DAILY #30 tablet 09/01/18 Spironolactone [Aldactone -] 25 mg PO BID #60 tablet 09/01/18 Warfarin Na [Coumadin -] 2 mg PO MOTUWETHFRSA tablet 09/01/18 Warfarin Na [Coumadin -] 4 mg PO OLMOS #30 tablet 09/01/18 Anemia: No Asthma: No Cancer: Yes (colon ca/ SURGIRY 2013) Cardiac Disorders: Yes (mechanical mitral valve(over 20 years)) CVA: No COPD: No CHF: No Dementia: No Diabetes: No GI Disorders: Yes (PERF SURGERY 07/2014) Disorders: No HTN: Yes Hypercholesterolemia: Yes Liver Disease: No Seizures: No Thyroid Disease: No - Surgical History Abdominal Surgery: Yes (colon sx) Appendectomy: Yes Cardiac Surgery: Yes (VALVE REPLACEMENT) Cholecystectomy: No Lung Surgery: No Neurologic Surgery: No Orthopedic Surgery: No - Immunization History Immunization Up to Date: Yes - Suicide/Smoking/Psychosocial Hx Smoking Status: No Smoking History: Former smoker Years of Tobacco Use: 20 Have you smoked in the past 12 months: No Number of Cigarettes Smoked Daily: 0 If you are a former smoker, when did you quit?: 1970s Cigars Per Day: 0 Information on smoking cessation initiated: No Hx Alcohol Use: No Drug/Substance Use Hx: No Substance Use Type: None Hx Substance Use Treatment: No Cardiac Specific PMH - Complaint Specific PMHX Pacemaker: No Review of Systems - Review of Systems Constitutional: No: Chills, Fever Respiratory: No: Cough, Shortness of Breath Cardiac (ROS): Yes: Chest Pain. No: Lightheadedness, Palpitations, Syncope ABD/GI: No: Nausea, Vomiting *Physical Exam - Vital Signs Last Vital Signs Temp Pulse Resp BP Pulse Ox 97.8 F 72 18 113/52 L 96 09/02/18 05:00 09/02/18 08:14 09/02/18 08:14 09/02/18 08:14 09/02/18 08:14 - Physical Exam General Appearance: Yes: Appropriately Dressed. No: Apparent Distress HEENT: positive: Normal Voice Neck: positive: Supple Respiratory/Chest: positive: Lungs Clear, Normal Breath Sounds. negative: Respiratory Distress Cardiovascular: positive: S1, S2, Tachycardia Gastrointestinal/Abdominal: positive: Soft. negative: Tender Extremity: positive: Pedal Edema (L>R) Integumentary: positive: Dry, Warm Neurologic: positive: Fully Oriented, Alert, Normal Mood/Affect Heart Score/ECG Review - ECG Intrepretation Comment:: 08/29/18 18:40 Afib @ 104 BPM ED Treatment Course - LABORATORY CBC & Chemistry Diagram: 09/02/18 05:30 09/02/18 05:30 - ADDITIONAL ORDERS Additional order review: 08/30/18 08/29/18 06:00 18:15 RBC 3.59 L 3.79 MCV 79.5 L 80.6 MCHC 32.2 32.7 RDW 17.2 H 16.7 H MPV 8.7 8.8 Neutrophils % 81.4 Lymphocytes % 8.9 D Monocytes % 8.7 Eosinophils % 0.7 Basophils % 0.3 - RADIOLOGY Radiology Studies Ordered: Category Date Time Status CHEST X-RAY PORTABLE* [RAD] Stat Radiology 08/29/18 17:59 Completed - Medications Given in the ED: ED Medications Discontinued Medications Generic Name Dose Route Start Last Admin Trade Name Bruce PRN Reason Stop Dose Admin Albuterol Sulfate 1 amp 08/29/18 19:54 08/29/18 20:33 Ventolin 0.083% Nebulizer Soln - NEB 08/29/18 19:55 1 amp ONCE ONE Administration Allopurinol 100 mg 08/30/18 10:00 09/02/18 11:02 Zyloprim - PO 100 mg BID [facility] Administration Aspirin 325 mg 08/29/18 18:24 08/29/18 18:37 Asa - PO 08/29/18 18:25 Not Given ONCE ONE Atenolol 50 mg 08/30/18 10:00 09/02/18 11:01 Tenormin - PO 50 mg BID [facility] Administration Atorvastatin Calcium 10 mg 08/30/18 22:00 09/01/18 21:32 Lipitor - PO 10 mg HS [facility] Administration Cholecalciferol 2,000 unit 08/30/18 10:00 09/02/18 11:01 Vitamin D3 - PO 2,000 unit DAILY [facility] Administration Furosemide 40 mg 08/29/18 19:12 08/29/18 19:44 Lasix Injection - IVPUSH 08/29/18 19:13 Not Given ONCE ONE Furosemide 20 mg 08/29/18 19:54 08/29/18 20:03 Lasix Injection - IVPUSH 08/29/18 19:55 20 mg ONCE ONE Administration Furosemide 40 mg 08/30/18 06:00 08/30/18 15:16 Lasix - PO 40 mg BID@0600,1400 [facility] Administration Furosemide 40 mg 08/31/18 06:00 09/02/18 05:50 Lasix Injection - IVPUSH 40 mg BID@0600,1400 [facility] Administration Gabapentin 100 mg 08/30/18 10:00 09/02/18 11:02 Neurontin - PO 100 mg BID [facility] Administration Iron Sucrose 300 mg/ Sodium 250 mls @ 250 mls/hr 09/01/18 10:51 09/02/18 10: 59 Chloride IVPB 09/02/18 10:59 250 mls/hr DAILY [facility] Administration Influenza Virus Vaccine Quadrival 60 mcg 08/30/18 18:00 08/30/18 18:19 Flulaval Quad 6551-0130 IM 08/30/18 18:01 60 mcg .ONCE ONE Administration Insulin Aspart 1 vial 08/31/18 07:00 09/01/18 06:28 Novolog Vial Sliding Scale - SQ Not Given TIDAC [facility] Protocol Isosorbide Mononitrate 30 mg 08/30/18 10:00 09/02/18 11:01 Imdur - PO 30 mg DAILY [facility] Administration Levothyroxine Sodium 112 mcg 08/30/18 07:00 09/01/18 06:28 Synthroid - PO 112 mcg DAILY@0700 [facility] Administration Levothyroxine Sodium 125 mcg 09/02/18 07:00 09/02/18 05:51 Synthroid - PO 125 mcg DAILY@0700 [facility] Administration Magnesium Oxide 400 mg 08/29/18 22:30 08/29/18 23:12 Mag-Ox - PO 08/29/18 22:31 400 mg ONCE ONE Administration Magnesium Sulfate 1 gm 08/30/18 02:15 08/30/18 02:53 Magnesium Sulfate IVPB 08/30/18 02:16 1 gm ONCE ONE Administration Potassium Chloride 40 meq 08/29/18 19:01 08/29/18 19:44 Potassium Chloride Oral Liquid PO 08/29/18 19:02 40 meq ONCE ONE Administration Potassium Chloride 20 meq 08/30/18 13:30 08/30/18 13:38 K-Dur - PO 08/30/18 13:31 20 meq ONCE ONE Administration Potassium Chloride 20 meq 08/31/18 10:00 09/02/18 11:00 Potassium Chloride Oral Liquid PO 20 meq DAILY [facility] Administration Sitagliptin Phosphate 25 mg 09/01/18 10:58 09/02/18 06:40 Januvia - PO Not Given DAILY@0700 [facility] Spironolactone 25 mg 08/30/18 10:00 08/30/18 10:54 Aldactone - PO 25 mg DAILY [facility] Administration Spironolactone 25 mg 08/30/18 22:00 09/02/18 11:01 Aldactone - PO 25 mg BID [facility] Administration Warfarin Sodium 2 mg 08/31/18 18:00 08/31/18 17:31 Coumadin - PO 2 mg 1800 [facility] Administration Warfarin Sodium 2 mg 09/01/18 18:00 09/01/18 17:23 Coumadin - PO 2 mg SuMoWeFrSa@1800 [facility] Administration Warfarin Sodium 2 mg 09/01/18 18:00 09/01/18 17:23 Coumadin - PO 09/01/18 18:01 2 mg ONCE@1800 ONE Administration Medical Decision Making - Medical Decision Making 08/29/18 18:19 Patient is an 87-year-old female, history of colon ca, PUD, anemia, HLD, HTN, rheumatic heart disease, CHF on Lasix (recent echo w/ EF of ~55%), Afib on coumadin, presents with chest pain. Patient states since this a.m. she's had L sided, sharp chest pain, mostly on deep inspiration. Otherwise no shortness of breath, diaphoresis, nausea or vomiting. Does have chronic lower extremity edema that has improved per patient. 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 Coates, today who told her to increase lasix, but also to come to ED for evaluation. States she has never had this CP before See exam CP R/o ACS vs CHF flare vs PE, less likely dissection, no e/o infxn Tachy to 111 at triage w/ irreg, irreg rhythm on exam (h/o known afib), exam otherwise unremarkable -asa (refusing asa as on coumadin though pt inbred and asa is cardioprotective and that 1 dose in ED provides more benefits that risk if sxs are 2/2 ACS, pt still refusing, wants me to talk to her cards first) -ekg -cxr -labs -cards c/w -anticipate admission 08/29/18 18:32 08/29/18 18:32 08/29/18 19:09 EKG w/ afib @104bpm, Labs only remarkable for K of 3.1, will replete. BNP >1600 , similar to in the past, as no worsening edema and clear lungs, will hold off on lasix at this time pending CXR. Pt signed out to BAYLEE Noguera at this time pending rest of w/u and admission. Consult placed to cards *DC/Admit/Observation/Transfer Diagnosis at time of Disposition: Acute exacerbation of CHF (congestive heart failure), Elevated INR Chest pain Qualifiers: Chest pain type: unspecified Qualified Code(s): R07.9 - Chest pain, unspecified - Discharge Dispostion Disposition: VNS/HOME HEALTH CARE Condition at time of disposition: Stable - Prescriptions - Referrals - Patient Instructions - Post Discharge Activity
[2018-08-29] MEDS ORDERED: ASPIRIN 325 MG ENTERIC COATED TABLET (FP) ONE (18:27)
[2018-08-29] MEDS: ASPIRIN 325 MG TABLET PO ONE ×2 (18:28→18:37)
[2018-08-29 18:30] LABS: BASO % 0.3 % (0-2.0); EOS % 0.7 % (0-4.5); HEMATOCRIT 30.5 % (32.4-45.2); LYMPH % 8.9 % (8-40); MCH 26.3 pg (25.7-33.7); MCHC 32.7 g/dl (32.0-36.0); MEAN CELL VOLUME 80.6 fl (80-96); MEAN PLT VOLUME 8.8 fl (7.5-11.1); MONO % 8.7 % (3.8-10.2); NEUT % 81.4 % (42.8-82.8); PLATELET COUNT 193 K/MM3 (134-434); RBC 3.79 M/mm3 (3.60-5.2); RDW 16.7 % (11.6-15.6); WHITE BLOOD COUNT 6.6 K/mm3 (4.0-10.0)
[2018-08-29 18:45] LABS: PROTHROMBIN TIME (PATIENT) 55.1 SEC (9.7-13.0)
[2018-08-29 18:57] LABS: ALBUMIN 3.4 g/dl (3.4-5.0); ALK PHOS 165 U/L (45-117); ANION GAP 11 MMOL/L (8-16); BILIRUBIN,TOTAL 0.7 mg/dL (0.2-1); BLOOD UREA NITROGEN 25 mg/dL (7-18); CALCIUM 8.3 mg/dL (8.5-10.1); CHLORIDE 94 mmol/L (98-107); CO2 31 mmol/L (21-32); GLUCOSE,RANDOM 113 mg/dL (74-106); N-TERMINAL BNP 1683.8 pg/ml (5-450); POTASSIUM 3.1 mmol/L (3.5-5.1); SGOT/AST 21 U/L (15-37); SGPT/ALT 15 U/L (13-61); SODIUM 136 mmol/L (136-145); TOT PROT 7.7 g/dl (6.4-8.2)
[2018-08-29] MEDS ORDERED: POTASSIUM CHLORIDE ORAL LIQUID 20 MEQ/15 ML PO ONE (19:01)
[2018-08-29 19:05] LABS: INR 4.6 (0.83-1.09)
[2018-08-29] MEDS ORDERED: FUROSEMIDE 40 MG/4 ML INJECTABLE VIAL IVPUSH ONE ×2 (19:12→19:54)
[2018-08-29] MEDS ORDERED: FUROSEMIDE 40 MG/4 ML INJECTABLE VIAL ONE ×2 (19:36→19:56)
[2018-08-29] MEDS ORDERED: POTASSIUM CHLORIDE ORAL LIQUID 20 MEQ/15 ML ONE (19:36)
[2018-08-29] MEDS ORDERED: ALBUTEROL SO4 0.083% IH SOL 2.5 MG/3 ML VIAL.NEB. NEB ONE ×2 (19:54→20:30)
--- NOTE | 2018-08-29 19:56 | PDOC ---
*Physical Exam - Vital Signs Last Vital Signs Temp Pulse Resp BP Pulse Ox 99.2 F 88 17 137/59 L 98 08/29/18 17:55 08/29/18 19:15 08/29/18 19:15 08/29/18 19:15 08/29/18 19:15 - Physical Exam Respiratory/Chest: positive: Rales (AT BASES), Wheezing Cardiovascular: positive: Regular Rate Gastrointestinal/Abdominal: positive: Normal Bowel Sounds, Soft. negative: Tender Musculoskeletal: positive: Normal Inspection Extremity: positive: Other (b/l lower extremity edema) Integumentary: positive: Normal Color, Dry, Warm Neurologic: positive: Fully Oriented, Alert ED Treatment Course - LABORATORY CBC & Chemistry Diagram: 08/29/18 18:15 08/29/18 18:15 - ADDITIONAL ORDERS Additional order review: Laboratory Results 08/29/18 08/29/18 18:15 18:15 PT with INR 55.10 H INR 4.60 H* Sodium 136 Potassium 3.1 L Chloride 94 L Carbon Dioxide 31 Anion Gap 11 BUN 25 H Creatinine 1.0 Creat Clearance w eGFR 52.45 Random Glucose 113 H Calcium 8.3 L Total Bilirubin 0.7 AST 21 ALT 15 Alkaline Phosphatase 165 H Creatine Kinase 30 Troponin I < 0.02 B-Natriuretic Peptide 1683.8 H Total Protein 7.7 Albumin 3.4 08/29/18 18:15 RBC 3.79 MCV 80.6 MCHC 32.7 RDW 16.7 H MPV 8.8 Neutrophils % 81.4 Lymphocytes % 8.9 D Monocytes % 8.7 Eosinophils % 0.7 Basophils % 0.3 - Medications Given in the ED: ED Medications Discontinued Medications Generic Name Dose Route Start Last Admin Trade Name Freq PRN Reason Stop Dose Admin Aspirin 325 mg 08/29/18 18:24 08/29/18 18:37 Asa - PO 08/29/18 18:25 Not Given ONCE ONE Furosemide 40 mg 08/29/18 19:12 08/29/18 19:44 Lasix Injection - IVPUSH 08/29/18 19:13 Not Given ONCE ONE Potassium Chloride 40 meq 08/29/18 19:01 08/29/18 19:44 Potassium Chloride Oral Liquid PO 08/29/18 19:02 40 meq ONCE ONE Administration Medical Decision Making - Medical Decision Making 08/29/18 20:14 Patient with SOB and chest pain. paRTIENT REPORTS THAT SHE TOOK 20 MG EXTRA LASIX dose today. refusing lasix due to frequency of urination afterwards. patient is now willing to take 20 mg lasix IV. will give albuterol x 1 also for wheezing 08/29/18 20:17 patient to be admitted for further management of care. by Dr. Metzger/ Dr. Barr *DC/Admit/Observation/Transfer Diagnosis at time of Disposition: Elevated INR Chest pain Qualifiers: Chest pain type: unspecified Qualified Code(s): R07.9 - Chest pain, unspecified Acute exacerbation of CHF (congestive heart failure) Qualifiers: Heart failure type: unspecified Qualified Code(s): I50.9 - Heart failure, unspecified - Discharge Dispostion Decision to Admit order: Yes - Referrals Referrals: Isrrael Lua MD [Primary Care Provider] - - Patient Instructions - Post Discharge Activity
--- NOTE | 2018-08-29 20:48 | PN ---
Teaching Attending Note Name of Resident: aDx Smith ATTENDING PHYSICIAN STATEMENT I saw and evaluated the patient. I reviewed the resident's note and discussed the case with the resident. I agree with the resident's findings and plan as documented. SUBJECTIVE: Patient is an 87 year old woman with PMH of Colon cancer, PUD, anemia, HLD, HTN , rheumatic heart disease, CHF on Lasix (recent echo w/ EF of ~55%), Afib on coumadin, who presents with chest pain. Patient states since this morning she has had left-sided lower chest wall, sharp chest pain, mostly on deep inspiration. Otherwise no shortness of breath, diaphoresis, nausea or vomiting. Does have chronic lower extremity edema that has improved per patient. States she called her rn intensive care unit, Dr. Coates, today who told her to increase her lasix dose. States she has never had this chest pain like this before. OBJECTIVE: Alert Vital Signs Period Temp Pulse Resp BP Sys/[place] Pulse Ox Last 24 Hr 99.2 F 88-111 17-18 137-142/59-64 98-98 HEENT: No Jaundice, eye redness or discharge, PERRLA, EOMI. Normocephalic, atraumatic. External ears are normal and hearing is grossly intact. No nasal discharge. Neck: Supple, nontender. No palpable adenopathy or thyromegaly. No JVD Chest: Good effort. No rales; bibasilar rhonchi; no rales. Heart: Irregular. No S3 or rub; 3/6 KYM. Abdomen: Not distended, soft, nontender and no HSM. No rebound or guarding. Normoactive bowel sounds. Ext: Peripheral pulses intact. Bilateral leg edema. Skin: Warm and dry. No petechiae, rash or ecchymosis. Neuro: Alert. Oriented x3. CN 2-12 grossly intact. Sensation grossly intact in all four extremities and DTR are symmetric. Home Medications Medication Instructions Recorded Atorvastatin Ca [Lipitor] 10 mg PO HS 08/02/14 Spironolactone [Aldactone] 25 mg PO DAILY 09/24/15 Furosemide [Lasix -] 40 mg PO DAILY 04/23/16 Atenolol [Tenormin] 50 mg PO DAILY 02/06/17 Isosorbide Mononitrate [Imdur] 30 mg PO DAILY 02/06/17 Pantoprazole Sodium 40 mg PO DAILY 02/06/17 Cholecalciferol (Vitamin D3) 2,000 unit PO DAILY 05/07/18 [Vitamin D -] Gabapentin [Neurontin] 100 mg PO BID 05/07/18 Ibandronate Sodium 150 mg PO MONTHLY 05/07/18 Levothyroxine [Synthroid -] 112 mcg PO DAILY@0700 #30 tablet 07/16/18 Warfarin Na [Coumadin -] 2 mg PO ASDIR #60 tablet 07/16/18 Allopurinol [Zyloprim -] 100 mg PO BID 08/29/18 Abnormal Lab Results 08/29/18 08/29/18 08/29/18 18:15 18:15 18:15 Hgb 10.0 L Hct 30.5 L RDW 16.7 H PT with INR 55.10 H INR 4.60 H* Potassium 3.1 L Chloride 94 L BUN 25 H Random Glucose 113 H Calcium 8.3 L Alkaline Phosphatase 165 H B-Natriuretic Peptide 1683.8 H ASSESSMENT AND PLAN: 1. Chest pain - CXR shows cardiomegaly and pulmonary congestion. EKG shows Afib with no significant ST-T wave changes and initial troponin is negative - no evidence of ACS. [place] concern is for pulmonary embolism - will get CTPA. Admit to telemetry; rule out pericarditis with ECHO. Hypokalemia likely due to excess urinary losses and poor intake. Replenish Mg+ IV and PO and give PO KCL. Daily IV lasix; monitor weight and restrict salt intake. 2. Anemia - Likely multifactorial. May still have GI blood loss in view of history of colon cancer. Will do basic anemia work up including serial stool guaiacs, reticulocyte count and iron studies. Anemia correction will contribute to better LV function. 3. DVT prophylaxis - On coumadin for Afib. INR is supratherapeutic - will hold coumadin. 4. Advance directives - Full code
[2018-08-29 21:26] LABS: MAGNESIUM 1.6 mg/dL (1.8-2.4); PHOSPHOROUS 2.9 mg/dL (2.5-4.9)
[2018-08-29] MEDS ORDERED: MAGNESIUM OXIDE 400 MG TABLET (FP) PO ONE (22:30)
[2018-08-29] MEDS ORDERED: MAGNESIUM OXIDE 400 MG TABLET (FP) ONE (23:08)
--- NOTE | 2018-08-29 23:13 | HP ---
CHIEF COMPLAINT: Chest pain PCP: Dr. Lozano Medical Scheduler: Dr. Coates HISTORY OF PRESENT ILLNESS: Patient is an 87 year old female with history of hypertension, hyperlipidemia, congestive heart failure, Afib on coumadin, colon cancer s/p right hemicolectomy , fall 4 months ago with right hip fracture repair, presents with complaint of chest pain. Began this morning approx 9AM as patient was walking to bathroom at home. Describes pain localized to upper left lateral chest 8/10 intensity, sharp , and non radiating. Endorses pain is exacerbated with deep inspiration. Denies prior occurrence of similar pain. States the pain has been constant, continuously exacerbated with breathing, and slightly improving to 6/10 intensity upon my encounter. She admits complaint of "gassy" feeling, however denies fevers, chills, fall, loss of consciousness, lightheadedness, changes in vision, shortness of breath, diaphoresis, cough, palpitations, reflux, abdominal pain, nausea, vomiting, diarrhea, constipation, melena, hematochezia, dysuria, hematuria. Endorses urinary frequency with Lasix, urinating at least 4- 5 times a day after taking the diuretic. ER course was notable for: (1) EKG: Afib with RVR. Trop 0.02. BNP 1683 (2) CXR: Cardiomegaly with questionable infiltrate right lower lobe. (3) INR 4.60 PAST MEDICAL HISTORY: hypertension, hyperlipidemia, congestive heart failure, Afib on coumadin, colon cancer s/p right hemicolectomy, fall 4 months ago with right hip fracture repair PAST SURGICAL HISTORY: right hip repair, mechanical mitral valve, right hemicolectomy, gastric ulcer repair Social History: Smoking: former smoker of 5-6 cigarettes/ day for approx. 30 years. Quit 20 years ago. Alcohol: denies Drugs: denies Lives: at home with who helps with medications. Ambulates with walker, however diminished activity since fall 4 months ago. Family History: No significant history of cardiac, issues, stroke, or cancer Mother: from old age at 86 y/o Father: from drowning accident at 52 y/o. Allergies: Denies food or medication allergies. No Known Allergies Allergy (Verified 08/29/18 17:57) HOME MEDICATIONS: Home Medications Medication Instructions Recorded Atorvastatin Ca [Lipitor] 10 mg PO HS 08/02/14 Spironolactone [Aldactone] 25 mg PO DAILY 09/24/15 Furosemide [Lasix -] 40 mg PO DAILY 04/23/16 Atenolol [Tenormin] 50 mg PO DAILY 02/06/17 Isosorbide Mononitrate [Imdur] 30 mg PO DAILY 02/06/17 Pantoprazole Sodium 40 mg PO DAILY 02/06/17 Cholecalciferol (Vitamin D3) 2,000 unit PO DAILY 05/07/18 [Vitamin D -] Gabapentin [Neurontin] 100 mg PO BID 05/07/18 Ibandronate Sodium 150 mg PO MONTHLY 05/07/18 Levothyroxine [Synthroid -] 112 mcg PO DAILY@0700 #30 tablet 07/16/18 Warfarin Na [Coumadin -] 2 mg PO ASDIR #60 tablet 07/16/18 Allopurinol [Zyloprim -] 100 mg PO BID 08/29/18 REVIEW OF SYSTEMS CONSTITUTIONAL: Absent: fever, chills, diaphoresis, generalized weakness, malaise, loss of appetite, weight change HEENT: Absent: rhinorrhea, nasal congestion, throat pain, throat swelling, difficulty swallowing, mouth swelling, ear pain, eye pain, visual changes CARDIOVASCULAR: Admits: pleuritic chest pain, peripheral edema. Absent: syncope, palpitations, irregular heart rate, lightheadedness. RESPIRATORY: Absent: cough, shortness of breath, dyspnea with exertion, orthopnea, wheezing, stridor, hemoptysis GASTROINTESTINAL: Absent: abdominal pain, abdominal distension, nausea, vomiting, diarrhea, constipation, melena, hematochezia GENITOURINARY: Absent: dysuria, frequency, urgency, hesitancy, hematuria, flank pain, genital pain MUSCULOSKELETAL: Absent: myalgia, arthralgia, joint swelling, back pain, neck pain SKIN: Absent: rash, itching, pallor HEMATOLOGIC/IMMUNOLOGIC: Absent: easy bleeding, easy bruising, lymphadenopathy, frequent infections ENDOCRINE: Absent: unexplained weight gain, unexplained weight loss, heat intolerance, cold intolerance NEUROLOGIC: Absent: headache, focal weakness or paresthesias, dizziness, unsteady gait, seizure, mental status changes, bladder or bowel incontinence PSYCHIATRIC: Absent: anxiety, depression, suicidal or homicidal ideation, hallucinations. PHYSICAL EXAMINATION Vital Signs - 24 hr 08/29/18 08/29/18 17:55 19:15 Temperature 99.2 F Pulse Rate 111 H Pulse Rate [ 88 Apical] Respiratory 18 17 Rate Blood Pressure 142/64 Blood Pressure 137/59 L [Right Arm] O2 Sat by Pulse 98 98 Oximetry (%) GENERAL: Awake, alert, and fully oriented, in no acute distress. HEAD: Normal with no signs of trauma. EYES: Pupils equal, round and reactive to light, extraocular movements intact, sclera anicteric, conjunctiva clear. EARS, NOSE, THROAT: Ears normal, nares patent, oropharynx clear without exudates. Moist mucous membranes. NECK: Normal range of motion, supple without lymphadenopathy, JVD, or masses. LUNGS: Breath sounds equal, clear to auscultation bilaterally. No wheezes, and no crackles. No accessory muscle use. HEART: Irregularly irregular. Normal S1 and S2 auscultated with 2/6 holosystolic murmur, mechanical mitral valve noted. CHEST: Pain not reproducible upon palpation. ABDOMEN: Soft, distended. nontender to light and deep palpation. Normoactive bowel sounds X4 quadrants. No guarding, no rebound tenderness. No hepatomegaly or splenomegaly palpated or percussed. MUSCULOSKELETAL: Normal range of motion at all joints. Tenderness to palpation at right lower extremity that patient states is not new finding. UPPER EXTREMITIES: 2+ radial pulses b/l, warm, well-perfused. Strength 5/5 b/l upper extremities. LOWER EXTREMITIES: 1+ dorsalis pedis pulses. Left foot cooler than right foot. Diminished sensation over ventral aspect right foot compared to left foot. Alessio appearing lower extremities. NEUROLOGICAL: Cranial nerves II-XII intact. Normal speech. No gross focal deficits. PSYCHIATRIC: Cooperative. Good eye contact. Appropriate mood and affect upon my encounter today. SKIN: Vertical scar over midline chest from mitral valve surgery noted. Vertical scar over midline abdomen noted from prior ulcer repair. Laboratory Results - last 24 hr 08/29/18 08/29/18 08/29/18 18:15 18:15 18:15 WBC 6.6 RBC 3.79 Hgb 10.0 L Hct 30.5 L MCV 80.6 MCH 26.3 MCHC 32.7 RDW 16.7 H Plt Count 193 D MPV 8.8 Absolute Neuts (auto) 5.4 Neutrophils % 81.4 Lymphocytes % 8.9 D Monocytes % 8.7 Eosinophils % 0.7 Basophils % 0.3 Nucleated RBC % 0 PT with INR 55.10 H INR 4.60 H* Sodium 136 Potassium 3.1 L Chloride 94 L Carbon Dioxide 31 Anion Gap 11 BUN 25 H Creatinine 1.0 Creat Clearance w eGFR 52.45 Random Glucose 113 H Calcium 8.3 L Phosphorus Magnesium Total Bilirubin 0.7 AST 21 ALT 15 Alkaline Phosphatase 165 H Creatine Kinase 30 Troponin I < 0.02 B-Natriuretic Peptide 1683.8 H Total Protein 7.7 Albumin 3.4 08/29/18 20:42 WBC RBC Hgb Hct MCV MCH MCHC RDW Plt Count MPV Absolute Neuts (auto) Neutrophils % Lymphocytes % Monocytes % Eosinophils % Basophils % Nucleated RBC % PT with INR INR Sodium Potassium Chloride Carbon Dioxide Anion Gap BUN Creatinine Creat Clearance w eGFR Random Glucose Calcium Phosphorus 2.9 Magnesium 1.6 L Total Bilirubin AST ALT Alkaline Phosphatase Creatine Kinase Troponin I B-Natriuretic Peptide Total Protein Albumin ASSESSMENT/PLAN: Patient is an 87 year old female with history of hypertension, hyperlipidemia, congestive heart failure, Afib on coumadin, colon cancer s/p right hemicolectomy , fall 4 months ago with right hip fracture repair, presents with complaint of chest pain. Pleuritic chest pain -Concern for pulmonary embolism as patient has diminished ambulation after recent fall. Wells score 3. -Considering pericarditis, less likely CT. -EKG shows Afib with RVR -Troponin 0.02. Will follow -F/U CTA chest to rule out PE -F/U cardiac ECHO to evaluate cardiac function, pericarditis -Cardiac monitoring -Cardiology consult (Dr. Coates) -Strict intake and output, daily weights. Peripheral vascular disease -Swelling left lower extremity, with right lower extremity tenderness to palpation. -F/U arterial and venous Doppler b/l lower extremities. Afib -CHADSVASC score =5 -Patient's INR is supratherapeutic at 4.6 Goal with mechanical mitral valve = 2.5 - 3.5 -Will hold Coumadin, follow INR. Consider reinstating once INR appropriate -Continue Atenolol 50mg PO BID -Cardiology consult -Cardiac monitoring CHF -Continue Lasix 40mg PO BID -Continue Aldactone 25mg PO daily Hypokalemia -Potassium 3.1, Phos 2.9, Magnesium 1.6 -Likely secondary to hypomagnesemia. -No EKG changes noted -Repleted with 40KCL PO in ED, and 400mg Mag-Ox PO -Follow CMP, Magnesium, Phosphorus Hypertension -Continue Imdur 30 mg PO daily -Continue Atenolol 50mg PO BID Hyperlipidemia -Continue Atorvastatin 10mg PO HS Hypothyroidism -Continue Synthroid 112mcg PO daily -F/U TSH Anemia -Hb 10.0, Hct 30.5, MCV 80.6, RDW 16.7 -Suggestive of microcytic anemia, likely secondary to iron deficiency -F/U reticulocyte count, iron studies -Follow Hb/ Hct closely. FEN -No IV fluids. Strict fluid restriction 1L daily. -Hypokalemia, hypomagnesemia. Follow CMP, Magnesium, Phosphorus -Sodium controlled diet Prophylaxis -On Coumadin, INR currently supratherapeutic at 4.6. Reinstate once appropriate. Disposition -Observe in telemetry floor. Visit type - Emergency Visit Emergency Visit: Yes ED Registration Date: 08/29/18 Care time: The patient presented to the Emergency Department on the above date and was hospitalized for further evaluation of their emergent condition. - New Patient This patient is new to me today: Yes Date on this admission: 08/30/18 - Critical Care Critical Care patient: No
[2018-08-29 23:45] LABS: URINE APPEARANCE CLEAR; URINE BILIRUBIN NEGATIVE (<2.0 mg/dL); URINE COLOR STRAW; URINE GLUCOSE (UA) NEGATIVE (NEGATIVE); URINE KETONE NEGATIVE (NEGATIVE); URINE LEUK ESTERASE NEGATIVE (NEGATIVE); URINE NITRITE NEGATIVE (NEGATIVE); URINE PROTEIN NEGATIVE (NEGATIVE); URINE UROBILINOGEN NEGATIVE mg/dL (0.2-1.0)
[2018-08-30] MEDS ORDERED: MAGNESIUM SULF 50% (8.12 MEQ/2 ML-1 GM VIAL) IVPB ONE (02:15)
[2018-08-30] MEDS ORDERED: MAGNESIUM 1GM/D5W - 1 GM/100 ML IVPB IVPB ONE (02:49)
[2018-08-30] MEDS ORDERED: FUROSEMIDE 40 MG TABLET (FP) ONE (06:13)
[2018-08-30 06:17] LABS: HEMATOCRIT 28.5 % (32.4-45.2); HEMOGLOBIN 9.2 GM/dL (10.7-15.3); MCH 25.6 pg (25.7-33.7); MCHC 32.2 g/dl (32.0-36.0); MEAN CELL VOLUME 79.5 fl (80-96); MEAN PLT VOLUME 8.7 fl (7.5-11.1); PLATELET COUNT 167 K/MM3 (134-434); RBC 3.59 M/mm3 (3.60-5.2); RDW 17.2 % (11.6-15.6); WHITE BLOOD COUNT 6.7 K/mm3 (4.0-10.0)
[2018-08-30] MEDS: FUROSEMIDE 40 MG TABLET (FP) PO SCH ×2 (06:19→15:16)
[2018-08-30] MEDS: LEVOTHYROXINE NA 112 MCG TABLET (FP) PO SCH (06:19)
[2018-08-30 06:40] LABS: INR 3.61 (0.83-1.09); PROTHROMBIN TIME (PATIENT) 43.2 SEC (9.7-13.0)
[2018-08-30 06:56] LABS: ALBUMIN 3.2 g/dl (3.4-5.0); ALK PHOS 141 U/L (45-117); ANION GAP 8 MMOL/L (8-16); BILIRUBIN,TOTAL 0.9 mg/dL (0.2-1); BLOOD UREA NITROGEN 23 mg/dL (7-18); CALCIUM 8.4 mg/dL (8.5-10.1); CHLORIDE 96 mmol/L (98-107); CO2 30 mmol/L (21-32); CREATININE 0.9 mg/dL (0.55-1.3); GLUCOSE,RANDOM 109 mg/dL (74-106); POTASSIUM 3.3 mmol/L (3.5-5.1); SGOT/AST 21 U/L (15-37); SGPT/ALT 13 U/L (13-61); SODIUM 135 mmol/L (136-145); TOT PROT 7.2 g/dl (6.4-8.2)
[2018-08-30] MEDS ORDERED: SPIRONOLACTONE 25 MG TABLET (FP) PO SCH (10:00)
[2018-08-30] MEDS: ATENOLOL 50 MG TABLET (FP) PO SCH ×2 (10:54→21:23)
[2018-08-30] MEDS: GABAPENTIN 100 MG CAPSULE (FP) PO SCH ×2 (10:54→21:23)
[2018-08-30] MEDS: ISOSORBIDE MONONITRATE 30 MG TAB.SR.24H (FP) PO SCH (10:54)
[2018-08-30] MEDS: CHOLECALCIFEROL (VITAMIN D3) 1,000 UNIT TABLET (FP) PO SCH (10:54)
[2018-08-30] MEDS: ALLOPURINOL 100 MG TABLET (FP) PO SCH ×2 (10:54→21:23)
--- NOTE | 2018-08-30 11:55 | CON.CARD ---
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 Patient called yesterday evening that she was experiencing left precardial chest discomfort and increasing pedal edema associated with dyspnea with minimal exertion. No history of PND or orthopnea. History of fatigue. No history of exertional chest pain or discomfort. No history of cough or expectoration. History of wheezing. No palpitations, lightheadedness, dizziness , pre syncope or syncope reported. No history of diabetes mellitus. PAST HISTORY: 1. As mentioned in the history of present illness. 2. History of Ymyuwwf-Bkkqm-Udvbg disease. 3. History of colorectal cancer. 4. Severe bilateral deafness. SURGICAL HISTORY: 1. Status post tonsillectomy. 2. Status post bilateral cataract extraction. 3. Status post appendectomy. 4. Status post right carotid endarterectomy. 5. Status post partial colectomy for carcinoma of the colon. 6. Status post surgery for a perforated peptic ulcer. 7. Status post hysterectomy. 8. Status post surgery for right hip fracture. SOCIAL HISTORY: , retired, has 3 sons. One of them during coronary artery bypass surgery. The other 2 sons are healthy. She used to smoke between the age of 16 and 50 and was smoking half to one pack of cigarettes per day. Used to have a social drink. Denies excessive use of ciara or caffeine. FAMILY HISTORY: Father at age 52 of drowning. Mother at age 86 following a stroke. Had 4 brothers. One of them at age 14 apparently of rheumatic fever and valvular disease. Three other brothers of cancer at ages of 52, 60, and 80. One brother of prostatic cancer, another of colon cancer, and the third brother's type of cancer is unknown. Had 5 sisters. All of them are except for one, and four of them had known Gifty-Charcot- Tooth disease. One sister had rheumatic heart disease and mitral valve replacement. She is . Active Medications Allopurinol (Zyloprim -) 100 mg PO BID [facility] Last Admin: 11/07/18 10:54 Dose: 100 mg Atenolol (Tenormin -) 50 mg PO BID [facility] Last Admin: 08/30/18 10:54 Dose: 50 mg Atorvastatin Calcium (Lipitor -) 10 mg PO [facility] Cholecalciferol (Vitamin D3 -) 2,000 unit PO DAILY [facility] Last Admin: 08/30/18 10:54 Dose: 2,000 unit Furosemide (Lasix -) 40 mg PO BID@0600,1400 [facility] Last Admin: 08/30/18 06:19 Dose: 40 mg Gabapentin (Neurontin -) 100 mg PO BID [facility] Last Admin: 08/30/18 10:54 Dose: 100 mg Isosorbide Mononitrate (Imdur -) 30 mg PO DAILY [facility] Last Admin: 08/30/18 10:54 Dose: 30 mg Levothyroxine Sodium (Synthroid -) 112 mcg PO DAILY@0700 [facility] Last Admin: 08/30/18 06:19 Dose: 112 mcg Spironolactone (Aldactone -) 25 mg PO DAILY [facility] Last Admin: 08/30/18 10:54 Dose: 25 mg ALLERGIES: None reported. REVIEW OF SYSTEMS: Constitutional: No history of chills, fever, or night sweats. No history of unintentional weight loss. HEENT: No history of headaches, diplopia, or blurred vision. No history of epistaxis, hoarseness, tinnitus. Bilateral deafness. Cardiovascular: See history of present illness. Respiratory: See history of present illness. No history of cough, expectoration, or hemoptysis. Gastrointestinal: See history of present illness. Patient currently denies having nausea, vomiting, melena, or hematemesis. No history of loss of appetite. No history of abdominal pain or discomfort. No history of change in bowel habits. Neurological: History of sciatica. No history of focal weakness, seizures, or syncope. Endocrine: History of hypothyroidism. No history of polyuria or polydipsia. Denies having intolerance to cold or warm weather. Musculoskeletal: History of chronic low back syndrome and Tpdxq-Ozcaijs-Ixpou disease. Genitourinary: Denies having dysuria, frequency, or hematuria. Hematological/Lymphatics: No history of lymphadenopathy. No history of bleeding. No known history of anemia. History of occasional ecchymosis. Last Vital Signs Temp Pulse Resp BP Pulse Ox 98.1 F 103 H 20 117/66 99 08/30/18 10:50 08/30/18 10:50 08/30/18 10:50 08/30/18 10:50 08/30/18 10:50 PHYSICAL EXAMINATION: General: 87-year-old alert female, was hard of hearing, was in no acute distress. There was no pallor, cyanosis, clubbing, or jaundice. Neck: Supple. Jugular venous distention 2-3 cm at 30 degrees with positive hepatojugular reflux and pulsatile neck veins. Carotids were 2+. Upstrokes were normal. No bruits were appreciated. There was a well-healed carotid endarterectomy scar. Heart: PMI was in the fifth intercostal space, slight apical and left parasternal heave. There were crisp prosthetic sounds. A grade II/ decrescendo systolic murmur was heard along the lower left sternal border, that increased with inspiration. There was a grade 2/6 systolic murmur heard at the apex, that was poorly radiating. No diastolic murmur or gallops were heard. Lungs: Decreased breath sounds at the right base. There was expiratory wheezing bilaterally. Chest: Normal AP diameter. There was a well-healed midline sternotomy scar. Abdomen: Protuberant, slight right upper quadrant guarding. Liver was pulsatile and 4 fingerbreadths below the right costal margin. No splenomegaly was appreciated. No palpable masses were felt. There were well-healed surgical scars. Bowel sounds were present. Extremities: There was 3+ edema involving both posterior thighs and calves. Dorsalis pedis and posterior tibial pulses could not be palpated. Femoral pulses were 2+. Laboratory Results - last 24 hr 08/29/18 08/29/18 08/29/18 18:15 18:15 18:15 WBC 6.6 RBC 3.79 Hgb 10.0 L Hct 30.5 L MCV 80.6 MCH 26.3 MCHC 32.7 RDW 16.7 H Plt Count 193 D MPV 8.8 Absolute Neuts (auto) 5.4 Neutrophils % 81.4 Lymphocytes % 8.9 D Monocytes % 8.7 Eosinophils % 0.7 Basophils % 0.3 Nucleated RBC % 0 Retic Count PT with INR 55.10 H INR 4.60 H* Sodium 136 Potassium 3.1 L Chloride 94 L Carbon Dioxide 31 Anion Gap 11 BUN 25 H Creatinine 1.0 Creat Clearance w eGFR 52.45 Random Glucose 113 H Calcium 8.3 L Phosphorus Magnesium Total Bilirubin 0.7 AST 21 ALT 15 Alkaline Phosphatase 165 H Creatine Kinase 30 Troponin I < 0.02 B-Natriuretic Peptide 1683.8 H Total Protein 7.7 Albumin 3.4 Urine Color Urine Appearance Urine pH Ur Specific [place] Urine Protein Urine Glucose (UA) Urine Ketones Urine Blood Urine Nitrite Urine Bilirubin Urine Urobilinogen Ur Leukocyte Esterase 08/29/18 08/29/18 08/29/18 20:42 23:30 23:30 WBC RBC Hgb Hct MCV MCH MCHC RDW Plt Count MPV Absolute Neuts (auto) Neutrophils % Lymphocytes % Monocytes % Eosinophils % Basophils % Nucleated RBC % Retic Count PT with INR INR Sodium Potassium Chloride Carbon Dioxide Anion Gap BUN Creatinine Creat Clearance w eGFR Random Glucose Calcium Phosphorus 2.9 Magnesium 1.6 L Total Bilirubin AST ALT Alkaline Phosphatase Creatine Kinase Troponin I < 0.02 B-Natriuretic Peptide Total Protein Albumin Urine Color Straw Urine Appearance Clear Urine pH 7.0 D Ur Specific [place] 1.006 L Urine Protein Negative Urine Glucose (UA) Negative Urine Ketones Negative Urine Blood Negative Urine Nitrite Negative Urine Bilirubin Negative Urine Urobilinogen Negative Ur Leukocyte Esterase Negative 08/30/18 08/30/18 08/30/18 06:00 06:00 06:00 WBC 6.7 RBC 3.59 L Hgb 9.2 L Hct 28.5 L MCV 79.5 L MCH 25.6 L MCHC 32.2 RDW 17.2 H Plt Count 167 MPV 8.7 Absolute Neuts (auto) Neutrophils % Lymphocytes % Monocytes % Eosinophils % Basophils % Nucleated RBC % Retic Count PT with INR 43.20 H INR 3.61 H Sodium 135 L Potassium 3.3 L Chloride 96 L Carbon Dioxide 30 Anion Gap 8 BUN 23 H Creatinine 0.9 Creat Clearance w eGFR 59.23 Random Glucose 109 H Calcium 8.4 L Phosphorus 3.0 Magnesium 2.0 Total Bilirubin 0.9 AST 21 ALT 13 Alkaline Phosphatase 141 H Creatine Kinase Troponin I < 0.02 B-Natriuretic Peptide Total Protein 7.2 Albumin 3.2 L Urine Color Urine Appearance Urine pH Ur Specific [place] Urine Protein Urine Glucose (UA) Urine Ketones Urine Blood Urine Nitrite Urine Bilirubin Urine Urobilinogen Ur Leukocyte Esterase 08/30/18 06:00 WBC RBC Hgb Hct MCV MCH MCHC RDW Plt Count MPV Absolute Neuts (auto) Neutrophils % Lymphocytes % Monocytes % Eosinophils % Basophils % Nucleated RBC % Retic Count 1.39 D PT with INR INR Sodium Potassium Chloride Carbon Dioxide Anion Gap BUN Creatinine Creat Clearance w eGFR Random Glucose Calcium Phosphorus Magnesium Total Bilirubin AST ALT Alkaline Phosphatase Creatine Kinase Troponin I B-Natriuretic Peptide Total Protein Albumin Urine Color Urine Appearance Urine pH Ur Specific [place] Urine Protein Urine Glucose (UA) Urine Ketones Urine Blood Urine Nitrite Urine Bilirubin Urine Urobilinogen Ur Leukocyte Esterase X-ray chest: Impression: Cardiomegaly with suggestion of mild pulmonary venous congestion. Cannot rule out superimposed infiltrates. Minimal right pleural effusion. Straightening of left heart border, enlarged right ventricle. Venous Doppler Ultrasound: Impression: No evidence of DVT. Chest CTA: Impression: No evidence of pulmonary embolism, cardiomegaly, right pleural effusion. Bilateral Lower Extremity Arterial Ultrasound: Impression: Mild atherosclerotic disease with no evidence of occlusion or hemodynamically significant stenosis. ECG: Not available. IMPRESSION: 1. Left upper anterior/precordial chest pain, etiology to be determined: a. Most probably pain on musculoskeletal region b. Acute pericarditis needs to be excluded. 2. Congestive heart failure, Gates Heart Classification III. 3. Severe tricuspid regurgitation. 4. Status post mechanical mitral valve replacement. 5. History of rheumatic heart disease. 6. Permanent atrial fibrillation, controlled ventricular response. 7. Hypertension, hypertensive cardiovascular disease. 8. Hypercholesterolemia. 9. Hypokalemia. 10. Anemia, etiology to be determined. 11. Status post right carotid endarterectomy. 12. History of Nvwfx-Aafiuep-Lssxl disease. 13. Bilateral deafness. RECOMMENDATIONS: 1. Correction of serum potassium. 2. Close follow up serum potassium and also obtain magnesium level. 3. Dose of Aldactone can be increased to 25 mg BID in the presence of normal creatnine and hypokalemia. 4. Switch to IV Lasix. 5. Once potassium is corrected, and if patient continues to have CHF, consider short term use of Zaroxylin 2.5 mg half an hour before morning dose of Lasix. 6. ECG. 7. T3/T4/TSH. 8. ESR, C-reactive protein and uric acid level. 9. JAZMINE and rheumatoid factor. Prognosis: Guarded. Documentation performed by Lora Cruz, acting as a medical reimbursement specialist for Dheeraj Coates MD. - Past Medical History Cardio/Vascular: Yes: AFIB, CAD, CHF, HTN, Hyperlipdemia, Other (RH HEART DISEASE PERMANENT/ AF /S/P CEA/ TR WITH RIGHT HEART FAILURE/) Gastrointestinal: Yes: Cancer (colorectal), Peptic Ulcer Disease Endocrine: Yes: Hypothyroidism - Past Surgical History Past Surgical History: Yes: Appendectomy, Carotid Endarterectomy (right carotid endarterectomy), Colectomy (right hemicolectomy 2013), Hysterectomy (MECHANICAL MITRAL VALVE REPLACEMENT), Valve Replacement - Alcohol/Substance Use Hx Alcohol Use: No History of Substance Use: reports: None - Smoking History Smoking history: Former smoker Have you smoked in the past 12 months: No Aproximately how many cigarettes per day: 0 If you are a former smoker, when did you quit?: 1970s - Social History ADL: Independent History of Recent Travel: No Home Medications - Allergies Allergies/Adverse Reactions: Allergies Allergy/AdvReac Type Severity Reaction Status Date / Time No Known Allergies Allergy Verified 08/29/18 17:57 - Home Medications Home Medications: Ambulatory Orders Atorvastatin Ca [Lipitor] 10 mg PO HS 08/02/14 Spironolactone [Aldactone] 25 mg PO DAILY 09/24/15 Furosemide [Lasix -] 40 mg PO DAILY 04/23/16 Atenolol [Tenormin] 50 mg PO DAILY 02/06/17 Isosorbide Mononitrate [Imdur] 30 mg PO DAILY 02/06/17 Pantoprazole Sodium 40 mg PO DAILY 02/06/17 Cholecalciferol (Vitamin D3) [Vitamin D -] 2,000 unit PO DAILY 05/07/18 Gabapentin [Neurontin] 100 mg PO BID 05/07/18 Ibandronate Sodium 150 mg PO MONTHLY 05/07/18 Levothyroxine [Synthroid -] 112 mcg PO DAILY@0700 #30 tablet 07/16/18 Warfarin Na [Coumadin -] 2 mg PO ASDIR #60 tablet 07/16/18 Allopurinol [Zyloprim -] 100 mg PO BID 08/29/18 Vital Signs: Vital Signs Temperature 98.1 F 08/30/18 10:50 Pulse Rate 103 H 08/30/18 10:50 Respiratory Rate 20 08/30/18 10:50 Blood Pressure 117/66 08/30/18 10:50 O2 Sat by Pulse Oximetry (%) 99 08/30/18 10:50 - Other Data Labs, Other Data: CBC, BMP 08/30/18 06:00 08/30/18 06:00 INR, PTT INR 3.61 (0.83-1.09) H 08/30/18 06:00 Troponin, BNP 08/29/18 08/29/18 08/30/18 18:15 23:30 06:00 Troponin I < 0.02 < 0.02 < 0.02 B-Natriuretic Peptide 1683.8 H Troponin, BNP 08/29/18 08/29/18 08/30/18 18:15 23:30 06:00 Troponin I < 0.02 < 0.02 < 0.02 B-Natriuretic Peptide 1683.8 H Problem List - Problems (2) Atrial fibrillation Code(s): I48.91 - UNSPECIFIED ATRIAL FIBRILLATION Qualifiers: Atrial fibrillation type: persistent Qualified Code(s): I48.1 - Persistent atrial fibrillation (3) Hyperlipidemia Code(s): E78.5 - HYPERLIPIDEMIA, UNSPECIFIED Qualifiers: Hyperlipidemia type: Pure hypercholesterolemia (4) Tricuspid regurgitation Code(s): I07.1 - RHEUMATIC TRICUSPID INSUFFICIENCY
--- NOTE | 2018-08-30 12:19 | PN ---
Progress Note (short form) - Note Progress Note: PULMONARY CONSULTATION DICTATED 08/30/18 IMP CHEST PAIN SYNDROME ?ETIOLOGY ? PLEURISY ACUTE ON CHRONIC CHF AFIB PULMONARY HTN R PLEURAL EFFUSION S/P MVR VALVULAR HD H/O RHEUMATIC HD HTN ANEMIA H/O COLON CA SUPRA-THERAPEUTIC INR HYPOTHYROID PLAN O2 LASIX CE ANALGESICS ESR DAILY WT STOOL GUAIAC F/U CHEST X-RAYS DEFER THORACENTESIS AT THIS TIME PT ON AC SECONDARY TO MVR/AFIB DR PAUL
--- NOTE | 2018-08-30 12:23 | ECHO ---
Name: REVELLESE, TITO Exam:Adult Echocardiogram Study Date: 08/30/2018 09:02 AM Age: 87 yrs Reason For Study: Chest pain Height: 56 in Weight: 120 lb BSA: 1.4 m2 MMode/2D Measurements & Calculations IVSd: 0.94 cm Ao root diam: 1.8 cm LVIDd: 1.9 cm ACS: 0.81 cm LVIDs: 1.7 cm LVPWd: 3.8 cm EDV(Teich): 11.6 ml LVOT diam: 1.6 cm ESV(Teich): 8.9 ml RV S Tiago: 7.8 cm/sec Doppler Measurements & Calculations LV V1 max P.6 mmHg MVA(VTI): 1.00 cm2 LV V1 mean P.1 mmHg MV V2 max: 187.1 cm/sec LV V1 max: 106.8 cm/sec MV max P.0 mmHg LV V1 mean: 67.6 cm/sec MV V2 mean: 114.3 cm/sec LV V1 VTI: 19.5 cm MV mean P.1 mmHg MV V2 VTI: 37.4 cm SV(LVOT): 37.4 ml Med Peak E' Tiago: 5.1 cm/sec Lat Peak E' Tiago: 6.5 cm/sec Procedure The study was technically difficult with many images being suboptimal in quality. Left Ventricle The left ventricle is grossly normal size. The left ventricular ejection fraction is normal. Septal m otion is consistent with post-operative state. Regional wall motion abnormalities cannot be excluded due to li mited visualization. Right Ventricle The right ventricle is moderate to severely dilated. The right ventricle is not well visualized. The right ventricular systolic function is mild to moderately reduced. Atria The left atrium is moderately dilated. The right atrium is severely dilated. Mitral Valve There is a mechanical mitral valve. The prosthetic mitral valve is well-seated. There is no mitral va lve stenosis. There is mild mitral regurgitation. Tricuspid Valve There is mild tricuspid valve thickening. There is no tricuspid stenosis. There is severe tricuspid regurgitation. Aortic Valve The aortic valve is not well visualized. There is mild to moderate aortic sclerosis.;. There is mild to moderate aortic valve thickening. No hemodynamically significant valvular aortic stenosis. Mild aorti c regurgitation. Pulmonic Valve The pulmonic valve is not well visualized. There is no pulmonic valvular stenosis. Mild pulmonic valv ular regurgitation. Great Vessels The aortic root is normal size. Pericardium/Pleura There is no pericardial effusion. Interpretation Summary The study was technically difficult with many images being suboptimal in quality. The left ventricle is grossly normal size. There is severe tricuspid regurgitation. There is a mechanical mitral valve. The prosthetic mitral valve is well-seated. The right ventricle is moderate to severely dilated. The right ventricular systolic function is mild to moderately reduced. The right atrium is severely dilated. The left atrium is moderately dilated. The aortic valve is not well visualized. There is mild to moderate aortic sclerosis.; There is mild to moderate aortic valve thickening. Mild pulmonic valvular regurgitation. The left ventricular ejection fraction is normal. Septal motion is consistent with post-operative state. Regional wall motion abnormalities cannot be excluded due to limited visualization. The right ventricle is not well visualized. Mild aortic regurgitation. There is mild mitral regurgitation. MD Justin Ruiz 08/30/2018 12:23 PM
[2018-08-30] MEDS ORDERED: POTASSIUM CHLORIDE TABS 20 MEQ TABLET.ER (FP) PO ONE (13:30)
--- NOTE | 2018-08-30 13:35 | CONS ---
DATE OF CONSULTATION: 08/30/2018 REFERRING PHYSICIAN: Andrew Ridley MD HISTORY OF PRESENT ILLNESS: The patient is an 87-year-old white female with a past medical history of congestive heart failure, pulmonary hypertension, mechanical mitral valve replacement, atrial fibrillation, hyperlipidemia, history of colon CA status post right hemicolectomy, history of right hip fracture status post repair approximately 4 months ago status post mechanical fall. She was admitted to [facility] on August 29 with a complaint of left-sided pleuritic chest pain. Patient states she was at home, started noticing complaints of left-sided chest pain that was sharp in character. She denies any nausea, vomiting, or diaphoresis. She denies any hemoptysis. She denies any significant shortness of breath. The pain was worse with inspiration. Pain has been constant and exacerbated with inhalation. Patient presented to the emergency room. In the ER, she underwent a CTA of the chest, which revealed loculated right pleural effusion, no evidence of pulmonary embolism. She was admitted to the telemetry unit for further management. Of note, in the ER, she was also felt to be in congestive heart failure. She was started on IV Lasix. Patient is a nonsmoker. She denies any history of occupational exposure to chemical fumes. She denies orthopnea or PND. She denies any fevers, weight loss, or night sweats. She denies any hemoptysis. PAST MEDICAL HISTORY: Again includes mitral valve replacement, pulmonary hypertension, hypertension, hyperlipidemia, congestive heart failure, tricuspid regurgitation, atrial fibrillation, colon CA status post right hemicolectomy, status post right total hip repair. REVIEW OF SYSTEMS: No orthopnea. No PND. Positive for chest pain. No cough. No fever. No weight loss. No night sweats. No abdominal pain. Positive lower extremity edema. SOCIAL HISTORY: History of smoking many, many years ago, a few cigarettes a day. Nonsmoker now. No EtOH. No occupational exposures. CURRENT MEDICATIONS: Include Neurontin, Zyloprim, Tenormin, Lipitor, Lasix, Aldactone, Imdur, Synthroid, and vitamin D3. PHYSICAL EXAMINATION: General: The patient is an elderly white female, well-developed, well-nourished , awake, alert, in no acute distress. Vital signs: She is afebrile, blood pressure is 117/66, respiratory rate 20, O2 saturation is 99% on room air. HEENT: Head is normocephalic atraumatic. Neck: Supple. Heart: Irregularly irregular with S1, S2. Chest: Diminished breath sounds to the right base. Abdomen: Soft. Bowel sounds positive. Extremities: Bilateral lower extremity edema 4+. LABORATORIES: WBC is 6.7, hemoglobin 9.2, hematocrit 28.5, platelet count of 17.2. INR is 4.60, currently it is 3.6. BUN 23, creatinine 0.9. BNP is 1683. Reviewed echocardiogram in July 14, 2018, revealed normal LV systolic function, right ventricle not well visualized, left atrium moderately dilated, right atrium moderately dilated, mechanical mitral valve, RV systolic pressure 30-40 mm, moderate to severe aortic valve thickening, and moderate tricuspid regurgitation. Vascular study with no evidence of deep vein thrombosis. IMPRESSION: 1. Chest pain, etiology to be determined. Cannot exclude possible musculoskeletal with no evidence PE on CTA chest. 2. Right pleural effusion, partially loculated, possibly secondary to r congestive heart failure. Cannot rule out malignant, although chest x-ray has not significantly changed from previous. 3. Acute on chronic congestive heart failure. 4. Pulmonary hypertension. 5. Status post mitral valve replacement. 6. History of colon cancer. 7. Anemia. 8. Atrial fibrillation, rate control as per Cardiology. 9. Supra-therapeutic INR PLAN: Continue IV Lasix, supplemental O2, anticoagulation, Maintain INR between 2.5 and 3, analgesics, cardiology evaluation, follow up chest x-rays, daily weights. Jenni [id number] MTDD
--- NOTE | 2018-08-30 17:44 | PN ---
Progress Note, Physician Chief Complaint: Chest pain History of Present Illness: NAD CT chest:1. No evidence of pulmonary embolism. 2. Large, partially loculated right pleural effusion. 3. Cardiomegaly. Please see above discussion. Seen by Pulmonary and cardiology Echo done and reviewed - Current Medication List Current Medications: Active Medications Allopurinol (Zyloprim -) 100 mg PO BID [facility] Last Admin: 08/30/18 10:54 Dose: 100 mg Atenolol (Tenormin -) 50 mg PO BID [facility] Last Admin: 08/30/18 10:54 Dose: 50 mg Atorvastatin Calcium (Lipitor -) 10 mg PO [facility] Cholecalciferol (Vitamin D3 -) 2,000 unit PO DAILY [facility] Last Admin: 08/30/18 10:54 Dose: 2,000 unit Furosemide (Lasix Injection -) 40 mg IVPUSH BID@0600,1400 [facility] Gabapentin (Neurontin -) 100 mg PO BID [facility] Last Admin: 08/30/18 10:54 Dose: 100 mg Influenza Virus Vaccine Quadrival (Flulaval Quad [id number]) 60 mcg IM .ONCE ONE Stop: 08/30/18 18:01 Isosorbide Mononitrate (Imdur -) 30 mg PO DAILY [facility] Last Admin: 08/30/18 10:54 Dose: 30 mg Levothyroxine Sodium (Synthroid -) 112 mcg PO DAILY@0700 [facility] Last Admin: 08/30/18 06:19 Dose: 112 mcg Spironolactone (Aldactone -) 25 mg PO BID [facility] - Objective Vital Signs: Vital Signs Temperature 97.9 F 08/30/18 14:00 Pulse Rate 82 08/30/18 14:00 Respiratory Rate 20 08/30/18 10:50 Blood Pressure 107/58 L 08/30/18 14:00 O2 Sat by Pulse Oximetry (%) 99 08/30/18 10:50 Constitutional: Yes: Well Nourished, No Distress, Calm Cardiovascular: Yes: Pulse Irregular, Murmur (Grade II/ systolic murmer) Respiratory: Yes: Regular, On Nasal O2, Rales (RLL) Musculoskeletal: Yes: Muscle Weakness Edema: Yes Edema: LLE: 1+, RLE: 1+ Peripheral Pulses WNL: Yes Neurological: Yes: Alert, Oriented Psychiatric: Yes: Alert, Oriented Labs: CBC, BMP 08/30/18 06:00 08/30/18 15:15 INR, PTT INR 3.61 (0.83-1.09) H 08/30/18 06:00 Problem List - Problems (1) Atrial fibrillation Assessment/Plan: -chronic -Tele monitoring -Rate controlled -Seen by Cardiology -On warfarin at home, hold for elevated INR -INR therapeutic goal 2.5-3.5 -monitor daily INR Code(s): I48.91 - UNSPECIFIED ATRIAL FIBRILLATION Qualifiers: Atrial fibrillation type: persistent Qualified Code(s): I48.1 - Persistent atrial fibrillation (2) Congestive heart failure Assessment/Plan: -IV furosemide 40 mg BID -seen by cardiology -low sodium diet -daily weights Code(s): I50.9 - HEART FAILURE, UNSPECIFIED Qualifiers: Heart failure type: unspecified Heart failure chronicity: unspecified Qualified Code(s): I50.9 - Heart failure, unspecified (3) History of mitral valve prosthesis Assessment/Plan: -Warfarin -INR goal 2.5-3.5 -monitor daily INR (4) Hypokalemia Assessment/Plan: resolved -monitor trend Code(s): E87.6 - HYPOKALEMIA (5) Hypomagnesemia Assessment/Plan: -resolved Code(s): E83.42 - HYPOMAGNESEMIA (6) Supratherapeutic international normalized ratio (INR) Assessment/Plan: -INR elevated -Hold warfarin for now -INR goal 2.5-3.5 Code(s): R79.1 - ABNORMAL COAGULATION PROFILE (7) Anemia Assessment/Plan: -chronic -check Iron profile, thyroid profile, B12 and stool OB -monitor trend -Transfuse for only if hg <7.0 to avoid fluid overload Code(s): D64.9 - ANEMIA, UNSPECIFIED Qualifiers: Anemia type: iron deficiency (8) Diabetes Assessment/Plan: -last A1c at 6.8 -recheck A1c -BGM ACHS -Diabetic low sodium diet -RD consult -Novolog sliding scale Code(s): E11.9 - TYPE 2 DIABETES MELLITUS WITHOUT COMPLICATIONS Assessment/Plan see problem list Physical therapy
[2018-08-30] MEDS ORDERED: ALBUTEROL SO4 2.5/IPRATROPIUM 0.5 INH SOL 3 ML VIAL.NEB. NEB PRN (17:56)
[2018-08-30] MEDS ORDERED: FLU VACCINE QUAD 60 MCG/0.5 ML (MDV 18-19) IM ONE (18:00)
[2018-08-30 18:39] LABS: ANION GAP 9 MMOL/L (8-16); BLOOD UREA NITROGEN 25 mg/dL (7-18); CALCIUM 8.3 mg/dL (8.5-10.1); CHLORIDE 96 mmol/L (98-107); CO2 31 mmol/L (21-32); GLUCOSE,RANDOM 174 mg/dL (74-106); MAGNESIUM 1.9 mg/dL (1.8-2.4); POTASSIUM 3.8 mmol/L (3.5-5.1); SODIUM 136 mmol/L (136-145)
[2018-08-30] MEDS: SPIRONOLACTONE 25 MG TABLET (FP) PO SCH (21:22)
[2018-08-30] MEDS: ATORVASTATIN CA 10 MG TABLET (FP) PO SCH (21:22)
[2018-08-31 06:08] LABS: SERUM IRON SATURATION 8 % (15-55); TOTAL IRON BINDING CAPACITY 343 ug/dL (250-450); UIBC 316 ug/dL (118-369)
[2018-08-31] MEDS: INSULIN SLIDING SCALE (NOVOLOG) 1 VIAL SQ SCH ×3 (06:28→17:31)
[2018-08-31] MEDS: FUROSEMIDE 40 MG/4 ML INJECTABLE VIAL IVPUSH SCH ×2 (06:29→13:21)
[2018-08-31] MEDS: LEVOTHYROXINE NA 112 MCG TABLET (FP) PO SCH (06:29)
[2018-08-31 06:36] LABS: BASO % 0.2 % (0-2.0); EOS % 0.9 % (0-4.5); HEMATOCRIT 27.9 % (32.4-45.2); HEMOGLOBIN 8.9 GM/dL (10.7-15.3); LYMPH % 10.3 % (8-40); MCH 25.3 pg (25.7-33.7); MCHC 31.8 g/dl (32.0-36.0); MEAN CELL VOLUME 79.7 fl (80-96); MONO % 10.3 % (3.8-10.2); NEUT % 78.3 % (42.8-82.8); PLATELET COUNT 167 K/MM3 (134-434); RDW 16.8 % (11.6-15.6); WHITE BLOOD COUNT 6.9 K/mm3 (4.0-10.0)
[2018-08-31 07:23] LABS: INR 3.15 (0.83-1.09); PROTHROMBIN TIME (PATIENT) 37.6 SEC (9.7-13.0)
[2018-08-31 07:28] LABS: ANION GAP 8 MMOL/L (8-16); BLOOD UREA NITROGEN 28 mg/dL (7-18); CALCIUM 8.7 mg/dL (8.5-10.1); CHLORIDE 99 mmol/L (98-107); CO2 30 mmol/L (21-32); GLUCOSE,RANDOM 107 mg/dL (74-106); POTASSIUM 3.8 mmol/L (3.5-5.1); SODIUM 137 mmol/L (136-145)
--- NOTE | 2018-08-31 07:35 | PN ---
Progress Note, Physician History of Present Illness: feels better still with edema - Current Medication List Current Medications: Active Medications Albuterol/Ipratropium (Duoneb -) 1 amp NEB Q4H PRN PRN Reason: SHORTNESS OF BREATH Allopurinol (Zyloprim -) 100 mg PO BID [facility] Last Admin: 08/30/18 21:23 Dose: 100 mg Atenolol (Tenormin -) 50 mg PO BID [facility] Last Admin: 08/30/18 21:23 Dose: 50 mg Atorvastatin Calcium (Lipitor -) 10 mg PO HS [facility] Last Admin: 08/30/18 21:22 Dose: 10 mg Cholecalciferol (Vitamin D3 -) 2,000 unit PO DAILY [facility] Last Admin: 08/30/18 10:54 Dose: 2,000 unit Furosemide (Lasix Injection -) 40 mg IVPUSH BID@0600,1400 [facility] Last Admin: 08/31/18 06:29 Dose: 40 mg Gabapentin (Neurontin -) 100 mg PO BID [facility] Last Admin: 08/30/18 21:23 Dose: 100 mg Insulin Aspart (Novolog Vial Sliding Scale -) 1 vial SQ TIDAC [facility]; Protocol Last Admin: 08/31/18 06:28 Dose: Not Given Isosorbide Mononitrate (Imdur -) 30 mg PO DAILY [facility] Last Admin: 08/30/18 10:54 Dose: 30 mg Levothyroxine Sodium (Synthroid -) 112 mcg PO DAILY@0700 [facility] Last Admin: 08/31/18 06:29 Dose: 112 mcg Potassium Chloride (Potassium Chloride Oral Liquid) 20 meq PO DAILY [facility] Spironolactone (Aldactone -) 25 mg PO BID [facility] Last Admin: 08/30/18 21:22 Dose: 25 mg - Objective Vital Signs: Vital Signs Temperature 97.8 F 08/31/18 05:29 Pulse Rate 79 08/31/18 05:29 Respiratory Rate 20 08/31/18 06:00 Blood Pressure 133/64 08/31/18 05:29 O2 Sat by Pulse Oximetry (%) 97 08/31/18 06:00 Cardiovascular: Yes: S1, S2 Respiratory: Yes: On Nasal O2, Rales Gastrointestinal: Yes: Normal Bowel Sounds, Soft Edema: Yes Labs: CBC, BMP 08/31/18 05:30 08/31/18 05:30 INR, PTT INR 3.15 (0.83-1.09) H 08/31/18 05:30 Assessment/Plan - Problems (1) Atrial fibrillation Assessment/Plan: -chronic -Tele monitoring -Rate controlled -Seen by Cardiology -On warfarin at home, hold for elevated INR--Resume Laboratory Tests 08/31/18 05:30 INR 3.15 H -INR therapeutic goal 2.5-3.5 -monitor daily INR Code(s): I48.91 - UNSPECIFIED ATRIAL FIBRILLATION Qualifiers: Atrial fibrillation type: persistent Qualified Code(s): I48.1 - Persistent atrial fibrillation (2) Congestive heart failure Assessment/Plan: -IV furosemide 40 mg BID -seen by cardiology--aldacone to bid -low sodium diet -daily weights Code(s): I50.9 - HEART FAILURE, UNSPECIFIED Qualifiers: Heart failure type: unspecified Heart failure chronicity: unspecified Qualified Code(s): I50.9 - Heart failure, unspecified (3) History of mitral valve prosthesis Assessment/Plan: -Warfarin -INR goal 2.5-3.5 -monitor daily INR (4) Hypokalemia Assessment/Plan: resolved -monitor trend Code(s): E87.6 - HYPOKALEMIA (5) Hypomagnesemia Assessment/Plan: -resolved Code(s): E83.42 - HYPOMAGNESEMIA (6) Supratherapeutic international normalized ratio (INR) Assessment/Plan: -INR elevated -Resume warfarin -INR goal 2.5-3.5 Code(s): R79.1 - ABNORMAL COAGULATION PROFILE (7) Anemia Assessment/Plan: -chronic -check Iron profile, thyroid profile, B12 and stool OB -monitor trend -Transfuse for only if hg <7.0 to avoid fluid overload Code(s): D64.9 - ANEMIA, UNSPECIFIED Qualifiers: Anemia type: iron deficiency (8) Diabetes Assessment/Plan: -last A1c at 6.8 -recheck A1c -BGM ACHS -Diabetic low sodium diet -RD consult -Novolog sliding scale Code(s): E11.9 - TYPE 2 DIABETES MELLITUS WITHOUT COMPLICATIONS
[2018-08-31] MEDS: GABAPENTIN 100 MG CAPSULE (FP) PO SCH ×2 (09:23→21:52)
[2018-08-31] MEDS: ALLOPURINOL 100 MG TABLET (FP) PO SCH ×2 (09:24→21:52)
[2018-08-31] MEDS: ISOSORBIDE MONONITRATE 30 MG TAB.SR.24H (FP) PO SCH (09:24)
[2018-08-31] MEDS: ATENOLOL 50 MG TABLET (FP) PO SCH ×2 (09:24→21:52)
[2018-08-31] MEDS: POTASSIUM CHLORIDE ORAL LIQUID 20 MEQ/15 ML PO SCH (09:24)
[2018-08-31] MEDS: SPIRONOLACTONE 25 MG TABLET (FP) PO SCH ×2 (09:24→21:52)
[2018-08-31] MEDS: CHOLECALCIFEROL (VITAMIN D3) 1,000 UNIT TABLET (FP) PO SCH (09:25)
--- NOTE | 2018-08-31 10:25 | PN ---
Progress Note (short form) - Note Progress Note: 87 year old female with h/o of RHD, mitral stenosis, s/p mechanical mitral prosthesis, atrial fib, CHF, severe tricuspid regurgitation. No further SOB, since on IV lasix significant decrease of in peripheral edema and weight loss. CHF partly ppted by poor dietary compliance. Active Medications Albuterol/Ipratropium (Duoneb -) 1 amp NEB Q4H PRN PRN Reason: SHORTNESS OF BREATH Allopurinol (Zyloprim -) 100 mg PO BID [facility] Last Admin: 08/31/18 21:52 Dose: 100 mg Atenolol (Tenormin -) 50 mg PO BID [facility] Last Admin: 08/31/18 21:52 Dose: 50 mg Atorvastatin Calcium (Lipitor -) 10 mg PO HS [facility] Last Admin: 08/31/18 21:52 Dose: 10 mg Cholecalciferol (Vitamin D3 -) 2,000 unit PO DAILY [facility] Last Admin: 08/31/18 09:25 Dose: 2,000 unit Furosemide (Lasix Injection -) 40 mg IVPUSH BID@0600,1400 [facility] Last Admin: 08/31/18 13:21 Dose: 40 mg Gabapentin (Neurontin -) 100 mg PO BID [facility] Last Admin: 08/31/18 21:52 Dose: 100 mg Insulin Aspart (Novolog Vial Sliding Scale -) 1 vial SQ TIDAC [facility]; Protocol Last Admin: 08/31/18 17:31 Dose: Not Given Isosorbide Mononitrate (Imdur -) 30 mg PO DAILY [facility] Last Admin: 08/31/18 09:24 Dose: 30 mg Levothyroxine Sodium (Synthroid -) 112 mcg PO DAILY@0700 [facility] Last Admin: 08/31/18 06:29 Dose: 112 mcg Potassium Chloride (Potassium Chloride Oral Liquid) 20 meq PO DAILY [facility] Last Admin: 08/31/18 09:24 Dose: 20 meq Spironolactone (Aldactone -) 25 mg PO BID [facility] Last Admin: 08/31/18 21:52 Dose: 25 mg Warfarin Sodium (Coumadin -) 2 mg PO 1800 [facility] Last Admin: 08/31/18 17:31 Dose: 2 mg 87 year old female, in no acute distress, no pallor, cyanosis,clubing or jaundice. Last Vital Signs Temp Pulse Resp BP Pulse Ox 99 F 79 irregular 18 140/65 97 08/31/18 17:00 08/31/18 17:00 08/31/18 17:00 08/31/18 17:00 08/31/18 14:00 NECK: Supple, elevated JVD, pulsatile neck veins, +ve HJR, carotids 2+. HEART: PMI in the 5th ICS, left parasternal heave, crisp prosthetic sounds, grade II/ decrescendo systolic murmur along the LSB and apex. no diastolic murmur or gallops heard LUNGS: Decreased breath sounds at the rt. base. ABDOMEN:Soft nontender, hepatomegaly 4FB below the rt.costal margin, pulsatile liver, no splenomegaly. EXTREMITIES: 1+ pretibial edema, no calf tenderness. Labs: CBC, BMP 08/31/18 05:30 08/31/18 05:30 IMPRESSION: 1. CHF NYHA class II. 2. RHD, s/p mechanical mitral valve replacement. 3. Severe tricuspid regurgitation. 4. Pulmonary hypertension. 5. Permanent atrial fibrillation. 6. Anemia, etiology to be determined . RECOMMENDATIONS: 1. Current therapy. 2. Close f/u of electrolytes. 3. Increase ambulation. 4. Daily weights. 5. Evaluation of anemia. Problem List - Problems (2) Atrial fibrillation Code(s): I48.91 - UNSPECIFIED ATRIAL FIBRILLATION Qualifiers: Atrial fibrillation type: persistent Qualified Code(s): I48.1 - Persistent atrial fibrillation (3) Hyperlipidemia Code(s): E78.5 - HYPERLIPIDEMIA, UNSPECIFIED Qualifiers: Hyperlipidemia type: Pure hypercholesterolemia (4) Tricuspid regurgitation Code(s): I07.1 - RHEUMATIC TRICUSPID INSUFFICIENCY
--- NOTE | 2018-08-31 11:12 | EKG ---
Test Reason : Blood Pressure : / mmHG Vent. Rate : 104 BPM Atrial Rate : 107 BPM P-R Int : 000 ms QRS Dur : 090 ms QT Int : 316 ms P-R-T Axes : 000 250 019 degrees QTc Int : 415 ms POOR DATA QUALITY, INTERPRETATION MAY BE ADVERSELY AFFECTED ATRIAL FIBRILLATION WITH RAPID VENTRICULAR RESPONSE RIGHT SUPERIOR AXIS DEVIATION RSR' OR QR PATTERN IN V1 SUGGESTS RIGHT VENTRICULAR CONDUCTION DELAY NONSPECIFIC ST ABNORMALITY ABNORMAL ECG WHEN COMPARED WITH ECG OF 12-JUL-2018 22:01, QUESTIONABLE CHANGE IN QRS AXIS NONSPECIFIC T WAVE ABNORMALITY NOW EVIDENT IN INFERIOR LEADS Confirmed by TAMAR GONZÁLES MD ([id number]) on 08/31/2018 11:11:45 AM Referred By: Confirmed By:TAMAR GONZÁLES MD
[2018-08-31 12:03] VITALS: BMI 28.9
--- NOTE | 2018-08-31 17:07 | PN ---
Progress Note (short form) - Note Progress Note: PULMONARY States breathing is improving. No chest pain. Still with leg swelling but also improving. Vital Signs Period Temp Pulse Resp BP Sys/[place] Pulse Ox Last 24 Hr 97.8 F-98.5 F 79-100 20-20 108-136/56-65 97-99 Intake & Output 08/28/18 08/29/18 08/30/18 08/31/18 23:59 23:59 23:59 23:59 Intake Total 240 590 Balance 240 590 Weight 54.431 kg 61.235 kg 58.513 kg Gen: NAD at rest Heart: RRR Lung: decreased breath sounds at the bases Abd: soft, nontender Ext: + edema CBC, BMP 08/31/18 05:30 08/31/18 05:30 Active Medications Albuterol/Ipratropium (Duoneb -) 1 amp NEB Q4H PRN PRN Reason: SHORTNESS OF BREATH Allopurinol (Zyloprim -) 100 mg PO BID [facility] Last Admin: 08/31/18 09:24 Dose: 100 mg Atenolol (Tenormin -) 50 mg PO BID [facility] Last Admin: 08/31/18 09:24 Dose: 50 mg Atorvastatin Calcium (Lipitor -) 10 mg PO HS [facility] Last Admin: 08/30/18 21:22 Dose: 10 mg Cholecalciferol (Vitamin D3 -) 2,000 unit PO DAILY [facility] Last Admin: 08/31/18 09:25 Dose: 2,000 unit Furosemide (Lasix Injection -) 40 mg IVPUSH BID@0600,1400 [facility] Last Admin: 08/31/18 13:21 Dose: 40 mg Gabapentin (Neurontin -) 100 mg PO BID [facility] Last Admin: 08/31/18 09:23 Dose: 100 mg Insulin Aspart (Novolog Vial Sliding Scale -) 1 vial SQ TIDAC [facility]; Protocol Last Admin: 08/31/18 12:04 Dose: Not Given Isosorbide Mononitrate (Imdur -) 30 mg PO DAILY [facility] Last Admin: 08/31/18 09:24 Dose: 30 mg Levothyroxine Sodium (Synthroid -) 112 mcg PO DAILY@0700 [facility] Last Admin: 08/31/18 06:29 Dose: 112 mcg Potassium Chloride (Potassium Chloride Oral Liquid) 20 meq PO DAILY [facility] Last Admin: 08/31/18 09:24 Dose: 20 meq Spironolactone (Aldactone -) 25 mg PO BID [facility] Last Admin: 08/31/18 09:24 Dose: 25 mg Warfarin Sodium (Coumadin -) 2 mg PO 1800 [facility] A/P Acute on Chronic Diastolic Heart Failure Pulmonary HTN Atrial Fibrillation s/p mechanical MVR Pleural Effusion HTN Hypothyroidism h/o Colon Ca - continue lasix, aldactone - monitor urine output, creatinine - daily weights - O2 to keep Spo2 >90% - rate control - anticoagulation to target INR 2.5-3.5
[2018-08-31] MEDS ORDERED: WARFARIN NA 2 MG TABLET (UD) PO SCH (18:00)
[2018-08-31] MEDS: ATORVASTATIN CA 10 MG TABLET (FP) PO SCH (21:52)
[2018-09-01] MEDS: FUROSEMIDE 40 MG/4 ML INJECTABLE VIAL IVPUSH SCH ×2 (06:27→14:59)
[2018-09-01] MEDS: INSULIN SLIDING SCALE (NOVOLOG) 1 VIAL SQ SCH (06:28)
[2018-09-01] MEDS: LEVOTHYROXINE NA 112 MCG TABLET (FP) PO SCH (06:28)
[2018-09-01 07:46] LABS: BASO % 0.3 % (0-2.0); EOS % 1.8 % (0-4.5); HEMOGLOBIN 9.5 GM/dL (10.7-15.3); LYMPH % 11.5 % (8-40); MCH 25.2 pg (25.7-33.7); MCHC 31.6 g/dl (32.0-36.0); MEAN CELL VOLUME 79.7 fl (80-96); MEAN PLT VOLUME 9.3 fl (7.5-11.1); MONO % 10.1 % (3.8-10.2); NEUT % 76.3 % (42.8-82.8); PLATELET COUNT 178 K/MM3 (134-434); RBC 3.77 M/mm3 (3.60-5.2); RDW 16.8 % (11.6-15.6); WHITE BLOOD COUNT 6.4 K/mm3 (4.0-10.0)
[2018-09-01 08:11] LABS: ALBUMIN 3.4 g/dl (3.4-5.0); ALK PHOS 147 U/L (45-117); ANION GAP 11 MMOL/L (8-16); BLOOD UREA NITROGEN 34 mg/dL (7-18); CALCIUM 8.9 mg/dL (8.5-10.1); CHLORIDE 96 mmol/L (98-107); CO2 28 mmol/L (21-32); CREATININE 1.1 mg/dL (0.55-1.3); GLUCOSE,RANDOM 98 mg/dL (74-106); MAGNESIUM 1.9 mg/dL (1.8-2.4); POTASSIUM 4.7 mmol/L (3.5-5.1); SGOT/AST 22 U/L (15-37); SGPT/ALT 14 U/L (13-61); SODIUM 136 mmol/L (136-145); TOT PROT 7.5 g/dl (6.4-8.2)
[2018-09-01 08:32] LABS: INR 2.33 (0.83-1.09); PROTHROMBIN TIME (PATIENT) 27.7 SEC (9.7-13.0)
[2018-09-01] MEDS: ISOSORBIDE MONONITRATE 30 MG TAB.SR.24H (FP) PO SCH (09:33)
[2018-09-01] MEDS: GABAPENTIN 100 MG CAPSULE (FP) PO SCH ×2 (09:33→21:32)
[2018-09-01] MEDS: CHOLECALCIFEROL (VITAMIN D3) 1,000 UNIT TABLET (FP) PO SCH (09:33)
[2018-09-01] MEDS: SPIRONOLACTONE 25 MG TABLET (FP) PO SCH ×2 (09:33→21:32)
[2018-09-01] MEDS: ATENOLOL 50 MG TABLET (FP) PO SCH ×2 (09:33→21:32)
[2018-09-01] MEDS: ALLOPURINOL 100 MG TABLET (FP) PO SCH ×2 (09:34→21:32)
[2018-09-01] MEDS: POTASSIUM CHLORIDE ORAL LIQUID 20 MEQ/15 ML PO SCH (09:34)
--- NOTE | 2018-09-01 10:27 | PN ---
Progress Note, Physician Chief Complaint: Chest pain History of Present Illness: NAD CT chest:1. No evidence of pulmonary embolism. 2. Large, partially loculated right pleural effusion. 3. Cardiomegaly. Please see above discussion. Seen by Pulmonary and cardiology Echo done and reviewed BLLE improved On IV furosemide 40 mg po BID Did well with PT - Current Medication List Current Medications: Active Medications Albuterol/Ipratropium (Duoneb -) 1 amp NEB Q4H PRN PRN Reason: SHORTNESS OF BREATH Allopurinol (Zyloprim -) 100 mg PO BID COUNTS INCLUDE 234 BEDS AT THE [facility] Last Admin: 09/01/18 09:34 Dose: 100 mg Atenolol (Tenormin -) 50 mg PO BID COUNTS INCLUDE 234 BEDS AT THE [facility] Last Admin: 09/01/18 09:33 Dose: 50 mg Atorvastatin Calcium (Lipitor -) 10 mg PO HS COUNTS INCLUDE 234 BEDS AT THE [facility] Last Admin: 08/31/18 21:52 Dose: 10 mg Cholecalciferol (Vitamin D3 -) 2,000 unit PO DAILY COUNTS INCLUDE 234 BEDS AT THE [facility] Last Admin: 09/01/18 09:33 Dose: 2,000 unit Furosemide (Lasix Injection -) 40 mg IVPUSH BID@0600,1400 COUNTS INCLUDE 234 BEDS AT THE [facility] Last Admin: 09/01/18 06:27 Dose: 40 mg Gabapentin (Neurontin -) 100 mg PO BID COUNTS INCLUDE 234 BEDS AT THE [facility] Last Admin: 09/01/18 09:33 Dose: 100 mg Isosorbide Mononitrate (Imdur -) 30 mg PO DAILY COUNTS INCLUDE 234 BEDS AT THE [facility] Last Admin: 09/01/18 09:33 Dose: 30 mg Levothyroxine Sodium (Synthroid -) 112 mcg PO DAILY@0700 COUNTS INCLUDE 234 BEDS AT THE [facility] Last Admin: 09/01/18 06:28 Dose: 112 mcg Potassium Chloride (Potassium Chloride Oral Liquid) 20 meq PO DAILY COUNTS INCLUDE 234 BEDS AT THE [facility] Last Admin: 09/01/18 09:34 Dose: 20 meq Spironolactone (Aldactone -) 25 mg PO BID COUNTS INCLUDE 234 BEDS AT THE [facility] Last Admin: 09/01/18 09:33 Dose: 25 mg Warfarin Sodium (Coumadin -) 2 mg PO 1800 COUNTS INCLUDE 234 BEDS AT THE [facility] Last Admin: 08/31/18 17:31 Dose: 2 mg Warfarin Sodium (Coumadin -) 2 mg PO SuMoWeFrSa@1800 COUNTS INCLUDE 234 BEDS AT THE [facility] Warfarin Sodium (Coumadin -) 4 mg PO TUTH COUNTS INCLUDE 234 BEDS AT THE [facility] Warfarin Sodium (Coumadin -) 2 mg PO ONCE@1800 ONE Stop: 09/01/18 18:01 - Objective Vital Signs: Vital Signs Temperature 98.0 F 09/01/18 05:00 Pulse Rate 85 09/01/18 05:00 Respiratory Rate 20 09/01/18 06:00 Blood Pressure 137/72 09/01/18 05:00 O2 Sat by Pulse Oximetry (%) 99 09/01/18 06:00 Constitutional: Yes: Well Nourished, No Distress, Calm Cardiovascular: Yes: Regular Rate and Rhythm Respiratory: Yes: Regular Musculoskeletal: Yes: WNL Extremities: Yes: WNL Edema: No Peripheral Pulses WNL: Yes Neurological: Yes: Alert, Oriented Psychiatric: Yes: Alert, Oriented Labs: CBC, BMP 09/01/18 06:15 09/01/18 06:15 INR, PTT INR 2.33 (0.83-1.09) H 09/01/18 06:15 Problem List - Problems (1) Atrial fibrillation Assessment/Plan: -chronic -Tele monitoring -Rate controlled -Seen by Cardiology -Warfarin resumed -received 2 mg yesterday, to give 4 mg in total today -INR therapeutic goal 2.5-3.5 -monitor daily INR Code(s): I48.91 - UNSPECIFIED ATRIAL FIBRILLATION Qualifiers: Atrial fibrillation type: persistent Qualified Code(s): I48.1 - Persistent atrial fibrillation (2) Congestive heart failure Assessment/Plan: -IV furosemide 40 mg BID- change to PO -seen by cardiology -low sodium diet -daily weights Code(s): I50.9 - HEART FAILURE, UNSPECIFIED Qualifiers: Heart failure type: unspecified Heart failure chronicity: unspecified Qualified Code(s): I50.9 - Heart failure, unspecified (3) History of mitral valve prosthesis Assessment/Plan: -Warfarin -INR goal 2.5-3.5 -monitor daily INR (4) Hypokalemia Assessment/Plan: resolved -monitor trend -On KCl 20 meq po daily Code(s): E87.6 - HYPOKALEMIA (5) Hypomagnesemia Assessment/Plan: -resolved Code(s): E83.42 - HYPOMAGNESEMIA (6) Supratherapeutic international normalized ratio (INR) Assessment/Plan: -INR subtherapeutic -received 2 mg yesterday, would give 4 mg today -Warfarin resumed -INR goal 2.5-3.5 Code(s): R79.1 - ABNORMAL COAGULATION PROFILE (7) Anemia Assessment/Plan: -chronic -Iron profile-low3 on iron -Venofer 300 mg 2 doses during her stay -thyroid profile elevated TSH, increase levothyroxine to 125 mcg po daily, repeat thyroid profile in 4 weeks -B12 unremarkable -stool OB pending -monitor trend -Transfuse for only if hg <7.0 to avoid fluid overload -Also start ferrous sulfate 1 tab daily Code(s): D64.9 - ANEMIA, UNSPECIFIED Qualifiers: Anemia type: iron deficiency (8) Diabetes Assessment/Plan: -repeat A1C at 6.3 -D/C BGM ACHS -Diabetic low sodium diet -RD consult -start Januvia at 25 mg po daily Code(s): E11.9 - TYPE 2 DIABETES MELLITUS WITHOUT COMPLICATIONS (9) Hypothyroidism Assessment/Plan: -TSH elevated -Increase levothyroxine to 125 mcg po daily -recheck thyroid profile in 4 weeks Code(s): E03.9 - HYPOTHYROIDISM, UNSPECIFIED Qualifiers: Hypothyroidism type: unspecified Qualified Code(s): E03.9 - Hypothyroidism , unspecified Assessment/Plan see problem list Physical therapy-did well
--- NOTE | 2018-09-01 11:18 | PN ---
Progress Note, Physician History of Present Illness: pulmonary alert,feeling better,less dyspneic,cp improving - Current Medication List Current Medications: Active Medications Albuterol/Ipratropium (Duoneb -) 1 amp NEB Q4H PRN PRN Reason: SHORTNESS OF BREATH Allopurinol (Zyloprim -) 100 mg PO BID [facility] Last Admin: 09/01/18 09:34 Dose: 100 mg Atenolol (Tenormin -) 50 mg PO BID [facility] Last Admin: 09/01/18 09:33 Dose: 50 mg Atorvastatin Calcium (Lipitor -) 10 mg PO HS [facility] Last Admin: 08/31/18 21:52 Dose: 10 mg Cholecalciferol (Vitamin D3 -) 2,000 unit PO DAILY [facility] Last Admin: 09/01/18 09:33 Dose: 2,000 unit Furosemide (Lasix Injection -) 40 mg IVPUSH BID@0600,1400 [facility] Last Admin: 09/01/18 06:27 Dose: 40 mg Gabapentin (Neurontin -) 100 mg PO BID [facility] Last Admin: 09/01/18 09:33 Dose: 100 mg Iron Sucrose 300 mg/ Sodium (Chloride) 250 mls @ 250 mls/hr IVPB DAILY ONE Stop: 09/01/18 11:50 Isosorbide Mononitrate (Imdur -) 30 mg PO DAILY [facility] Last Admin: 09/01/18 09:33 Dose: 30 mg Levothyroxine Sodium (Synthroid -) 125 mcg PO DAILY@0700 [facility] Potassium Chloride (Potassium Chloride Oral Liquid) 20 meq PO DAILY [facility] Last Admin: 09/01/18 09:34 Dose: 20 meq Sitagliptin Phosphate (Januvia -) 25 mg PO DAILY@0700 [facility] Spironolactone (Aldactone -) 25 mg PO BID [facility] Last Admin: 09/01/18 09:33 Dose: 25 mg Warfarin Sodium (Coumadin -) 2 mg PO SuMoWeFrSa@1800 [facility] Warfarin Sodium (Coumadin -) 4 mg PO TuTh@1800 [facility] Warfarin Sodium (Coumadin -) 2 mg PO ONCE@1800 ONE Stop: 09/01/18 18:01 - Objective Vital Signs: Vital Signs Temperature 98.0 F 09/01/18 05:00 Pulse Rate 85 09/01/18 05:00 Respiratory Rate 20 09/01/18 06:00 Blood Pressure 137/72 09/01/18 05:00 O2 Sat by Pulse Oximetry (%) 99 09/01/18 06:00 Constitutional: Yes: Well Nourished, Calm Eyes: Yes: WNL HENT: Yes: WNL Neck: Yes: WNL Cardiovascular: Yes: Pulse Irregular, S1, S2 Respiratory: Yes: Rales (few bibasilar rales) Gastrointestinal: Yes: Normal Bowel Sounds, Soft Extremities: Yes: WNL Edema: Yes Labs: CBC, BMP 09/01/18 06:15 09/01/18 06:15 INR, PTT INR 2.33 (0.83-1.09) H 09/01/18 06:15 Problem List - Problems (1) Acute exacerbation of CHF (congestive heart failure) Code(s): I50.9 - HEART FAILURE, UNSPECIFIED Qualifiers: Heart failure type: unspecified Qualified Code(s): I50.9 - Heart failure, unspecified (2) Chest pain Code(s): R07.9 - CHEST PAIN, UNSPECIFIED Qualifiers: Chest pain type: unspecified Qualified Code(s): R07.9 - Chest pain, unspecified (3) Diabetes Code(s): E11.9 - TYPE 2 DIABETES MELLITUS WITHOUT COMPLICATIONS (4) Elevated INR Code(s): R79.1 - ABNORMAL COAGULATION PROFILE (6) Anemia Code(s): D64.9 - ANEMIA, UNSPECIFIED Qualifiers: Anemia type: iron deficiency (7) Atrial fibrillation Code(s): I48.91 - UNSPECIFIED ATRIAL FIBRILLATION Qualifiers: Atrial fibrillation type: persistent Qualified Code(s): I48.1 - Persistent atrial fibrillation (8) Colon cancer Code(s): C18.9 - MALIGNANT NEOPLASM OF COLON, UNSPECIFIED Qualifiers: Colon location: sigmoid Qualified Code(s): C18.7 - Malignant neoplasm of sigmoid colon (9) Congestive heart failure Code(s): I50.9 - HEART FAILURE, UNSPECIFIED Qualifiers: Heart failure type: unspecified Heart failure chronicity: unspecified Qualified Code(s): I50.9 - Heart failure, unspecified (10) Edema Code(s): R60.9 - EDEMA, UNSPECIFIED (11) H/O carotid endarterectomy Code(s): Z98.89 - OTHER SPECIFIED POSTPROCEDURAL STATES * DO NOT USE * (12) History of mitral valve replacement with mechanical valve Code(s): Z95.2 - PRESENCE OF PROSTHETIC HEART VALVE (13) Hypertension Code(s): I10 - ESSENTIAL (PRIMARY) HYPERTENSION Qualifiers: Hypertension type: essential hypertension Qualified Code(s): I10 - Essential (primary) hypertension (14) Lower extremity edema Code(s): R60.0 - LOCALIZED EDEMA (15) Rheumatic heart disease Code(s): I09.9 - RHEUMATIC HEART DISEASE, UNSPECIFIED (16) Supratherapeutic INR Code(s): R79.1 - ABNORMAL COAGULATION PROFILE (17) Weakness Code(s): R53.1 - WEAKNESS Assessment/Plan IMP CHEST PAIN SYNDROME IMPROVING ACUTE ON CHRONIC CHF CLINICALLY IMPROVING AFIB PULMONARY HTN R PLEURAL EFFUSION S/P MVR VALVULAR HD H/O RHEUMATIC HD HTN ANEMIA H/O COLON CA SUPRA-THERAPEUTIC INR HYPOTHYROID PLAN O2 LASIX ANALGESICS DAILY WT STOOL GUAIAC F/U CHEST X-RAYS DEFER THORACENTESIS AT THIS TIME, PT ON AC SECONDARY TO MVR/AFIB DR PAUL
--- NOTE | 2018-09-01 11:27 | PN ---
Progress Note (short form) - Note Progress Note: 87 year old female with h/o of RHD, mitral stenosis, s/p mechanical mitral prosthesis, atrial fib, CHF, severe tricuspid regurgitation. No further SOB, since on IV lasix significant decrease of in peripheral edema and weight loss. CHF is resolving with 1-2+ pitting edema involving the left lower extremity. Active Medications Albuterol/Ipratropium (Duoneb -) 1 amp NEB Q4H PRN PRN Reason: SHORTNESS OF BREATH Allopurinol (Zyloprim -) 100 mg PO BID [facility] Last Admin: 09/01/18 09:34 Dose: 100 mg Atenolol (Tenormin -) 50 mg PO BID [facility] Last Admin: 09/01/18 09:33 Dose: 50 mg Atorvastatin Calcium (Lipitor -) 10 mg PO HS [facility] Last Admin: 08/31/18 21:52 Dose: 10 mg Cholecalciferol (Vitamin D3 -) 2,000 unit PO DAILY [facility] Last Admin: 09/01/18 09:33 Dose: 2,000 unit Furosemide (Lasix Injection -) 40 mg IVPUSH BID@0600,1400 [facility] Last Admin: 09/01/18 06:27 Dose: 40 mg Gabapentin (Neurontin -) 100 mg PO BID [facility] Last Admin: 09/01/18 09:33 Dose: 100 mg Iron Sucrose 300 mg/ Sodium (Chloride) 250 mls @ 250 mls/hr IVPB DAILY MARIA LUISA Stop: 09/02/18 10:59 Isosorbide Mononitrate (Imdur -) 30 mg PO DAILY [facility] Last Admin: 09/01/18 09:33 Dose: 30 mg Levothyroxine Sodium (Synthroid -) 125 mcg PO DAILY@0700 [facility] Potassium Chloride (Potassium Chloride Oral Liquid) 20 meq PO DAILY [facility] Last Admin: 09/01/18 09:34 Dose: 20 meq Sitagliptin Phosphate (Januvia -) 25 mg PO DAILY@0700 [facility] Spironolactone (Aldactone -) 25 mg PO BID [facility] Last Admin: 09/01/18 09:33 Dose: 25 mg Warfarin Sodium (Coumadin -) 2 mg PO SuMoWeFrSa@1800 [facility] Warfarin Sodium (Coumadin -) 4 mg PO TuTh@1800 [facility] Warfarin Sodium (Coumadin -) 2 mg PO ONCE@1800 ONE Stop: 09/01/18 18:01 87 year old female, in no acute distress, no pallor, cyanosis, clubbing or jaundice. Last Vital Signs Temp Pulse Resp BP Pulse Ox 98.0 F 85 20 137/72 99 09/01/18 05:00 09/01/18 05:00 09/01/18 06:00 09/01/18 05:00 09/01/18 06:00 NECK: Supple, elevated JVD, pulsatile neck veins, +ve HJR, carotids 2+. HEART: PMI in the 5th ICS, left parasternal heave, crisp prosthetic sounds, grade II/ decrescendo systolic murmur along the LSB and apex. No diastolic murmur or gallops heard LUNGS: Decreased breath sounds at the rt. base. ABDOMEN:Soft nontender, hepatomegaly 4FB below the rt.costal margin, pulsatile liver, no splenomegaly. EXTREMITIES: 1+ pretibial edema, no calf tenderness. Labs: CBC, BMP 09/01/18 06:15 09/01/18 06:15 IMPRESSION: 1. CHF NYHA class II. 2. RHD, s/p mechanical mitral valve replacement. 3. Severe tricuspid regurgitation. 4. Pulmonary hypertension. 5. Permanent atrial fibrillation. 6. Anemia, etiology to be determined . 7. Gifty Charcot-Tooth disease. RECOMMENDATIONS: 1. Current therapy and Lasix could be switched to PO. 2. Close f/u of electrolytes. 3. Increase ambulation. 4. Daily weights. 5. If clinically stable, could be discharged. 6. Consider VNS. 7. Close follow up of INR. Problem List - Problems (2) Atrial fibrillation Code(s): I48.91 - UNSPECIFIED ATRIAL FIBRILLATION Qualifiers: Atrial fibrillation type: persistent Qualified Code(s): I48.1 - Persistent atrial fibrillation (3) Hyperlipidemia Code(s): E78.5 - HYPERLIPIDEMIA, UNSPECIFIED Qualifiers: Hyperlipidemia type: Pure hypercholesterolemia (4) Tricuspid regurgitation Code(s): I07.1 - RHEUMATIC TRICUSPID INSUFFICIENCY
[2018-09-01] MEDS ORDERED: PT OWN MED DRAWER 7, Y5N ONE (12:34)
[2018-09-01] MEDS: sitaGLIPtin PHOSPHATE 25 MG TABLET (FP) PO SCH (12:52)
[2018-09-01] MEDS: IRON SUCROSE INJECTION 300 MG in SODIUM CHLORIDE 235 ML IVPB SCH ×2 (12:52→14:24)
--- NOTE | 2018-09-01 14:04 | DS ---
Physical Examination Vital Signs: Vital Signs Temperature 98.0 F 09/01/18 05:00 Pulse Rate 85 09/01/18 05:00 Respiratory Rate 20 09/01/18 06:00 Blood Pressure 137/72 09/01/18 05:00 O2 Sat by Pulse Oximetry (%) 99 09/01/18 06:00 Findings/Remarks: Patient is an 87 year old female with history of hypertension, hyperlipidemia, congestive heart failure, Afib on coumadin, colon cancer s/p right hemicolectomy , fall 4 months ago with right hip fracture repair, presents with complaint of chest pain. Began this morning approx 9AM as patient was walking to bathroom at home. Describes pain localized to upper left lateral chest 8/10 intensity, sharp , and non radiating. Endorses pain is exacerbated with deep inspiration. Denies prior occurrence of similar pain. States the pain has been constant, continuously exacerbated with breathing, and slightly improving to 6/10 intensity upon my encounter. She admits complaint of "gassy" feeling, however denies fevers, chills, fall, loss of consciousness, lightheadedness, changes in vision, shortness of breath, diaphoresis, cough, palpitations, reflux, abdominal pain, nausea, vomiting, diarrhea, constipation, melena, hematochezia, dysuria, hematuria. Endorses urinary frequency with Lasix, urinating at least 4- 5 times a day after taking the diuretic. ER course was notable for: (1) EKG: Afib with RVR. Trop 0.02. BNP 1683 (2) CXR: Cardiomegaly with questionable infiltrate right lower lobe. (3) INR 4.60 Constitutional: Yes: Well Nourished, No Distress, Calm Cardiovascular: Yes: Regular Rate and Rhythm Respiratory: Yes: Regular Gastrointestinal: Yes: Normal Bowel Sounds, Soft Musculoskeletal: Yes: WNL Extremities: Yes: WNL Edema: Yes Edema: LLE: 1+, RLE: 1+ Peripheral Pulses WNL: Yes Neurological: Yes: Alert, Oriented Psychiatric: Yes: Alert, Oriented Labs: CBC, BMP 09/01/18 06:15 09/01/18 06:15 Discharge Summary Reason For Visit: CONGESTIVE HEART FAILURE/ELV INR/CHEST PAIN Current Active Problems Acute exacerbation of CHF (congestive heart failure) (Acute) Chest pain (Acute) Diabetes (Acute) Elevated INR (Acute) History of mitral valve prosthesis (Acute) Hypokalemia (Acute) Hospital Course: Laboratory Last Values WBC 6.4 K/mm3 (4.0-10.0) 09/01/18 06:15 RBC 3.77 M/mm3 (3.60-5.2) 09/01/18 06:15 Hgb 9.5 GM/dL (10.7-15.3) L 09/01/18 06:15 Hct 30.0 % (32.4-45.2) L 09/01/18 06:15 MCV 79.7 fl (80-96) L 09/01/18 06:15 MCH 25.2 pg (25.7-33.7) L 09/01/18 06:15 MCHC 31.6 g/dl (32.0-36.0) L 09/01/18 06:15 RDW 16.8 % (11.6-15.6) H 09/01/18 06:15 Plt Count 178 K/MM3 (134-434) 09/01/18 06:15 MPV 9.3 fl (7.5-11.1) 09/01/18 06:15 Absolute Neuts (auto) 4.8 K/mm3 (1.5-8.0) 09/01/18 06:15 Neutrophils % 76.3 % (42.8-82.8) 09/01/18 06:15 Lymphocytes % 11.5 % (8-40) 09/01/18 06:15 Monocytes % 10.1 % (3.8-10.2) 09/01/18 06:15 Eosinophils % 1.8 % (0-4.5) D 09/01/18 06:15 Basophils % 0.3 % (0-2.0) 09/01/18 06:15 Nucleated RBC % 0 % (0-0) 09/01/18 06:15 Retic Count 1.39 % (0.5-1.5) D 08/30/18 06:00 PT with INR 27.70 SEC (9.7-13.0) H 09/01/18 06:15 INR 2.33 (0.83-1.09) H 09/01/18 06:15 Sodium 136 mmol/L (136-145) 09/01/18 06:15 Potassium 4.7 mmol/L (3.5-5.1) 09/01/18 06:15 Chloride 96 mmol/L (98-107) L 09/01/18 06:15 Carbon Dioxide 28 mmol/L (21-32) 09/01/18 06:15 Anion Gap 11 MMOL/L (8-16) 09/01/18 06:15 BUN 34 mg/dL (7-18) H 09/01/18 06:15 Creatinine 1.1 mg/dL (0.55-1.3) 09/01/18 06:15 Creat Clearance w eGFR 46.98 (>60) 09/01/18 06:15 POC Glucometer 122 UNITS (80-120) 09/01/18 12:39 Random Glucose 98 mg/dL (74-106) 09/01/18 06:15 Hemoglobin A1c % 6.3 % (4.2-6.3) 08/31/18 05:30 Calcium 8.9 mg/dL (8.5-10.1) 09/01/18 06:15 Phosphorus 3.0 mg/dL (2.5-4.9) 08/30/18 06:00 Magnesium 1.9 mg/dL (1.8-2.4) 09/01/18 06:15 Iron 27 ug/dL (27-139) 08/30/18 06:00 TIBC 343 ug/dL (250-450) 08/30/18 06:00 Iron Saturation 8 % (15-55) L 08/30/18 06:00 Transferrin 275 mg/dL (200-370) 08/30/18 06:00 Total Bilirubin 1.0 mg/dL (0.2-1) 09/01/18 06:15 AST 22 U/L (15-37) 09/01/18 06:15 ALT 14 U/L (13-61) 09/01/18 06:15 Alkaline Phosphatase 147 U/L (45-117) H 09/01/18 06:15 Creatine Kinase 30 IU/L (26-192) 08/29/18 18:15 Troponin I < 0.02 ng/ml (0.00-0.05) 08/30/18 06:00 B-Natriuretic Peptide 1683.8 pg/ml (5-450) H 08/29/18 18:15 Total Protein 7.5 g/dl (6.4-8.2) 09/01/18 06:15 Albumin 3.4 g/dl (3.4-5.0) 09/01/18 06:15 Vitamin B12 440 pg/ml (193-986) 08/31/18 05:30 TSH 10.50 uIU/ml (0.358-3.74) H 08/31/18 05:30 Free T4 1.33 ng/dl (0.76-1.46) 08/31/18 05:30 Urine Color Straw 08/29/18 23:30 Urine Appearance Clear 08/29/18 23:30 Urine pH 7.0 (5.0-8.0) D 08/29/18 23:30 Ur Specific [place] 1.006 (1.010-1.035) L 08/29/18 23:30 Urine Protein Negative (NEGATIVE) 08/29/18 23:30 Urine Glucose (UA) Negative (NEGATIVE) 08/29/18 23:30 Urine Ketones Negative (NEGATIVE) 08/29/18 23:30 Urine Blood Negative (NEGATIVE) 08/29/18 23:30 Urine Nitrite Negative (NEGATIVE) 08/29/18 23:30 Urine Bilirubin Negative (<2.0 mg/dL) 08/29/18 23:30 Urine Urobilinogen Negative mg/dL (0.2-1.0) 08/29/18 23:30 Ur Leukocyte Esterase Negative (NEGATIVE) 08/29/18 23:30 Condition: Stable - Instructions Diet, Activity, Other Instructions: Recheck thyroid profile/cbc/cmp in 4 weeks Follow up with PCP within 2 weeks to recheck INR Follow up with Cardiology within 2 weeks Follow Low sodium diabetic diet Start Januvia 25 mg daily Increase spironolactone to 25 mg 2 x day Increase Lasix (Furosemide) to 40 mg 2 x day Increase levothyroxine to 125 mcg daily Also start potassium chloride 20 meq daily Warfarin take 4 mg on Sundays and 2 mg all other days ([id number]) Referrals: Isrrael Lua MD [Primary Care Provider] - Disposition: VNS/HOME HEALTH CARE - Home Medications Comprehensive Discharge Medication List: Ambulatory Orders Atorvastatin Ca [Lipitor] 10 mg PO HS 08/02/14 Atenolol [Tenormin] 50 mg PO DAILY 02/06/17 Isosorbide Mononitrate [Imdur] 30 mg PO DAILY 02/06/17 Pantoprazole Sodium 40 mg PO DAILY 02/06/17 Cholecalciferol (Vitamin D3) [Vitamin D -] 2,000 unit PO DAILY 05/07/18 Gabapentin [Neurontin] 100 mg PO BID 05/07/18 Ibandronate Sodium 150 mg PO MONTHLY 05/07/18 Allopurinol [Zyloprim -] 100 mg PO BID 08/29/18 Ferrous Sulfate [Feosol] 325 mg PO DAILY #30 tablet 09/01/18 Furosemide [Lasix -] 40 mg PO BID #60 tablet 09/01/18 Levothyroxine [Synthroid -] 125 mcg PO DAILY #30 tablet 09/01/18 Sitagliptin Phosphate [Januvia] 25 mg PO DAILY #30 tablet 09/01/18 Spironolactone [Aldactone -] 25 mg PO BID #60 tablet 09/01/18 Warfarin Na [Coumadin -] 2 mg PO [id number] tablet 09/01/18 Warfarin Na [Coumadin -] 4 mg PO OLMOS #30 tablet 09/01/18
[2018-09-01] MEDS ORDERED: WARFARIN NA 2 MG TABLET (UD) PO SCH (18:00)
[2018-09-01] MEDS ORDERED: WARFARIN NA 2 MG TABLET (UD) PO ONE ×3 (18:00)
[2018-09-01] MEDS: ATORVASTATIN CA 10 MG TABLET (FP) PO SCH (21:32)
[2018-09-02] MEDS: FUROSEMIDE 40 MG/4 ML INJECTABLE VIAL IVPUSH SCH (05:50)
[2018-09-02 06:08] VITALS: TEMP 97.8
[2018-09-02] MEDS: sitaGLIPtin PHOSPHATE 25 MG TABLET (FP) PO SCH (06:40)
[2018-09-02] MEDS ORDERED: LEVOTHYROXINE NA 125 MCG TABLET (FP) PO SCH (07:00)
[2018-09-02 07:50] LABS: BASO % 0.2 % (0-2.0); EOS % 1.9 % (0-4.5); HEMATOCRIT 28.4 % (32.4-45.2); LYMPH % 11.9 % (8-40); MCH 25.3 pg (25.7-33.7); MCHC 31.8 g/dl (32.0-36.0); MEAN CELL VOLUME 79.5 fl (80-96); MEAN PLT VOLUME 9.5 fl (7.5-11.1); MONO % 10.1 % (3.8-10.2); NEUT % 75.9 % (42.8-82.8); PLATELET COUNT 172 K/MM3 (134-434); RBC 3.57 M/mm3 (3.60-5.2); RDW 16.6 % (11.6-15.6); WHITE BLOOD COUNT 6.1 K/mm3 (4.0-10.0)
[2018-09-02 08:00] LABS: INR 2.24 (0.83-1.09); PROTHROMBIN TIME (PATIENT) 26.7 SEC (9.7-13.0)
[2018-09-02 08:16] VITALS: BP 113/52; PULSE 72
[2018-09-02 08:40] LABS: ALBUMIN 3.3 g/dl (3.4-5.0); ALK PHOS 142 U/L (45-117); ANION GAP 12 MMOL/L (8-16); BILIRUBIN,TOTAL 0.7 mg/dL (0.2-1); BLOOD UREA NITROGEN 37 mg/dL (7-18); CALCIUM 8.8 mg/dL (8.5-10.1); CHLORIDE 96 mmol/L (98-107); CO2 26 mmol/L (21-32); GLUCOSE,RANDOM 84 mg/dL (74-106); POTASSIUM 3.9 mmol/L (3.5-5.1); SGOT/AST 20 U/L (15-37); SGPT/ALT 14 U/L (13-61); SODIUM 134 mmol/L (136-145); TOT PROT 7.2 g/dl (6.4-8.2)
--- NOTE | 2018-09-02 08:52 | PN ---
Progress Note, Physician Chief Complaint: Chest pain History of Present Illness: Feels better NAD CT chest:1. No evidence of pulmonary embolism. 2. Large, partially loculated right pleural effusion. 3. Cardiomegaly. Please see above discussion. Seen by Pulmonary and cardiology Echo done and reviewed BLLE improved On furosemide 40 mg po BID Did well with PT - Current Medication List Current Medications: Active Medications Albuterol/Ipratropium (Duoneb -) 1 amp NEB Q4H PRN PRN Reason: SHORTNESS OF BREATH Allopurinol (Zyloprim -) 100 mg PO BID [facility] Last Admin: 09/01/18 21:32 Dose: 100 mg Atenolol (Tenormin -) 50 mg PO BID [facility] Last Admin: 09/01/18 21:32 Dose: 50 mg Atorvastatin Calcium (Lipitor -) 10 mg PO HS [facility] Last Admin: 09/01/18 21:32 Dose: 10 mg Cholecalciferol (Vitamin D3 -) 2,000 unit PO DAILY [facility] Last Admin: 09/01/18 09:33 Dose: 2,000 unit Furosemide (Lasix Injection -) 40 mg IVPUSH BID@0600,1400 [facility] Last Admin: 09/02/18 05:50 Dose: 40 mg Gabapentin (Neurontin -) 100 mg PO BID [facility] Last Admin: 09/01/18 21:32 Dose: 100 mg Iron Sucrose 300 mg/ Sodium (Chloride) 250 mls @ 250 mls/hr IVPB DAILY [facility] Stop: 09/02/18 10:59 Last Admin: 09/01/18 14:24 Dose: Not Given Isosorbide Mononitrate (Imdur -) 30 mg PO DAILY [facility] Last Admin: 09/01/18 09:33 Dose: 30 mg Levothyroxine Sodium (Synthroid -) 125 mcg PO DAILY@0700 [facility] Last Admin: 09/02/18 05:51 Dose: 125 mcg Potassium Chloride (Potassium Chloride Oral Liquid) 20 meq PO DAILY [facility] Last Admin: 09/01/18 09:34 Dose: 20 meq Sitagliptin Phosphate (Januvia -) 25 mg PO DAILY@0700 [facility] Last Admin: 09/02/18 06:40 Dose: Not Given Spironolactone (Aldactone -) 25 mg PO BID [facility] Last Admin: 09/01/18 21:32 Dose: 25 mg Warfarin Sodium (Coumadin -) 2 mg PO SuMoWeFrSa@1800 [facility] Last Admin: 09/01/18 17:23 Dose: 2 mg Warfarin Sodium (Coumadin -) 4 mg PO TuTh@1800 [facility] - Objective Vital Signs: Vital Signs Temperature 97.8 F 09/02/18 05:00 Pulse Rate 72 09/02/18 08:14 Respiratory Rate 18 09/02/18 08:14 Blood Pressure 113/52 L 09/02/18 08:14 O2 Sat by Pulse Oximetry (%) 96 09/02/18 08:14 Constitutional: Yes: Well Nourished, No Distress, Calm Cardiovascular: Yes: Regular Rate and Rhythm Respiratory: Yes: Regular Gastrointestinal: Yes: Normal Bowel Sounds, Soft Genitourinary: Yes: WNL Musculoskeletal: Yes: WNL Extremities: Yes: WNL Edema: Yes Edema: LLE: Trace, RLE: Trace Peripheral Pulses WNL: Yes Neurological: Yes: Alert, Oriented Psychiatric: Yes: Alert, Oriented Labs: CBC, BMP 09/02/18 05:30 09/02/18 05:30 INR, PTT INR 2.24 (0.83-1.09) H 09/02/18 05:30 Problem List - Problems (1) Atrial fibrillation Assessment/Plan: -chronic -Tele monitoring -Rate controlled -Seen by Cardiology -Warfarin resumed -INR therapeutic goal 2.5-3.5 -Pt to go home with Warfarin 4 mg Sundays and 2 mg all other days Code(s): I48.91 - UNSPECIFIED ATRIAL FIBRILLATION Qualifiers: Atrial fibrillation type: persistent Qualified Code(s): I48.1 - Persistent atrial fibrillation (2) Congestive heart failure Assessment/Plan: -Furosemide 40 mg PO BID -seen by cardiology -low sodium diet -daily weights Code(s): I50.9 - HEART FAILURE, UNSPECIFIED Qualifiers: Heart failure type: unspecified Heart failure chronicity: unspecified Qualified Code(s): I50.9 - Heart failure, unspecified (3) History of mitral valve prosthesis Assessment/Plan: -Warfarin -INR goal 2.5-3.5 -INR check in 1 week outpatient (4) Hypokalemia Assessment/Plan: resolved -monitor trend -On KCl 20 meq po daily Code(s): E87.6 - HYPOKALEMIA (5) Hypomagnesemia Assessment/Plan: -resolved Code(s): E83.42 - HYPOMAGNESEMIA (6) Supratherapeutic international normalized ratio (INR) Assessment/Plan: -INR subtherapeutic -INR 2.24 today -Warfarin resumed -INR goal 2.5-3.5 -INR check in 1 week outpatient Code(s): R79.1 - ABNORMAL COAGULATION PROFILE (7) Anemia Assessment/Plan: -chronic -Iron profile-low3 on iron -Venofer 300 mg 2 doses during her stay-refused 1 dose yesterday -thyroid profile elevated TSH, increase levothyroxine to 125 mcg po daily, repeat thyroid profile in 4 weeks -B12 unremarkable -stool OB pending -monitor trend -Transfuse for only if hg <7.0 to avoid fluid overload -Also start ferrous sulfate 1 tab daily Code(s): D64.9 - ANEMIA, UNSPECIFIED Qualifiers: Anemia type: iron deficiency (8) Diabetes Assessment/Plan: -repeat A1C at 6.3 -D/C BGM ACHS -Diabetic low sodium diet -RD consult -start Januvia at 25 mg po daily Code(s): E11.9 - TYPE 2 DIABETES MELLITUS WITHOUT COMPLICATIONS (9) Hypothyroidism Assessment/Plan: -TSH elevated -Increase levothyroxine to 125 mcg po daily -recheck thyroid profile in 4 weeks Code(s): E03.9 - HYPOTHYROIDISM, UNSPECIFIED Qualifiers: Hypothyroidism type: unspecified Qualified Code(s): E03.9 - Hypothyroidism , unspecified Assessment/Plan see problem list Physical therapy-did well D/C home with home care services
[2018-09-02] MEDS: IRON SUCROSE INJECTION 300 MG in SODIUM CHLORIDE 235 ML IVPB SCH (10:59)
[2018-09-02] MEDS: POTASSIUM CHLORIDE ORAL LIQUID 20 MEQ/15 ML PO SCH (11:00)
[2018-09-02] MEDS: CHOLECALCIFEROL (VITAMIN D3) 1,000 UNIT TABLET (FP) PO SCH (11:01)
[2018-09-02] MEDS: ATENOLOL 50 MG TABLET (FP) PO SCH (11:01)
[2018-09-02] MEDS: ISOSORBIDE MONONITRATE 30 MG TAB.SR.24H (FP) PO SCH (11:01)
[2018-09-02] MEDS: SPIRONOLACTONE 25 MG TABLET (FP) PO SCH (11:01)
[2018-09-02] MEDS: GABAPENTIN 100 MG CAPSULE (FP) PO SCH (11:02)
[2018-09-02] MEDS: ALLOPURINOL 100 MG TABLET (FP) PO SCH (11:02)
--- NOTE | 2018-09-02 11:37 | PN ---
Progress Note (short form) - Note Progress Note: cardiology, covering for dr carvajal 87 year old female with h/o of RHD, mitral stenosis, s/p mechanical mitral prosthesis, atrial fib, CHF, severe tricuspid regurgitation. no sob palps dizzy cp Home Medications Medication Instructions Recorded Atorvastatin Ca [Lipitor] 10 mg PO HS 08/02/14 Atenolol [Tenormin] 50 mg PO DAILY 02/06/17 Isosorbide Mononitrate [Imdur] 30 mg PO DAILY 02/06/17 Pantoprazole Sodium 40 mg PO DAILY 02/06/17 Cholecalciferol (Vitamin D3) 2,000 unit PO DAILY 05/07/18 [Vitamin D -] Gabapentin [Neurontin] 100 mg PO BID 05/07/18 Ibandronate Sodium 150 mg PO MONTHLY 05/07/18 Allopurinol [Zyloprim -] 100 mg PO BID 08/29/18 Ferrous Sulfate [Feosol] 325 mg PO DAILY #30 tablet 09/01/18 Furosemide [Lasix -] 40 mg PO BID #60 tablet 09/01/18 Levothyroxine [Synthroid -] 125 mcg PO DAILY #30 tablet 09/01/18 Sitagliptin Phosphate [Januvia] 25 mg PO DAILY #30 tablet 09/01/18 Spironolactone [Aldactone -] 25 mg PO BID #60 tablet 09/01/18 Warfarin Na [Coumadin -] 2 mg PO MOTUWETHFRSA tablet 09/01/18 Warfarin Na [Coumadin -] 4 mg PO OLMOS #30 tablet 09/01/18 Vital Signs Period Temp Pulse Resp BP Sys/[place] Pulse Ox Last 24 Hr 97.7 F-98.2 F 71-95 18-20 107-132/52-85 95-99 NECK: Supple, elevated JVD, pulsatile neck veins HEART: PMI in the 5th ICS, left parasternal heave, crisp prosthetic sounds, grade II/ decrescendo systolic murmur along the LSB and apex. No diastolic murmur or gallops heard LUNGS: cta bl nl eff ABDOMEN:Soft nontender, nd pos bs EXTREMITIES: 1+ pretibial edema, no calf tenderness. no jaundice diaphoresis Labs: Laboratory Last Values WBC 6.1 K/mm3 (4.0-10.0) 09/02/18 05:30 RBC 3.57 M/mm3 (3.60-5.2) L 09/02/18 05:30 Hgb 9.0 GM/dL (10.7-15.3) L 09/02/18 05:30 Hct 28.4 % (32.4-45.2) L 09/02/18 05:30 MCV 79.5 fl (80-96) L 09/02/18 05:30 MCH 25.3 pg (25.7-33.7) L 09/02/18 05:30 MCHC 31.8 g/dl (32.0-36.0) L 09/02/18 05:30 RDW 16.6 % (11.6-15.6) H 09/02/18 05:30 Plt Count 172 K/MM3 (134-434) 09/02/18 05:30 MPV 9.5 fl (7.5-11.1) 09/02/18 05:30 Absolute Neuts (auto) 4.7 K/mm3 (1.5-8.0) 09/02/18 05:30 Neutrophils % 75.9 % (42.8-82.8) 09/02/18 05:30 Lymphocytes % 11.9 % (8-40) 09/02/18 05:30 Monocytes % 10.1 % (3.8-10.2) 09/02/18 05:30 Eosinophils % 1.9 % (0-4.5) 09/02/18 05:30 Basophils % 0.2 % (0-2.0) 09/02/18 05:30 Nucleated RBC % 0 % (0-0) 09/02/18 05:30 Retic Count 1.39 % (0.5-1.5) D 08/30/18 06:00 PT with INR 26.70 SEC (9.7-13.0) H 09/02/18 05:30 INR 2.24 (0.83-1.09) H 09/02/18 05:30 Sodium 134 mmol/L (136-145) L 09/02/18 05:30 Potassium 3.9 mmol/L (3.5-5.1) 09/02/18 05:30 Chloride 96 mmol/L (98-107) L 09/02/18 05:30 Carbon Dioxide 26 mmol/L (21-32) 09/02/18 05:30 Anion Gap 12 MMOL/L (8-16) 09/02/18 05:30 BUN 37 mg/dL (7-18) H 09/02/18 05:30 Creatinine 1.0 mg/dL (0.55-1.3) 09/02/18 05:30 Creat Clearance w eGFR 52.45 (>60) 09/02/18 05:30 POC Glucometer 114 UNITS (80-120) 09/02/18 05:43 Random Glucose 84 mg/dL (74-106) 09/02/18 05:30 Hemoglobin A1c % 6.3 % (4.2-6.3) 08/31/18 05:30 Calcium 8.8 mg/dL (8.5-10.1) 09/02/18 05:30 Phosphorus 3.0 mg/dL (2.5-4.9) 08/30/18 06:00 Magnesium 1.9 mg/dL (1.8-2.4) 09/01/18 06:15 Iron 27 ug/dL (27-139) 08/30/18 06:00 TIBC 343 ug/dL (250-450) 08/30/18 06:00 Iron Saturation 8 % (15-55) L 08/30/18 06:00 Transferrin 275 mg/dL (200-370) 08/30/18 06:00 Total Bilirubin 0.7 mg/dL (0.2-1) 09/02/18 05:30 AST 20 U/L (15-37) 09/02/18 05:30 ALT 14 U/L (13-61) 09/02/18 05:30 Alkaline Phosphatase 142 U/L (45-117) H 09/02/18 05:30 Creatine Kinase 30 IU/L (26-192) 08/29/18 18:15 Troponin I < 0.02 ng/ml (0.00-0.05) 08/30/18 06:00 B-Natriuretic Peptide 1683.8 pg/ml (5-450) H 08/29/18 18:15 Total Protein 7.2 g/dl (6.4-8.2) 09/02/18 05:30 Albumin 3.3 g/dl (3.4-5.0) L 09/02/18 05:30 Vitamin B12 440 pg/ml (193-986) 08/31/18 05:30 TSH 10.50 uIU/ml (0.358-3.74) H 08/31/18 05:30 Free T4 1.33 ng/dl (0.76-1.46) 08/31/18 05:30 Urine Color Straw 08/29/18 23:30 Urine Appearance Clear 08/29/18 23:30 Urine pH 7.0 (5.0-8.0) D 08/29/18 23:30 Ur Specific [place] 1.006 (1.010-1.035) L 08/29/18 23:30 Urine Protein Negative (NEGATIVE) 08/29/18 23:30 Urine Glucose (UA) Negative (NEGATIVE) 08/29/18 23:30 Urine Ketones Negative (NEGATIVE) 08/29/18 23:30 Urine Blood Negative (NEGATIVE) 08/29/18 23:30 Urine Nitrite Negative (NEGATIVE) 08/29/18 23:30 Urine Bilirubin Negative (<2.0 mg/dL) 08/29/18 23: Urine Urobilinogen Negative mg/dL (0.2-1.0) 08/29/18 23:30 Ur Leukocyte Esterase Negative (NEGATIVE) 08/29/18 23:30 IMPRESSION: 1. CHF NYHA class II. 2. RHD, s/p mechanical mitral valve replacement. 3. Severe tricuspid regurgitation. 4. Pulmonary hypertension. 5. Permanent atrial fibrillation. 6. Anemia, etiology to be determined . 7. Gifty Charcot-Tooth disease. RECOMMENDATIONS: -Cont current therapy and Lasix can be switched to PO 40 bid. -cont ac for afib, rate controlled -cardiac clarke stable for dc, will f/u with dr carvajal in office
[2018-09-02] MEDS ORDERED: FUROSEMIDE 40 MG TABLET (FP) PO SCH (14:00)
[2018-09-05] MEDS ORDERED: WARFARIN NA 2 MG TABLET (UD) PO SCH (18:00)
== END 2018-09-02 11:23 | disposition home health service (06) | DRG 308 ==
LOC: JER 17:53 → JERBED 20:17 → INTOOBSV 20:17 → J4W 08-30 11:18 → OBSVTOIN 08-30 19:52 → J4W 09-01 20:40
PROVIDERS: ADMIT Internal Medicine; ATTEND Family Medicine
DX: I48.1 Persistent atrial fibrillation (principal); I50.33 Acute on chronic diastolic (congestive) heart failure; E78.5 Hyperlipidemia, unspecified; D64.9 Anemia, unspecified; I11.0 Hypertensive heart disease with heart failure; I27.20 Pulmonary hypertension, unspecified; E87.6 Hypokalemia; E03.9 Hypothyroidism, unspecified; I34.0 Nonrheumatic mitral (valve) insufficiency; R07.89 Other chest pain; E83.42 Hypomagnesemia; R79.1 Abnormal coagulation profile; G60.0 Hereditary motor and sensory neuropathy; E11.9 Type 2 diabetes mellitus without complications; Z85.038 Personal history of other malignant neoplasm of large intestine; Z87.11 Personal history of peptic ulcer disease; Z95.2 Presence of prosthetic heart valve; Z79.01 Long term (current) use of anticoagulants
CPT/HCPCS: 36415; 71045-TC-FY; 71275-TC; 80048; 80053; 81003; 82550; 82607; 82962; 83036; 83540; 83550; 83735; 83880; 84100; 84439; 84443; 84466; 84484; 85025; 85027; 85044; 85610; 90688; 93005; 93010; 93306-TC; 93925-TC; 93970-TC; 97116-GP; 97161-GP; 99285-25; G0008; G0378; J1756

== ENCOUNTER 2018-10-22 12:27 | Emergency (ER) | payer OTHER, BC ==
[2018-10-22 12:49] VITALS: BP 142/70; PULSE 52; TEMP 98.4; BMI 25.0
--- NOTE | 2018-10-22 12:49 | PDOC ---
History of Present Illness - General Chief Complaint: Itching Stated Complaint: ITCHING SKIN Time Seen by Provider: 10/22/18 12:33 History Source: Patient Exam Limitations: No Limitations - History of Present Illness Initial Comments: 10/22/18 12:44 87 y/o female with skin itching all over for past 7 days. Was in hospital and placed on iron for anemia. No SOB or chest pain. No other new products. No rash , fever or chills. Has not taken anything for the itching. Using Eucerin cream only. Severity: Yes: mild Location: reports: generalized Associated Symptoms: denies: blisters, fever, hives Past History - Past Medical History Allergies/Adverse Reactions: Allergies Allergy/AdvReac Type Severity Reaction Status Date / Time No Known Allergies Allergy Verified 08/29/18 17:57 Home Medications: Ambulatory Orders Atorvastatin Ca [Lipitor] 10 mg PO HS 08/02/14 Atenolol [Tenormin] 50 mg PO BID 02/06/17 Isosorbide Mononitrate [Imdur] 30 mg PO DAILY 02/06/17 Pantoprazole Sodium 40 mg PO DAILY 02/06/17 Cholecalciferol (Vitamin D3) [Vitamin D -] 2,000 unit PO DAILY 05/07/18 Ibandronate Sodium 150 mg PO MONTHLY 05/07/18 Allopurinol [Zyloprim -] 100 mg PO BID 08/29/18 Furosemide [Lasix -] 40 mg PO BID #60 tablet 09/01/18 Spironolactone [Aldactone -] 25 mg PO BID #60 tablet 09/01/18 Warfarin Na [Coumadin -] 2 mg PO MOTUWETHFRSA tablet 09/01/18 Warfarin Na [Coumadin -] 4 mg PO OLMOS #30 tablet 09/01/18 Iron 65 mg PO DAILY 10/22/18 Prednisone 10 mg PO BID #6 tablet 10/22/18 Anemia: No Asthma: No Cancer: Yes (colon ca/ SURGERY 2013) Cardiac Disorders: Yes (mechanical mitral valve(over 20 years)) CVA: No COPD: No CHF: No Dementia: No Diabetes: No GI Disorders: Yes (PERF SURGERY 07/2014) Disorders: No HTN: Yes Hypercholesterolemia: Yes Liver Disease: No Seizures: No Thyroid Disease: No - Surgical History Abdominal Surgery: Yes (colon sx) Appendectomy: Yes Cardiac Surgery: Yes (VALVE REPLACEMENT) Cholecystectomy: No Lung Surgery: No Neurologic Surgery: No Orthopedic Surgery: No - Immunization History Immunization Up to Date: Yes - Suicide/Smoking/Psychosocial Hx Smoking Status: No Smoking History: Never smoked Years of Tobacco Use: 20 Have you smoked in the past 12 months: No Number of Cigarettes Smoked Daily: 0 If you are a former smoker, when did you quit?: 1970s Cigars Per Day: 0 Hx Alcohol Use: Yes (RARE) Drug/Substance Use Hx: No Substance Use Type: None Hx Substance Use Treatment: No Review of Systems - Review of Systems Able to Perform ROS?: Yes Is the patient limited Sami proficient: No Constitutional: No: Chills, Fever HEENTM: No: Difficulty Swallowing Respiratory: No: Cough, Shortness of Breath Cardiac (ROS): No: Chest Pain : No: Burning Musculoskeletal: No: Back Pain Integumentary: Yes: Pruritus. No: Bruising, Rash All Other Systems: Reviewed and Negative *Physical Exam - Vital Signs Last Vital Signs Temp Pulse Resp BP Pulse Ox 98.4 F 52 L 18 142/70 100 10/22/18 12:29 10/22/18 12:29 10/22/18 12:29 10/22/18 12:29 10/22/18 12:29 - Physical Exam General Appearance: Yes: Nourished, Appropriately Dressed. No: Apparent Distress HEENT: positive: EOMI, JEFFREY, Normal ENT Inspection, Normal Voice, Symmetrical, Pharynx Normal Neck: positive: Trachea midline, Normal Thyroid, Supple. negative: Tender, Rigid Respiratory/Chest: positive: Lungs Clear, Normal Breath Sounds. negative: Chest Tender, Respiratory Distress Cardiovascular: positive: Regular Rhythm, Regular Rate, S1, S2. negative: Edema , JVD, Murmur Vascular Pulses: Femoral (R): 4+, Femoral (L): 4+, Carotid (R): 4+, Carotid (L) : 4+, Dorsalis-Pedis (R): 4+, Doralis-Pedis (L): 4+ Gastrointestinal/Abdominal: positive: Normal Bowel Sounds, Flat, Soft. negative : Tender, Organomegaly, Pulsatile Mass, Hepatomegaly, Spleenomegaly Lymphatic: negative: Adenopathy, Tenderness, Other Musculoskeletal: positive: Normal Inspection. negative: CVA Tenderness Extremity: positive: Normal Capillary Refill, Normal Inspection, Normal Range of Motion. negative: Tender Integumentary: positive: Normal Color, Dry, Warm. negative: Cyanotic, Erythema , Rash, Swelling, Ecchymosis, Bruising Neurologic: positive: director biologics II-XII NML intact, Fully Oriented, Alert, Normal Mood/ Affect, Normal Response, Motor Strength 5/5 Moderate Sedation - Procedure Monitoring Vital Signs: Procedure Monitoring Vital Signs Temperature 98.4 F 10/22/18 12:29 Pulse Rate 52 L 10/22/18 12:29 Respiratory Rate 18 10/22/18 12:29 Blood Pressure 142/70 10/22/18 12:29 O2 Sat by Pulse Oximetry (%) 100 10/22/18 12:29 Progress Note - Progress Note Progress Note: Pruritis, will cover with Prednisone 10 mg 2x/day for 3 days Benadryl 25 mg every 6 hr as needed Follow up with PMD to check labs If worsen return to ER Pt is in agreement with plan *DC/Admit/Observation/Transfer Diagnosis at time of Disposition: Pruritic dermatitis - Discharge Dispostion Disposition: HOME Condition at time of disposition: Good Decision to Admit order: No - Referrals Referrals: Isrrael Lua MD [Primary Care Provider] - - Patient Instructions Printed Discharge Instructions: DI for Itching Additional Instructions: Fluids, rest Benadryl 25 mg every 6 hr as needed Prednisone 10 mg 2x/day for 3 days Follow up with PMD for lab work If worsen return to ER - Post Discharge Activity
== END 2018-10-22 12:53 | disposition home or self-care (01) ==
LOC: FER 12:27 → SUPCPDRO 12:27 → FER 12:53
DX: L30.8 Other specified dermatitis (principal)
CPT/HCPCS: 99281-25

== ENCOUNTER 2018-11-08 15:11 | Emergency (ER) | payer OTHER, BC ==
[2018-11-08 15:31] VITALS: BP 102/67; PULSE 88; TEMP 98.5; BMI 26.1
--- NOTE | 2018-11-08 15:55 | PDOC ---
History of Present Illness - General Chief Complaint: Cold Symptoms Stated Complaint: COLD SYMPTOMS Time Seen by Provider: 11/08/18 15:46 - History of Present Illness Initial Comments: Nandini Walden is an 87yo woman with a PMH of CHF, a-fib, HTN, HLD, s/p mitral replacement on warfarin, DM who presents with a productive cough for 3-4 days. She reports that she first started to feel ill over the weekend, but her cough was not really bad until Tuesday. She first noticed that she had white sputum, but this has since turned yellow/green. She called her PMD, Dr Lua, yesterday but was unable to get an appointment. He prescribed azithromycin, which she started yesterday, and she feels improved today. Ms Walden denies any SOB, chest pain, fever/chills. She is concerned that she could have pneumonia due to the cough. Past History - Past Medical History Allergies/Adverse Reactions: Allergies Allergy/AdvReac Type Severity Reaction Status Date / Time No Known Allergies Allergy Verified 11/08/18 15:12 Home Medications: Ambulatory Orders Atorvastatin Ca [Lipitor] 10 mg PO HS 08/02/14 Atenolol [Tenormin] 50 mg PO BID 02/06/17 Isosorbide Mononitrate [Imdur] 30 mg PO DAILY 02/06/17 Pantoprazole Sodium 40 mg PO DAILY 02/06/17 Cholecalciferol (Vitamin D3) [Vitamin D -] 2,000 unit PO DAILY 05/07/18 Ibandronate Sodium 150 mg PO MONTHLY 05/07/18 Allopurinol [Zyloprim -] 100 mg PO BID 08/29/18 Furosemide [Lasix -] 40 mg PO BID #60 tablet 09/01/18 Spironolactone [Aldactone -] 25 mg PO BID #60 tablet 09/01/18 Warfarin Na [Coumadin -] 2 mg PO MOTUWETHFRSA tablet 09/01/18 Warfarin Na [Coumadin -] 4 mg PO OLMOS #30 tablet 09/01/18 Azithromycin 250 mg PO DAILY 11/08/18 Iron 65 mg PO DAILY 11/08/18 Levothyroxine [Synthroid -] 100 mcg PO DAILY 11/08/18 Anemia: No Asthma: No Cancer: Yes (colon ca/ SURGERY 2013) Cardiac Disorders: Yes (mechanical mitral valve(over 20 years)) CVA: No COPD: No CHF: No Dementia: No Diabetes: No GI Disorders: Yes (PERF SURGERY 07/2014) Disorders: No HTN: Yes Hypercholesterolemia: Yes Liver Disease: No Seizures: No Thyroid Disease: No - Surgical History Abdominal Surgery: Yes (colon sx) Appendectomy: Yes Cardiac Surgery: Yes (VALVE REPLACEMENT) Cholecystectomy: No Lung Surgery: No Neurologic Surgery: No Orthopedic Surgery: No - Immunization History Immunization Up to Date: Yes - Suicide/Smoking/Psychosocial Hx Smoking Status: No Smoking History: Former smoker Years of Tobacco Use: 20 Have you smoked in the past 12 months: No Number of Cigarettes Smoked Daily: 0 If you are a former smoker, when did you quit?: 1985 Cigars Per Day: 0 Information on smoking cessation initiated: No Hx Alcohol Use: No Drug/Substance Use Hx: No Substance Use Type: None Hx Substance Use Treatment: No Review of Systems - Review of Systems Comments:: General: No fevers, no chills, no weight or appetite change, no malaise HEENT: No changes in vision, no changes in hearing, no congestion, no sore throat CV: No chest pain, no palpitations, no LE edema Pulm: See hPI GI: No nausea or vomiting, no change in bowel habits, no melena : No frequency, no urgency, no dysuria Musc: No back pain, no joint swelling, no recent injury Skin: No rash, no lesions, no erythema Endo: No excessive thirst, no heat/cold intolerance Heme: No unusual bruising or bleeding, no swollen glands Neuro: No syncope, no numbness/tingling, no focal weakness Vasc: No claudication Psych: No recent change in mood, no SI or HI *Physical Exam - Vital Signs Last Vital Signs Temp Pulse Resp BP Pulse Ox 98.5 F 88 20 102/67 97 11/08/18 15:11 11/08/18 15:11 11/08/18 15:11 11/08/18 15:11 11/08/18 15:11 - Physical Exam Comments: General: Comfortable, no acute distress HEENT: PERRL, EOMI, MMM, voice normal, normal neck ROM, no LAD Cards: RRR, no murmur appreciated Pulm: Comfortable on room air, clear to auscultation bilaterally Abd: Soft, nontender, nondistended Ext: Atraumatic. No LE edema. ROM intact. Strength 5/5 and equal bilaterally Vasc: Extremities WWP. Palpable radial and pedal pulses bilaterally Skin: Normal color, no rashes or lesions Neuro: A&Ox3, CN grossly intact, normal speech, motor/sensory grossly intact and symmetric Psych: Mood appropriate to situation Moderate Sedation - Procedure Monitoring Vital Signs: Procedure Monitoring Vital Signs Temperature 98.5 F 11/08/18 15:11 Pulse Rate 88 11/08/18 15:11 Respiratory Rate 20 11/08/18 15:11 Blood Pressure 102/67 11/08/18 15:11 O2 Sat by Pulse Oximetry (%) 97 11/08/18 15:11 Medical Decision Making - Medical Decision Making 11/08/18 15:55 Nandini Walden is an 87yo woman with a PMH of CHF, a-fib, HTN, HLD, s/p mitral replacement on warfarin, DM who presents with a productive cough for 3-4 days. She has been taking azithromycin since yesterday and states that she feels improved today. 11/08/18 18:42 - CXR reviewed, no abnormalities - Coags sent as pt missed her regular INR check yesterday - Flu swab went to r/o influenza - Plan to d/c home once INR resulted; will call if INR is elevated 11/08/18 19:16 - INR 5.4. Discussed skipping her warfarin tonight. She agrees to this and states that she will call her PMD first thing in the morning. - d/c home. Discussed return precautions and signs of bleeding in detail with Ms Walden and her granddaughter, who is at bedside. Both state understanding and agreement. Discussed with Dr Dickerson. Marce Nixon PGY1 *DC/Admit/Observation/Transfer Diagnosis at time of Disposition: Cough - Discharge Dispostion Disposition: HOME Condition at time of disposition: Stable Decision to Admit order: No - Referrals Referrals: Isrrael Lua MD [Staff Physician] - - Patient Instructions Printed Discharge Instructions: DI for Viral Upper Respiratory Infection -- Adult Additional Instructions: Discharge Instructions: - You were seen in the emergency department for a cough - You had your INR (coumadin level) checked. - You also had a test sent to check for flu. This test result is not back yet, but you will be called if it is positive. Home Care: - Continue to take your previously prescribed azithromycin - Consider using a humidifier near your bed to help with your cough - Encourage fluid intake Follow Up: - Make an appointment to see your primary doctor within the next week, sooner if your symptoms have not improved. - Seek immediate medical care if your symptoms worsen significantly, you have a high fever (101F or higher) that does not improve with medication, or you have any medical emergency such as shortness of breath or chest pain. - Post Discharge Activity
--- NOTE | 2018-11-08 16:32 | PDOC ---
Attending Attestation - Resident Resident Name: TiffaniMarce - ED Attending Attestation I have performed the following: I have examined & evaluated the patient, The case was reviewed & discussed with the resident, I agree w/resident's findings & plan, Exceptions are as noted - HPI HPI: 11/08/18 16:30 87yo F hx CHF, HTN, HL, DM, RHD s/p MVR on coumadin, colon ca s/p resection presents to the ED with 4 days of productive cough. Pt here with her who is a pt, and thought she would get checked out. Pt tried to see Dr. Lua yesterday but because he was busy, he prescribed a z-pack on the phone for her. Pt states since starting the z-pack yesterday, she is feeling better today but wanted to get checked out in case. She denies fevers, chills, cp, sob , headache, weakness or numbness, abd pain, N/V/D. Pt states that she was unable to get her INR checked yesterday at Dr. Lua' s as she was not feeling well. She requests we check her INR today. - Physicial Exam PE: 11/08/18 17:51 GENERAL: Awake, alert, and fully oriented, in no acute distress EYES: PERRLA, EOMI, sclera anicteric, conjunctiva clear ENT: Auricles normal inspection, hard of hearing, nares patent, oropharynx clear without exudates. Moist mucosa NECK: Normal ROM, supple, no lymphadenopathy, JVD, or masses LUNGS: Breath sounds equal, clear to auscultation bilaterally. No wheezes, and no crackles HEART: Regular rate and rhythm, normal S1 and S2 ABDOMEN: Soft, nontender, normoactive bowel sounds. No guarding, no rebound. No masses EXTREMITIES: Normal range of motion, no edema. No cords, erythema, or tenderness NEUROLOGICAL: Normal speech, cranial nerves intact, equal strength and sensation b/l SKIN: Warm, Dry, normal turgor, no rashes or lesions noted. - Medical Decision Making 11/08/18 17:52 87yo F with MMP including CHF, CAD, PAD, AF on coumadin presents to the ED with productive cough. Vitals wnl. Exam wnl. Pt is non toxic appearing and feels better with z-pack. Plan to check CXR to r/o PNA and reassess. *DC/Admit/Observation/Transfer Diagnosis at time of Disposition: Cough, Supratherapeutic INR, Bronchitis - Discharge Dispostion Disposition: HOME Condition at time of disposition: Stable - Referrals Referrals: Isrrael Lua MD [Staff Physician] - - Patient Instructions Printed Discharge Instructions: DI for Viral Upper Respiratory Infection -- Adult Additional Instructions: Discharge Instructions: - You were seen in the emergency department for a cough - You had your INR (coumadin level) checked and it was found to be elevated. Skip your coumadin dose tonight and follow up with Dr. Lua tomorrow for a repeat INR. He will be in the office. - You also had a test sent to check for flu. This test result is not back yet, but you will be called if it is positive. Home Care: - Continue to take your previously prescribed azithromycin - Consider using a humidifier near your bed to help with your cough - Drink plenty of fluids Follow Up: -Call Dr. Lua tomorrow 11/09/18 morning at 9am to schedule an appointment as discussed for a repeat INR and for follow up for your cough today. - Seek immediate medical care if your symptoms worsen significantly, you have a high fever (101F or higher) that does not improve with medication, or you have any medical emergency such as shortness of breath or chest pain. - Post Discharge Activity - Attestations Physician Attestion: 11/08/18 19:16 I, Dr. Kallie Dickerson MD, attest that this document has been prepared under my direction and personally reviewed by me in its entirety. I further attest, that it accurately reflects all work, treatment, procedures and medical decision -making performed by me.
[2018-11-08 18:59] LABS: PROTHROMBIN TIME (PATIENT) 59.1 SEC (10.2-13.0)
[2018-11-08 19:01] LABS: INR 5.46 (0.82-1.09)
== END 2018-11-08 19:37 | disposition home or self-care (01) ==
LOC: FER 15:11
DX: R05 Cough (principal); I48.91 Unspecified atrial fibrillation; E78.5 Hyperlipidemia, unspecified; I50.9 Heart failure, unspecified; I10 Essential (primary) hypertension; Z79.01 Long term (current) use of anticoagulants; E11.9 Type 2 diabetes mellitus without complications
CPT/HCPCS: 36415; 71046-TC-FY; 85610; 87804; 99281-25

== ENCOUNTER 2019-12-22 16:00 | Emergency (ER) | payer OTHER, BC ==
--- NOTE | 2019-12-22 16:03 | PDOC ---
History of Present Illness - General Chief Complaint: Injury Stated Complaint: RIGHT KNEE PAIN S/P FALL - History of Present Illness Initial Comments: The pt is an 89F w/ a history of CHF, HTN, HL, DM, RHD s/p MVR on coumadin, colon ca s/p resection who presents for evaluation after a fall from standing 2 days ago. She states she was trying to ambulate without her walker when she tripped and fell forward. She landed on her right knee. She has been able to ambulate since that time but it has been painful. She reports right knee pain that is achy/sharp, occurs with walking/touch, is alleviated by rest, and is not associated with any change in sensation. Endorses swelling to the right knee. She has not tried taking anything for pain. She denies previous injury or surgery to her RLE Pt is on coumadin, follows with Dr. Coates, last seen 2 days ago. Reported INR 2.9. No recent change in coumadin dose. 12/22/19 16:05 Past History - Past Medical History Allergies/Adverse Reactions: Allergies Allergy/AdvReac Type Severity Reaction Status Date / Time No Known Allergies Allergy Verified 12/22/19 16:04 Home Medications: Ambulatory Orders Atorvastatin Ca [Lipitor] 10 mg PO HS 08/02/14 Atenolol [Tenormin] 50 mg PO DAILY 02/06/17 Isosorbide Mononitrate [Imdur] 30 mg PO DAILY 02/06/17 Pantoprazole Sodium 40 mg PO DAILY 02/06/17 Cholecalciferol (Vitamin D3) [Vitamin D -] 2,000 unit PO DAILY 05/07/18 Ibandronate Sodium 150 mg PO MONTHLY 05/07/18 Allopurinol [Zyloprim -] 100 mg PO HS 08/29/18 Spironolactone [Aldactone -] 25 mg PO BID #60 tablet 09/01/18 Levothyroxine [Synthroid -] 100 mcg PO DAILY 11/08/18 Furosemide [Lasix -] 40 mg PO ASDIR 12/22/19 Furosemide [Lasix] 80 mg PO ASDIR 12/22/19 Warfarin Na [Coumadin -] 2 mg PO ASDIR 12/22/19 Warfarin Na [Coumadin -] 4 mg PO ASDIR 12/22/19 Anemia: No Asthma: No Cancer: Yes (colon ca/ SURGERY 2013) Cardiac Disorders: Yes (mechanical mitral valve(over 20 years)) CVA: No COPD: No CHF: No Dementia: No Diabetes: No GI Disorders: Yes (PERF SURGERY 07/2014) Disorders: No HTN: Yes Hypercholesterolemia: Yes Liver Disease: No Seizures: No Thyroid Disease: No - Surgical History Abdominal Surgery: Yes (colon sx) Appendectomy: Yes Cardiac Surgery: Yes (VALVE REPLACEMENT) Cholecystectomy: No Lung Surgery: No Neurologic Surgery: No Orthopedic Surgery: No - Immunization History Immunization Up to Date: Yes - Psycho Social/Smoking Cessation Hx Smoking Status: No Smoking History: Former smoker Years of Tobacco Use: 20 Have you smoked in the past 12 months: No Number of Cigarettes Smoked Daily: 0 If you are a former smoker, when did you quit?: 1984 Cigars Per Day: 0 Hx Alcohol Use: No Drug/Substance Use Hx: No Substance Use Type: None Hx Substance Use Treatment: No Review of Systems - Review of Systems Able to Perform ROS?: Yes Comments:: GENERAL/CONSTITUTIONAL: No fever or chills. No weakness HEAD, EYES, EARS, NOSE AND THROAT: No change in vision. No change in hearing. No sore throat CARDIOVASCULAR: No chest pain or shortness of breath RESPIRATORY: Denies cough, hemoptysis GASTROINTESTINAL: No nausea, vomiting, diarrhea or constipation GENITOURINARY: No dysuria, frequency, or change in urination MUSCULOSKELETAL: per HPI SKIN: No rash NEUROLOGIC: No headache, vertigo, loss of consciousness, or change in strength/ sensation ENDOCRINE: No increased thirst. No abnormal weight change HEMATOLOGIC/LYMPHATIC: +coumadin ALLERGIC/IMMUNOLOGIC: No hives or skin allergy 12/22/19 16:03 Is the patient limited [place]ian proficient: No *Physical Exam - Physical Exam GENERAL: Awake, alert, and oriented to person/place/time, in no acute distress HEAD: No signs of trauma, normocephalic, atraumatic EYES: PERRLA, EOMI, sclera anicteric, conjunctiva clear ENT: Hearing grossly normal, nares patent, oropharynx clear without exudates. Moist mucosa LUNGS: No distress, speaks in full sentences, clear to auscultation bilaterally HEART: Irregularly irregular w/ systolic murmur, peripheral pulses normal and equal bilaterally ABDOMEN: Soft, nontender, normoactive bowel sounds. No guarding, no rebound EXTREMITIES: R knee with tenderness over the tibial tuberosity and with ROM, mild ecchymosis, able to straight leg raise; LLE with strength 5/5 throughout and w/o obvious injury NEUROLOGICAL: Cranial nerves II through XII grossly intact. Normal speech, normal gait, no focal sensorimotor deficits SKIN: Slight right anterior knee ecchymosis, otherwise warm/dry 12/22/19 16:03 ED Treatment Course - RADIOLOGY Radiograph Interpretation: THIS IS A PRELIMINARY REPORT FROM [facility] EXAM: CT right knee without contrast FINDINGS: *Minimally displaced avulsion fracture of tibial tubercle. No obvious tibial plateau fracture. No depression of the tibial plateau. Osteopenia. 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 Small knee effusion. Anterior soft tissue edema. Extensive vascular calcifications 12/22/19 18:36 Medical Decision Making - Medical Decision Making The pt is an 89F w/ a history of CHF, HTN, HL, DM, RHD s/p MVR on coumadin, colon ca s/p resection who presents for evaluation after a fall from standing 2 days ago and was found to have a right tibial tubercle fx ED Course Imaging with evidence of tibial tubercle fx Pt able to bear weight with assitance Will place pt in KI and give ortho f/u Plan for D/C w/ Ortho f/u Discharge instructions and return precautions given Patient in agreement and verbalized understanding Dispo: Home 12/22/19 18:36 Discharge - Discharge Information Problems reviewed: Yes Clinical Impression/Diagnosis: Fracture of tibial tuberosity Qualifiers: Encounter type: initial encounter Fracture type: closed Fracture alignment: nondisplaced Laterality: right Qualified Code(s): S82.154A - Nondisplaced fracture of right tibial tuberosity, initial encounter for closed fracture Condition: Stable Disposition: HOME - Admission No - Follow up/Referral Referrals: Isrrael Lua MD [Primary Care Provider] - Jules Eaton DO [Staff Physician] - Noman Ellsworth MD [Staff Physician] - - Patient Discharge Instructions Patient Printed Discharge Instructions: How to Use a Knee Immobilizer Additional Instructions: You were seen in the Emergency Department for evaluation of right knee pain. You were found to have a fracture of your right tibial tubercle. You were provided with a knee immobilizer. Wear at all times while trying to ambulate. Use your walker when ambulating. Follow up with orthopedics this coming week. For pain you may take Tylenol 650mg every 6 hours as needed for pain. Return to the Emergency Department if you develop fevers, chest pain, trouble breathing, worsening pain, change in sensation, worsening symptoms, or any new/ concerning symptoms. - Post Discharge Activity
[2019-12-22 16:20] VITALS: BP 132/67; PULSE 88; TEMP 97.8; BMI 24.6
[2019-12-22] MEDS ORDERED: ACETAMINOPHEN 325 MG TABLET (FP) PO ONE (16:32)
[2019-12-22] MEDS ORDERED: ACETAMINOPHEN 325 MG TABLET (FP) ONE (16:39)
--- NOTE | 2019-12-22 18:39 | PDOC ---
Attending Attestation - Resident Resident Name: Jarad Cuello - ED Attending Attestation I have performed the following: I have examined & evaluated the patient, The case was reviewed & discussed with the resident - HPI HPI: 12/22/19 18:37 89-year-old female, tripped in the kitchen on , 2 days ago. She landed on her right knee. She denies any head injury or other injuries. She complains of right knee pain since that time. She is able to bear weight, but with significant pain, so she comes to the ED for evaluation. Past medical history includes atrial fibrillation and a mechanical mitral valve. She is followed very closely by Dr. Coates, cardiology. Her last INR level was checked yesterday in his office. Her INR was 2.9, right on target. - Physicial Exam PE: The patient is awake, alert, and oriented. She appears well. The head has no signs of trauma. Neck is normal range of motion without tenderness or pain. Lungs are clear. Heart is irregularly irregular with S1 and S2 and a systolic murmur. There is no gallop or rub. Abdomen is soft and nontender. Extremities are notable for tenderness, swelling, and slight warmth of the right knee. There is minor ecchymosis over a very small segment of the skin overlying the patella. There is no extensive ecchymosis. Skin is intact. Range of motion is mildly limited by pain in the right knee. The right hip has good range of motion and no tenderness. - Medical Decision Making 12/22/19 18:37 Elderly female on Coumadin, tripped in her kitchen 2 days ago and landed on her right knee. Now complaining of right knee pain. No other injuries. On Coumadin for mechanical mitral valve and atrial fibrillation with INR 2.9 measured yesterday. Physical examination is notable for tenderness around the right knee, but no other signs of injury in any other joints or parts of the body. X-rays of the right knee were notable for arthritic proximal tibia and a fracture of the tibial tuberosity without extension into the bone itself. Given the osteopenia, a CT scan was requested to further define the degree of injury. CT scan was read by imaging on-call and does not show any significant fracture. There is a fracture of the tibial tubercle, but otherwise no additional fracture. Patient will be given a knee immobilizer, she will continue to use her walker, and she will follow-up with orthopedics. Tylenol recommended for pain.
== END 2019-12-22 19:00 | disposition home or self-care (01) ==
LOC: FER 16:00
DX: S82.154A Nondisplaced fracture of right tibial tuberosity, initial encounter for closed fracture (principal); W18.39XA Other fall on same level, initial encounter; Y93.89 Activity, other specified; Y92.89 Other specified places as the place of occurrence of the external cause; I50.9 Heart failure, unspecified; I10 Essential (primary) hypertension; E78.5 Hyperlipidemia, unspecified; E11.9 Type 2 diabetes mellitus without complications; Z79.01 Long term (current) use of anticoagulants; Z85.038 Personal history of other malignant neoplasm of large intestine
CPT/HCPCS: 73562-TC-RT-FY; 73700-TC-RT; 99284-25